=== PATIENT | female | born 1955 | race Caucasian/White ===

== ENCOUNTER 2018-01-30 17:20 | Emergency (ER) | payer OTHER, SELFPAY ==
[2018-01-30 17:25] VITALS: BP 158/86; PULSE 77; RESP 22; TEMP 36.8; O2SAT 99; BMI 32.8
--- NOTE | 2018-01-30 18:37 | PC.NURSE ---
Patient reports she had a knee replacement surgery 1 year ago and has begun walking for exercise for the last month trying to get back in shape. She noticed initially that she was a little short of breath and that it has progressively gotten worse over the last few weeks. Reports exertional shortness of breath and a cough that is is tight. Was prescribed an albuterol nebulizer last week which she used 4x today with no relief. States she had to sleep sitting up last night. Denies swelling in the feet and reports some burning in the chest which is mild.
--- NOTE | 2018-01-30 18:52 | DI.RAD.S_ITS ---
PROCEDURE: XR CHEST 2V INDICATIONS: SHORTNESS OF BREATH TECHNIQUE: 2 views of the chest were acquired. COMPARISON: [facility], , CHEST 1 VIEW, 01/05/2017, 20:58. FINDINGS: Surgical changes and devices: None. Lungs and pleura: No pleural effusions or pneumothorax. Lungs are clear. Mediastinum: Mediastinal contours are normal. Heart size is normal. Bones and chest wall: No suspicious bony abnormalities. Soft tissues appear unremarkable. IMPRESSION: No acute intracranial abnormality. Dictated by: Elvis Gallagher M.D. on 01/30/2018 at 19:18 Approved by: Elvis Gallagher M.D. on 01/30/2018 at 19:18
[2018-01-30 19:15] VITALS: BP 165/63; PULSE 79; RESP 15; O2SAT 98
[2018-01-30 19:39] LABS: Add Manual Diff / Slide Review NO; Basophils Percent Auto 0.7 % (0-2); Eosinophils Percent Auto 2.2 % (2-4); Hematocrit 40.3 % (36-46); Mean Corpuscular HGB Conc 34.6 % (30-36); Mean Corpuscular Hemoglobin 33.8 PG (26-34); Mean Corpuscular Volume 97.8 fL (80-100); Monocytes Percent Auto 8.4 % (3-14); Neutrophils Absolute Auto 6400 /uL (3000-5900); Neutrophils Percent Auto 62.7 % (50-75); Platelet Count 291 X10^3/uL (150-400); Red Blood Cell Count 4.12 X10^6/uL (4.0-5.2); Red Cell Distribution Width 12.4 % (11.6-14.8); White Blood Cell Count 10.2 X10^3/uL (4.5-11.0)
[2018-01-30 19:45] LABS: BUN Creatinine Ratio 12.5 (6-22); Calcium 10.1 mg/dL (8.4-10.2); Estimated Glomerular Filt Rate > 60.0 mL/min (>60); Glucose 100 mg/dL (80-110); HEMOLYSIS < 15 (0-50); Potassium 3.9 mmol/L (3.4-5.1); Sodium 138 mmol/L (137-145)
[2018-01-30 19:50] LABS: D Dimer < 200 ng/mL (<231)
[2018-01-30 20:00] LABS: Troponin I < 0.012 ng/mL (0.01-0.034)
[2018-01-30 20:05] LABS: B Type Natriuretic Peptide 41.6 (<100)
[2018-01-30 20:30] VITALS: BP 130/65; PULSE 88; RESP 18; O2SAT 98
--- NOTE | 2018-01-30 21:05 | ED_ITS ---
HPI - SOB/Dyspnea General Chief Complaint: Shortness of Breath/Dyspnea Stated Complaint: COUGH,WHEZZING Time Seen by Provider: 01/30/18 18:16 History of Present Illness HPI 62-year-old obese female with HTN, and HLD presents for evaluation of mild exercise-induced shortness of breath/exercise intolerance that has been noticed over the last month as she is attempted to return to exercise phone knee replacement approximately one year ago. Patient notes that she had dyspepsia - like discomfort earlier today but is currently asymptomatic. * PE risk factors: denies recent immobilization, leg trauma, estrogen use, surgery in the last four weeks, hemoptysis, or malignancy in the last 6 months. * Smokin pack-year history. * Inhaler(s): albuterol, uses following upper respiratory infections. * CHF: denies weight gain or diuretic use. However, patient horses mild orthopnea. M/S/F/SocHx notable for: please see HPI; remainder reviewed with patient and in chart. ROS: Negative constitutional, eye, cardiovascular, pulmonary, GI, , MSK, skin , neurologic, psychiatric, endocrine unless noted in the HPI. Exam Gen: Pleasant, non-toxic appearing, resting comfortably. HEENT: NC, AT, PEERL, EOMI, trachea midline. Resp: Clear to auscultation bilaterally, normal work of breathing. Card: RRR with no M/R/G, no crackles in lung bases, no pedal edema, no JVD appreciated. GI: NT/ND Vascular: Both ankles, calves, and thighs of equal size, no calf tenderness to palpation bilaterally. MSK: No chest wall TTP. No visible deformities, strength and tone WNL. Skin: Normal color with no visible lesions. Neuro: AO x 3, no facial asymmetry, vision and hearing WNL. Psych: Mood and affect appropriate. Labs / Imaging (pertinent): WBC 10.2, HB 14.0, d-dimer less than 200, sodium 130, potassium 3.9, troponin less than 0.012, BNP 41.6 EKG: SR at 61 bpm, no HI segment depressions, no new ST segment changes, new LBBB, or T-wave changes that would suggest acute ischemia. CXR: No acute cardiopulmonary disease process. No focal infiltrate, cardiomegaly , rib fractures, or mediastinal widening, lung markings extend to the periphery bilaterally and there are no deep sulci. MDM Previous chart, nursing note, and vitals reviewed. A: 62-year-old obese female with HTN, and HLD presents for evaluation of mild exercise-induced shortness of breath/exercise intolerance that has been noticed over the last month as she is attempted to return to exercise phone knee replacement approximately one year ago. DDx: pneumonia, reactive airway disease / COPD / Asthma, bronchitis, pneumothorax, anxiety, PE, CHF, pleural effusion, pericardial effusion, ACS. Evaluation: * unstable angina - HEART (Hx - 0, EKG - 0, age - 1, risk factors - 2, troponin - 0; 30 day MACE: less than or equal to 1.7%) 3. * Reactive airway disease / COPD / Asthma - patient with good air movement and an absence of wheezing. * Pleural effusion/pericardial effusion/Pneumothorax - no evidence by CXR or exam. * PE - Wells' (Signs & Sx of DVT - 0, PE is #1 or equally likelihood - 0, HR > 100 - 0, immobilization of >=3 days or surgery in last 28 days - 0, prior DVT or PE - 0, hemoptysis - 0, malignancy w/ tx in last 6 mo or palliative - 0) 0; as such the patient's negative d-dimer is appropriate for PE rule out/risk stratification. * CHF - no evidence by auscultation, CXR, BNP, and absence of pedal edema. * ACS - doubt ACS given a non-ischemic EKG and a negative troponin greater than six hours from maximal symptom onset. * Deconditioning - tentatively suspect deconditioning, further evaluation deferred to PCP. Disposition: discharge with PCP follow-up. Impression: fatigue (please reference below for remainder of encounter information) Related Data Home Medications Medication Instructions Recorded Confirmed carvedilol [Coreg] PO BID #0 01/07/17 losartan 100 mg PO HS #0 01/07/17 Allergies Allergy/AdvReac Type Severity Reaction Status Date / Time meperidine [From DEMEROL] Allergy Unknown Hallucinati Verified 01/30/18 17:29 ng morphine [MORPHINE] Allergy Unknown Difficulty Verified 01/30/18 17:30 Breathing PFSH Social History Smoking Status: Never smoker Exam Initial Vital Signs Initial Vital Signs: Vital Signs Temperature 98.3 F 01/30/18 17:25 Pulse Rate 77 01/30/18 17:25 Respiratory Rate 22 01/30/18 17:25 Blood Pressure 158/86 H 01/30/18 17:25 Pulse Oximetry 99 01/30/18 17:25 Course Orders Ordered: ED Orders 01/30/18 18:40 EKG-12 Lead Stat 01/30/18 18:52 XR chest 2V Stat 01/30/18 19:20 B Type Natriuretic Peptide Stat Basic Metabolic Panel Stat Complete Blood Count AUTO DIFF Stat D Dimer Stat Troponin I Stat Vital Signs - 8 hr 01/30/18 17:25 01/30/18 19:15 Temperature 98.3 F Pulse Rate 77 79 Respiratory Rate 22 15 Blood Pressure 158/86 H Blood Pressure [Left Arm] 165/63 H Pulse Oximetry 99 98 MDM - SOB/Dyspnea Lab Data Result diagrams: 01/30/18 19:20 01/30/18 19:20 Lab Results 01/30/18 01/30/18 01/30/18 Range/Units 19:20 19:20 19:20 WBC 10.2 (4.5-11.0) X10^3/uL RBC 4.12 (4.0-5.2) X10^6/uL Hgb 14.0 (12.0-16.0) g/dL Hct 40.3 (36-46) % MCV 97.8 (80-100) fL MCH 33.8 (26-34) PG MCHC 34.6 (30-36) % RDW 12.4 (11.6-14.8) % Plt Count 291 (150-400) X10^3/uL Neut % (Auto) 62.7 (50-75) % Lymph % (Auto) 26.0 (25-40) % [place] % (Auto) 8.4 (3-14) % Eos % (Auto) 2.2 (2-4) % Baso % (Auto) 0.7 (0-2) % Neut # (Auto) 6400 H (5603-4042) /uL D-Dimer < 200 (<231) ng/mL Sodium 138 (137-145) mmol/L Potassium 3.9 (3.4-5.1) mmol/L Chloride 95.0 L (98-107) mmol/L Carbon Dioxide 28.0 (22-32) mmol/L BUN 10.0 (7-17) mg/dL Creatinine 0.80 (0.52-1.04) mg/dL Estimated GFR > 60.0 (>60) mL/min BUN/Creatinine Ratio 12.5 (6-22) Glucose 100 (80-110) mg/dL Calcium 10.1 (8.4-10.2) mg/dL Troponin I < 0.012 (0.01-0.034) ng/mL B-Natriuretic Peptide 41.6 (<100) Discharge Plan Departure Prescriptions: No Action carvedilol [Coreg] 12.5 mg Tablet PO BID Qty: 0 RF: 0 losartan 100 MG tablet 100 mg PO HS Qty: 0 RF: 0
--- NOTE | 2018-01-30 21:16 | PC.NURSE ---
Patient standing up at bedside coughing, cough sounds tight and bronchospastic. She states it is like a constant catch or tickle. I listened and could hear a very minor wheeze on her back. O2 Saturation is 96%. Patient has her own inhaler and states she used it 4x today. She does not have a spacer. I provided her with a spacer and taught her how to use it. I also explained to her how often she can use it. She used it at the bedside and cough subsided a bit. States she will use it at home and follow up with her PCP at her appointment on tuesday. Torres aware of all of this. Ok to DC.
[2018-01-30 21:22] VITALS: BP 129/63; PULSE 77; RESP 18; O2SAT 96
== END 2018-01-30 21:23 | disposition home or self-care (01) ==
PROVIDERS: Emergency Provider Emergency Medicine
DX: R53.83 Other fatigue (principal)
CPT/HCPCS: 36591; 71046; 80048; 83880; 84484; 85025; 85379; 93005; 93041; 99283; 99285

== ENCOUNTER → 2018-08-16 09:18 | Outpatient (CLI) | payer OTHER, SELFPAY ==
--- NOTE | 2018-08-16 | DI.MG.S_ITS ---
BILATERAL DIGITAL SCREENING MAMMOGRAM 3D/2D WITH CAD: 08/16/2018 CLINICAL: Routine screening. Family history of breast cancer. Comparison is made to exams dated: 08/09/2017 mammogram - [facility], 07/29/2016 mammogram, 07/26/2016 mammogram, and 01/20/2015 mammogram - [facility]. There are scattered fibroglandular elements in both breasts. Current study was also evaluated with a Computer Aided Detection (CAD) system. No significant masses, calcifications, or other findings are seen in either breast. There has been no significant interval change. IMPRESSION: NEGATIVE There is no mammographic evidence of malignancy. A 1 year screening mammogram is recommended. This exam was interpreted at Station ID: [id number]. NOTE: For mammograms, a report in lay terms will be sent to the patient. Approximately 15% of breast malignancies will not be visualized mammographically. In the management of a palpable breast mass, a negative mammogram must not discourage biopsy of a clinically suspicious lesion. Electronically Signed By: Samy michael/katie:08/16/2018 11:45:22 letter sent: Normal Exam ACR BI-RADS Category 1: Negative 3341F
== END ==
PROVIDERS: Visit Provider Family Medicine
DX: Z12.31 Encounter for screening mammogram for malignant neoplasm of breast (principal); Z80.3 Family history of malignant neoplasm of breast
CPT/HCPCS: 77063; 77067

== ENCOUNTER → 2018-08-18 10:27 | Outpatient (CLI) | payer OTHER, SELFPAY ==
--- NOTE | 2018-08-18 10:30 | DI.RAD.S_ITS ---
PROCEDURE: XR CHEST 2V INDICATIONS: cough and shortness of breath TECHNIQUE: 2 views of the chest were acquired. COMPARISON: [facility], CR, XR CHEST 2V, 01/30/2018, 18:44. FINDINGS: Surgical changes and devices: None. Lungs and pleura: No pleural effusions or pneumothorax. Lungs are clear. Mediastinum: Mediastinal contours are normal. Heart size is normal. Bones and chest wall: No suspicious bony abnormalities degenerative changes of the bilateral shoulders are present.. Soft tissues appear unremarkable. IMPRESSION: Stable chest. No acute cardiopulmonary process is evident. Dictated by: Andres Goldsmith M.D. on 08/18/2018 at 9:48 Approved by: Andres Goldsmith M.D. on 08/18/2018 at 9:49
== END ==
PROVIDERS: PCP Family Medicine; Visit Provider Physician Assistant
DX: R05 Cough (principal); R06.02 Shortness of breath
CPT/HCPCS: 71046

== ENCOUNTER → 2018-08-22 15:32 | Outpatient (CLI) | payer OTHER, SELFPAY ==
--- NOTE | 2018-08-22 15:33 | DI.RAD.S_ITS ---
PROCEDURE: XR CHEST 2V INDICATIONS: cough TECHNIQUE: 2 views of the chest were acquired. COMPARISON: [facility], CR, XR CHEST 2V, 08/18/2018, 10:35. FINDINGS: Surgical changes and devices: None. Lungs and pleura: Minimal linear discoid atelectasis at the left lung base is identified. No focal consolidation is evident. No pleural effusion or pneumothorax is evident. The aeration of the lungs is otherwise within normal limits and unchanged. Mediastinum: Mediastinal contours are normal. Heart size is normal. Bones and chest wall: No suspicious bony abnormalities. Soft tissues appear unremarkable. IMPRESSION: Mild left basilar atelectasis present superimposed pneumonia is felt to be less likely, but cannot be completely excluded. Dictated by: Andres Goldsmith M.D. on 08/22/2018 at 15:59 Approved by: Andres Goldsmith M.D. on 08/22/2018 at 16:00
== END ==
PROVIDERS: PCP Family Medicine; Visit Provider Physician Assistant
DX: R05 Cough (principal); J98.11 Atelectasis
CPT/HCPCS: 71046

== ENCOUNTER → 2019-03-20 10:58 | Outpatient (CLI) | payer OTHER, SELFPAY ==
--- NOTE | 2019-03-20 10:59 | DI.RAD.S_ITS ---
PROCEDURE: XR CHEST 2V INDICATIONS: cough TECHNIQUE: 2 views of the chest were acquired. COMPARISON: [facility], CR, XR CHEST 2V, 08/22/2018, 15:36. FINDINGS: Surgical changes and devices: None. Lungs and pleura: Lungs are clear. No pleural effusions or pneumothorax. Mediastinum: Mediastinal contours are normal. Heart size is normal. Bones and chest wall: No suspicious bony abnormalities. Soft tissues appear unremarkable. IMPRESSION: No evidence acute pulmonary process. Dictated by: Pedro Onofre M.D. on 03/20/2019 at 11:41 Approved by: Pedro Onofre M.D. on 03/20/2019 at 11:41
== END ==
PROVIDERS: PCP Student in an Organized Health Care Education/Training Program; Visit Provider Physician Assistant
DX: R05 Cough (principal)
CPT/HCPCS: 71046

== ENCOUNTER → 2019-07-06 16:12 | Outpatient (CLI) | payer OTHER, SELFPAY ==
--- NOTE | 2019-07-06 16:14 | DI.RAD.S_ITS ---
PROCEDURE: XR THORACIC SPINE 3V INDICATIONS: Upper back pain; point tenderness of spine TECHNIQUE: 3 views of the thoracic spine were acquired. COMPARISON: [facility], CR, XR CHEST 2V, 03/20/2019, 11:06. FINDINGS: Bones: No fractures or dislocations. No suspicious bony lesions. 12 pairs of ribs are noted, and appear intact where visualized. Mild dextrocurvature centered at the mid thoracic level. Mild multilevel disc degeneration. Soft tissues: No paravertebral stripe thickening. Cholecystectomy clips. IMPRESSION: Mild multilevel disc degeneration. Dictated by: Felix CORREA Interpreted: Yanet Balderas MD on 07/06/2019 at 16:36 Approved by: Yanet Balderas M.D. on 07/06/2019 at 18:47
== END ==
PROVIDERS: PCP Student in an Organized Health Care Education/Training Program; Visit Provider Student in an Organized Health Care Education/Training Program
DX: M51.34 Other intervertebral disc degeneration, thoracic region (principal)
CPT/HCPCS: 72072

== ENCOUNTER 2019-07-27 06:32 | Day surgery (SDC) | payer OTHER, SELFPAY ==
[2019-07-23 15:07] VITALS: BMI 32.8
[2019-07-27] VITALS (10 sets, daily range): BP systolic 112–150; BP diastolic 55–79; PULSE 74–97; RESP 0–97; TEMP 35.9–36.7; O2SAT 10–98; BMI 31.8
--- NOTE | 2019-07-27 | PATH_ITS ---
[facility] Accession Number: [id number] . 01 Material submitted: . uterine adnexa - BILATERAL OVARIES AND FALLOPIAN TUBES . 01 Clinical history: . LAPAROSCOPIC BSO . 02 Diagnosis: Bilateral Ovaries and Fallopian Tubes, Laparoscopic Bilateral Salpingo-oophorectomy: Detached segment of fallopian tube with no significant histomorphologic abnormality. Blue-inked segment of fallopian tube and blue-inked ovary with no significant histomorphologic abnormality. Green-inked fallopian tube with non-specific adhesions and green-inked ovary with no significant histomorphologic abnormality. Negative for atypia or malignancy. V 07/30/2019 1547 Local . 02 Electronically signed: . Selin Jackson MD, Pathologist NPI- [id number] . 01 Gross description: . The specimen is received in a formalin-filled container labeled bilateral ovaries and fallopian tubes and consists of a 2.0 x 0.5 cm segment of fallopian tube which has an underlying attached 2.7 x 1.3 x 1.2 cm ovary, which have a combined weight of 2.0 g. Also present is a 2.0 x 0.6 cm additional segment of fallopian tube which has an underlying attached 2.5 x 1.2 x 1.0 cm ovary, which has a combined weight of 6.0 g. Lastly, separately received in the same container is an additional 5.4 x 0.6 cm in length portion of fallopian tube. The fallopian tubes are all pink-moore, smooth, and intact. One tube with underlying attached ovary is differentially inked blue and the opposing tube with attached underlying ovary is differentially inked green. Sectioning of the fallopian tubes reveal pink-moore, grossly unremarkable cut surfaces with a pinpoint lumen. The green-inked fallopian tube is convoluted and focally adherent onto itself. The ovarian serosa is moore, smooth, and nodular. Sectioning of the ovaries reveal focally hemorrhagic, otherwise grossly unremarkable cut surfaces. The usual ovarian architecture is grossly identified. . [employer] Specialist sections are submitted as follows: A1 - free-floating fallopian tube without ovary; A2 - blue-inked fallopian tube, sectioned and entirely submitted; A3-A4 - green-inked fallopian tube, sectioned and entirely submitted; A5 - blue-inked ovary; A6 - green-inked ovary. ([id number]) /FRR 07/28/2019 1057 Local . 02 Pathologist provided ICD-10: Z15.09 . 02 CPT . 104822 Performed at: 01 [facility] [address] [id number] MD Samy Cordoba MD Phone: [phone] Performed at: 02 [facility] [address] [place], [place] [id number] MD Kamini Jang MD Phone: [phone]
--- NOTE | 2019-07-27 07:28 | PM.PREOP ---
Pre-operative Note Interval Note History & Physical reviewed/Exam performed by Physician: Yes Changes to H&P: No
[2019-07-27] MEDS: LACTATED RINGERS 1,000 ML 42 ML IV (07:29)
[2019-07-27] MEDS: BUPIVACAINE 0.5% W/ EPI (PF) VIAL 30 ML INJ (08:01)
--- NOTE | 2019-07-27 08:05 | SUR.OPER ---
Lithotomy on padded OR bed, head on pillow, arms secured on padded arm boards at <90 degrees abduction. Legs secured in padded yellow fins stirrups.
--- NOTE | 2019-07-27 08:45 | PM.OP.1 ---
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 No adhesions or internal hernias. Small bilateral ovaries and fallopian tubes status post hysterectomy Closure Type: primary Specimen(s): other (Bilateral tubes and ovaries with peritoneal washings) Estimated Blood Loss (mL): 5 Blood products transfused: none Procedure in detail: Patient was brought to the operating room where she underwent general anesthesia. She was placed in low yellowfin stirrups and prepped and draped in usual sterile fashion. No antibiotics were indicated. Pulsatile stockings were in place and functional. Warming was in place. The area of the incisions were injected with half percent Marcaine with epinephrine. An incision was made in the umbilicus with a scalpel and the Verres needle placed in the abdomen. Confirmation of correct placement of the needle was performed by withdrawing on the syringe and then allowing fluid to fall freely through the needle. The abdomen was insufflated to 4 L of CO2. A 11 mm trocar was placed under direct visualization. 2 other 5 mm trochars were placed in the right and left lower quadrant under direct visualization after incising the skin. There did not appear to be any damage with placement of the trocars. Cell washings were obtained. The right fallopian tube was grasped and the infundibulopelvic ligament was cauterized and cut with the PK generator. Hugging the ovary and coming across the broad ligament until the ovary and tube were removed. Same procedure was performed on the left fallopian tube and ovary. An Endo-Catch bag was placed in the abdomen and the ovaries and tubes placed in the bag. The ovaries and tubes were brought up out of the abdomen without spillage. Adequate hemostasis was noted. The CO2 was allowed to escape from the abdomen. The trochars were removed. The fascial layer of the umbilical incision was repaired with 0 Vicryl suture. Skin was closed with 4-0 monocryl. The patient went to recovery room in good condition. Counts of instruments and sponges were correct. Complications: none Post-operative Condition: stable Disposition: same day surgery Plan for aftercare: Routine post laparoscopic BSO
[2019-07-27] MEDS: fentaNYL 100 MCG/2 ML INJ IV ×2 (08:49→08:56)
[2019-07-27] MEDS: KETOROLAC 30 MG/ML VIAL IV (08:58)
[2019-07-27] MEDS: HYDROMORPHONE 2 MG INJ IV ×2 (09:01→09:12)
[2019-07-27] MEDS: OXYCODONE/ACETAMINOPHEN 5/325 TABLET 1 TAB PO (09:34)
--- NOTE | 2019-07-27 09:53 | SUR.PHASEII ---
Call light within reach. Warming machine in place. Spouse at bedside.
--- NOTE | 2019-07-27 10:47 | SUR.PHASEII ---
Discharged by Aan
--- NOTE | 2019-08-06 | PATH_ITS ---
Note [facility] Accession Number: [id number] TESTS RESULT FLAG UNITS REF RANGE LAB Clinician Provided Cytology Information No. of containers..01 Other (Miscellaneous) 01 PERITONEAL FLUID DIAGNOSIS: 02 PERITONEAL FLUID NEGATIVE FOR MALIGNANT CELLS. THIS INTERPRETATION INCLUDES EVALUATION OF A CELL BLOCK. Pathologist ICD10: 02 Z15.09 02 Thomas Pulido MD, PhD, Pathologist NPI- [id number] Jef Draper, Picking Machine Operator Helper ([facility]) 01 20 CC, PINK, CLOUDY /LCS 09/11/1840 0000 Local FLAG LEGEND: L-Low Normal,H-High Normal,LL-Alert Low,HH-Alert High <-Panic Low,>-Panic High,A-Abnormal,AA-Critical Abnormal Performed at: 01 =Z [facility] [address], [place] [address] Samy Cordoba MD, 02 [facility] [address] [place] [id number] Kamini Jang MD, Specimen Comment: A duplicate report has been generated due to demographic updates. Performed at: 01 [facility] [address], [place], [place] [id number] MD Samy Cordoba MD Phone: [phone]
== END 2019-07-27 10:35 | disposition home or self-care (01) ==
PROVIDERS: PCP Student in an Organized Health Care Education/Training Program; Visit Provider Specialist
PROC: 0UT24ZZ Resection of Bilateral Ovaries, Percutaneous Endoscopic Approach (ICD-10-PCS; CPT 58661; principal; 2019-07-27 07:45)
DX: Z40.02 Encounter for prophylactic removal of ovary(s) (principal); Z15.09 Genetic susceptibility to other malignant neoplasm; J45.909 Unspecified asthma, uncomplicated; I10 Essential (primary) hypertension
CPT/HCPCS: 58661; J0330; J1100; J1170; J1885; J2405; J2704; J3010

== ENCOUNTER → 2019-10-11 11:19 | Outpatient (CLI) | payer OTHER, SELFPAY ==
--- NOTE | 2019-10-11 | DI.MG.S_ITS ---
BILATERAL DIGITAL SCREENING MAMMOGRAM 3D/2D WITH CAD: 10/11/2019 CLINICAL: Routine screening. Family history of breast cancer. Comparison is made to exams dated: 08/16/2018 mammogram, 08/09/2017 mammogram - [facility], and 07/29/2016 mammogram - [facility]. There are scattered fibroglandular elements in both breasts. Current study was also evaluated with a Computer Aided Detection (CAD) system. No significant masses, calcifications, or other findings are seen in either breast. There has been no significant interval change. IMPRESSION: NEGATIVE There is no mammographic evidence of malignancy. A 1 year screening mammogram is recommended. This exam was interpreted at Station ID: [id number]. NOTE: For mammograms, a report in lay terms will be sent to the patient. Approximately 15% of breast malignancies will not be visualized mammographically. In the management of a palpable breast mass, a negative mammogram must not discourage biopsy of a clinically suspicious lesion. Electronically Signed By: Ashleigh ruiz/katie:10/11/2019 12:19:07 letter sent: Normal Exam ACR BI-RADS Category 1: Negative 3341F
== END ==
PROVIDERS: PCP Student in an Organized Health Care Education/Training Program; Visit Provider Student in an Organized Health Care Education/Training Program
DX: Z12.31 Encounter for screening mammogram for malignant neoplasm of breast (principal); Z80.3 Family history of malignant neoplasm of breast
CPT/HCPCS: 77063; 77067

== ENCOUNTER → 2019-11-06 16:41 | Outpatient (CLI) | payer OTHER, SELFPAY ==
[2019-11-06 18:20] LABS: Alanine Aminotransferase 29 IU/L (<35); Albumin 4.8 g/dL (3.5-5.0); Albumin Globulin Ratio 1.7 (1.0-2.8); Alkaline Phosphatase 79 U/L (38-126); Aspartate Aminotransferase 30 IU/L (14-36); BUN Creatinine Ratio 17.5 (6-22); Bilirubin Total 0.3 mg/dL (0.2-1.3); Blood Urea Nitrogen 14 mg/dL (7-17); Calcium 10.3 mg/dL (8.4-10.2); Carbon Dioxide 28 mmol/L (22-32); Chloride 99 mmol/L (98-107); Cholesterol 225 mg/dL (140-199); Estimated Glomerular Filt Rate > 60.0 mL/min (>60); Globulin 2.9 g/dL (1.7-4.1); Glucose 108 mg/dL (80-110); HDL Cholesterol 59 mg/dL (40-60); HEMOLYSIS < 15 (0-50); LDL Cholesterol Calculated 125 mg/dL (<100); Potassium 4.1 mmol/L (3.4-5.1); Sodium 137 mmol/L (137-145); Total Protein 7.7 g/dL (6.3-8.2); Triglycerides 203 mg/dL (35-150)
[2019-11-06 18:30] LABS: C-Reactive Protein Quant < 0.5 mg/dL (<1.0)
[2019-11-06 18:40] LABS: Vitamin D 25 Hydroxy (D3) 53.8 ng/mL (30.0-100.0)
[2019-11-06 18:53] LABS: TSH w/ Reflex to FT4 0.96 uIU/mL (0.47-4.68)
== END ==
PROVIDERS: PCP Student in an Organized Health Care Education/Training Program; Referring Provider Student in an Organized Health Care Education/Training Program; Visit Provider Student in an Organized Health Care Education/Training Program
DX: Z13.220 Encounter for screening for lipoid disorders (principal); E55.9 Vitamin D deficiency, unspecified; Z91.89 Other specified personal risk factors, not elsewhere classified; I10 Essential (primary) hypertension; Z15.09 Genetic susceptibility to other malignant neoplasm; Z79.899 Other long term (current) drug therapy; K59.09 Other constipation
CPT/HCPCS: 36415; 80053; 80061; 82306; 84443; 86140

== ENCOUNTER → 2020-10-14 11:13 | Outpatient (CLI) | payer OTHER, SELFPAY ==
--- NOTE | 2020-10-14 | DI.MG.S_ITS ---
BILATERAL DIGITAL SCREENING MAMMOGRAM 3D/2D WITH CAD: 10/14/2020 CLINICAL: Routine screening. Comparison is made to exams dated: 10/11/2019 mammogram, 08/16/2018 mammogram, and 08/09/2017 mammogram - [facility]. There are scattered fibroglandular elements in both breasts. Current study was also evaluated with a Computer Aided Detection (CAD) system. No significant masses, calcifications, or other findings are seen in either breast. There has been no significant interval change. IMPRESSION: NEGATIVE There is no mammographic evidence of malignancy. A 1 year screening mammogram is recommended. This exam was interpreted at Station ID: [id number]. NOTE: For mammograms, a report in lay terms will be sent to the patient. Approximately 15% of breast malignancies will not be visualized mammographically. In the management of a palpable breast mass, a negative mammogram must not discourage biopsy of a clinically suspicious lesion. Electronically Signed By: Samy michael/katie:10/14/2020 16:11:42 letter sent: Normal Exam ACR BI-RADS Category 1: Negative 3341F
== END ==
PROVIDERS: PCP Student in an Organized Health Care Education/Training Program; Referring Provider Student in an Organized Health Care Education/Training Program; Visit Provider Student in an Organized Health Care Education/Training Program
DX: Z12.31 Encounter for screening mammogram for malignant neoplasm of breast (principal)
CPT/HCPCS: 77063; 77067

== ENCOUNTER 2021-01-18 22:42 | Emergency (ER) | payer OTHER, SELFPAY ==
[2021-01-18 22:44] VITALS: BP 155/85; PULSE 90; RESP 22; TEMP 36.9; O2SAT 99; BMI 32.8
--- NOTE | 2021-01-18 22:52 | DI.RAD.S_ITS ---
PROCEDURE: XR CHEST 2V INDICATIONS: shortness of breath TECHNIQUE: 2 views of the chest were acquired. COMPARISON: [facility], CR, XR CHEST 2V, 03/20/2019, 11:06. FINDINGS: Surgical changes and devices: None. Lungs and pleura: Lungs are clear. Mild central bronchial wall thickening. No pleural effusions or pneumothorax. Mediastinum: Mediastinal contours are normal. Heart size is normal. Bones and chest wall: No suspicious bony abnormalities. Soft tissues appear unremarkable. IMPRESSION: No consolidation. Mild central bronchial wall thickening which can be associated with reactive airway disease or viral infection. Dictated by: Saumya Mahoney MD, PhD on 01/19/2021 at 9:13 Approved by: Saumya Mahoney MD, PhD on 01/19/2021 at 9:14
[2021-01-18 23:16] LABS: COVID19 -Nasal RAPID Negative (Negative)
[2021-01-18] MEDS: ALBUTEROL 2.5 MG/3 ML NEB (ADULT) 15 MG INH (23:18)
[2021-01-18] MEDS: IPRATROPIUM 0.5 MG/2.5 ML NEB INH (23:18)
[2021-01-18 23:24] VITALS: PULSE 84; RESP 24
[2021-01-18 23:30] LABS: Add Manual Diff / Slide Review NO; Basophils Absolute Auto 0 /uL (0-100); Basophils Percent Auto 0.4 % (0-2); Eosinophils Absolute Auto 0 /uL (0-450); Hematocrit 40.4 % (36-46); Hemoglobin 13.6 g/dL (12.0-16.0); Lymphocytes Absolute Auto 2700 /uL (1100-4500); Lymphocytes Percent Auto 25.7 % (25-40); Mean Corpuscular HGB Conc 33.7 % (30-36); Mean Corpuscular Hemoglobin 33.2 PG (26-34); Mean Corpuscular Volume 98.5 fL (80-100); Monocytes Absolute Auto 800 /uL (0-900); Neutrophils Absolute Auto 6900 /uL (1500-7000); Neutrophils Percent Auto 65.9 % (50-75); Platelet Count 332 X10^3/uL (150-400); Red Cell Distribution Width 12.2 % (11.6-14.8); White Blood Cell Count 10.5 X10^3/uL (4.5-11.0)
[2021-01-18 23:33] LABS: Lactate (Lactic Acid) 3.5 mmol/L (0.7-2.1)
[2021-01-18 23:34] LABS: Alanine Aminotransferase 38 IU/L (<35); Albumin 4.8 g/dL (3.5-5.0); Albumin Globulin Ratio 1.5 (1.0-2.8); Alkaline Phosphatase 82 U/L (38-126); Aspartate Aminotransferase 34 IU/L (14-36); Bilirubin Total 0.2 mg/dL (0.2-1.3); Blood Urea Nitrogen 20 mg/dL (7-17); Calcium 10.3 mg/dL (8.4-10.2); Carbon Dioxide 24 mmol/L (22-32); Chloride 97 mmol/L (98-107); Estimated Glomerular Filt Rate > 60.0 mL/min (>60); Globulin 3.3 g/dL (1.7-4.1); Glucose 108 mg/dL (80-110); HEMOLYSIS < 15 (0-50); Potassium 4.2 mmol/L (3.4-5.1); Sodium 133 mmol/L (137-145); Total Protein 8.1 g/dL (6.3-8.2)
[2021-01-19] VITALS (19 sets, daily range): BP systolic 115–136; BP diastolic 54–78; PULSE 70–97; RESP 14–27; O2SAT 91–99
[2021-01-19 01:19] LABS: Reflexed Lactate in 2 Hours Y
--- NOTE | 2021-01-19 01:50 | ED.SOB ---
HPI - SOB/Dyspnea <Zulema Cifuentes, DO - Last Filed: 01/20/21 04:01> General Chief Complaint: Shortness of Breath/Dyspnea Stated Complaint: asthma attack Time Seen by Provider: 01/19/21 01:50 Source: patient Mode of arrival: Ambulatory Limitations: no limitations History of Present Illness HPI Narrative: This is a 65-year-old female comes in with increasing shortness of breath and wheezing for the past week. Patient states she caught a recent viral infection and has had cough, nasal congestion and increasing productive congestion in her upper airways. Patient has a history of asthma/reactive airway disease and has had some increasing shortness of breath. She denies any chest pain or pressure. She denies any fevers. She has not had any nausea or vomiting she denies any other GI or urinary symptoms. No swelling in her extremities. She is on budesonide twice daily. She started a prednisone taper and has had 3 days of 40 mg prednisone and is about to start 3 days of 30 mg prednisone which is a automatic prescription she has from her asthma action plan. Patient has done DuoNebs x2 with minimal improvement. She started having some tightness in her throat and felt like she needs to cough and was not able to break the coughing cycle and came in. Patient states she does take hypertension medication. She denies other medical issues. She has allergies to Demerol and morphine. She is accompanied by her today. Related Data Previous Rx's Medication Instructions Recorded prednisone 20 mg tablet 20 mg PO DAILY #10 tab 10/30/19 albuterol sulfate 90 mcg/actuation 1 inh INHALATION Q4-6H PRN #18 gram 02/19/20 aerosol inhaler losartan 100 mg tablet 100 mg PO HS #90 tab 03/20/20 bupropion HCl 100 mg tablet,12 hr 100 mg PO DAILY #90 each 07/15/20 sustained-release budesonide 0.5 mg/2 mL suspension 0.5 mg INHALATION BID #60 ml 07/30/20 for nebulization beclomethasone dipropionate 80 1 inh INHALATION BID #10.6 gram 11/28/20 mcg/actuation HFA breath activated aerosol ipratropium 0.5 mg-albuterol 3 mg 3 ml INHALATION Q6H PRN #90 ml 11/28/20 (2.5 mg base)/3 mL nebulization soln amlodipine 5 mg tablet 5 mg PO DAILY #90 tab 01/15/21 ipratropium-albuterol 3 ml INHALATION BID #90 ml 01/19/21 prednisone See Rx Instructions .ROUTE 01/19/21 .COMPLEX #30 tab Allergies Allergy/AdvReac Type Severity Reaction Status Date / Time meperidine [From DEMEROL] Allergy Unknown Hallucinati Verified 10/30/19 13:01 ng morphine [MORPHINE] Allergy Unknown Difficulty Verified 10/30/19 13:01 Breathing Review of Systems <Zulema Cifuentes DO - Last Filed: 01/20/21 04:01> Review of Systems ROS Unobtainable: All systems reviewed & are unremarkable except as noted in HPI and below Patient History <Zulema Cifuentes DO - Last Filed: 01/20/21 04:01> Medical History Depression HTN (hypertension) Plantar fasciitis Surgical History H/O: hysterectomy History of bilateral oophorectomy (~07/2019) History of section Hx of bilateral inguinal hernia repair Hx of cholecystectomy Social History household members: spouse Smoking Status: Never smoker alcohol intake: current Smoking Status: Never smoker alcohol intake frequency: a few times a week Substance Use Type: does not use Exam <Zulema Cifuentes DO - Last Filed: 01/20/21 04:01> Narrative Exam Narrative: GEN: well nourished, female, alert and oriented x 3, patient appears to be in mild distress. Patient had already received a 15 mg albuterol neb. HEENT: Atraumatic, pupils are equal round reactive to light, extraocular movements are intact, nares are clear, Throat is clear without any exudates, erythema, tonsillar enlargement or uvular deviation HEART: Regular rate and rhythm without murmur, clicks, rubs. No edema bilateral lower extremities. No JVD. LUNGS:Lungs breath sounds bilaterally which are equal, no wheezes, rales, crackles, chest moves symmetrically, no tachypnea. Patient has a dry harsh cough. ABD:bowel sounds normal, soft, non-tender, no guarding, rebound, rigidity, no masses noted, no hepatosplenomegaly :No CVA tenderness MSCL: Non-tender, full range of motion, normal gait NEURO:CN 2-12 intact, sensation normal Initial Vital Signs Initial Vital Signs: Vital Signs Temperature 98.4 F 01/18/21 22:44 Pulse Rate 90 01/18/21 22:44 Respiratory Rate 22 01/18/21 22:44 Blood Pressure 155/85 H 01/18/21 22:44 Pulse Oximetry 99 01/18/21 22:44 <Jerry Sherman DO - Last Filed: 01/19/21 15:29> Initial Vital Signs Initial Vital Signs: Vital Signs Temperature 98.4 F 01/18/21 22:44 Pulse Rate 90 01/18/21 22:44 Respiratory Rate 22 01/18/21 22:44 Blood Pressure 155/85 H 01/18/21 22:44 Pulse Oximetry 99 01/18/21 22:44 Course <Zulema Cifuentes DO - Last Filed: 01/20/21 04:01> Orders Ordered: Discontinued Medications Albuterol (Albuterol 2.5 Mg/3 Ml Neb (Adult)) 15 mg INH NOW ONE Stop: 01/18/21 23:13 Last Admin: 01/18/21 23:18 Dose: 15 mg Documented by: MARIO ALBERTO Benzonatate (Benzonatate 100 Mg Capsule) 100 mg PO NOW ONE Stop: 01/19/21 02:19 Last Admin: 01/19/21 02:40 Dose: 100 mg Documented by: MADELYN Sodium Chloride (Normal Saline 0.9%) 1,000 mls @ 1,000 mls/hr IV BOLUS ONE Stop: 01/19/21 03:53 Last Infusion: 01/19/21 04:38 Dose: 0 mls/hr Documented by: Admin: 01/19/21 03:15 Dose: 1,000 mls/hr Documented by: CHENTE Ipratropium [place] (Ipratropium 0.5 Mg/2.5 Ml Neb) 0.5 mg INH NOW ONE Stop: 01/18/21 23:13 Last Admin: 01/18/21 23:18 Dose: 0.5 mg Documented by: MARIO ALBERTO Methylprednisolone (Methylprednisolone 125 Mg/2 Ml Vial) 125 mg IV NOW ONE Stop: 01/19/21 02:04 Last Admin: 01/19/21 02:18 Dose: 125 mg Documented by: MADELYN Vital Signs Vital signs: Vital Signs - 8 hr 01/19/21 07:30 01/19/21 08:00 01/19/21 10:26 Pulse Rate 87 80 70 Respiratory Rate 15 18 Blood Pressure 122/78 Pulse Oximetry 96 91 99 <Jerry Sherman, DO - Last Filed: 01/19/21 15:29> Course Course Narrative: Patient received in sign-out from Dr. Cifuentes. Patient seen and evaluated and independent history and physical performed. She is preparing to get her CT angiogram we will discuss disposition at that point Patient feels much better, lung sounds show marked improvement, imaging demonstrates no blood clot or pneumonia. Her lactate is elevated but she has no fever, elevated white blood cell count or sign of infection. It is very likely this is elevated due to the frequency of use of bronchodilators. Sepsis is not considered likely in this patient. He has been given extensive return precautions and had questions answered to her apparent satisfaction. Orders Ordered: Discontinued Medications Albuterol (Albuterol 2.5 Mg/3 Ml Neb (Adult)) 15 mg INH NOW ONE Stop: 01/18/21 23:13 Last Admin: 01/18/21 23:18 Dose: 15 mg Documented by: MARIO ALBERTO Benzonatate (Benzonatate 100 Mg Capsule) 100 mg PO NOW ONE Stop: 01/19/21 02:19 Last Admin: 01/19/21 02:40 Dose: 100 mg Documented by: MADELYN Sodium Chloride (Normal Saline 0.9%) 1,000 mls @ 1,000 mls/hr IV BOLUS ONE Stop: 01/19/21 03:53 Last Infusion: 01/19/21 04:38 Dose: 0 mls/hr Documented by: Admin: 01/19/21 03:15 Dose: 1,000 mls/hr Documented by: CHENTE Ipratropium [place] (Ipratropium 0.5 Mg/2.5 Ml Neb) 0.5 mg INH NOW ONE Stop: 01/18/21 23:13 Last Admin: 01/18/21 23:18 Dose: 0.5 mg Documented by: MARIO ALBERTO Methylprednisolone (Methylprednisolone 125 Mg/2 Ml Vial) 125 mg IV NOW ONE Stop: 01/19/21 02:04 Last Admin: 01/19/21 02:18 Dose: 125 mg Documented by: MADELYN Vital Signs Vital signs: Vital Signs - 8 hr 01/19/21 07:30 01/19/21 08:00 01/19/21 10:26 Pulse Rate 87 80 70 Respiratory Rate 15 18 Blood Pressure 122/78 Pulse Oximetry 96 91 99 MDM - SOB/Dyspnea <Zulema Cifuentes DO - Last Filed: 01/20/21 04:01> Lab Data Attestation: I reviewed the patient's lab results. Result diagrams: 01/18/21 23:10 01/18/21 23:10 Labs: Lab Results 01/18/21 01/18/21 01/18/21 Range/Units 22:54 23:10 23:10 WBC 10.5 (4.5-11.0) X10^3/uL RBC 4.10 (4.0-5.2) X10^6/uL Hgb 13.6 (12.0-16.0) g/dL Hct 40.4 (36-46) % MCV 98.5 (80-100) fL MCH 33.2 (26-34) PG MCHC 33.7 (30-36) % RDW 12.2 (11.6-14.8) % Plt Count 332 (150-400) X10^3/uL Neut % (Auto) 65.9 (50-75) % Lymph % (Auto) 25.7 (25-40) % [place] % (Auto) 8.0 (3-14) % Eos % (Auto) 0.0 L (2-4) % Baso % (Auto) 0.4 (0-2) % Neut # (Auto) 6900 (5314-2609) /uL Lymph # (Auto) 2700 (8398-0782) /uL [place] # (Auto) 800 (0-900) /uL Eos # (Auto) 0 (0-450) /uL Baso # (Auto) 0 (0-100) /uL Sodium 133 L (137-145) mmol/L Potassium 4.2 (3.4-5.1) mmol/L Chloride 97 L (98-107) mmol/L Carbon Dioxide 24 (22-32) mmol/L BUN 20 H (7-17) mg/dL Creatinine 0.80 (0.52-1.04) mg/dL Estimated GFR > 60.0 (>60) mL/min BUN/Creatinine Ratio 25.0 H (6-22) Glucose 108 (80-110) mg/dL Lactate (0.7-2.1) mmol/L Calcium 10.3 H (8.4-10.2) mg/dL Total Bilirubin 0.2 (0.2-1.3) mg/dL AST 34 (14-36) IU/L ALT 38 H (<35) IU/L Alkaline Phosphatase 82 (38-126) U/L Total Protein 8.1 (6.3-8.2) g/dL Albumin 4.8 (3.5-5.0) g/dL Globulin 3.3 (1.7-4.1) g/dL Albumin/Globulin Ratio 1.5 (1.0-2.8) SARS-CoV-2 (PCR) Negative (Negative) 01/18/21 01/19/21 01/19/21 Range/Units 23:10 02:30 04:55 WBC (4.5-11.0) X10^3/uL RBC (4.0-5.2) X10^6/uL Hgb (12.0-16.0) g/dL Hct (36-46) % MCV (80-100) fL MCH (26-34) PG MCHC (30-36) % RDW (11.6-14.8) % Plt Count (150-400) X10^3/uL Neut % (Auto) (50-75) % Lymph % (Auto) (25-40) % [place] % (Auto) (3-14) % Eos % (Auto) (2-4) % Baso % (Auto) (0-2) % Neut # (Auto) (2713-6271) /uL Lymph # (Auto) (5396-5921) /uL [place] # (Auto) (0-900) /uL Eos # (Auto) (0-450) /uL Baso # (Auto) (0-100) /uL Sodium (137-145) mmol/L Potassium (3.4-5.1) mmol/L Chloride (98-107) mmol/L Carbon Dioxide (22-32) mmol/L BUN (7-17) mg/dL Creatinine (0.52-1.04) mg/dL Estimated GFR (>60) mL/min BUN/Creatinine Ratio (6-22) Glucose (80-110) mg/dL Lactate 3.5 H 4.2 H* 4.2 H* (0.7-2.1) mmol/L Calcium (8.4-10.2) mg/dL Total Bilirubin (0.2-1.3) mg/dL AST (14-36) IU/L ALT (<35) IU/L Alkaline Phosphatase (38-126) U/L Total Protein (6.3-8.2) g/dL Albumin (3.5-5.0) g/dL Globulin (1.7-4.1) g/dL Albumin/Globulin Ratio (1.0-2.8) SARS-CoV-2 (PCR) (Negative) 01/19/21 Range/Units 08:52 WBC (4.5-11.0) X10^3/uL RBC (4.0-5.2) X10^6/uL Hgb (12.0-16.0) g/dL Hct (36-46) % MCV (80-100) fL MCH (26-34) PG MCHC (30-36) % RDW (11.6-14.8) % Plt Count (150-400) X10^3/uL Neut % (Auto) (50-75) % Lymph % (Auto) (25-40) % [place] % (Auto) (3-14) % Eos % (Auto) (2-4) % Baso % (Auto) (0-2) % Neut # (Auto) (2794-7456) /uL Lymph # (Auto) (1747-6616) /uL [place] # (Auto) (0-900) /uL Eos # (Auto) (0-450) /uL Baso # (Auto) (0-100) /uL Sodium (137-145) mmol/L Potassium (3.4-5.1) mmol/L Chloride (98-107) mmol/L Carbon Dioxide (22-32) mmol/L BUN (7-17) mg/dL Creatinine (0.52-1.04) mg/dL Estimated GFR (>60) mL/min BUN/Creatinine Ratio (6-22) Glucose (80-110) mg/dL Lactate 3.9 H (0.7-2.1) mmol/L Calcium (8.4-10.2) mg/dL Total Bilirubin (0.2-1.3) mg/dL AST (14-36) IU/L ALT (<35) IU/L Alkaline Phosphatase (38-126) U/L Total Protein (6.3-8.2) g/dL Albumin (3.5-5.0) g/dL Globulin (1.7-4.1) g/dL Albumin/Globulin Ratio (1.0-2.8) SARS-CoV-2 (PCR) (Negative) Urine Dip Bedside Urine Glucose Negative Bedside Urine Bilirubin - Negative Bedside Urine Ketone - Negative Urine Specific [place] 1.025 Bedside Urine Occult Blood - Negative Bedside Urine pH 6.0 Bedside Urine Protein - Negative Bedside Urine Urobilinogen - Negative Bedside Urine Nitrite - Negative Bedside Urine Leukocytes - Negative Esterase Imaging Data Chest x-ray: Radiologist's Impression: Mild bronchial wall thickening can be seen with viral illness or reactive airway disease. No consolidation or effusion. Her is enlarged. No acute fracture. MDM Narrative Medical decision making narrative: She had had increasing shortness of breath which has not been very responsive to her medications and she has had 3 days of prednisone. Patient was reluctant to have a repeat lactate secondary to prior elevated financial costs of past medical visits. After discussion patient is willing to repeat lactate when I noted initial was quite elevated at 3.5. Chest x-ray does show some viral changes. Patient is much improved at this time. Discussed will likely increase her prednisone, dose of Solu-Medrol here in the department. She is also given a spacer for her albuterol she did not have at home. She is unsure if her DuoNeb/ipratropium is up-to-date she does this with the nebulizer. She is feeling improved but does note that she had a cousin who of a pulmonary emboli in [place] recently. Repeat lactate was trending upwards which may be secondary to her 15 mg albuterol but had been several hours and on repeat after fluids with stable at 4.2. Discussed with patient plan for CT PE study. This is pending and patient signed out to Dr. Sherman while awaiting results. <Jerry Sherman, DO - Last Filed: 01/19/21 15:29> Lab Data Labs: Lab Results 01/18/21 01/18/21 01/18/21 Range/Units 22:54 23:10 23:10 WBC 10.5 (4.5-11.0) X10^3/uL RBC 4.10 (4.0-5.2) X10^6/uL Hgb 13.6 (12.0-16.0) g/dL Hct 40.4 (36-46) % MCV 98.5 (80-100) fL MCH 33.2 (26-34) PG MCHC 33.7 (30-36) % RDW 12.2 (11.6-14.8) % Plt Count 332 (150-400) X10^3/uL Neut % (Auto) 65.9 (50-75) % Lymph % (Auto) 25.7 (25-40) % [place] % (Auto) 8.0 (3-14) % Eos % (Auto) 0.0 L (2-4) % Baso % (Auto) 0.4 (0-2) % Neut # (Auto) 6900 (1709-2147) /uL Lymph # (Auto) 2700 (1488-9753) /uL [place] # (Auto) 800 (0-900) /uL Eos # (Auto) 0 (0-450) /uL Baso # (Auto) 0 (0-100) /uL Sodium 133 L (137-145) mmol/L Potassium 4.2 (3.4-5.1) mmol/L Chloride 97 L (98-107) mmol/L Carbon Dioxide 24 (22-32) mmol/L BUN 20 H (7-17) mg/dL Creatinine 0.80 (0.52-1.04) mg/dL Estimated GFR > 60.0 (>60) mL/min BUN/Creatinine Ratio 25.0 H (6-22) Glucose 108 (80-110) mg/dL Lactate (0.7-2.1) mmol/L Calcium 10.3 H (8.4-10.2) mg/dL Total Bilirubin 0.2 (0.2-1.3) mg/dL AST 34 (14-36) IU/L ALT 38 H (<35) IU/L Alkaline Phosphatase 82 (38-126) U/L Total Protein 8.1 (6.3-8.2) g/dL Albumin 4.8 (3.5-5.0) g/dL Globulin 3.3 (1.7-4.1) g/dL Albumin/Globulin Ratio 1.5 (1.0-2.8) SARS-CoV-2 (PCR) Negative (Negative) 01/18/21 01/19/21 01/19/21 Range/Units 23:10 02:30 04:55 WBC (4.5-11.0) X10^3/uL RBC (4.0-5.2) X10^6/uL Hgb (12.0-16.0) g/dL Hct (36-46) % MCV (80-100) fL MCH (26-34) PG MCHC (30-36) % RDW (11.6-14.8) % Plt Count (150-400) X10^3/uL Neut % (Auto) (50-75) % Lymph % (Auto) (25-40) % [place] % (Auto) (3-14) % Eos % (Auto) (2-4) % Baso % (Auto) (0-2) % Neut # (Auto) (7634-8553) /uL Lymph # (Auto) (4434-8670) /uL [place] # (Auto) (0-900) /uL Eos # (Auto) (0-450) /uL Baso # (Auto) (0-100) /uL Sodium (137-145) mmol/L Potassium (3.4-5.1) mmol/L Chloride (98-107) mmol/L Carbon Dioxide (22-32) mmol/L BUN (7-17) mg/dL Creatinine (0.52-1.04) mg/dL Estimated GFR (>60) mL/min BUN/Creatinine Ratio (6-22) Glucose (80-110) mg/dL Lactate 3.5 H 4.2 H* 4.2 H* (0.7-2.1) mmol/L Calcium (8.4-10.2) mg/dL Total Bilirubin (0.2-1.3) mg/dL AST (14-36) IU/L ALT (<35) IU/L Alkaline Phosphatase (38-126) U/L Total Protein (6.3-8.2) g/dL Albumin (3.5-5.0) g/dL Globulin (1.7-4.1) g/dL Albumin/Globulin Ratio (1.0-2.8) SARS-CoV-2 (PCR) (Negative) 01/19/21 Range/Units 08:52 WBC (4.5-11.0) X10^3/uL RBC (4.0-5.2) X10^6/uL Hgb (12.0-16.0) g/dL Hct (36-46) % MCV (80-100) fL MCH (26-34) PG MCHC (30-36) % RDW (11.6-14.8) % Plt Count (150-400) X10^3/uL Neut % (Auto) (50-75) % Lymph % (Auto) (25-40) % [place] % (Auto) (3-14) % Eos % (Auto) (2-4) % Baso % (Auto) (0-2) % Neut # (Auto) (0991-7319) /uL Lymph # (Auto) (4070-4258) /uL [place] # (Auto) (0-900) /uL Eos # (Auto) (0-450) /uL Baso # (Auto) (0-100) /uL Sodium (137-145) mmol/L Potassium (3.4-5.1) mmol/L Chloride (98-107) mmol/L Carbon Dioxide (22-32) mmol/L BUN (7-17) mg/dL Creatinine (0.52-1.04) mg/dL Estimated GFR (>60) mL/min BUN/Creatinine Ratio (6-22) Glucose (80-110) mg/dL Lactate 3.9 H (0.7-2.1) mmol/L Calcium (8.4-10.2) mg/dL Total Bilirubin (0.2-1.3) mg/dL AST (14-36) IU/L ALT (<35) IU/L Alkaline Phosphatase (38-126) U/L Total Protein (6.3-8.2) g/dL Albumin (3.5-5.0) g/dL Globulin (1.7-4.1) g/dL Albumin/Globulin Ratio (1.0-2.8) SARS-CoV-2 (PCR) (Negative) Urine Dip Bedside Urine Glucose Negative Bedside Urine Bilirubin - Negative Bedside Urine Ketone - Negative Urine Specific [place] 1.025 Bedside Urine Occult Blood - Negative Bedside Urine pH 6.0 Bedside Urine Protein - Negative Bedside Urine Urobilinogen - Negative Bedside Urine Nitrite - Negative Bedside Urine Leukocytes - Negative Esterase Imaging Data CT scan - chest: Radiologist's Impression: [address] [id number] Scan ReportSigned Patient: Loida Herzog [facility]#: [id number]: 6Acct:[id number]/Sex: 65 / FDate of Service: 01/19/21Loc: EDAccession Number: [id number] Procedure: CT angio chest PE protocol Ordering Provider: Zulema Cifuentes D.O. PROCEDURE: CT ANGIO CHEST PE PROTOCOL INDICATIONS: sob, asthma TECHNIQUE: After the administration of intravenous contrast, 2 mm thick sections acquired from the pulmonary apices to the posterior costophrenic angles. 3-dimensional maximum intensity projection (MIP) coronal and sagittal reformats were then acquired through the thorax. For radiation dose reduction, the following was used: automated exposure control, adjustment of mA and/or kV according to patient size. COMPARISON: None. FINDINGS: Image quality: Excellent. Pulmonary arteries: Pulmonary arteries are normal in size, and demonstrate no intraluminal filling defects to suggest central pulmonary embolism. Lungs and pleura: There is a right lower lobe pulmonary nodule measuring up to 0.6 cm on series 8, image 171. A nodule measuring up to 0.7 cm is also demonstrated in the right lower lobe along the major fissure on series 8, image 167. Medial atelectasis or scarring is demonstrated within the inferior right middle lobe with associated volume loss. There is also mild linear scarring atelectasis in the lower lobes and left lingula. No pleural effusions or pneumothorax. There are small anterior filling defects within the distal trachea and in the left mainstem bronchus compatible with mucus. Mediastinum: Heart size is mildly enlarged, without pericardial effusion. No mediastinal or hilar adenopathy. Thoracic aorta is normal in caliber and enhancement. Esophagus is normal in caliber, without hiatal hernia. Bones and chest wall: No suspicious bony lesions. Ribs and thoracic spine appear intact throughout. No axillary or supraclavicular adenopathy. Abdomen: Visualized upper abdominal solid organs appear normal in the early arterial phase of enhancement. IMPRESSION: 1. No evidence of pulmonary embolism. 2. No acute consolidation in the lungs. 3. Right lower lobe pulmonary nodules demonstrated, with the largest measuring up to 7 mm. A follow-up CT is recommended in 6-12 months to demonstrate stability. Dictated by: Samy Donnelly M.D. on 01/19/2021 at 9:34 Approved by: Samy Donnelly M.D. on 01/19/2021 at 9:39 Discharge Plan Departure Patient Disposition: Home Clinical Impression: Bronchitis, Asthma with exacerbation Instructions: Acute Bronchitis Activity Restrictions/Additional Instructions: *You have been diagnosed with [acute bronchitis and asthma exacerbation] *What to do: *Please continue to take your regular medications as directed. [ ] New medication prescriptions sent to your pharmacy: [ ] [X ] New medication written as a paper prescription [ ] No new medications given *Please follow up with your primary care provider in 2-3 days, call for an appointment. Let them know you were seen in the Emergency Department and that we ask that you be seen in follow up. We will electronically transmit a record of today's note if your PCP is in our system PLEASE STOP YOUR CURRENT PREDNISONE TAPER AND FILL THE NEW ONE *If you do not have a primary care provider please contact the [facility] Resource line at [phone]. They will ask some questions about your medical history and help get you set up with a doctor in the community. *Return to Emergency Department if you should have any new, worsening or concerning symptoms, such as [fever greater than 101 F, shaking chills, worsening pain, persistent vomiting or other bothersome symptoms] Prescriptions: New prednisone 10 mg tablet See Rx Instructions .ROUTE .COMPLEX Qty: 30 RF: 0 ipratropium-albuterol 0.5 mg-3 mg(2.5 mg base)/3 mL solution for nebulization 3 ml inhalation BID Qty: 90 RF: 0 No Action albuterol sulfate 90 mcg/actuation HFA aerosol inhaler 1 inh INHALATION Q4-6H PRN (Reason: shortness of breath) Qty: 18 RF: 11 losartan 100 mg tablet 100 mg PO HS Qty: 90 RF: 3 bupropion HCl [Wellbutrin SR] 100 mg tablet sustained-release 12 hr 100 mg PO DAILY Qty: 90 RF: 0 budesonide 0.5 mg/2 mL suspension for nebulization 0.5 mg INHALATION BID Qty: 60 RF: 11 ipratropium-albuterol 0.5 mg-3 mg(2.5 mg base)/3 mL solution for nebulization 3 ml INHALATION Q6H PRN (Reason: shortness of breath) Qty: 90 RF: 0 Qvar RediHaler 80 mcg/actuation HFA aerosol breath activated 1 inh INHALATION BID Qty: 10.6 RF: 0 amlodipine [Norvasc] 5 mg tablet 5 mg PO DAILY Qty: 90 RF: 0 prednisone 20 mg tablet 20 mg PO DAILY Qty: 10 RF: 5 Referrals: Lazaro Jason MD [Primary Care Provider] -
[2021-01-19] MEDS: methylPREDNISolone 125 MG/2 ML VIAL IV (02:18)
[2021-01-19] MEDS: BENZONATATE 100 MG CAPSULE PO (02:40)
[2021-01-19 02:54] LABS: Lactate 2HR (Lactic Acid Rflx) 4.2 mmol/L (0.7-2.1)
[2021-01-19] MEDS: SODIUM CHLORIDE 0.9% 1,000 ML 1000 ML IV (03:15)
[2021-01-19 06:20] LABS: Lactate (Lactic Acid) 4.2 mmol/L (0.7-2.1)
[2021-01-19 07:00] LABS: Reflexed Lactate in 2 Hours Y
--- NOTE | 2021-01-19 07:32 | DI.CT.S_ITS ---
PROCEDURE: CT ANGIO CHEST PE PROTOCOL INDICATIONS: sob, asthma TECHNIQUE: After the administration of intravenous contrast, 2 mm thick sections acquired from the pulmonary apices to the posterior costophrenic angles. 3-dimensional maximum intensity projection (MIP) coronal and sagittal reformats were then acquired through the thorax. For radiation dose reduction, the following was used: automated exposure control, adjustment of mA and/or kV according to patient size. COMPARISON: None. FINDINGS: Image quality: Excellent. Pulmonary arteries: Pulmonary arteries are normal in size, and demonstrate no intraluminal filling defects to suggest central pulmonary embolism. Lungs and pleura: There is a right lower lobe pulmonary nodule measuring up to 0.6 cm on series 8, image 171. A nodule measuring up to 0.7 cm is also demonstrated in the right lower lobe along the major fissure on series 8, image 167. Medial atelectasis or scarring is demonstrated within the inferior right middle lobe with associated volume loss. There is also mild linear scarring atelectasis in the lower lobes and left lingula. No pleural effusions or pneumothorax. There are small anterior filling defects within the distal trachea and in the left mainstem bronchus compatible with mucus. Mediastinum: Heart size is mildly enlarged, without pericardial effusion. No mediastinal or hilar adenopathy. Thoracic aorta is normal in caliber and enhancement. Esophagus is normal in caliber, without hiatal hernia. Bones and chest wall: No suspicious bony lesions. Ribs and thoracic spine appear intact throughout. No axillary or supraclavicular adenopathy. Abdomen: Visualized upper abdominal solid organs appear normal in the early arterial phase of enhancement. IMPRESSION: 1. No evidence of pulmonary embolism. 2. No acute consolidation in the lungs. 3. Right lower lobe pulmonary nodules demonstrated, with the largest measuring up to 7 mm. A follow-up CT is recommended in 6-12 months to demonstrate stability. Dictated by: Samy Donnelly M.D. on 01/19/2021 at 9:34 Approved by: Samy Donnelly M.D. on 01/19/2021 at 9:39
[2021-01-19 09:06] LABS: Lactate 2HR (Lactic Acid Rflx) 3.9 mmol/L (0.7-2.1)
== END 2021-01-19 10:28 | disposition home or self-care (01) ==
PROVIDERS: Emergency Medicine; Emergency Provider Emergency Medicine; PCP Student in an Organized Health Care Education/Training Program
DX: J45.901 Unspecified asthma with (acute) exacerbation (principal); J20.9 Acute bronchitis, unspecified; Z20.822 Contact with and (suspected) exposure to COVID-19
CPT/HCPCS: 36415; 71046; 71275; 80053; 81003; 83605; 85025; 87635; 94150; 96361; 96374; 99284; C9803; J2930; J7613; Q9967

== ENCOUNTER → 2021-02-17 16:44 | Outpatient (CLI) | payer OTHER, SELFPAY ==
[2021-02-17 17:56] LABS: Adenovirus Not Detected (Not Detect); B. parapertussis Not Detected (Not Detecte); Bordetella pertussis Not Detected (Not Detecte); Chlamydophila pneumoniae Not Detected (Not Detect); Coronavirus 229E Not Detected (Not Detect); Coronavirus HKU1 Not Detected (Not Detect); Coronavirus NL 63 Not Detected (Not Detect); Coronavirus OC43 Not Detected (Not Detect); Human Metapneumovirus Not Detected (Not Detect); Human Rhinovirus/Enterovirus Not Detected (Not Detect); Influenza A Not Detected (Not Detect); Influenza B Not Detected (Not Detect); Mycoplasma pneumoniae Not Detected (Not Detect); Parainfluenza Virus 1 Not Detected (Not Detect); Parainfluenza Virus 2 Not Detected (Not Detect); Parainfluenza Virus 3 Not Detected (Not Detect); Parainfluenza Virus 4 Not Detected (Not Detect); Respiratory Syncytial Virus Not Detected (Not Detect); SARS- CoV-2 Not Detected (Not Detecte)
[2021-02-17 18:27] LABS: Add Manual Diff / Slide Review NO; Basophils Absolute Auto 0 /uL (0-100); Basophils Percent Auto 0.2 % (0-2); Eosinophils Absolute Auto 0 /uL (0-450); Hematocrit 38.3 % (36-46); Hemoglobin 13.1 g/dL (12.0-16.0); Lymphocytes Absolute Auto 800 /uL (1100-4500); Lymphocytes Percent Auto 11.2 % (25-40); Mean Corpuscular HGB Conc 34.1 % (30-36); Mean Corpuscular Hemoglobin 33.7 PG (26-34); Mean Corpuscular Volume 98.8 fL (80-100); Monocytes Absolute Auto 300 /uL (0-900); Monocytes Percent Auto 3.9 % (3-14); Neutrophils Absolute Auto 6400 /uL (1500-7000); Neutrophils Percent Auto 84.7 % (50-75); Platelet Count 328 X10^3/uL (150-400); Red Blood Cell Count 3.88 X10^6/uL (4.0-5.2); Red Cell Distribution Width 12.6 % (11.6-14.8); White Blood Cell Count 7.6 X10^3/uL (4.5-11.0)
[2021-02-21 13:27] LABS: Aspergillus fumigatus IgE <0.10 kU/L (Class 0)
== END ==
PROVIDERS: PCP Student in an Organized Health Care Education/Training Program; Referring Provider Student in an Organized Health Care Education/Training Program; Visit Provider Student in an Organized Health Care Education/Training Program
DX: J45.909 Unspecified asthma, uncomplicated (principal); R05 Cough
CPT/HCPCS: 36415; 85025; 86003; 86635; 87633

== ENCOUNTER → 2021-02-18 08:57 | Outpatient (CLI) | payer OTHER, SELFPAY | PROVIDERS: PCP Student in an Organized Health Care Education/Training Program; Referring Provider Student in an Organized Health Care Education/Training Program; Visit Provider Student in an Organized Health Care Education/Training Program | DX: J45.909 Unspecified asthma, uncomplicated (principal); R05 Cough | CPT/HCPCS: 87070; 87077; 87147; 87186; 87205 ==

== ENCOUNTER → 2021-03-06 11:34 | Outpatient (CLI) | payer OTHER, SELFPAY | PROVIDERS: PCP Student in an Organized Health Care Education/Training Program; Visit Provider Physician Assistant | DX: N34.3 Urethral syndrome, unspecified (principal) | CPT/HCPCS: 87086 ==

== ENCOUNTER → 2021-04-14 15:44 | Outpatient (CLI) | payer OTHER, SELFPAY ==
[2021-04-14 16:41] LABS: Appearance Urine UA CLEAR; Bilirubin Urine UA NEGATIVE (NEGATIVE); Color Urine UA YELLOW; Glucose Urine UA NEGATIVE (Negative); Ketones Urine UA TRACE (NEGATIVE); Leukocyte Esterase Urine UA 1+ (NEGATIVE); Nitrite Urine UA NEGATIVE (Negative); Occult Blood Urine UA NEGATIVE (Negative); Protein Urine UA TRACE (Negative); Urobilinogen Urine UA 0.2 E.U./dL (0.2)
[2021-04-14 16:56] LABS: Bacteria Urine Occasional (0-1); Calcium Oxalate Crystals Urine Few; Culture Indicated Urine Specimen Cultured; Hyaline Casts Urine 5-10/LPF; Mucus Urine 2+ (Negative); RBC Urine 1-5/HPF (0-5/HPF); Squamous Epithelial Cell Urine 1-5 /HPF (0-5/HPF); Transitional Epi Cells Urine 1-5/HPF (0-5/HPF); WBC Urine 1-5/HPF (0-5/HPF)
== END ==
PROVIDERS: PCP Student in an Organized Health Care Education/Training Program; Referring Provider Student in an Organized Health Care Education/Training Program; Visit Provider Student in an Organized Health Care Education/Training Program
DX: R30.0 Dysuria (principal)
CPT/HCPCS: 81001; 87086

== ENCOUNTER → 2021-07-22 09:30 | Outpatient (CLI) | payer MEDICARE, SELFPAY ==
[2021-07-22 11:46] LABS: TSH w/ Reflex to FT4 1.05 uIU/mL (0.47-4.68)
== END ==
PROVIDERS: PCP Student in an Organized Health Care Education/Training Program; Referring Provider Student in an Organized Health Care Education/Training Program; Visit Provider Student in an Organized Health Care Education/Training Program
DX: Z78.0 Asymptomatic menopausal state; R63.5 Abnormal weight gain; Z13.820 Encounter for screening for osteoporosis; M85.852 Other specified disorders of bone density and structure, left thigh; K59.01 Slow transit constipation; Z90.722 Acquired absence of ovaries, bilateral; Z82.62 Family history of osteoporosis
CPT/HCPCS: 36415; 77080; 84443

== ENCOUNTER → 2021-08-10 09:21 | Outpatient (CLI) | payer MEDICARE, SELFPAY ==
--- NOTE | 2021-08-10 09:22 | DI.CT.S_ITS ---
PROCEDURE: CT CHEST WO CON INDICATIONS: Pulmonary Nodule, check for stability TECHNIQUE: Noncontrast 2.0-2.5 mm thick sections acquired from the pulmonary apices to the posterior costophrenic angles. 7 mm thick axial MIP and 5 mm coronal and sagittal reformats were then acquired. A low radiation dose technique was utilized. COMPARISON: [facility], CT, CT ANGIO CHEST PE PROTOCOL, 01/19/2021, 7:24. FINDINGS: Image quality: Diagnostic, given the low radiation dose technique. Lungs and pleura: Lung nodules are stable. Nodule 1: 0.5 cm; right lower lobe; 3 image 146. Nodule 2: 0.7 cm; right major fissure; series 3, image 148. There are right middle lobe and lingula scars and atelectasis. Mediastinum: Heart size is normal. No pericardial effusion. No mediastinal adenopathy by size criteria. Thoracic aorta and central pulmonary arteries are normal in size. Esophagus is normal in caliber. No hiatal hernia. Bones and chest wall: No suspicious bony lesions. No vertebral body compression fractures. Degenerative changes are noted in thoracic spine. No axillary or supraclavicular adenopathy by size criteria. Thyroid gland is normal. Abdomen: Visualized upper abdomen solid organs and bowel loops appear normal in the absence of contrast. IMPRESSION: 1. Stable right lung nodules. Please see enclosed follow-up recommendation. Fleischner Society criteria for SOLID lung nodule followup. Nodule size (mm)Low-risk patientHigh-risk patient<6 (single or multiple)No routine followup.Optional CT at 12 months. 6-8 (single or multiple)CT at 6-12 months, then optional CT at 18-24 mo.CT at 6-12 months, then CT at 18-24 months. >8 (single)CT at 3 months, PET-CT, or biopsy. Same as for low-risk pts. >8 (multiple)CT at 3-6 months, then optional CT at 18-24 mo.CT at 3-6 months, then CT at 18-24 months. Fleischner Society criteria for SUB-SOLID lung nodule followup. Solitary pure ground-glass nodules<6 mm (ground glass or part solid)No followup needed. 6 mm or larger (ground glass)CT at 6-12 months to confirm persistence, then CT every 2 years until 5 years.6 mm or larger (part solid)CT at 3-6 months to confirm persistence, then annual CT until 5 years if unchanged and solid component remains <6 mm. Multiple sub-solid nodules<6 mmCT at 3-6 months, then CT consider at 2 & 4 years for high risk patients. [address] at 3-6 months. Subsequent management based on most suspicious lesions. Recommendations do not apply to lung cancer screening, patients with immunosuppression, or patients with known primary cancer. Dictated by: Fermin Johnson M.D. on 08/10/2021 at 10:15 Approved by: Fermin Johnson M.D. on 08/10/2021 at 10:42
== END ==
PROVIDERS: PCP Student in an Organized Health Care Education/Training Program; Referring Provider Student in an Organized Health Care Education/Training Program; Visit Provider Student in an Organized Health Care Education/Training Program
DX: R91.8 Other nonspecific abnormal finding of lung field (principal)
CPT/HCPCS: 71250

== ENCOUNTER → 2021-10-14 08:31 | Outpatient (CLI) | payer MEDICARE, SELFPAY ==
--- NOTE | 2021-10-14 08:32 | DI.MG.S_ITS ---
BILATERAL DIGITAL DIAGNOSTIC MAMMOGRAM 3D/2D: 10/14/2021 CLINICAL: Red rash on breast. Family history of inflammatory breast cancer. Comparison is made to exams dated: 10/14/2020 mammogram, 10/11/2019 mammogram, and 08/16/2018 mammogram - [facility]. There are scattered fibroglandular elements in both breasts. No abnormality which corresponds with the area of redness is identified in the left breast at 9 o'clock middle depth. No other significant masses, calcifications, or other findings are seen in either breast. IMPRESSION: INCOMPLETE: NEEDS ADDITIONAL IMAGING EVALUATION There is no abnormality seen in the left breast to correspond with the redness, however, ultrasound is recommended. This exam was interpreted at Station ID: [id number]. NOTE: For mammograms, a report in lay terms will be sent to the patient. Approximately 15% of breast malignancies will not be visualized mammographically. In the management of a palpable breast mass, a negative mammogram must not discourage biopsy of a clinically suspicious lesion. Electronically Signed By: Jf Lipscomb acr/:10/14/2021 09:34:03 ACR BI-RADS Category 0: Incomplete [id number]
--- NOTE | 2021-10-14 08:32 | DI.US.S_ITS ---
ULTRASOUND OF LEFT BREAST: 10/14/2021 CLINICAL: Focal redness of skin on left breast. Comparison is made to exams dated: 10/14/2021 mammogram, 10/14/2020 mammogram, 10/11/2019 mammogram, 08/16/2018 mammogram, 08/09/2017 mammogram - [facility], and 07/29/2016 mammogram - [facility]. Color flow and continuous wave Doppler ultrasound of the left breast were performed. Pike scale images of the real-time examination were reviewed. There is no ultrasound abnormality that corresponds with the area of redness. IMPRESSION: NEGATIVE There is no abnormality seen in the left breast to correspond with the area of clinical concern and redness at 8 o'clock, however, clinical followup is recommended. Mammogram and ultrasound are both negative, however inflammatory breast carcinoma cannot be excluded. The findings were discussed with the patient by the certified composites technician, and the patient's doctor is planning on referring her to a process designer. If on clinical exam inflammatory breast carcinoma is a concern, recommend biopsy. This exam was interpreted at Station ID: [id number]. Electronically Signed By: Jf Lipscomb acr/:10/14/2021 13:07:13 letter sent: Normal Exam Ultrasound BI-RADS: 1 Negative
== END ==
PROVIDERS: PCP Student in an Organized Health Care Education/Training Program; Referring Provider Student in an Organized Health Care Education/Training Program; Visit Provider Student in an Organized Health Care Education/Training Program
DX: R92.2 Inconclusive mammogram (principal); L53.9 Erythematous condition, unspecified; Z80.3 Family history of malignant neoplasm of breast
CPT/HCPCS: 76642; 77066; G0279

== ENCOUNTER → 2022-01-27 09:15 | Outpatient (CLI) | payer MEDICARE, SELFPAY ==
[2022-01-27 12:27] LABS: COVID19 -Nasal RAPID Negative (Negative)
== END ==
PROVIDERS: PCP Student in an Organized Health Care Education/Training Program; Visit Provider Surgery
DX: Z20.822 Contact with and (suspected) exposure to COVID-19 (principal); Z01.812 Encounter for preprocedural laboratory examination
CPT/HCPCS: 87635; C9803

== ENCOUNTER 2022-01-28 11:57 | Day surgery (SDC) | payer MEDICARE, SELFPAY ==
--- NOTE | 2022-01-28 | PATH_ITS ---
[facility] Accession Number: [id number] . 01 Material submitted: . PART A: duodenum - DUODENAL PART B: stomach - ANTRUM PART C: esophagus - ESOPHAGUS . 01 Diagnosis: A. Duodenum, Biopsy: Duodenal mucosa with no diagnostic abnormality. Negative for active inflammation, features of sprue, dysplasia, or malignancy. . B. Stomach, Antrum, Biopsy: Antral mucosa with mild chronic gastritis. Negative for Helicobacter by immunohistochemistry. Negative for intestinal metaplasia. Negative for dysplasia and malignancy. . C. Esophagus, Biopsy: Squamocolumnar junctional mucosa with no diagnostic abnormality. Negative for intestinal metaplasia. Negative for dysplasia and malignancy. . [facility] 02/03/2022 1559 Local . 01 Electronically signed: . Kamini Jang MD, Pathologist NPI- [id number] . 01 Gross description: . Part A: DUODENAL: Received in formalin are 2 fragment(s) of moore, soft tissue measuring 0.2 x 0.1 x 0.1 cm to 0.2 x 0.1 x 0.1 cm submitted entirely in 1 cassette(s) Part B: ANTRUM: Received in formalin are 4 fragment(s) of moore, soft tissue measuring 0.6 x 0.2 x 0.1 cm to 0.1 x 0.1 x 0.1 cm submitted entirely in 1 cassette(s) Part C: ESOPHAGUS: Received in formalin are multiple fragment(s) of moore, soft tissue measuring 0.7 x 0.7 x 0.1 cm in aggregate submitted entirely in 1 cassette(s) /CPE 01/29/2022 0514 Local . 01 Microscopic: . B. An immunohistochemical stain was performed to evaluate for Helicobacter organisms and is negative. The control stain showed appropriate reactivity. . * This test was developed and its performance characteristics determined by [facility]. It has not been cleared or approved by the U.S. Food and Drug Administration. The FDA has determined that such clearance or approval is not necessary. This test is used for clinical purposes. It should not be regarded as investigational or for research. . 01 Pathologist provided ICD-10: K21.9 . 01 CPT . 362868, 858040, 417743, F68871 Specimen Comment: A courtesy copy of this report has been sent to [phone] Performed at: 01 [facility] [address] [place] [address] [id number] MD Samy Cordoba MD Phone: [phone]
[2022-01-28 12:15] VITALS: BP 139/72; PULSE 58; RESP 16; TEMP 36.4; O2SAT 99; BMI 32.8
[2022-01-28] MEDS: LACTATED RINGERS 1,000 ML 42 ML IV (12:32)
--- NOTE | 2022-01-28 13:29 | PM.PREOP ---
Pre-operative Note COVID-19 COVID-19 status: Negative Result date/Date tested (Pos, Neg/Pending): 01/27/22 Interval Note History & Physical reviewed/Exam performed by Physician: Yes Changes to H&P: No ASA Class (for procedural sedation): II
[2022-01-28] MEDS: LIDOCAINE 4% SOLN 50 ML 20 ML TOP (13:45)
[2022-01-28] MEDS: fentaNYL 250 MCG/5 ML INJ 125 MCG IV (13:58)
[2022-01-28] MEDS: MIDAZOLAM 5 MG/5 ML VIAL 7 MG IV (13:58)
--- NOTE | 2022-01-28 14:02 | P.OP.EGD_ITS ---
Operative Date/Time/Diagnoses Date of procedure: 01/28/22 Time of procedure: 14:02 Pre-op diagnosis: GERD Post-op diagnosis: same Procedure & Clinicians Study performed: Esophagogastroduodenoscopy Same procedure as scheduled: Yes Surgeon: Landon Roberts Procedure Notes Procedure in detail: A timeout was performed. A bite blocked was placed. The patient was positioned in the left lateral decubitus position. The endoscope was inserted through the bite block and passed through the esophagus and stomach and into the duodenum. The duodenal mucosa appeared normal. Random biopsies were taken from the 2nd portion of the duodenum with cold forceps. The scope was withdrawn into the duodenal bulb and no abnormalities were seen. The scope was withdrawn into the stomach. There was mild antritis and random biopsies were taken from the antrum with cold forceps. The rest of the stomach was normal. The scope was retroflexed and no hiatal hernia was seen. The scope was withdrawn into the esophagus and there were appeared to be some very short segments of salmon- colored mucosa in the distal esophagus and biopsies were taken from all 4 quadrants with cold forceps. The remainder of the esophagus was normal. The scope was withdrawn. The patient was awakened and brought to recovery. Post-procedure Recommendations: Will call with biopsy results Disposition: PACU
[2022-01-28 14:06] VITALS: BP 149/79; PULSE 68; RESP 13; TEMP 36.1; O2SAT 94
[2022-01-28 14:11] VITALS: BP 146/74; PULSE 686; RESP 11; O2SAT 93
[2022-01-28 14:21] VITALS: BP 157/76; PULSE 71; RESP 15; O2SAT 98
[2022-01-28 14:23] VITALS: BP 144/66; PULSE 67; RESP 12; TEMP 36.6; O2SAT 99
== END 2022-01-28 14:32 | disposition home or self-care (01) ==
PROVIDERS: PCP Student in an Organized Health Care Education/Training Program; Referring Provider Surgery; Visit Provider Surgery
PROC: 0DJ08ZZ Inspection of Upper Intestinal Tract, Via Natural or Artificial Opening Endoscopic (ICD-10-PCS; CPT 43235; principal; 2022-01-28 12:45)
DX: K21.9 Gastro-esophageal reflux disease without esophagitis (principal); I10 Essential (primary) hypertension; K29.50 Unspecified chronic gastritis without bleeding
CPT/HCPCS: 43239; J2250; J3010

== ENCOUNTER 2022-02-18 14:06 | Emergency (ER) | payer MEDICARE, SELFPAY ==
[2022-02-18 14:11] VITALS: BP 152/73; PULSE 64; RESP 18; TEMP 36.8; O2SAT 100; BMI 30.9
--- NOTE | 2022-02-18 14:17 | DI.RAD.S_ITS ---
PROCEDURE: XR TIBIA FUBULA RT 2V INDICATIONS: SP FALL, LE PAIN TECHNIQUE: 2 views of the tibia and fibula were acquired. COMPARISON: None. FINDINGS: Bones: There is prior right total knee arthroplasty. No fractures or dislocations no gross hardware loosening or failure.. No suspicious bony lesions. Soft tissues: No suspicious soft tissue calcifications or masses. IMPRESSION: No acute right lower leg fracture or dislocation. Prior right total knee arthroplasty. No evidence of hardware complication. Dictated by: Jesus Whiting M.D. on 02/18/2022 at 14:45 Approved by: Jesus Whiting M.D. on 02/18/2022 at 14:46
--- NOTE | 2022-02-18 14:17 | DI.RAD.S_ITS ---
PROCEDURE: XR ANKLE RT MIN 3V INDICATIONS: SP FALL, LE PAIN TECHNIQUE: 3 views of the ankle were acquired. COMPARISON: None. FINDINGS: Bones: No fractures or dislocations. Ankle mortise is normally aligned. No suspicious bony lesions. Well-defined plantar calcaneal enthesophyte is seen. Soft tissues: No tibiotalar joint effusion. Achilles tendon appears normal. IMPRESSION: No acute ankle fracture or dislocation. Intact ankle mortise. Dictated by: Jesus Whiting M.D. on 02/18/2022 at 14:44 Approved by: Jesus Whiting M.D. on 02/18/2022 at 14:45
[2022-02-18] MEDS: ACETAMINOPHEN 325 MG TABLET 975 MG PO (14:21)
--- NOTE | 2022-02-18 17:07 | ED.FALL ---
HPI - Fall <Bandar Giraldo PA-C - Last Filed: 02/18/22 19:42> General Chief Complaint: Fall Stated Complaint: Fell down stairs, rt leg/back pain Time Seen by Provider: 02/18/22 16:53 Source: patient Mode of arrival: Wheelchair History of Present Illness HPI Narrative: Patient is a 66-year-old female who presents to the emergency department for evaluation of right leg and ankle pain. Patient explains she experienced a mechanical fall carrying laundry down 3 stairs and has been experiencing right leg and ankle pain since then. Of note, she denies hitting her head or losing consciousness as a result of the fall. Additionally, she denies any numbness or tingling in the right lower extremity. She denies fever, chills, chest pain, cough, shortness of breath, nausea, vomiting, diarrhea, constipation, abdominal pain, dysuria, hematuria, or any other concerning symptoms. No further concerns were voiced at this time. Related Data Previous Rx's Medication Instructions Recorded albuterol sulfate 90 mcg/actuation 1 inh inhalation Q4-6H PRN 03/05/21 aerosol inhaler shortness of breath #18 grams losartan 100 mg tablet 100 mg PO HS #90 tabs 07/27/21 nystatin 100,000 unit/mL oral 1 ml buccal DAILY #60 mL 09/18/21 suspension amlodipine 5 mg tablet (Norvasc) 5 mg PO DAILY #90 tabs 01/04/22 fluticasone 250 mcg-salmeterol 50 1 inh inhalation BID #60 ea 01/26/22 mcg/dose blistr powdr for inhalation (Advair Diskus) Allergies Allergy/AdvReac Type Severity Reaction Status Date / Time meperidine [From DEMEROL] Allergy Unknown Hallucinati Verified 02/18/22 14:11 ng morphine [MORPHINE] Allergy Unknown Difficulty Verified 02/18/22 14:11 Breathing Review of Systems <Bandar Giraldo PA-C - Last Filed: 02/18/22 19:42> Constitutional Constitutional: Denies chills, Denies fatigue, Denies fever(s), Denies frequent falls, Denies lethargy and Denies weakness ENT Ears, Nose, Mouth, and Throat: Denies neck pain Cardiovascular Cardiovascular: Denies chest pain, Denies irregular heart rhythm, Denies lightheadedness, Denies palpitations, Denies dyspnea, Denies dyspnea on exertion and Denies orthopnea Respiratory Respiratory: Denies dyspnea and Denies dyspnea on exertion Gastrointestinal Gastrointestinal: Denies abdominal pain, Denies change in bowel habits, Denies diarrhea, Denies nausea and Denies vomiting Genitourinary Genitourinary: Denies hematuria, Denies flank pain, Denies urinary incontinence and Denies urinary urgency Musculoskeletal Musculoskeletal: Denies back pain, Reports arthralgias (Right leg pain, right ankle pain), Denies muscle weakness, Denies neck pain, Denies numbness and Denies tingling Integumentary/Breasts Skin/Breast: Denies pruritus, Denies erythema, Denies rash and Denies wounds Neurologic Neurologic: Denies frequent falls, Denies numbness, Denies tingling and Denies weakness Endocrine Endocrine: Denies fatigue and Denies palpitations Patient History <Bandar Giraldo PA-C - Last Filed: 02/18/22 19:42> Medical History Depression HTN (hypertension) Medication side effect Plantar fasciitis Whiplash Surgical History H/O: hysterectomy History of bilateral oophorectomy (~07/2019) History of section Hx of bilateral inguinal hernia repair Hx of cholecystectomy Social History household members: spouse Smoking Status: Never smoker alcohol intake: current Smoking Status: Never smoker alcohol intake frequency: a few times a week Substance Use Type: does not use Exam <Bandar Giraldo PA-C - Last Filed: 02/18/22 19:42> Narrative Exam Narrative: GENERAL: 66 year old patient appears stated age. Well-developed patient, in no acute distress. HEAD: Atraumatic. Normocephalic. EYES: Pupils equal round and reactive. Extraocular motions intact. No scleral icterus. No injection or drainage. ENT: Nose without bleeding, purulent drainage. Throat without erythema, tonsillar hypertrophy or exudate. Airway patent. NECK: Trachea midline. Non tender CARDIOVASCULAR: Regular rate and rhythm without murmurs, gallops, or rubs. RESPIRATORY: Clear to auscultation. Breath sounds equal bilaterally. No wheezes, rales, or rhonchi. GASTROINTESTINAL: Abdomen soft, non-tender, nondistended. EXTREMITIES: No edema. Tenderness to palpation appreciated along the lateral aspect of the proximal right tibia and lateral aspect of the right ankle. No gross deformity appreciated. No significant overlying erythema, ecchymosis, or swelling noted. Good sensation light touch appreciated throughout the bilateral lower extremities. Gross motor function intact throughout the bilateral lower extremities. No significant tenderness with deep palpation of the right gastrocnemius. BACK: Nontender without deformity or crepitance. No flank tenderness. NEURO: AOx3. SKIN: No rash or erythema of visible areas Initial Vital Signs Initial Vital Signs: Vital Signs Temperature 98.2 F 02/18/22 14:11 Pulse Rate 64 02/18/22 14:11 Respiratory Rate 18 02/18/22 14:11 Blood Pressure 152/73 H 02/18/22 14:11 Pulse Oximetry 100 02/18/22 14:11 Oxygen Delivery Method 02/18/22 14:11 <Mariana Rodriguez DO - Last Filed: 02/19/22 07:34> Initial Vital Signs Initial Vital Signs: Vital Signs Temperature 98.2 F 02/18/22 14:11 Pulse Rate 64 02/18/22 14:11 Respiratory Rate 18 02/18/22 14:11 Blood Pressure 152/73 H 02/18/22 14:11 Pulse Oximetry 100 02/18/22 14:11 Oxygen Delivery Method 02/18/22 14:11 Course <Bandar Giraldo PA-C - Last Filed: 02/18/22 19:42> Course Course Narrative: Right tib-fib and right ankle x-rays ordered. X-rays did not show signs of acute bony abnormality such as fracture or dislocation. Orders Ordered: Discontinued Medications Acetaminophen (Acetaminophen 325 Mg Tablet) 975 mg PO NOW ONE Stop: 02/18/22 14:20 Last Admin: 02/18/22 14:21 Dose: 975 mg Documented By: YONG Vital Signs Vital signs: Vital Signs - 8 hr 02/18/22 14:11 Temperature 98.2 F Pulse Rate 64 Respiratory Rate 18 Blood Pressure 152/73 H Pulse Oximetry 100 Oxygen Delivery Method Room Air <Mariana Rodriguez DO - Last Filed: 02/19/22 07:34> Orders Ordered: Discontinued Medications Acetaminophen (Acetaminophen 325 Mg Tablet) 975 mg PO NOW ONE Stop: 02/18/22 14:20 Last Admin: 02/18/22 14:21 Dose: 975 mg Documented By: YONG Vital Signs Vital signs: Vital Signs - 8 hr 02/18/22 14:11 Temperature 98.2 F Pulse Rate 64 Respiratory Rate 18 Blood Pressure 152/73 H Pulse Oximetry 100 Oxygen Delivery Method Room Air MDM - Fall <Bandar Giraldo PA-C - Last Filed: 02/18/22 19:42> Imaging Data Extremity x-ray #1: Radiologist's Impression: PROCEDURE:? XR TIBIA FUBULA RT 2V ? INDICATIONS:? SP FALL, LE PAIN ? TECHNIQUE:? 2 views of the tibia and fibula were acquired.? ? COMPARISON:? None. ? FINDINGS:? ? Bones:? There is prior right total knee arthroplasty.? No fractures or dislocations no gross hardware loosening or failure..? No suspicious bony lesions.? ? Soft tissues:? No suspicious soft tissue calcifications or masses.? ? IMPRESSION:? No acute right lower leg fracture or dislocation.? Prior right total knee arthroplasty.? No evidence of hardware complication. ? ? Dictated by: Jesus Whiting M.D. on 02/18/2022 at 14:45 ? ? Approved by: Jesus Whiting M.D. on 02/18/2022 at 14:46 ? Extremity x-ray #2: Radiologist's Impression: PROCEDURE:? XR ANKLE RT MIN 3V ? INDICATIONS:? SP FALL, LE PAIN ? TECHNIQUE:? 3 views of the ankle were acquired.? ? COMPARISON:? None. ? FINDINGS:? ? Bones:? No fractures or dislocations.? Ankle mortise is normally aligned.? No suspicious bony lesions.? Well-defined plantar calcaneal enthesophyte is seen. ? Soft tissues:? No tibiotalar joint effusion.? Achilles tendon appears normal.? ? ? IMPRESSION:? No acute ankle fracture or dislocation.? Intact ankle mortise. ? ? Dictated by: Jesus Whiting M.D. on 02/18/2022 at 14:44 ? ? Approved by: Jesus Whiting M.D. on 02/18/2022 at 14:45 ? MDM Narrative Medical decision making narrative: Differential diagnosis to consider but not limited to fracture versus dislocation versus sprain versus strain. X-ray imaging obtained in the emergency department today returned within normal limits without signs of fracture, dislocation, or hardware failure. I recommended the patient keep the right lower extremity elevated at rest to help alleviate swelling. Additionally, encouraged the patient to use knee immobilizer at home to improve stability. Patient expresses understanding and agrees to plan. I informed the patient that I would be setting up a referral for orthopedic follow-up. Strict return precautions were discussed with the patient prior to discharge. Discharge Plan Departure Patient Disposition: Home Clinical Impression: Acute pain of right lower extremity, Acute right ankle pain Instructions: DI for Leg Pain Activity Restrictions/Additional Instructions: *You have been diagnosed with right leg pain, right ankle pain *What to do: *Please continue to take your regular medications as directed. [ ] New medication prescriptions sent to your pharmacy: [ ] [ ] New medication written as a paper prescription [X] No new medications given You were evaluated in the emergency department today for right leg and ankle pain following fall. X-ray imaging obtained in the emergency department today did not show signs of acute bony abnormality such as fracture or dislocation. Additionally, your total knee arthroplasty appears to be in good shape and has not shown any signs of loosening or failure. Please keep the right lower extremity elevated at rest to reduce swelling and inflammation. I recommend using her knee immobilizer at home to help reduce discomfort. I have set up a referral for orthopedic follow-up, their office should be reaching out to you to schedule an appointment. Do not hesitate to return to the emergency department if you experience worsening pain, loss of sensation in the right lower extremity, worsening swelling, or any other concerning symptoms. *Please follow up with your primary care provider in 2-3 days, call for an appointment. Let them know you were seen in the Emergency Department and that we ask that you be seen in follow up. We will electronically transmit a record of today's note if your PCP is in our system *If you do not have a primary care provider please contact the [facility] Resource line at [phone]. They will ask some questions about your medical history and help get you set up with a doctor in the community. *Return to Emergency Department if you should have any new, worsening or concerning symptoms, such as fever greater than 101 F, shaking chills, worsening pain, persistent vomiting or other bothersome symptoms. Prescriptions: No Action albuterol sulfate 90 mcg/actuation HFA aerosol inhaler 1 inh INHALATION Q4-6H PRN (Reason: shortness of breath) Qty: 18 11RF losartan 100 mg tablet 100 mg PO HS Qty: 90 3RF amlodipine [Norvasc] 5 mg tablet 5 mg PO DAILY Qty: 90 2RF fluticasone propion-salmeterol [Advair Diskus] 250-50 mcg/dose blister with device 1 inh inhalation BID Qty: 60 5RF nystatin 100,000 unit/mL suspension 1 ml buccal DAILY Qty: 60 1RF Rx Instructions: administer 1/2 of dose in each side of the mouth Referrals: Lazaro Jason MD [Primary Care Provider] - Jean Marie Joseph MD [Physician] - 7-10 days Visit Report Forms: Patient Portal/API <Mariana Rodriguez DO - Last Filed: 02/19/22 07:34> Cosign ED Attending Cosamadouature Attestation: I was immediately available in the department for consultation. Documentation has been reviewed. I agree with assessment and plan.
== END 2022-02-18 17:27 | disposition home or self-care (01) ==
PROVIDERS: Emergency Provider Physician Assistant; PCP Student in an Organized Health Care Education/Training Program
DX: M79.604 Pain in right leg (principal); M25.571 Pain in right ankle and joints of right foot; W10.9XXA Fall (on) (from) unspecified stairs and steps, initial encounter
CPT/HCPCS: 73590; 73610; 99283

== ENCOUNTER → 2022-09-23 15:25 | Outpatient (CLI) | payer MEDICARE, SELFPAY ==
[2022-09-23 16:08] LABS: Hemoglobin 12.4 g/dL (12.0-16.0); Mean Corpuscular HGB Conc 34.6 % (30-36); Mean Corpuscular Hemoglobin 34.2 PG (26-34); Platelet Count 266 X10^3/uL (150-400); Red Blood Cell Count 3.64 X10^6/uL (4.0-5.2); Red Cell Distribution Width 12.3 % (11.6-14.8); White Blood Cell Count 9.6 X10^3/uL (4.5-11.0)
[2022-09-23 17:01] LABS: Cholesterol 191 mg/dL (140-199); HDL Cholesterol 56 mg/dL (40-60); LDL Cholesterol Calculated 116 mg/dL (<100); Triglycerides 96 mg/dL (35-150)
[2022-09-23 17:03] LABS: Alanine Aminotransferase 28 IU/L (<35); Albumin 4.3 g/dL (3.5-5.0); Albumin Globulin Ratio 1.5 (1.0-2.8); Alkaline Phosphatase 60 U/L (38-126); Aspartate Aminotransferase 24 IU/L (14-36); BUN Creatinine Ratio 20.2 (6-22); Bilirubin Total 0.5 mg/dL (0.2-1.3); Blood Urea Nitrogen 17 mg/dL (7-17); C-Reactive Protein Quant < 0.5 mg/dL (<1.0); Calcium 9.1 mg/dL (8.4-10.2); Carbon Dioxide 27 mmol/L (22-32); Chloride 96 mmol/L (98-107); Estimated Glomerular Filt Rate > 60 mL/min (>60); Globulin 2.9 g/dL (1.7-4.1); Glucose 109 mg/dL (80-110); HEMOLYSIS < 15 (0-50); Potassium 3.7 mmol/L (3.4-5.1); Sodium 135 mmol/L (137-145); Total Protein 7.2 g/dL (6.3-8.2)
== END ==
PROVIDERS: PCP Internal Medicine; Referring Provider Internal Medicine; Visit Provider Internal Medicine
DX: E78.2 Mixed hyperlipidemia (principal); I10 Essential (primary) hypertension; M13.0 Polyarthritis, unspecified
CPT/HCPCS: 36415; 80053; 80061; 84443; 85027; 86140

== ENCOUNTER → 2022-10-18 15:12 | Outpatient (CLI) | payer MEDICARE, SELFPAY ==
--- NOTE | 2022-10-18 | DI.MG.S_ITS ---
BILATERAL DIGITAL SCREENING MAMMOGRAM 3D/2D WITH CAD: 10/18/2022 CLINICAL: Routine screening. Family history of breast cancer. Comparison is made to exams dated: 10/14/2020 mammogram, 10/11/2019 mammogram, and 08/16/2018 mammogram - [facility]. There are scattered areas of fibroglandular density in both breasts (category b / 25%-50% glandular tissue). Current study was also evaluated with a Computer Aided Detection (CAD) system. No significant masses, calcifications, or other findings are seen in either breast. There has been no significant interval change. IMPRESSION: NEGATIVE There is no mammographic evidence of malignancy. A 1 year screening mammogram is recommended. This exam was interpreted at Station ID: [id number]. NOTE: For mammograms, a report in lay terms will be sent to the patient. Approximately 15% of breast malignancies will not be visualized mammographically. In the management of a palpable breast mass, a negative mammogram must not discourage biopsy of a clinically suspicious lesion. Electronically Signed By: Shaggy duran/katie:10/19/2022 12:29:07 letter sent: Normal Exam ACR BI-RADS Category 1: Negative [id number]
== END ==
PROVIDERS: PCP Internal Medicine; Referring Provider Internal Medicine; Visit Provider Internal Medicine
DX: Z12.31 Encounter for screening mammogram for malignant neoplasm of breast (principal); Z80.3 Family history of malignant neoplasm of breast
CPT/HCPCS: 77063; 77067

== ENCOUNTER → 2022-12-29 11:46 | Outpatient (CLI) | payer MEDICARE, SELFPAY ==
--- NOTE | 2022-12-29 11:47 | DI.RAD.S_ITS ---
PROCEDURE: XR THORACIC SPINE 2V INDICATIONS: back pain TECHNIQUE: 3 views of the thoracic spine were acquired. COMPARISON: [facility], CR, XR THORACIC SPINE 3V, 07/06/2019, 16:14. FINDINGS: Bones: No fractures or dislocations. No suspicious bony lesions. 12 pairs of ribs are noted, and appear intact where visualized. Intervertebral disc space narrowing, osteophytosis and endplate sclerosis is present in the midthoracic spine. Soft tissues: No paravertebral stripe thickening. IMPRESSION: No compression deformities. Degenerative change in the midthoracic spine. Dictated by: Ashleigh Amador M.D. on 12/29/2022 at 16:04 Approved by: Ashleigh Amador M.D. on 12/29/2022 at 16:04
--- NOTE | 2022-12-29 11:47 | DI.RAD.S_ITS ---
PROCEDURE: XR LUMBAR SPINE 2-3V INDICATIONS: back pain TECHNIQUE: 3 views of the lumbar spine were acquired. COMPARISON: None. FINDINGS: Bones: 5 [id number] vertebrae are present. There is normal bony alignment. No vertebral body compression fractures. Intervertebral disc space narrowing, endplate sclerosis and osteophytosis is present at L5-S1. Small anterior osteophytes are present more superiorly within the lumbar spine. No suspicious bony lesions. Soft tissues: Overlying bowel gas pattern is normal. No suspicious soft tissue calcifications. IMPRESSION: Mild to moderate degenerative change of the lumbar spine most severe at L5-S1. Dictated by: Ashleigh Amador M.D. on 12/29/2022 at 16:03 Approved by: Ashleigh Amador M.D. on 12/29/2022 at 16:04
== END ==
PROVIDERS: PCP Internal Medicine; Referring Provider Internal Medicine; Visit Provider Internal Medicine
DX: M47.814 Spondylosis without myelopathy or radiculopathy, thoracic region (principal); M47.817 Spondylosis without myelopathy or radiculopathy, lumbosacral region; M51.36 Other intervertebral disc degeneration, lumbar region; M54.9 Dorsalgia, unspecified; G89.29 Other chronic pain
CPT/HCPCS: 72070; 72100

== ENCOUNTER → 2022-12-30 15:28 | Outpatient (CLI) | payer MEDICARE, SELFPAY ==
--- NOTE | 2022-12-30 15:29 | DI.RAD.S_ITS ---
PROCEDURE: XR FOOT RT MIN 3V INDICATIONS: right foot pain, no trauma TECHNIQUE: 3 views of the foot were acquired. COMPARISON: None. FINDINGS: Bones: No fractures or dislocations. No suspicious bony lesions. Soft tissues: No tibiotalar joint effusion. Achilles tendon appears normal. IMPRESSION: No acute fracture. No osseous lesion. If symptoms and/or clinical suspicion for pathology persist, further assessment with repeat, or advanced imaging (e.g., CT, MRI, or bone scan) may be helpful for further assessment. Dictated by: Elvis Gallagher M.D. on 12/30/2022 at 16:03 Transcribed by: MAYTE on 12/30/2022 at 16:03 Approved by: Elvis Gallagher M.D. on 12/30/2022 at 16:33
== END ==
PROVIDERS: PCP Internal Medicine; Referring Provider Internal Medicine; Visit Provider Internal Medicine
DX: M79.671 Pain in right foot (principal)
CPT/HCPCS: 73630

== ENCOUNTER → 2023-03-07 09:26 | Outpatient (CLI) | payer MEDICARE, SELFPAY ==
--- NOTE | 2023-03-07 09:27 | DI.RAD.S_ITS ---
PROCEDURE: XR ABDOMEN 1V INDICATIONS: constipation TECHNIQUE: Supine 1 view abdomen radiograph acquired. COMPARISON: None. FINDINGS: Surgical changes and devices: None. Bowel: There are 24 out of 24 Sitzmark rings remaining within the large bowel . Bowel gas pattern is normal. Moderate colonic stool load. Soft tissues: No suspicious abdominal calcifications. Visualized solid organ contours appear normal in size. Bones: No suspicious bony lesions. IMPRESSION: There are 24 out of 24 Sitzmark rings remaining within the large vianey.l Dictated by: Thiago Quan M.D. on 03/07/2023 at 10:46 Approved by: Thiago Quan M.D. on 03/07/2023 at 10:47
== END ==
PROVIDERS: PCP Internal Medicine; Referring Provider Internal Medicine; Visit Provider Internal Medicine
DX: K59.01 Slow transit constipation (principal)
CPT/HCPCS: 74018

== ENCOUNTER → 2023-03-08 15:53 | Outpatient (CLI) | payer MEDICARE, SELFPAY ==
--- NOTE | 2023-03-08 15:56 | DI.RAD.S_ITS ---
PROCEDURE: XR ABDOMEN 1V INDICATIONS: constipation/followup marker study TECHNIQUE: The patient was given a Sitzmark capsule by the environmental health technologist on the date of 03/04/2023 and was instructed to swallow the capsule on the day it was given. Patient returned 4 days later for followup imaging. Supine 1 view abdomen radiograph acquired. COMPARISON: [facility], , XR ABDOMEN 1V, 03/07/2023, 9:24. FINDINGS: Surgical changes and devices: None. Bowel: There are 24 out of 24 Sitzmark rings remaining within the left colon through rectum . Bowel gas pattern is normal. Soft tissues: No suspicious abdominal calcifications. Visualized solid organ contours appear normal in size. Bones: No suspicious bony lesions. IMPRESSION: Abnormal colonic transit study with 24/24 Sitz marker rings still remaining on day 4. At this time, 5 or Sitzmark rings should remain period Dictated by: Pedro Onofre M.D. on 03/08/2023 at 16:59 Approved by: Pedro Onofre M.D. on 03/08/2023 at 17:01
== END ==
PROVIDERS: PCP Internal Medicine; Referring Provider Internal Medicine; Visit Provider Internal Medicine
DX: K59.01 Slow transit constipation (principal)
CPT/HCPCS: 74018

== ENCOUNTER → 2023-03-11 16:19 | Outpatient (CLI) | payer MEDICARE, SELFPAY ==
--- NOTE | 2023-03-11 16:20 | DI.RAD.S_ITS ---
PROCEDURE: XR ABDOMEN 1V INDICATIONS: constipation marker followup TECHNIQUE: The patient was given a Sitzmark capsule by the neurodiagnostic technologist on the date of 03/04/2023 and was instructed to swallow the capsule on the day it was given. Patient returned 7 days later for followup imaging. Supine 1 view abdomen radiograph acquired. COMPARISON: [facility], , XR ABDOMEN 1V, 03/08/2023, 15:56. FINDINGS: Surgical changes and devices: None. Bowel: There are 4 out of 24 Sitzmark rings remaining within the rectum. Bowel gas pattern is normal. Moderate colonic stool. Soft tissues: No suspicious abdominal calcifications. Visualized solid organ contours appear normal in size. Bones: No suspicious bony lesions. IMPRESSION: 4 of 24 Sitz marker rings still remaining on day 7. Approved by: Marcin Avery M.D. on 03/11/2023 at 19:47
== END ==
PROVIDERS: PCP Internal Medicine; Referring Provider Internal Medicine; Visit Provider Internal Medicine
DX: K59.01 Slow transit constipation (principal)
CPT/HCPCS: 74018

== ENCOUNTER → 2023-04-04 10:51 | Outpatient (CLI) | payer MEDICARE, SELFPAY ==
--- NOTE | 2023-04-04 10:53 | DI.MRI.S_ITS ---
PROCEDURE: MR ANKLE RT WO CON INDICATIONS: Posterior tibial tendinitis, right leg TECHNIQUE: Noncontrast sagittal T1 spin echo and T2 fast spin echo with fat saturation, axial proton density fast spin echo and T2 fast spin echo with fat saturation, coronal T1 spin echo and T2 fast spin echo with fat saturation through the ankle/hindfoot. COMPARISON: None. FINDINGS: Image quality: Excellent. Bones and joints: [id number]-go-[id number] midfoot and hindfoot joint osteoarthritic changes are seen with joint space narrowing, subchondral sclerosis and small marginal osteophyte formation more notably involving tibiotalar joint and subtalar joint. There is no fracture or dislocation . No hindfoot coalitions. No osteochondral injuries of the talar dome. No pathologic joint effusions. Medial structures: The posterior tibialis tendon is moderately thickened with small amount of fluid distending tendon sheath and mild adjacent edema. The flexor digitorum longus, and flexor hallucis longus tendons are intact. The posterior tibial neurovascular bundle appears normal within the tarsal tunnel, without extrinsic mass effect. The deep layer (anterior and posterior tibiotalar ligaments) and superficial layer (tibionavicular, tibiospring, and tibiocalcaneal ligaments) of the deltoid ligament appear normal. The spring ligament components (superomedial calcaneonavicular, medioplantar oblique calcaneonavicular, and inferoplantar longitudinal ligaments) are intact. Lateral structures: The anterior talofibular, calcaneofibular, and posterior talofibular ligaments appear thickened. More superiorly, the anterior and posterior tibiofibular ligaments appear intact, as is the intermalleolar ligament. The tibiofibular syndesmosis is normal in width at 2 mm or less. The peroneus longus and brevis tendons demonstrate normal location and morphology. Adjacent bony peroneal tubercle and retrotrochlear prominence are normal in size. The sinus tarsi demonstrates normal fatty signal, without edema, fibrosis, or cyst formation. Visualized sinus tarsi components (cervical ligament, interosseous talocalcaneal ligament, roots of the inferior extensor retinaculum) appear normal. The calcaneonavicular and calcaneocuboid components of the bifurcate ligament appear intact. The dorsal calcaneocuboid ligament appears intact. Anterior structures: The tibialis anterior, extensor hallucis longus, and extensor digitorum longus tendons appear intact. The dorsal talonavicular ligament appears intact. Posterior and plantar structures: Achilles tendon is intact. Medial and lateral bands of the plantar fascia are thickened near their insertion on plantar calcaneus. No abductor digiti quinti muscle atrophy to suggest Cooney neuropathy. IMPRESSION: 1. Gwyx-zp-vgvevdwe midfoot and hindfoot joint osteoarthritis as above. No fracture or dislocation. No osteochondral injuries of talar dome. 2. Moderate tendinosis involving posterior tibialis tendon at the level of distal talus and talonavicular joint. 3. Low-grade sprain involving anterior and posterior talofibular ligaments and calcaneofibular ligament. 4. Mildly thickened plantar fascia at its calcaneal insertion suggestive of low-grade plantar fasciitis. The Achilles tendon is intact. Dictated by: Jesus Whiting M.D. on 04/04/2023 at 16:18 Approved by: Jesus Whiting M.D. on 04/04/2023 at 16:30
== END ==
PROVIDERS: PCP Internal Medicine; Referring Provider Podiatrist; Visit Provider Podiatrist
DX: M76.821 Posterior tibial tendinitis, right leg (principal); S93.491A Sprain of other ligament of right ankle, initial encounter; S93.411A Sprain of calcaneofibular ligament of right ankle, initial encounter; M19.071 Primary osteoarthritis, right ankle and foot
CPT/HCPCS: 73721

== ENCOUNTER → 2023-11-07 14:38 | Outpatient (CLI) | payer MEDICARE, SELFPAY ==
[2023-11-07 15:16] LABS: Add Manual Diff / Slide Review NO; Basophils Absolute Auto 100 /uL (0-100); Basophils Percent Auto 0.8 % (0-2); Eosinophils Absolute Auto 300 /uL (0-450); Eosinophils Percent Auto 3.8 % (2-4); Hematocrit 36.4 % (36-46); Hemoglobin 12.3 g/dL (12.0-16.0); Lymphocytes Absolute Auto 2400 /uL (1100-4500); Lymphocytes Percent Auto 29.1 % (25-40); Mean Corpuscular HGB Conc 33.8 % (30-36); Mean Corpuscular Hemoglobin 33.4 PG (26-34); Monocytes Absolute Auto 700 /uL (0-900); Monocytes Percent Auto 8.6 % (3-14); Neutrophils Absolute Auto 4700 /uL (1500-7000); Neutrophils Percent Auto 57.7 % (50-75); Platelet Count 295 X10^3/uL (150-400); Red Blood Cell Count 3.68 X10^6/uL (4.0-5.2); Red Cell Distribution Width 12.3 % (11.6-14.8); White Blood Cell Count 8.2 X10^3/uL (4.5-11.0)
[2023-11-07 15:39] LABS: BUN Creatinine Ratio 18.2 (6-22); Blood Urea Nitrogen 16 mg/dL (7-17); Calcium 9.8 mg/dL (8.4-10.2); Carbon Dioxide 25 mmol/L (22-32); Chloride 97 mmol/L (98-107); Estimated Glomerular Filt Rate > 60 mL/min (>60); Glucose 109 mg/dL (80-110); HEMOLYSIS < 15 (0-50); Potassium 4.3 mmol/L (3.4-5.1); Sodium 132 mmol/L (137-145)
== END ==
PROVIDERS: PCP Internal Medicine; Referring Provider Internal Medicine; Visit Provider Internal Medicine
DX: R94.31 Abnormal electrocardiogram [ECG] [EKG] (principal); I10 Essential (primary) hypertension; E78.2 Mixed hyperlipidemia; Z01.812 Encounter for preprocedural laboratory examination
CPT/HCPCS: 36415; 80048; 85025

== ENCOUNTER → 2023-11-08 09:30 | Outpatient (CLI) | payer MEDICARE, SELFPAY ==
--- NOTE | 2023-11-08 09:32 | DI.MG.S_ITS ---
BILATERAL DIGITAL DIAGNOSTIC MAMMOGRAM 3D/2D: 11/08/2023 CLINICAL: Right breast pain. Comparison is made to exams dated: 10/18/2022 mammogram, 10/14/2021 mammogram, 10/14/2020 mammogram, and 10/11/2019 mammogram - [facility]. There are scattered areas of fibroglandular density in both breasts (category b / 25%-50% glandular tissue). No significant masses, calcifications, or other findings are seen in either breast. IMPRESSION: NEGATIVE There is no abnormality seen in the right breast to correspond with the pain, however, clinical followup is recommended. There is no mammographic evidence of malignancy. Return to annual mammogram screening schedule is recommended. Based on the Tyrer Cuzick model (a risk assessment model) the patient's lifetime risk is 17.5% and her 10 year risk is 9.4%. According to the ACR, ACS, and NCCN guidelines, an annual breast MRI exam along with mammogram is recommended if the patient's lifetime risk is 20% or greater. This exam was interpreted at Station ID: [id number]. NOTE: For mammograms, a report in lay terms will be sent to the patient. Approximately 15% of breast malignancies will not be visualized mammographically. In the management of a palpable breast mass, a negative mammogram must not discourage biopsy of a clinically suspicious lesion. Electronically Signed By: Marcin phoenix/katie:11/08/2023 10:10:30 letter sent: Clinical Evaluation ACR BI-RADS Category 1: Negative 3341F
== END ==
PROVIDERS: PCP Internal Medicine; Referring Provider Internal Medicine; Visit Provider Internal Medicine
DX: N64.4 Mastodynia (principal); R92.323 Mammographic fibroglandular density, bilateral breasts
CPT/HCPCS: 77066; G0279

== ENCOUNTER → 2023-11-11 09:43 | Outpatient (CLI) | payer MEDICARE, SELFPAY | LOC: RESP 09:45 | PROVIDERS: PCP Internal Medicine; Referring Provider Orthopaedic Surgery Foot and Ankle Surgery; Visit Provider Orthopaedic Surgery Foot and Ankle Surgery | DX: Z01.818 Encounter for other preprocedural examination (principal) | CPT/HCPCS: 93005 ==

== ENCOUNTER → 2023-11-23 12:39 | Outpatient (CLI) | payer MEDICARE, SELFPAY ==
--- NOTE | 2023-11-23 | DI.MRI.S_ITS ---
PROCEDURE: MR SHOULDER RT WO CON INDICATIONS: STRAIN OF RIGHT SHOULDER TECHNIQUE: Noncontrast oblique coronal T2 fast spin echo with fat saturation, oblique sagittal T1 spin echo and T2 fast spin echo with fat saturation, axial T1 spin echo and T2 fast spin echo with fat saturation through the shoulder. COMPARISON: CT, CT CHEST WO CON, 08/10/2021, 9:29. [facility] [place], [place], XR SHOULDER 2+ VIEWS RIGHT, 08/16/2023, 11:31. FINDINGS: Image quality: Excellent. Rotator cuff: There is moderate tendinosis of the supraspinatus, infraspinatus and subscapularis tendons. There is low-grade partial thickness tear involving the bursal and articular surfaces of the supraspinatus and subscapularis tendons. No tendon rupture. Sagittal images demonstrate rotator cuff muscle atrophy. Bones and bursae: No bone marrow contusions or fractures. Moderate acromioclavicular and glenohumeral joint degeneration. The acromion demonstrates conventional anatomy, without an os acromiale. There is a small amount of subcoracoid bursal fluid, suggesting mild bursitis. Capsule and soft tissues: There is degenerative fraying of the superior labrum. The intra-articular segment of the long head of the biceps tendon appears thickened with heterogeneous signal consistent with tendinitis. The rotator interval is irregular. The coracohumeral ligament appears thickened. Borderline enlarged axillary lymph nodes are noted measuring up to 1 cm in short axis. IMPRESSION: 1. Moderate supraspinatus, infraspinatus and subscapularis tendinosis. No high-grade tendon tear. No rotator cuff muscle atrophy. 2. Tendinitis of the long head of the biceps tendon. 3. Moderate acromioclavicular and glenohumeral joint degeneration. 4. Mild subcoracoid bursitis. 5. Irregular rotator interval and thickening of coracohumeral ligament. The findings are associated with adhesive capsulitis. Recommend clinical correlation. 6. Borderline enlarged axillary lymph nodes, which is nonspecific and most likely reactive. Recommend clinical follow-up Dictated by: Fermin Johnson M.D. on 11/23/2023 at 13:43 Approved by: Fermin Johnson M.D. on 11/23/2023 at 13:55
== END ==
LOC: MRI 12:40
PROVIDERS: PCP Internal Medicine; Referring Provider Orthopaedic Surgery; Visit Provider Orthopaedic Surgery
DX: S46.911A Strain of unspecified muscle, fascia and tendon at shoulder and upper arm level, right arm, initial encounter (principal); M75.21 Bicipital tendinitis, right shoulder; M19.011 Primary osteoarthritis, right shoulder; M75.51 Bursitis of right shoulder; X58.XXXA Exposure to other specified factors, initial encounter
CPT/HCPCS: 73221

== ENCOUNTER → 2023-12-05 10:07 | Outpatient (CLI) | payer MEDICARE, SELFPAY ==
[2023-12-05 11:49] LABS: BUN Creatinine Ratio 14.9 (6-22); Blood Urea Nitrogen 13 mg/dL (7-17); Calcium 9.7 mg/dL (8.4-10.2); Carbon Dioxide 28 mmol/L (22-32); Chloride 103 mmol/L (98-107); Estimated Glomerular Filt Rate > 60 mL/min (>60); Glucose 112 mg/dL (80-110); HEMOLYSIS < 15 (0-50); Potassium 4.1 mmol/L (3.4-5.1); Sodium 136 mmol/L (137-145)
== END ==
PROVIDERS: PCP Internal Medicine; Referring Provider Orthopaedic Surgery Foot and Ankle Surgery; Visit Provider Orthopaedic Surgery Foot and Ankle Surgery
DX: Z01.812 Encounter for preprocedural laboratory examination (principal)
CPT/HCPCS: 36415; 80048

== ENCOUNTER → 2024-01-13 17:35 | Outpatient (CLI) | payer MEDICARE, SELFPAY | PROVIDERS: PCP Internal Medicine; Visit Provider Physician Assistant | DX: R30.0 Dysuria (principal) | CPT/HCPCS: 87086 ==

== ENCOUNTER → 2024-01-17 15:16 | Outpatient (CLI) | payer MEDICARE, SELFPAY ==
[2024-01-17 16:46] LABS: Appearance Urine UA CLEAR
[2024-01-17 16:47] LABS: Color Urine UA ORANGE
[2024-01-17 16:53] LABS: Bacteria Urine Few (2-10); RBC Urine 0-1/HPF (0-5/HPF); Urine Volume 10mL (spun); WBC Urine 10-30/HPF (0-5/HPF)
[2024-01-17 16:54] LABS: Culture Indicated Urine Specimen Cultured; Mucus Urine 1+ (Negative); Squamous Epithelial Cell Urine 0-1 /HPF (0-5/HPF)
== END ==
PROVIDERS: PCP Internal Medicine; Referring Provider Internal Medicine; Visit Provider Internal Medicine
DX: R39.9 Unspecified symptoms and signs involving the genitourinary system (principal)
CPT/HCPCS: 81001; 87077; 87086

== ENCOUNTER 2024-01-22 22:43 | Emergency (ER) | payer MEDICARE, SELFPAY ==
[2024-01-22 22:46] VITALS: BP 143/67; PULSE 86; RESP 18; TEMP 37.2; BMI 30.9
--- NOTE | 2024-01-22 22:54 | DI.RAD.S_ITS ---
PROCEDURE: XR CHEST 1V INDICATIONS: Shortness of breath TECHNIQUE: One view of the chest was acquired. COMPARISON: [facility], [place], XR CHEST 2V, 01/18/2021, 23:56. [facility], [place], XR CHEST 2V, 03/20/2019, 11:06. FINDINGS: Surgical changes and devices: None. Lungs and pleura: Lungs are clear. No pleural effusions or pneumothorax. Mediastinum: Mediastinal contours appear normal. Heart size is normal. Bones and chest wall: No suspicious bony lesions. Overlying soft tissues appear unremarkable. IMPRESSION: No acute cardiopulmonary abnormality is seen. Dictated by: Shaggy Mccrary M.D. on 01/22/2024 at 23:49 Approved by: Shaggy Mccrary M.D. on 01/22/2024 at 23:50
[2024-01-22 23:15] LABS: Hematocrit 36.9 % (36-46); Hemoglobin 12.5 g/dL (12.0-16.0); INR 0.9 (0.9-1.3); Mean Corpuscular Volume 100.2 fL (80-100); Platelet Count 307 X10^3/uL (150-400); Prothrombin Time 10.8 SECONDS (9.4-12.5); Red Blood Cell Count 3.68 X10^6/uL (4.0-5.2); Red Cell Distribution Width 11.9 % (11.6-14.8); White Blood Cell Count 9.4 X10^3/uL (4.5-11.0)
[2024-01-22 23:17] LABS: Add Manual Diff / Slide Review YES
[2024-01-22 23:19] VITALS: O2SAT 96; BMI 30.9
[2024-01-22 23:20] LABS: Lactate (Lactic Acid) 1.3 mmol/L (0.7-2.1)
[2024-01-22 23:22] LABS: Alanine Aminotransferase 27 IU/L (<35); Albumin 4.7 g/dL (3.5-5.0); Albumin Globulin Ratio 1.7 (1.0-2.8); BUN Creatinine Ratio 23.1 (6-22); Bilirubin Total 0.6 mg/dL (0.2-1.3); Blood Urea Nitrogen 18 mg/dL (7-17); Calcium 9.4 mg/dL (8.4-10.2); Carbon Dioxide 25 mmol/L (22-32); Chloride 104 mmol/L (98-107); Estimated Glomerular Filt Rate > 60 mL/min (>60); Globulin 2.8 g/dL (1.7-4.1); Glucose 135 mg/dL (80-110); HEMOLYSIS 97 (0-50); Sodium 137 mmol/L (137-145); Total Protein 7.5 g/dL (6.3-8.2)
[2024-01-22 23:23] LABS: Alkaline Phosphatase 49 U/L (38-126); Aspartate Aminotransferase 29 IU/L (14-36)
[2024-01-22 23:26] LABS: Neutrophils Absolute Manual 5076 /uL (3000-5900); Total Cells Counted 100
[2024-01-22 23:27] LABS: RBC Morphology Normal Morphology
[2024-01-22 23:33] LABS: NT-proBNP (BNP-Adult 18+) 42 pg/mL (<125); Troponin I < 0.012 ng/mL (0.01-0.034)
[2024-01-23 01:44] LABS: D Dimer 1594 ng/ml (<500)
--- NOTE | 2024-01-23 05:28 | ED_ITS ---
HPI - SOB/Dyspnea General Chief Complaint: Shortness of Breath/Dyspnea Stated Complaint: SOB/low BP Source: patient and family Mode of arrival: Wheelchair Limitations: no limitations History of Present Illness HPI Narrative: (Patient left without seeing a provider, screening labs looked unremarkable. EKG was done at triage showed no ST segment elevation changes but nonspecific T- wave abnormality) Related Data Home Medications Medication Instructions Recorded Confirmed pantoprazole 40 mg tablet,delayed 40 mg PO BID 09/23/22 01/13/24 release Previous Rx's Medication Instructions Recorded albuterol sulfate 90 mcg/actuation 1 inh inhalation Q4-6H PRN 11/23/22 aerosol inhaler shortness of breath #18 grams losartan 100 mg tablet 100 mg PO HS #90 tabs 12/02/22 amlodipine 5 mg tablet (Norvasc) 5 mg PO DAILY #90 tabs 10/03/23 duloxetine 20 mg capsule,delayed 40 mg (2 x 20 mg) PO DAILY #60 caps 11/07/23 release rosuvastatin 10 mg tablet 10 mg PO DAILY #90 tabs 11/07/23 fluticasone 250 mcg-salmeterol 50 1 inh inhalation BID #180 ea 12/21/23 mcg/dose blistr powdr for inhalation phenazopyridine 200 mg tablet 200 mg PO TID PRN pain 6 doses #6 01/13/24 (Pyridium) tabs Allergies Allergy/AdvReac Type Severity Reaction Status Date / Time meperidine [From DEMEROL] AdvReac Unknown Hallucinati Verified 01/13/24 17:23 ng morphine [MORPHINE] AdvReac Unknown Difficulty Verified 01/13/24 17:23 Breathing Patient History Medical History Coronary artery calcification BPPV (benign paroxysmal positional vertigo) Depression, major, recurrent Obesity (BMI 30.0-34.9) Chronic upper back pain History of colonic polyps Pulmonary nodules Osteopenia GERD without esophagitis Allergic rhinitis Mixed hyperlipidemia Whiplash Depression Plantar fasciitis Surgical History History of bilateral oophorectomy (~07/2019) H/O: hysterectomy Hx of cholecystectomy History of section Hx of bilateral inguinal hernia repair Social History details: (Shivam), two daughters, 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; 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 Smoking Status: Never smoker alcohol intake: current Smoking Status: Never smoker alcohol intake frequency: a few times a week Substance Use Type: does not use Exam Initial Vital Signs Initial Vital Signs: Vital Signs Temperature 99 F 01/22/24 22:46 Pulse Rate 86 01/22/24 22:46 Respiratory Rate 18 01/22/24 22:46 Blood Pressure 143/67 H 01/22/24 22:46 Oxygen Delivery Method Room Air 01/22/24 22:46 Course Orders Ordered: ED Orders 01/22/24 22:54 XR chest 1V Stat EKG-12 Lead Stat Measure peak expiratory flow ONCE RT Consult Eval and Treat NOW 01/22/24 22:55 Complete Blood Count AUTO DIFF Stat Comprehensive Metabolic Panel Stat Lactate (Lactic Acid) Stat NT-proBNP (BNP-Adult 18+) Stat Prothrombin Time INR Stat Troponin I Stat 01/23/24 01:22 D Dimer Stat Vital Signs Vital signs: Vital Signs - 8 hr 01/22/24 22:46 01/22/24 23:19 Temperature 99 F Pulse Rate 86 Respiratory Rate 18 Blood Pressure 143/67 H Pulse Oximetry 96 Oxygen Delivery Method Room Air Room Air MDM - SOB/Dyspnea Lab Data 01/22/24 22:55 01/22/24 22:55 Labs: Lab Results 01/22/24 Range/Units 22:55 WBC 9.4 (4.5-11.0) X10^3/uL RBC 3.68 L (4.0-5.2) X10^6/uL Hgb 12.5 (12.0-16.0) g/dL Hct 36.9 (36-46) % MCV 100.2 H (80-100) fL MCH 34.0 (26-34) PG MCHC 34.0 (30-36) % RDW 11.9 (11.6-14.8) % Plt Count 307 (150-400) X10^3/uL Neut % (Auto) Not Reportable Lymph % (Auto) Not Reportable [place] % (Auto) Not Reportable Eos % (Auto) Not Reportable Baso % (Auto) Not Reportable Lymph # (Auto) Not Reportable [place] # (Auto) Not Reportable Baso # (Auto) Not Reportable Total Counted 100 Seg Neutrophils % 54.0 (38-70) % Lymphocytes % (Manual) 39.0 (25-45) % Monocytes % (Manual) 3.0 (2-11) % Eosinophils % (Manual) 3.0 (2-4) % Basophils % (Manual) 1.0 (0-1) % Neutrophils # (Manual) 5076 (9217-5917) /uL RBC Morphology Normal morphology PT 10.8 (9.4-12.5) SECONDS INR 0.9 (0.9-1.3) D-Dimer 1594 H (<500) ng/ml Sodium 137 (137-145) mmol/L Potassium 4.0 (3.4-5.1) mmol/L Chloride 104 (98-107) mmol/L Carbon Dioxide 25 (22-32) mmol/L BUN 18 H (7-17) mg/dL Creatinine 0.78 (0.52-1.04) mg/dL Estimated GFR > 60 (>60) mL/min BUN/Creatinine Ratio 23.1 H (6-22) Glucose 135 H (80-110) mg/dL Lactate 1.3 (0.7-2.1) mmol/L Calcium 9.4 (8.4-10.2) mg/dL Total Bilirubin 0.6 (0.2-1.3) mg/dL AST 29 (14-36) IU/L ALT 27 (<35) IU/L Alkaline Phosphatase 49 (38-126) U/L Troponin I < 0.012 (0.01-0.034) ng/mL NT-Pro-B Natriuret Pep 42 (<125) pg/mL Total Protein 7.5 (6.3-8.2) g/dL Albumin 4.7 (3.5-5.0) g/dL Globulin 2.8 (1.7-4.1) g/dL Albumin/Globulin Ratio 1.7 (1.0-2.8) Discharge Plan Departure Patient Disposition: Left Without Being Seen Clinical Impression: Patient left without being seen Prescriptions: No Action phenazopyridine [Pyridium] 200 mg tablet 200 mg PO TID PRN (Reason: pain) Qty: 6 0RF albuterol sulfate 90 mcg/actuation HFA aerosol inhaler 1 inh INHALATION Q4-6H PRN (Reason: shortness of breath) Qty: 18 3RF losartan 100 mg tablet 100 mg PO HS Qty: 90 3RF amlodipine [Norvasc] 5 mg tablet 5 mg PO DAILY Qty: 90 3RF fluticasone propion-salmeterol 250-50 mcg/dose blister with device 1 inh inhalation BID Qty: 180 3RF pantoprazole 40 mg tablet,delayed release (DR/EC) 40 mg PO BID rosuvastatin 10 mg tablet 10 mg PO DAILY Qty: 90 3RF duloxetine 20 mg capsule,delayed release(DR/EC) 40 mg PO DAILY Qty: 60 5RF
== END 2024-01-23 02:29 | disposition left against medical advice (07) ==
PROVIDERS: Emergency Provider Emergency Medicine; PCP Internal Medicine
DX: R06.02 Shortness of breath (principal); R03.1 Nonspecific low blood-pressure reading
CPT/HCPCS: 36415; 71045; 80053; 83605; 83880; 84484; 85007; 85025; 85379; 85610; 93005; 99283

== ENCOUNTER 2024-01-23 15:41 | Emergency (ER) | payer MEDICARE, SELFPAY ==
[2024-01-23 16:01] VITALS: BP 160/70; PULSE 82; RESP 16; TEMP 37; O2SAT 97; BMI 30.9
--- NOTE | 2024-01-23 16:42 | DI.US.S_ITS ---
PROCEDURE: US PERIPH VENOUS LOW EXTREM RT INDICATIONS: Eval for DVT TECHNIQUE: Real-time imaging, as well as color and pulse Doppler interrogation, were performed of the lower extremity deep veins from the inguinal ligament to the popliteal fossa, with documentation of the visualized calf veins. COMPARISON: None. FINDINGS: The common femoral, femoral, popliteal, and the visualized calf veins are normally compressible, and free of intraluminal thrombus. Color and pulse Doppler demonstrate normal phasic intraluminal flow. There is normal augmentation response to distal compression maneuver. IMPRESSION: No findings of lower extremity deep venous thrombosis. Dictated by: Rafa Jack M.D. on 01/23/2024 at 17:09 Approved by: Rafa Jack M.D. on 01/23/2024 at 17:10
--- NOTE | 2024-01-23 18:17 | DI.CT.S_ITS ---
PROCEDURE: CT ANGIO CHEST PE PROTOCOL INDICATIONS: elevated dimer, chest tightness TECHNIQUE: After the administration of intravenous contrast, 2 mm thick sections acquired from the pulmonary apices to the posterior costophrenic angles. 3-dimensional maximum intensity projection (MIP) coronal and sagittal reformats were then acquired through the thorax. For radiation dose reduction, the following was used: automated exposure control, adjustment of mA and/or kV according to patient size. COMPARISON: [facility], CT, CT ANGIO CHEST PE PROTOCOL, 01/19/2021, 7:24. FINDINGS: Image quality: Diagnostic. Pulmonary arteries: Pulmonary arteries are normal in size, and demonstrate no intraluminal filling defects to suggest central pulmonary embolism. Lower Neck: No enlarged lymph nodes. Thyroid: No thyroid nodules which require sonographic follow up, per consensus guidelines. Axillae: No enlarged lymph nodes. Chest Wall: Unremarkable. Bones: Degenerative changes of the spine.. Lungs and Pleura: No pneumothorax or pleural effusions. Linear atelectasis versus scarring within the lingula, right middle lobe and bilateral lung bases. Stable 6 mm pulmonary nodule in the right lower lobe (7/145). Stable 7 mm right lower lobe perifissural nodule (7/151). Heart: Heart size is normal. No pericardial effusion. Thoracic Vessels: No aortic aneurysm. Mediastinum and Tea: No enlarged lymph nodes. Esophagus: No wall thickening. Small hiatal hernia. Upper Abdomen: Visualized upper abdomen solid organs and bowel loops appear normal. IMPRESSION: No pulmonary embolus. No acute cardiopulmonary process. Stable pulmonary nodules measuring up to 7 mm compared to 01/19/2021. Dictated by: Rafa Jack M.D. on 01/23/2024 at 19:58 Approved by: Rafa Jack M.D. on 01/23/2024 at 20:03
[2024-01-23] MEDS: ACETAMINOPHEN 325 MG TABLET 975 MG PO (18:40)
[2024-01-23 18:58] LABS: Add Manual Diff / Slide Review NO; Basophils Absolute Auto 100 /uL (0-100); Basophils Percent Auto 0.7 % (0-2); Eosinophils Absolute Auto 300 /uL (0-450); Eosinophils Percent Auto 2.8 % (2-4); Hematocrit 36.9 % (36-46); Hemoglobin 12.5 g/dL (12.0-16.0); Lymphocytes Absolute Auto 2000 /uL (1100-4500); Lymphocytes Percent Auto 18.4 % (25-40); Mean Corpuscular HGB Conc 33.9 % (30-36); Mean Corpuscular Volume 100.4 fL (80-100); Monocytes Absolute Auto 700 /uL (0-900); Monocytes Percent Auto 6.3 % (3-14); Neutrophils Absolute Auto 7600 /uL (1500-7000); Neutrophils Percent Auto 71.8 % (50-75); Platelet Count 315 X10^3/uL (150-400); Red Blood Cell Count 3.68 X10^6/uL (4.0-5.2); Red Cell Distribution Width 11.9 % (11.6-14.8); White Blood Cell Count 10.6 X10^3/uL (4.5-11.0)
--- NOTE | 2024-01-23 19:01 | ED.EXTPRO ---
HPI - Extremity Problem <Charles Leyva PA-C - Last Filed: 01/23/24 19:31> General Chief complaint: Extremity Problem,Nontraumatic Stated complaint: Blood work and pressure? Time Seen by Provider: 01/23/24 16:42 Source: patient Mode of arrival: Family Vehicle History of Present Illness HPI Narrative: 68-year-old female with past medical history hypertension, BPPV, osteopenia, hyperlipidemia, GERD presents to the ED with 2 days of chest pressure, shortness of breath, right posterior knee pain. Patient presented to the ED last night, had a workup performed, however left without being seen since the wait was too long. Patient has had recent foot surgery 2 weeks ago, performed by Dr. Navarro for a flatfoot reconstruction of the right foot. Patient states that she sat in a car with her leg stretched out yesterday, following which she started experiencing pain behind the right knee. Patient also complains of lightheadedness when she is goes from sitting to standing, feels easily winded over the last 2 days. Patient takes losartan and amlodipine for hypertension. Patient obtained a new blood pressure cuff from [employer] which goes on the wrist. Given that the cuff read her blood pressure to be quite low such as in the systolic 80s, combined with the lightheadedness she was experiencing, patient's suspected that her blood pressure was too low and discontinued the losartan and amlodipine. Patient has discontinued her hypertension medications for the last 2 days. Yesterday in the ED, chest x-ray and EKG were without acute findings. D-dimer was elevated to 1594. All other labs within normal limits. Patient denies fever, chills. Patient endorses that her foot is healing well with no signs of infection. Related Data Home Medications Medication Instructions Recorded Confirmed pantoprazole 40 mg tablet,delayed 40 mg PO BID 09/23/22 01/13/24 release Previous Rx's Medication Instructions Recorded albuterol sulfate 90 mcg/actuation 1 inh inhalation Q4-6H PRN 11/23/22 aerosol inhaler shortness of breath #18 grams losartan 100 mg tablet 100 mg PO HS #90 tabs 12/02/22 amlodipine 5 mg tablet (Norvasc) 5 mg PO DAILY #90 tabs 10/03/23 duloxetine 20 mg capsule,delayed 40 mg (2 x 20 mg) PO DAILY #60 caps 11/07/23 release rosuvastatin 10 mg tablet 10 mg PO DAILY #90 tabs 11/07/23 fluticasone 250 mcg-salmeterol 50 1 inh inhalation BID #180 ea 12/21/23 mcg/dose blistr powdr for inhalation phenazopyridine 200 mg tablet 200 mg PO TID PRN pain 6 doses #6 01/13/24 (Pyridium) tabs Allergies Allergy/AdvReac Type Severity Reaction Status Date / Time meperidine [From DEMEROL] AdvReac Unknown Hallucinati Verified 01/23/24 16:08 ng morphine [MORPHINE] AdvReac Unknown Difficulty Verified 01/23/24 16:08 Breathing Review of Systems <Charles Leyva PA-C - Last Filed: 01/23/24 19:31> Constitutional Constitutional: Denies chills, Denies fatigue, Denies fever(s), Denies frequent falls, Denies lethargy and Denies weakness Eyes Eyes: Denies change in vision, Denies eye discharge, Denies irritation and Denies loss of vision ENT Ears, Nose, Mouth, and Throat: Denies change in voice, Denies dizziness, Denies neck pain, Denies sore throat and Denies throat swelling Cardiovascular Cardiovascular: Reports chest pain, Denies irregular heart rhythm, Denies lightheadedness, Denies palpitations, Reports dyspnea, Denies dyspnea on exertion and Denies orthopnea Respiratory Respiratory: Reports cough, Reports dyspnea, Denies dyspnea on exertion and Denies wheezing Gastrointestinal Gastrointestinal: Denies abdominal pain, Denies change in bowel habits, Denies diarrhea, Denies nausea and Denies vomiting Musculoskeletal Musculoskeletal: Denies neck pain and Denies numbness Comments: Right posterior knee pain Integumentary/Breasts Skin/Breast: Denies pruritus, Denies erythema, Denies rash and Denies wounds Neurologic Neurologic: Denies behavioral changes, Denies confusion, Denies dizziness, Denies frequent falls, Denies loss of vision, Denies numbness and Denies weakness Psychiatric Psychiatric: Denies anxiety, Denies behavioral changes, Denies confusion, Denies depression, Denies homicidal ideation and Denies suicidal ideation Endocrine Endocrine: Denies fatigue, Denies flushing and Denies palpitations Hematologic/Lymphatic Hematologic/Lymphatic: Denies easy bruising Allergic/Immunologic Allergic/Immunologic: Denies urticaria, Denies throat swelling and Denies wheezing Patient History <Charles Leyva PA-C - Last Filed: 01/23/24 19:31> Medical History Coronary artery calcification BPPV (benign paroxysmal positional vertigo) Depression, major, recurrent Obesity (BMI 30.0-34.9) Chronic upper back pain History of colonic polyps Pulmonary nodules Osteopenia GERD without esophagitis Allergic rhinitis Mixed hyperlipidemia Whiplash Depression Plantar fasciitis Surgical History History of bilateral oophorectomy (~07/2019) H/O: hysterectomy Hx of cholecystectomy History of section Hx of bilateral inguinal hernia repair Social History details: (Shivam), two daughters, 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; 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 Smoking Status: Never smoker alcohol intake: current Smoking Status: Never smoker alcohol intake frequency: a few times a week Substance Use Type: does not use Exam <Charles Leyva PA-C - Last Filed: 01/23/24 19:31> Narrative Exam Narrative: Const General:?cooperative, healthy appearing and comfortable [facility] Head:?normal to inspection Ears:?hearing grossly normal bilaterally Nose:?external nose normal Face and sinus:?normal facial exam and sinuses nontender Mouth:?oral mucosae normal Throat:?posterior oropharynx normal Eyes General:?appearance normal, both eyes and all related structures Neck Neck:?normal visual inspection and no lymphadenopathy noted Resp Effort & Inspection:?normal respiratory effort Auscultation:?clear to auscultation bilaterally Cardio Rate:?regular rate Rhythm:?regular rhythm Musculoskeletal Patient has dressing and Jason wrap on the surgical area of the right foot. There is no tenderness to palpation, swelling, erythema, bruising of the right knee. Full range of motion of the knee. Strength and sensation is intact. Patient is neurovascularly intact. Neuro General:?patient alert, patient awake and patient oriented x3 Initial Vital Signs Initial Vital Signs: Vital Signs Temperature 98.6 F 01/23/24 16:01 Pulse Rate 82 01/23/24 16:01 Respiratory Rate 16 01/23/24 16:01 Blood Pressure 160/70 H 01/23/24 16:01 Pulse Oximetry 97 01/23/24 16:01 Oxygen Delivery Method Room Air 01/23/24 16:01 <Zulema Alvarez MD - Last Filed: 01/23/24 20:46> Initial Vital Signs Initial Vital Signs: Vital Signs Temperature 98.6 F 01/23/24 16:01 Pulse Rate 82 01/23/24 16:01 Respiratory Rate 16 01/23/24 16:01 Blood Pressure 160/70 H 01/23/24 16:01 Pulse Oximetry 97 01/23/24 16:01 Oxygen Delivery Method Room Air 01/23/24 16:01 Course <Charles Leyva PA-C - Last Filed: 01/23/24 19:31> Orders Ordered: ED Orders 01/23/24 16:42 US periph venous low extrem rt Stat 01/23/24 18:17 CT angio chest PE protocol Stat 01/23/24 18:18 EKG-12 Lead Stat 01/23/24 18:50 Complete Blood Count AUTO DIFF Stat Comprehensive Metabolic Panel Stat D Dimer Stat Lipase Stat Magnesium Stat PTT Partial Thromboplastin Dmitry Stat Prothrombin Time INR Stat Troponin & CK Cardiac Panel Stat Discontinued Medications Acetaminophen (Acetaminophen 325 Mg Tablet) 975 mg PO NOW ONE Stop: 01/23/24 18:38 Last Admin: 01/23/24 18:40 Dose: 975 mg Documented By: RB Vital Signs Vital signs: Vital Signs - 8 hr 01/23/24 16:01 Temperature 98.6 F Pulse Rate 82 Respiratory Rate 16 Blood Pressure 160/70 H Pulse Oximetry 97 Oxygen Delivery Method Room Air <Zulema Alvarez MD - Last Filed: 01/23/24 20:46> Orders Ordered: ED Orders 01/23/24 16:42 US periph venous low extrem rt Stat 01/23/24 18:17 CT angio chest PE protocol Stat 01/23/24 18:18 EKG-12 Lead Stat 01/23/24 18:50 Complete Blood Count AUTO DIFF Stat Comprehensive Metabolic Panel Stat D Dimer Stat Lipase Stat Magnesium Stat PTT Partial Thromboplastin Dmitry Stat Prothrombin Time INR Stat Troponin & CK Cardiac Panel Stat Discontinued Medications Acetaminophen (Acetaminophen 325 Mg Tablet) 975 mg PO NOW ONE Stop: 01/23/24 18:38 Last Admin: 01/23/24 18:40 Dose: 975 mg Documented By: RB Vital Signs Vital signs: Vital Signs - 8 hr 01/23/24 16:01 Temperature 98.6 F Pulse Rate 82 Respiratory Rate 16 Blood Pressure 160/70 H Pulse Oximetry 97 Oxygen Delivery Method Room Air MDM - Extremity (Nontraumatic) <Charles Leyva PA-C - Last Filed: 01/23/24 19:31> Lab Data 01/23/24 18:50 01/23/24 18:50 Labs: Lab Results 01/23/24 Range/Units 18:50 WBC 10.6 (4.5-11.0) X10^3/uL RBC 3.68 L (4.0-5.2) X10^6/uL Hgb 12.5 (12.0-16.0) g/dL Hct 36.9 (36-46) % MCV 100.4 H (80-100) fL MCH 34.0 (26-34) PG MCHC 33.9 (30-36) % RDW 11.9 (11.6-14.8) % Plt Count 315 (150-400) X10^3/uL Neut % (Auto) 71.8 (50-75) % Lymph % (Auto) 18.4 L (25-40) % [place] % (Auto) 6.3 (3-14) % Eos % (Auto) 2.8 (2-4) % Baso % (Auto) 0.7 (0-2) % Neut # (Auto) 7600 H (0335-5887) /uL Lymph # (Auto) 2000 (1337-1625) /uL [place] # (Auto) 700 (0-900) /uL Eos # (Auto) 300 (0-450) /uL Baso # (Auto) 100 (0-100) /uL PT 11.3 (9.4-12.5) SECONDS INR 1.0 (0.9-1.3) APTT 36 (25.1-36.5) SECONDS D-Dimer 1516 H (<500) ng/ml Sodium 136 L (137-145) mmol/L Potassium 3.9 (3.4-5.1) mmol/L Chloride 103 (98-107) mmol/L Carbon Dioxide 26 (22-32) mmol/L BUN 19 H (7-17) mg/dL Creatinine 0.71 (0.52-1.04) mg/dL Estimated GFR > 60 (>60) mL/min BUN/Creatinine Ratio 26.8 H (6-22) Glucose 108 (80-110) mg/dL Calcium 9.7 (8.4-10.2) mg/dL Magnesium 2.1 (1.6-2.3) mg/dL Total Bilirubin 0.5 (0.2-1.3) mg/dL AST 25 (14-36) IU/L ALT 25 (<35) IU/L Alkaline Phosphatase 59 (38-126) U/L Total Creatine Kinase 72 (30-135) U/L Troponin I < 0.012 (0.01-0.034) ng/mL Total Protein 7.5 (6.3-8.2) g/dL Albumin 4.7 (3.5-5.0) g/dL Globulin 2.8 (1.7-4.1) g/dL Albumin/Globulin Ratio 1.7 (1.0-2.8) Lipase 57 (23-300) U/L MDM Narrative Medical decision making narrative: 68-year-old female with past medical history hypertension, BPPV, osteopenia, hyperlipidemia, GERD presents to the ED with 2 days of chest pressure, shortness of breath, right posterior knee pain. Concern for DVT versus PE versus ACS versus musculoskeletal sprain/strain versus other. Ultrasound of the right lower extremity was obtained, which was without acute findings. Given chest tightness, shortness of breath, elevated D-dimer, will screen patient for cardiopulmonary causes. EKG, labs, troponin, D-dimer, chest CT ordered. Patient given Tylenol for pain. Will reassess. Patient signed out to Dr. Zulema Alvarez at this time. <Zulema Alvarez MD - Last Filed: 01/23/24 20:46> Lab Data Labs: Lab Results 01/23/24 Range/Units 18:50 WBC 10.6 (4.5-11.0) X10^3/uL RBC 3.68 L (4.0-5.2) X10^6/uL Hgb 12.5 (12.0-16.0) g/dL Hct 36.9 (36-46) % MCV 100.4 H (80-100) fL MCH 34.0 (26-34) PG MCHC 33.9 (30-36) % RDW 11.9 (11.6-14.8) % Plt Count 315 (150-400) X10^3/uL Neut % (Auto) 71.8 (50-75) % Lymph % (Auto) 18.4 L (25-40) % [place] % (Auto) 6.3 (3-14) % Eos % (Auto) 2.8 (2-4) % Baso % (Auto) 0.7 (0-2) % Neut # (Auto) 7600 H (1287-8282) /uL Lymph # (Auto) 2000 (8967-4408) /uL [place] # (Auto) 700 (0-900) /uL Eos # (Auto) 300 (0-450) /uL Baso # (Auto) 100 (0-100) /uL PT 11.3 (9.4-12.5) SECONDS INR 1.0 (0.9-1.3) APTT 36 (25.1-36.5) SECONDS D-Dimer 1516 H (<500) ng/ml Sodium 136 L (137-145) mmol/L Potassium 3.9 (3.4-5.1) mmol/L Chloride 103 (98-107) mmol/L Carbon Dioxide 26 (22-32) mmol/L BUN 19 H (7-17) mg/dL Creatinine 0.71 (0.52-1.04) mg/dL Estimated GFR > 60 (>60) mL/min BUN/Creatinine Ratio 26.8 H (6-22) Glucose 108 (80-110) mg/dL Calcium 9.7 (8.4-10.2) mg/dL Magnesium 2.1 (1.6-2.3) mg/dL Total Bilirubin 0.5 (0.2-1.3) mg/dL AST 25 (14-36) IU/L ALT 25 (<35) IU/L Alkaline Phosphatase 59 (38-126) U/L Total Creatine Kinase 72 (30-135) U/L Troponin I < 0.012 (0.01-0.034) ng/mL Total Protein 7.5 (6.3-8.2) g/dL Albumin 4.7 (3.5-5.0) g/dL Globulin 2.8 (1.7-4.1) g/dL Albumin/Globulin Ratio 1.7 (1.0-2.8) Lipase 57 (23-300) U/L MDM Narrative Medical decision making narrative: 68-year-old female with past medical history hypertension, BPPV, osteopenia, hyperlipidemia, GERD presents to the ED with 2 days of chest pressure, shortness of breath, right posterior knee pain. Concern for DVT versus PE versus ACS versus musculoskeletal sprain/strain versus other. Ultrasound of the right lower extremity was obtained, which was without acute findings. Given chest tightness, shortness of breath, elevated D-dimer, will screen patient for cardiopulmonary causes. EKG, labs, troponin, D-dimer, chest CT ordered. Patient given Tylenol for pain. Will reassess. Patient signed out to Dr. Zulema Alvarez at this time. Dr. Alvarez -care of patient is signed out to me. Independent review of labs, chart, imaging performed. D-dimer is decreased from yesterday, likely elevated from surgery. Patient reassessed, resting comfortably in bed, denying any further complaints at this time. Patient was informed of negative DVT and PE studies, she was relieved to know that she does not have any clots and does not need to start blood thinners. She states that she likely was deconditioned from over a year of decreased activity from her chronic foot pain. Patient advised to restart her blood pressure medication and to follow up with her surgeon and primary care doctor as scheduled. Discharge Plan Departure Patient Disposition: Home Clinical Impression: Leg pain, Breath shortness Instructions: DI for Shortness of Breath Activity Restrictions/Additional Instructions: Your ultrasound did not show any DVT, your CT did not show any pulmonary embolism. Your D-dimer is decreasing, which is reassuring. I do recommend restarting her blood pressure medication, your blood pressure today was 160/70, which is on the high side. Otherwise please follow up with your primary doctor and your surgeon as recommended. Please return if your symptoms get worse or if you notice any other concerning symptoms. Prescriptions: No Action phenazopyridine [Pyridium] 200 mg tablet 200 mg PO TID PRN (Reason: pain) Qty: 6 0RF albuterol sulfate 90 mcg/actuation HFA aerosol inhaler 1 inh INHALATION Q4-6H PRN (Reason: shortness of breath) Qty: 18 3RF losartan 100 mg tablet 100 mg PO HS Qty: 90 3RF amlodipine [Norvasc] 5 mg tablet 5 mg PO DAILY Qty: 90 3RF fluticasone propion-salmeterol 250-50 mcg/dose blister with device 1 inh inhalation BID Qty: 180 3RF pantoprazole 40 mg tablet,delayed release (DR/EC) 40 mg PO BID rosuvastatin 10 mg tablet 10 mg PO DAILY Qty: 90 3RF duloxetine 20 mg capsule,delayed release(DR/EC) 40 mg PO DAILY Qty: 60 5RF Referrals: Brennan Rowell MD [Primary Care Provider] - Stand Alone Forms: Patient Portal/API
[2024-01-23 19:11] LABS: Prothrombin Time 11.3 SECONDS (9.4-12.5)
[2024-01-23 19:14] LABS: PTT Partial Thromboplastin Tim 36 SECONDS (25.1-36.5)
[2024-01-23 19:17] LABS: Alanine Aminotransferase 25 IU/L (<35); Albumin 4.7 g/dL (3.5-5.0); Albumin Globulin Ratio 1.7 (1.0-2.8); Alkaline Phosphatase 59 U/L (38-126); Aspartate Aminotransferase 25 IU/L (14-36); BUN Creatinine Ratio 26.8 (6-22); Bilirubin Total 0.5 mg/dL (0.2-1.3); Blood Urea Nitrogen 19 mg/dL (7-17); Calcium 9.7 mg/dL (8.4-10.2); Carbon Dioxide 26 mmol/L (22-32); Chloride 103 mmol/L (98-107); Creatine Kinase 72 U/L (30-135); Estimated Glomerular Filt Rate > 60 mL/min (>60); Globulin 2.8 g/dL (1.7-4.1); Glucose 108 mg/dL (80-110); HEMOLYSIS < 15 (0-50); Lipase 57 U/L (23-300); Magnesium 2.1 mg/dL (1.6-2.3); Potassium 3.9 mmol/L (3.4-5.1); Sodium 136 mmol/L (137-145); Total Protein 7.5 g/dL (6.3-8.2)
[2024-01-23 19:19] LABS: D Dimer 1516 ng/ml (<500)
[2024-01-23 19:28] LABS: Troponin I < 0.012 ng/mL (0.01-0.034)
== END 2024-01-23 21:03 | disposition home or self-care (01) ==
PROVIDERS: Student in an Organized Health Care Education/Training Program; Emergency Provider Emergency Medicine; PCP Internal Medicine
DX: M25.561 Pain in right knee (principal); R06.02 Shortness of breath; R07.9 Chest pain, unspecified; Z79.899 Other long term (current) drug therapy
CPT/HCPCS: 36415; 71275; 80053; 82550; 83690; 83735; 84484; 85025; 85379; 85610; 85730; 93005; 93010; 93971; 99284; Q9967

== ENCOUNTER → 2024-02-24 11:38 | Outpatient (CLI) | payer MEDICARE, SELFPAY ==
[2024-02-24 18:21] LABS: Appearance Urine UA CLEAR; Bilirubin Urine UA NEGATIVE (NEGATIVE); Color Urine UA YELLOW; Glucose Urine UA NEGATIVE (Negative); Ketones Urine UA TRACE (NEGATIVE); Leukocyte Esterase Urine UA NEGATIVE (NEGATIVE); Nitrite Urine UA NEGATIVE (Negative); Occult Blood Urine UA NEGATIVE (Negative); Protein Urine UA NEGATIVE (Negative)
[2024-02-24 18:27] LABS: Bacteria Urine Occasional (0-1); RBC Urine 0-1/HPF (0-5/HPF); Squamous Epithelial Cell Urine 0-1 /HPF (0-5/HPF); Urine Volume 10mL (spun); WBC Urine 0-1/HPF (0-5/HPF)
[2024-02-24 18:28] LABS: Calcium Oxalate Crystals Urine Few; Culture Indicated Urine Cult Not Indicated; Hyaline Casts Urine 0-1/LPF; Mucus Urine 2+ (Negative)
== END ==
PROVIDERS: Family Provider Internal Medicine; PCP Internal Medicine; Referring Provider Internal Medicine; Visit Provider Internal Medicine
DX: R39.9 Unspecified symptoms and signs involving the genitourinary system (principal)
CPT/HCPCS: 81001

== ENCOUNTER 2024-03-06 07:08 | Emergency (ER) | payer MEDICARE, SELFPAY ==
[2024-03-06 07:10] VITALS: BP 160/72; PULSE 99; RESP 17; TEMP 37.1; O2SAT 97; BMI 30.9
--- NOTE | 2024-03-06 07:33 | ED_ITS ---
HPI - SOB/Dyspnea General Chief Complaint: Upper Respiratory Symptoms Stated Complaint: asthma, cough Time Seen by Provider: 03/06/24 07:16 History of Present Illness HPI Narrative: Patient is a 68-year-old female history of asthm, hypertension hyperlipidemia presenting today with cough. She reports that she recently had an upper respiratory infection she started her prednisone taper she took her last dose of prednisone yesterday but I have been coughing all night is by albuterol. No fever she can not quite keep a breath. Related Data Home Medications Medication Instructions Recorded Confirmed pantoprazole 40 mg tablet,delayed 40 mg PO BID 09/23/22 03/06/24 release Previous Rx's Medication Instructions Recorded albuterol sulfate 90 mcg/actuation 1 inh inhalation Q4-6H PRN 11/23/22 aerosol inhaler shortness of breath #18 grams rosuvastatin 10 mg tablet 10 mg PO DAILY #90 tabs 11/07/23 fluticasone 250 mcg-salmeterol 50 1 inh inhalation BID #180 ea 12/21/23 mcg/dose blistr powdr for inhalation losartan 100 mg tablet 100 mg PO HS #90 tabs 02/28/24 amlodipine 5 mg tablet (Norvasc) 5 mg PO DAILY #90 tabs 03/05/24 ipratropium 0.5 mg-albuterol 3 mg 3 ml inhalation Q6H PRN asthma #90 03/05/24 (2.5 mg base)/3 mL nebulization mL soln nebulizer tubing #1 ea 03/05/24 trazodone 50 mg tablet See Rx Instructions PO BEDTIME PRN 03/05/24 insomnia #14 tabs benzonatate 200 mg capsule 200 mg PO BID-TID PRN cough #20 03/06/24 caps dexamethasone 4 mg tablet 4 mg PO DAILY #5 tabs 03/06/24 ipratropium 0.5 mg-albuterol 3 mg 3 ml inhalation QID PRN shortness 03/06/24 (2.5 mg base)/3 mL nebulization of breath or wheezing #180 mL soln Allergies Allergy/AdvReac Type Severity Reaction Status Date / Time meperidine [From DEMEROL] AdvReac Unknown Hallucinati Verified 03/05/24 07:37 ng morphine [MORPHINE] AdvReac Unknown Difficulty Verified 03/05/24 07:37 Breathing Patient History Medical History (Updated 03/06/24 @ 08:42 by Mariana Rodriguez DO) Hoarseness Coronary artery calcification BPPV (benign paroxysmal positional vertigo) Depression, major, recurrent Obesity (BMI 30.0-34.9) Chronic upper back pain History of colonic polyps Pulmonary nodules Osteopenia GERD without esophagitis Allergic rhinitis Mixed hyperlipidemia Whiplash Depression Plantar fasciitis Surgical History History of bilateral oophorectomy (~07/2019) H/O: hysterectomy Hx of cholecystectomy History of section Hx of bilateral inguinal hernia repair Social History details: (Shivam), two daughters, 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; 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 Smoking Status: Never smoker alcohol intake: current Smoking Status: Never smoker alcohol intake frequency: a few times a week Substance Use Type: does not use Exam Initial Vital Signs Initial Vital Signs: Vital Signs Temperature 98.7 F 03/06/24 07:10 Pulse Rate 99 H 03/06/24 07:10 Respiratory Rate 17 03/06/24 07:10 Blood Pressure 160/72 H 03/06/24 07:10 Pulse Oximetry 97 03/06/24 07:10 Oxygen Delivery Method Room Air 03/06/24 07:10 GENERAL: Alert pleasant 68-year-old female appears in mild respiratory distress with coughing HEENT: Head atraumatic,EOMI, pupils reactive, face symmetric, [moist] mucous membranes CARDIOVASCULAR: Regular rate and rhythm without murmurs, rubs or gallops. RESPIRATORY: Reactive airway cough can not really speak without coughing slight expiratory wheezing decreased breath sounds bilaterally ABDOMEN: Soft, nontender. Normoactive bowel sounds all 4 quadrants. No guarding or rebound. EXTREMITIES: Normal range of motion, no clubbing or edema. Neurovascularly intact NEUROLOGICAL: Alert and oriented x4.Normal gait and speech. Cranial nerves II through XII grossly intact. SKIN: Warm, dry, no laceration, no petechiae, no rashes or lesions. Course Orders Ordered: ED Orders 03/06/24 07:34 Chest [XR chest 2V] Stat Albuterol (Albuterol 2.5 Mg/3 Ml Neb (Adult)) 2.5 mg INH [id number] PRN PRN Reason: Shortness Of Breath Last Admin: 03/06/24 07:43 Dose: 2.5 mg Documented By: SAT Albuterol/Ipratropium (Albuterol/Ipratropium 3 Ml Ampul) 3 ml INH Q1H PRN PRN Reason: Shortness Of Breath Last Admin: 03/06/24 07:40 Dose: 3 ml Documented By: SAT Discontinued Medications Dexamethasone (Dexamethasone 10 Mg/Ml Vial) 10 mg PO NOW ONE Stop: 03/06/24 09:05 Last Admin: 03/06/24 09:09 Dose: 10 mg Documented By: Vital Signs Vital signs: Vital Signs - 8 hr 03/06/24 07:10 03/06/24 07:37 03/06/24 07:44 Temperature 98.7 F Pulse Rate 99 H 106 H 98 H Respiratory Rate 17 20 Blood Pressure 160/72 H Pulse Oximetry 97 98 98 Oxygen Delivery Method Room Air Room Air 03/06/24 08:36 03/06/24 09:06 Temperature Pulse Rate 97 H 111 H Respiratory Rate 18 22 Blood Pressure 135/90 Pulse Oximetry 98 96 Oxygen Delivery Method Room Air Room Air MDM - SOB/Dyspnea Imaging Data Chest x-ray: Radiologist's Impression: PROCEDURE: XR CHEST 2V INDICATIONS: cough TECHNIQUE: 2 views of the chest were acquired. COMPARISON: [facility], , XR CHEST 1V, 01/22/2024, 22:56. [facility], , XR CHEST 2V, 01/18/2021, 23:56. FINDINGS: Surgical changes and devices: None. Lungs and pleura: Lungs are clear. No pleural effusions or pneumothorax. Mediastinum: Mediastinal contours are normal. Heart size is normal. Bones and chest wall: No suspicious bony abnormalities. Soft tissues appear unremarkable. IMPRESSION: No acute cardiopulmonary abnormality is seen. Dictated by: Thiago Quan M.D. on 03/06/2024 at 8:15 [facility] Narrative Medical decision making narrative: Patient 68-year-old female history of asthma presenting today with reactive airway cough and bronchospastic cough. Never hypoxic but coughing quite a bit. She did receive DuoNeb treatment which helped. She improved significantly and the needed a repeat albuterol treatment. She has been on prednisone she does not like taking prednisone cause it does not help her sleep. She just finished 6 days of the prednisone. Is willing to try dexamethasone. She is given her 1st dose here in the ED. She reports that she has nebulizer at home which should work but will refill and give her a new prescription. At this time O2 is 97% she is able to speak in full sentences re-evaluation patient has minimal wheezing and overall appears better. Chest x-ray has been reviewed does not show any evidence of pneumonia or pneumothorax At this time I do not think any further workup is indicated. However we did discuss if she continues to worsen she may require re-evaluation possible hospitalization further workup. Discharge Plan Departure Patient Disposition: Home Clinical Impression: Asthma exacerbation Instructions: Asthma -- Adult Activity Restrictions/Additional Instructions: *You have been diagnosed with asthma exacerbation *What to do: At this time no need for antibiotics. I hope that your cough starts to subside *Continue to take medications as directed Combo albuterol and ipratropium nebulizer every 4 hours Dexamethasone 4 mg once daily for 5 days (this is different than prednisone hopefully respond better to it) Tessalon Perles as needed for coughing *Follow up with your primary care provider in 2-3 days or call [phone] *Return to ER if you should have increasing coughing shortness of breath or any new, worsening or concerning symptoms Prescriptions: New ipratropium-albuterol 0.5 mg-3 mg(2.5 mg base)/3 mL solution for nebulization 3 ml inhalation QID PRN (Reason: shortness of breath or wheezing) Qty: 180 0RF dexamethasone 4 mg tablet 4 mg PO DAILY Qty: 5 0RF benzonatate 200 mg capsule 200 mg PO BID-TID PRN (Reason: cough) Qty: 20 0RF No Action albuterol sulfate 90 mcg/actuation HFA aerosol inhaler 1 inh INHALATION Q4-6H PRN (Reason: shortness of breath) Qty: 18 3RF fluticasone propion-salmeterol 250-50 mcg/dose blister with device 1 inh inhalation BID Qty: 180 3RF losartan 100 mg tablet 100 mg PO HS Qty: 90 3RF ipratropium-albuterol 0.5 mg-3 mg(2.5 mg base)/3 mL solution for nebulization 3 ml inhalation Q6H PRN (Reason: asthma) Qty: 90 6RF pantoprazole 40 mg tablet,delayed release (DR/EC) 40 mg PO BID rosuvastatin 10 mg tablet 10 mg PO DAILY Qty: 90 3RF amlodipine [Norvasc] 5 mg tablet 5 mg PO DAILY Qty: 90 3RF trazodone 50 mg tablet See Rx Instructions PO BEDTIME PRN (Reason: insomnia) Qty: 14 1RF Rx Instructions: 1-2 tablets nightly as needed for sleep (DME) nebulizer tubing See Rx Instructions .Route .MEDSUPPLY Qty: 1 0RF Rx Instructions: As directed Referrals: Brennan Rowell MD [Primary Care Provider] - Stand Alone Forms: Patient Portal/API
--- NOTE | 2024-03-06 07:34 | DI.RAD.S_ITS ---
PROCEDURE: XR CHEST 2V INDICATIONS: cough TECHNIQUE: 2 views of the chest were acquired. COMPARISON: [facility], CR, XR CHEST 1V, 01/22/2024, 22:56. [facility], CR, XR CHEST 2V, 01/18/2021, 23:56. FINDINGS: Surgical changes and devices: None. Lungs and pleura: Lungs are clear. No pleural effusions or pneumothorax. Mediastinum: Mediastinal contours are normal. Heart size is normal. Bones and chest wall: No suspicious bony abnormalities. Soft tissues appear unremarkable. IMPRESSION: No acute cardiopulmonary abnormality is seen. Dictated by: Thiago Quan M.D. on 03/06/2024 at 8:15 Approved by: Thiago Quan M.D. on 03/06/2024 at 8:15
[2024-03-06 07:37] VITALS: PULSE 106; RESP 20; O2SAT 98
[2024-03-06] MEDS: ALBUTEROL/IPRATROPIUM 3 ML AMPUL INH (07:40)
[2024-03-06] MEDS: ALBUTEROL 2.5 MG/3 ML NEB (ADULT) INH (07:43)
[2024-03-06 07:44] VITALS: PULSE 98; O2SAT 98
[2024-03-06 08:36] VITALS: PULSE 97; RESP 18; O2SAT 98
[2024-03-06 09:06] VITALS: BP 135/90; PULSE 111; RESP 22; O2SAT 96
[2024-03-06] MEDS: DEXAMETHASONE 10 MG/ML VIAL PO (09:09)
[2024-03-06 09:19] VITALS: PULSE 98; RESP 20; O2SAT 97
== END 2024-03-06 09:21 | disposition home or self-care (01) ==
PROVIDERS: Emergency Provider Emergency Medicine; Family Provider Internal Medicine; PCP Internal Medicine
DX: J45.901 Unspecified asthma with (acute) exacerbation (principal)
CPT/HCPCS: 71046; 94640; 99283; 99284; J1100; J7613

== ENCOUNTER → 2024-04-20 13:19 | Outpatient (CLI) | payer MEDICARE, SELFPAY | LOC: RESP 13:20 | PROVIDERS: Family Provider Internal Medicine; PCP Internal Medicine; Referring Provider Student in an Organized Health Care Education/Training Program; Visit Provider Student in an Organized Health Care Education/Training Program | DX: J45.909 Unspecified asthma, uncomplicated (principal); R94.2 Abnormal results of pulmonary function studies | CPT/HCPCS: 94060; 94726; 94729 ==

== ENCOUNTER → 2024-07-09 10:17 | Outpatient (CLI) | payer MEDICARE, SELFPAY ==
[2024-07-09 11:15] LABS: Hematocrit 37.8 % (36-46); Hemoglobin 12.8 g/dL (12.0-16.0); Mean Corpuscular HGB Conc 33.9 % (30-36); Mean Corpuscular Hemoglobin 33.7 PG (26-34); Mean Corpuscular Volume 99.6 fL (80-100); Platelet Count 267 X10^3/uL (150-400); Red Blood Cell Count 3.79 X10^6/uL (4.0-5.2); White Blood Cell Count 8.5 X10^3/uL (4.5-11.0)
[2024-07-09 12:19] LABS: Alanine Aminotransferase 21 IU/L (<35); Albumin 4.4 g/dL (3.5-5.0); Albumin Globulin Ratio 2.1 (1.0-2.8); Alkaline Phosphatase 75 U/L (38-126); Aspartate Aminotransferase 22 IU/L (14-36); BUN Creatinine Ratio 17.6 (6-22); Bilirubin Total 0.5 mg/dL (0.2-1.3); Blood Urea Nitrogen 15 mg/dL (7-17); Calcium 9.9 mg/dL (8.4-10.2); Carbon Dioxide 26 mmol/L (22-32); Chloride 99 mmol/L (98-107); Estimated Glomerular Filt Rate > 60 mL/min (>60); Globulin 2.1 g/dL (1.7-4.1); Glucose 110 mg/dL (80-110); HEMOLYSIS < 15 (0-50); Potassium 4.4 mmol/L (3.4-5.1); Sodium 133 mmol/L (137-145); Total Protein 6.5 g/dL (6.3-8.2)
[2024-07-09 12:49] LABS: TSH w/ Reflex to FT4 1.26 uIU/mL (0.47-4.68)
== END ==
LOC: LAB 10:18
PROVIDERS: Family Provider Internal Medicine; PCP Internal Medicine; Referring Provider Internal Medicine; Visit Provider Internal Medicine
DX: R53.83 Other fatigue (principal); M51.369 Other intervertebral disc degeneration, lumbar region without mention of lumbar back pain or lower extremity pain; I10 Essential (primary) hypertension; E78.2 Mixed hyperlipidemia; I25.10 Atherosclerotic heart disease of native coronary artery without angina pectoris; K21.9 Gastro-esophageal reflux disease without esophagitis; J30.89 Other allergic rhinitis
CPT/HCPCS: 36415; 80053; 84443; 85027

== ENCOUNTER 2024-08-16 07:30 | Outpatient (RCR) | payer MEDICARE, SELFPAY ==
--- NOTE | 2024-03-23 15:40 | PT.OIE ---
Current Diagnoses Flat foot [pes planus] (acquired), right foot (03/23/24) Stiffness of right ankle, not elsewhere classified (03/23/24) Pain in right foot (03/23/24) Other lack of coordination (03/23/24) Weakness (03/23/24) Past Medical History (Last Reviewed 03/13/24 @ 05:26 by Brennan Rowell MD) Allergic rhinitis BPPV (benign paroxysmal positional vertigo) Chronic upper back pain Coronary artery calcification Depression Depression, major, recurrent GERD without esophagitis History of colonic polyps Hoarseness Mixed hyperlipidemia Obesity (BMI 30.0-34.9) Osteopenia Plantar fasciitis Pulmonary nodules Whiplash Past Surgical History (Last Reviewed 03/13/24 @ 05:26 by Brennan Rowell MD) H/O: hysterectomy History of bilateral oophorectomy (~07/2019) History of section Hx of bilateral inguinal hernia repair Hx of cholecystectomy Visit Care Team Role Provider Type Brennan Rowell MD Family Provider Physician Primary Care Provider Specialty: Internal Medicine Address: [address] [place] [address], [id number] Email: [email or web address] Norma Navarro MD Attending Provider Physician Referring Provider Specialty: Orthopedics Orthopedic Surgery Address: [address] [place] [address], [id number] Email: [email or web address] Physical Therapy Initial Evaluation PT-OP-A Visit Information Start: 03/23/24 07:35 Freq: Status: Active Protocol: Document 03/23/24 07:36 NM (Rec: 03/23/24 07:37 NM [id number]) Out-Patient Physical Therapy Visit Information Visit Information Visit Type Initial Evaluation Visit Note DOS: 01/09/24 Irina and Shivam ALEXANDRE after 19 visits Visit Start Time 10:50 Visit Stop Time 11:20 Visit Number 1 Evaluation Information Evaluation Date 03/23/24 Precautions Precautions DOS: 01/09/24 - R pes planus reconstruction, FDL transfer, posterior tibialis tendon repair, Achilles tendon lengthening Per referral: NWB 6 weeks post op, increased WB 25% ea week with arch support, boot with arch support until week 12 and /or follow up with surgeon PT-OP-B Current Condition Start: 03/23/24 07:35 Freq: Status: Active Protocol: Document 03/23/24 07:36 NM (Rec: 03/23/24 07:37 NM [id number]) Current Condition History of Current Condition Onset Date DOS 01/09/24 Current Complaints gait, mobility, ROM History of Current Condition Pt presents with R foot post pes planus with posterior tibialis repair, FDL transfer, achilles tendon lengthening surgery at 01/09/[address] Navarro. Currently 10 weeks and 5 days post -op. She has been using spc since 6 weeks and was instructed to be 50% weightbearing. She was NWB for 6 weeks. Xray at 6 weeks, no complications. Pt had surgery due to torn arch tendon/posterior tibialis tear, extreme rolling ankle in to pronation; she had a tendon transfer from her toes. She had a metal wedge that replaced the top of the boot. She had a gastrocnemius contracture, so lengthening of the R gastrocnemius performed as well. [place] removed at last appointment. Still in boot for 12 weeks with orthotic. She has a follow up on 04/06/[address] Navarro, planning to have an Xray at that time. Pt reports no pain, states pain has been well managed. She occasionally take tylenol for pain if she has achiness across the top of her ankle, usually after walking. States that her skin on her RLE has been hypersensitive ( also had after previous surgeries) and has been swelling a little; she has tried an onesimo bandage but not compression socks. Per pt report at last follow up with surgeon, Dr. Navarro ok'd her on gentle ROM for ankle, ices several times per day. PMH of knee replacement (L partial, R full). 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) Current Functional Impairments (Reported) Functional Limitations- ADL's reports no difficulty with ADLs Functional Limitations- Mobility/Gait gait, transfers unable to walk on trails, get in a finishing boat PT-OP-C Subjective Start: 03/23/24 07:35 Freq: Status: Active Protocol: Document 03/23/24 07:36 NM (Rec: 03/23/24 07:37 NM [id number]) OP-PT Subjective Patient Comments Patient Comments Pt consents to participate in evaluation OP-PT Pain Assessment Location R foot/ankle Pain Location Details top of her foot Intensity 1 Scale Used Numeric (0 - 10) Description Aching Frequency Rarely Pain Aggravating Factors Standing,Walking Other Pain Aggravating Factors hypersensitivity Pain Alleviating Factors Cold,Medication PT-OP-E Functional Tests Start: 03/23/24 07:35 Freq: Status: Active Protocol: Document 03/23/24 07:36 NM (Rec: 03/23/24 12:12 NM [id number]) Functional Tests Five Times Sit to Stand Test Score able to complete 5 w/o AD, not formally timed Comments no pain reported, slight L lean, less WB on RLE w/ boot donned PT-OP-F Manual Assessment Start: 03/23/24 07:35 Freq: Status: Active Protocol: Document 03/23/24 07:36 NM (Rec: 03/23/24 12:12 NM [id number]) Manual Assessments Soft Tissue Assessment Soft Tissue Mobility Assessment Scars intact, slight adhesions to skin. Pt has limitations in R Achilles length, has swelling across ankle Joint Mobility Assessment Joint Mobility Assessment Limited 1st ray mobility, toe extension and flexion with PROM PT-OP-G Mobility & Gait Start: 03/23/24 07:35 Freq: Status: Active Protocol: Document 03/23/24 07:36 NM (Rec: 03/23/24 12:12 NM [id number]) OP Gait Assessment Gait Gait Assistance Required: Independent Distance (Feet) 200 Able to Maintain Weight Bearing Status Yes During Gait Assistive Devices Assistive Device Straight Cane Gait Deviations General Gait Pattern Antalgic,Flexed Trunk Factors Limiting Gait Function Factors Limiting Gait Function Decreased Activity Tolerance, Decreased Sensation,Decreased Strength,Limited Range of Motion Comments Gait Comments Using spc primarily for balance as needed. Pt able to ambulate w/o AD and w/o pain in R ankle for short distances at 100% WB in boot. Demos slight L hip drop with R stance, L trunk and leg lean due to uneven WB while in boot leading to slight increase in L back pain PT-OP-J Posture/Palpation/Skin Start: 03/23/24 07:35 Freq: Status: Active Protocol: Document 03/23/24 07:36 NM (Rec: 03/23/24 12:12 NM [id number]) Posture Evaluation Position Standing Head/C-Spine Posture Forward Head L-Spine Posture Increased Lordosis Arm Posture (L) Externally Rotated,(R) Externally Rotated Pelvis Posture Anteriorly Tilted Weight Distribution Weight Shifted Left,Decreased Wt.Bear on (R) Hip Posture (L) Externally Rotated,(R) Externally Rotated Knee Posture (L) Genu Valgus,(R) Genu Valgus Ankle/Foot Posture (L) Pronated Foot Arch (L) Low Arch Palpation Assessment Location R ankle/foot Palpation Details Mild tenderness along medial ankle near posterior tibialis tendon, but denies pain. No tenderness along scars, but slight tenderness along anterior ankle near talocrural junction Skin Assessment Circumference Measurement R calf Location midway between patella and ankle mortise (17cm) Measurement (Centimeters) 34 Comments L calf 17 cm for comparison R ankle/foot Location figure 8 53 cm; 24 cm at malleoli Comments overall edema of foot > ankle to mid calf Incisional Assessment Incision Appearance/Comments All incisions intact, healing well with no signs of infection. Slight adhesions to underlying skin. Scab present only along medial ankle at one proximal point Other Assessments Skin Assessment Comments Increased rubor with dependency PT-OP-K Range of Motion Start: 03/23/24 07:35 Freq: Status: Active Protocol: Document 03/23/24 07:36 NM (Rec: 03/23/24 07:37 NM [id number]) Ankle and Foot Goniometric Range of Motion Ankle and Foot Right Dorsiflexion with Knee Flexed 4 Plantarflexion 36 Comments No pain with AROM Left Dorsiflexion with Knee Flexed 8 Plantarflexion 45 Inversion 30 Eversion 15 PT-OP-M Strength Start: 03/23/24 07:35 Freq: Status: Active Protocol: Document 03/23/24 07:36 NM (Rec: 03/23/24 07:37 NM [id number]) Hip Strength Hip Manual Muscle Testing Left Flexion (L2) 4 Good Extension (S1) 4 Good Abduction 4 Good Adduction 4 Good External Rotation 4 Good Internal Rotation 4 Good Right Flexion (L2) 4- Good- Extension (S1) 4- Good- Abduction 4- Good- Adduction 4 Good External Rotation 4 Good Internal Rotation 4 Good Knee Strength Knee Manual Muscle Testing Left Flexion (S2) 4 Good Extension (L3) 4 Good Right Flexion (S2) 4- Good- Extension (L3) 4- Good- Ankle/Foot Strength Ankle and Foot Manual Muscle Testing Right Dorsiflexion (L4) 3 Fair Plantarflexion (S1) 3 Fair Comments Tested against gravity in sitting without due to surgical repair ( plantarflexion tested in sitting) Left Dorsiflexion (L4) 4 Good Plantarflexion (S1) 4 Good Inversion 4 Good Eversion (S1) 4 Good Comments plantarflexion tested in sitting PT-OP-Q Treatments Start: 03/23/24 07:35 Freq: Status: Active Protocol: Document 03/23/24 07:36 NM (Rec: 03/23/24 12:12 NM [id number]) Therapeutic Exercises Sidelying Exercises hip abduction Side right Equipment Used verbal and tactile cues for form/prevent hip rotation Reps/Minutes 2x10 Comments edu to perform w/ boot donned; pain free; cued form Sitting Exercises LAQ Side right Reps/Minutes 2x10 with 5 hold Comments boot donned; pain free Self-Care/Home Management Treatment Education Patient Education Home Exercise Program,Joint Protection,Pain Management, Safety Other Education Education on precautions, WB progression (currently able to progress 25% ea week- should be 100% WB) per protocol, HEP, and general expectations for rehabilitation following surgery. Educated also on shoe drop shipment clerk for L shoe in order to protect joints, limit back/hip pain on opposite foot HEP: LAQ, sidelying hip abduction PT-OP-T Assessment and Plan Start: 03/23/24 07:35 Freq: Status: Active Protocol: Document 03/23/24 07:36 NM (Rec: 03/23/24 12:12 NM [id number]) Physical Therapy Assessment Rehab Potential Rehabilitation Potential Good Evaluation Complexity Number of Personal Factors/Comorbidities 3 or More Number of Body Systems Impaired 3 Clinical Presentation at Evaluation Stable Impairments Impairments Activity Tolerance,Balance, Coordination,Edema,Functional Activities,Functional Mobility ,Gait,Integument,Pain,Posture, ROM,Sensation,Soft Tissue Mobility,Strength,Transfers Other Concerns Barriers to Rehabilitation Pt has had several recent flare ups of her asthma, which limits her ability to perform exercises or lie supine Goals Four Impairment impairments in R Achilles tendon due to lengthening Short Term Goal (STG) If appropriate, pt will be able to perform at least 10 bilateral heel raises without compensation or increase in baseline pain in order to demonstrate improved gait mechanics and propulsion STG Duration 8 weeks Nursing Home Goal (LTG) If appropriate, pt will be able to perform at least 5 single leg heel raises using R foot without compensation or increase in baseline pain in order to demonstrate improved gait mechanics and propulsion Three Impairment gait impaired Short Term Goal (STG) Pt will normalize gait mechanics without AD or boot in order to demonstrate improvements in QOL and mobility STG Duration 4 weeks Nursing Home Goal (LTG) Pt will report no limitation in ambulation distance or time due to R foot/ankle mobility, strength, or pain in order to demonstrate improved QOL and mobility LTG Duration 12 weeks Two Impairment global ankle strength limited Short Term Goal (STG) Pt will increase global R ankle strength to at least 4/5 MMT in order to demonstrate improved ankle stability during gait, stance, and pickle ball if appropriate STG Duration 8 weeks Nursing Home Goal (LTG) Pt will increase global R ankle strength to at least 4+/ 5 MMT in order to demonstrate improved ankle stability during gait, stance, and pickle ball if appropriate LTG Duration 12 weeks One Impairment AROM- R ankle dorsiflexion 4 deg, R ankle plantarflexion 36 deg Short Term Goal (STG) Pt will improve R ankle dorsiflexion AROM to least 8 deg and R ankle plantarflexion AROM to at least 40 deg in order to demonstrate improved mobility for gait and participation in recreational activities STG Duration 8 weeks Nursing Home Goal (LTG) Pt will improve R ankle dorsiflexion AROM and R ankle plantarflexion AROM to within 3 deg of contralateral limb in order to demonstrate improved mobility for gait and participation in recreational activities LTG Duration 12 weeks Assessment Summary Assessment Pt is a 68 y.o. female presenting 10 weeks s/p R pes planus repair, posterior tendon repair, FDL transfer, medial cuneiform osteotomy and Achilles tendon lengthening. She is currently still wearing a boot and using an spc for balance and to assist with WB as needed. Pt is currently >50 % WB per protocol progression. She has impairments in ROM, strength, activity tolerance, balance, pain management, mobility, gait, and ability to participate in ADLs/IADLs or recreational activities. Her R ankle AROM and strength are limited globally. Pt also has limitations in B hip/knee strength overall, often compensating with her trunk for greater facilitation. Pt's pain is currently well- managed but she has increased swelling in her ankle. PT educated pt on exam findings and plan of care, establishing goals with pt. Issued initial HEP for hip and quad strengthening. PT also provided education to pt and pt's about rehabilitation expectations, joint protection using foot drop shipment clerk, and current WB protocol. PT also recommended pt not remove herself from her spc until instructed by PT. Pt would benefit from progressive R ankle AROM and strengthening per protocol in order to improve gait mechanics, balance, and activity tolerance for greater QOL. Physical Therapy Plan Frequency and Duration Frequency of Treatment 2x/Week Duration of treatment (weeks) 12 Plan of Care Start Date 03/23/24 Plan of Care End Date 06/22/24 Therapeutic Interventions Therapeutic Interventions Balance Training,Gait Training ,Home Exercise Program,Joint Mobilizations,Manual Therapy, Neuromuscular Re-education, Orthotic/Prosthetic Management ,Patient/Caregiver Education, Self-Care/Home Management, Sensory Integration,Soft Tissue Mobilization,Taping, Therapeutic Activities, Therapeutic Exercises Modalities Cold Pack/Ice Massage,Electric Stimulation,Hot Packs, Ultrasound Next Visit Focus/Plan Next Note Type Treatment Note Next Visit Plan progress per protocol Gentle AROM in PF/DF (ankle pumps, circles, ABCs, BAPs, rocker board) Continue with hip/quad strengthening: LAQ, hip abduction (trial clam in s/l if needed), seated hip abduction Progress WB with gait up to WBAT in boot w/ and w/o AD in //bars up to 100% WB per protocol
--- NOTE | 2024-03-26 15:50 | PT-OP ANOTE ---
PT called [facility] office at [phone] to ask for protocol/timeline for ROM and strengthening, in addition to surgical report due extensive surgery affecting achilles tendon, posterior tibilias tendon, and tendon transfer as only provided WB progression protocol. Asked for surgical report and clinic notes as well.
--- NOTE | 2024-03-28 15:46 | PT.OTN ---
Current Diagnoses Flat foot [pes planus] (acquired), right foot (03/28/24) Stiffness of right ankle, not elsewhere classified (03/28/24) Pain in right foot (03/28/24) Other lack of coordination (03/28/24) Weakness (03/28/24) Physical Therapy Treatment Note PT-OP-A Visit Information Start: 03/23/24 07:35 Freq: Status: Active Protocol: Document 03/28/24 10:32 NM (Rec: 03/28/24 11:17 NM [id number]) Out-Patient Physical Therapy Visit Information Visit Information Visit Type Treatment Note Visit Note DOS: 01/09/24 Irina and Shivam ALEXANDRE after 19 visits Visit Start Time 10:33 Visit Stop Time 11:15 Visit Number 2 Evaluation Information Evaluation Date 03/23/24 Precautions Precautions DOS: 01/09/24 - R pes planus reconstruction, FDL transfer, posterior tibialis tendon repair, Achilles tendon lengthening Per referral: NWB 6 weeks post op, increased WB 25% ea week with arch support, boot with arch support until week 12 and /or follow up with surgeon PT-OP-B Current Condition Start: 03/23/24 07:35 Freq: Status: Active Protocol: Document 03/23/24 07:36 NM (Rec: 03/23/24 07:37 NM [id number]) Current Condition History of Current Condition Onset Date DOS 01/09/24 Current Complaints gait, mobility, ROM History of Current Condition Pt presents with R foot post pes planus with posterior tibialis repair, FDL transfer, achilles tendon lengthening surgery at 01/09/[address] Navarro. Currently 10 weeks and 5 days post -op. She has been using spc since 6 weeks and was instructed to be 50% weightbearing. She was NWB for 6 weeks. Xray at 6 weeks, no complications. Pt had surgery due to torn arch tendon/posterior tibialis tear, extreme rolling ankle in to pronation; she had a tendon transfer from her toes. She had a metal wedge that replaced the top of the boot. She had a gastrocnemius contracture, so lengthening of the R gastrocnemius performed as well. [place] removed at last appointment. Still in boot for 12 weeks with orthotic. She has a follow up on 04/06/[address] Navarro, planning to have an Xray at that time. Pt reports no pain, states pain has been well managed. She occasionally take tylenol for pain if she has achiness across the top of her ankle, usually after walking. States that her skin on her RLE has been hypersensitive ( also had after previous surgeries) and has been swelling a little; she has tried an onesimo bandage but not compression socks. Per pt report at last follow up with surgeon, Dr. Navarro ok'd her on gentle ROM for ankle, ices several times per day. PMH of knee replacement (L partial, R full). 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 She presents with boot today but no spc; states has been ambulating without spc at home . Recently finished 30 day bout of prednisone and other steroid treatment for asthma PT-OP-E Functional Tests Start: 03/23/24 07:35 Freq: Status: Active Protocol: Document 03/23/24 07:36 NM (Rec: 03/23/24 12:12 NM [id number]) Functional Tests Five Times Sit to Stand Test Score able to complete 5 w/o AD, not formally timed Comments no pain reported, slight L lean, less WB on RLE w/ boot donned PT-OP-F Manual Assessment Start: 03/23/24 07:35 Freq: Status: Active Protocol: Document 03/23/24 07:36 NM (Rec: 03/23/24 12:12 NM [id number]) Manual Assessments Soft Tissue Assessment Soft Tissue Mobility Assessment Scars intact, slight adhesions to skin. Pt has limitations in R Achilles length, has swelling across ankle Joint Mobility Assessment Joint Mobility Assessment Limited 1st ray mobility, toe extension and flexion with PROM PT-OP-G Mobility & Gait Start: 03/23/24 07:35 Freq: Status: Active Protocol: Document 03/23/24 07:36 NM (Rec: 03/23/24 12:12 NM [id number]) OP Gait Assessment Gait Gait Assistance Required: Independent Distance (Feet) 200 Able to Maintain Weight Bearing Status Yes During Gait Assistive Devices Assistive Device Straight Cane Gait Deviations General Gait Pattern Antalgic,Flexed Trunk Factors Limiting Gait Function Factors Limiting Gait Function Decreased Activity Tolerance, Decreased Sensation,Decreased Strength,Limited Range of Motion Comments Gait Comments Using spc primarily for balance as needed. Pt able to ambulate w/o AD and w/o pain in R ankle for short distances at 100% WB in boot. Demos slight L hip drop with R stance, L trunk and leg lean due to uneven WB while in boot leading to slight increase in L back pain PT-OP-J Posture/Palpation/Skin Start: 03/23/24 07:35 Freq: Status: Active Protocol: Document 03/23/24 07:36 NM (Rec: 03/23/24 12:12 NM [id number]) Posture Evaluation Position Standing Head/C-Spine Posture Forward Head L-Spine Posture Increased Lordosis Arm Posture (L) Externally Rotated,(R) Externally Rotated Pelvis Posture Anteriorly Tilted Weight Distribution Weight Shifted Left,Decreased Wt.Bear on (R) Hip Posture (L) Externally Rotated,(R) Externally Rotated Knee Posture (L) Genu Valgus,(R) Genu Valgus Ankle/Foot Posture (L) Pronated Foot Arch (L) Low Arch Palpation Assessment Location R ankle/foot Palpation Details Mild tenderness along medial ankle near posterior tibialis tendon, but denies pain. No tenderness along scars, but slight tenderness along anterior ankle near talocrural junction Skin Assessment Circumference Measurement R calf Location midway between patella and ankle mortise (17cm) Measurement (Centimeters) 34 Comments L calf 17 cm for comparison R ankle/foot Location figure 8 53 cm; 24 cm at malleoli Comments overall edema of foot > ankle to mid calf Incisional Assessment Incision Appearance/Comments All incisions intact, healing well with no signs of infection. Slight adhesions to underlying skin. Scab present only along medial ankle at one proximal point Other Assessments Skin Assessment Comments Increased rubor with dependency PT-OP-K Range of Motion Start: 03/23/24 07:35 Freq: Status: Active Protocol: Document 03/23/24 07:36 NM (Rec: 03/23/24 07:37 NM [id number]) Ankle and Foot Goniometric Range of Motion Ankle and Foot Right Dorsiflexion with Knee Flexed 4 Plantarflexion 36 Comments No pain with AROM Left Dorsiflexion with Knee Flexed 8 Plantarflexion 45 Inversion 30 Eversion 15 PT-OP-M Strength Start: 03/23/24 07:35 Freq: Status: Active Protocol: Document 03/23/24 07:36 NM (Rec: 03/23/24 07:37 NM [id number]) Hip Strength Hip Manual Muscle Testing Left Flexion (L2) 4 Good Extension (S1) 4 Good Abduction 4 Good Adduction 4 Good External Rotation 4 Good Internal Rotation 4 Good Right Flexion (L2) 4- Good- Extension (S1) 4- Good- Abduction 4- Good- Adduction 4 Good External Rotation 4 Good Internal Rotation 4 Good Knee Strength Knee Manual Muscle Testing Left Flexion (S2) 4 Good Extension (L3) 4 Good Right Flexion (S2) 4- Good- Extension (L3) 4- Good- Ankle/Foot Strength Ankle and Foot Manual Muscle Testing Right Dorsiflexion (L4) 3 Fair Plantarflexion (S1) 3 Fair Comments Tested against gravity in sitting without due to surgical repair ( plantarflexion tested in sitting) Left Dorsiflexion (L4) 4 Good Plantarflexion (S1) 4 Good Inversion 4 Good Eversion (S1) 4 Good Comments plantarflexion tested in sitting PT-OP-Q Treatments Start: 03/23/24 07:35 Freq: Status: Active Protocol: Document 03/28/24 10:32 NM (Rec: 03/28/24 11:17 NM [id number]) Therapeutic Exercises Supine Exercises ankle pumps Side right Resistance AROM Reps/Minutes 20 Comments cued neutral foot to prevent medial pull, perform w/i no stretch ROM Sidelying Exercises hip abduction Sidelying Exercise Name changed for HEP Reps/Minutes 5 Comments d/c due to difficulty w/ alignment; removed from HEP Sitting Exercises hip abduction Sitting Exercise Name HEP: boot donned Side bilateral Resistance level 3 at thighs Reps/Minutes 2x10 with brief hold at end range Comments cued to lift boot during abd; better form and activation ankle AROM Sitting Exercise Name DF/PF Side right Resistance AROM Reps/Minutes 2x10 Comments cued neutral foot position, maintain ROM w/o pull/stretch LAQ Side right Reps/Minutes 3x10 with 5 hold Comments pain free; slight HS stretch, none in calf Manual Therapy Treatment Consent Patient gave verbal consent for manual Yes treatment Soft Tissue Mobilization R foot/ankle Body Location plantar fascia, scar mobilization, peroneals/ tibialis, gastrocnemius Mobilization Type Rolling,Other Intensity/Depth Superficial Body Position Hooklying Comments Foot elevated on bolster. Performed distal > proximal superficial globally around ankle for swelling reduction. Superficial scar mobilization with vertical mobilization and gentle lifting to prevent adhesions; most restricted along medial ankle. Gentle plantar fascial mobilization distal > proximal. Monitored for pain. Tenderness only along medial ankle and over incision on dorsal foot Manual Techniques PROM/AAROM Type ankle DF/PF Body Location sitting Body Position Sitting Reps/Duration 10 ea Comments PROM first let me move your foot, then AAROM cueing for help me move your foot. Performed within pt available ROM. With cueing for neuromotor control during AAROM. Monitored for pain. Pt does not have pain. Performed prior to AROM Self-Care/Home Management Treatment Education Patient Education Home Exercise Program Other Education HEP: ankle pumps, hip abduction in seated PT-OP-T Assessment and Plan Start: 03/23/24 07:35 Freq: Status: Active Protocol: Document 03/28/24 10:32 NM (Rec: 03/28/24 11:17 NM [id number]) Physical Therapy Assessment Goals Four Impairment impairments in R Achilles tendon due to lengthening Short Term Goal (STG) If appropriate, pt will be able to perform at least 10 bilateral heel raises without compensation or increase in baseline pain in order to demonstrate improved gait mechanics and propulsion STG Duration 8 weeks Nursing Home Goal (LTG) If appropriate, pt will be able to perform at least 5 single leg heel raises using R foot without compensation or increase in baseline pain in order to demonstrate improved gait mechanics and propulsion Three Impairment gait impaired Short Term Goal (STG) Pt will normalize gait mechanics without AD or boot in order to demonstrate improvements in QOL and mobility STG Duration 4 weeks Nursing Home Goal (LTG) Pt will report no limitation in ambulation distance or time due to R foot/ankle mobility, strength, or pain in order to demonstrate improved QOL and mobility LTG Duration 12 weeks Two Impairment global ankle strength limited Short Term Goal (STG) Pt will increase global R ankle strength to at least 4/5 MMT in order to demonstrate improved ankle stability during gait, stance, and pickle ball if appropriate STG Duration 8 weeks Barrow Worker Goal (LTG) Pt will increase global R ankle strength to at least 4+/ 5 MMT in order to demonstrate improved ankle stability during gait, stance, and pickle ball if appropriate LTG Duration 12 weeks One Impairment AROM- R ankle dorsiflexion 4 deg, R ankle plantarflexion 36 deg Short Term Goal (STG) Pt will improve R ankle dorsiflexion AROM to least 8 deg and R ankle plantarflexion AROM to at least 40 deg in order to demonstrate improved mobility for gait and participation in recreational activities STG Duration 8 weeks Barrow Worker Goal (LTG) Pt will improve R ankle dorsiflexion AROM and R ankle plantarflexion AROM to within 3 deg of contralateral limb in order to demonstrate improved mobility for gait and participation in recreational activities LTG Duration 12 weeks Assessment Summary Assessment Pt tolerated session well without any R ankle pain. Initiated soft tissue mobilization of her R foot and ankle for swelling management and scar gentle scar mobilization. Pt responds well to manual treatment, demonstrating no pain with PROM or AAROM. However, pt does demonstrate decreased neuromuscular control during ankle dorsiflexion and plantarflexion due to immobilization. Progressed to AROM in sagittal plane only to allow for tissue repair to heal. Reviewed HEP to address pt concerns about form. She exhibits extreme difficulty with performing sidelying hip abduction correctly, so discontinued for seated hip abduction in boot. Although pt is currently progressing with WB up to 100%, PT recommended that pt continue to use spc at home until further gait training in future PT sessions . Pt would benefit from skilled PT for R ankle mobility and RLE strength, in addition to gait and balance training in order to improve activity tolerance and functional mobility. Physical Therapy Plan Frequency and Duration Frequency of Treatment 2x/Week Duration of treatment (weeks) 12 Plan of Care Start Date 03/23/24 Plan of Care End Date 06/22/24 Therapeutic Interventions Therapeutic Interventions Balance Training,Gait Training ,Home Exercise Program,Joint Mobilizations,Manual Therapy, Neuromuscular Re-education, Orthotic/Prosthetic Management ,Patient/Caregiver Education, Self-Care/Home Management, Sensory Integration,Soft Tissue Mobilization,Taping, Therapeutic Activities, Therapeutic Exercises Modalities Cold Pack/Ice Massage,Electric Stimulation,Hot Packs, Ultrasound Next Visit Focus/Plan Next Note Type Treatment Note Next Visit Plan Boot donned for exercises except ankle AROM Gentle AROM in PF/DF (ankle pumps, rocker board), sagittal plane motion only right now, no calf or toe stretch yet Manual prn: no instrument assisted STM, avoid healing incisions, gentle with tendon Continue with hip/quad strengthening: seated LAQ, seated HSC, seated hip abduction, prone hip ext, STS w/ WB, no foot instrinsics yet until ok by surgeon Progress WB with gait up to WBAT in boot w/ and w/o AD in //bars up to 100% WB per protocol
--- NOTE | 2024-03-30 12:28 | PT.OTN ---
Physical Therapy Treatment Note PT-OP-A Visit Information Start: 03/23/24 07:35 Freq: Status: Active Protocol: Document 03/30/24 10:38 NBM (Rec: 03/30/24 11:23 NBM [id number]) Out-Patient Physical Therapy Visit Information Visit Information Visit Type Treatment Note Visit Note DOS: 01/09/24 Irina and Shivam ALEXANDRE after 19 visits Visit Start Time 10:40 Visit Stop Time 11:23 Visit Number 3 Number of EYEDOTTER Visits 1 Evaluation Information Evaluation Date 03/23/24 Precautions Precautions DOS: 01/09/24 - R pes planus reconstruction, FDL transfer, posterior tibialis tendon repair, Achilles tendon lengthening Per referral: NWB 6 weeks post op, increased WB 25% ea week with arch support, boot with arch support until week 12 and /or follow up with surgeon PT-OP-C Subjective Start: 03/23/24 07:35 Freq: Status: Active Protocol: Document 03/30/24 10:38 NBM (Rec: 03/30/24 11:23 NBM [id number]) OP-PT Subjective Patient Comments Patient Comments Irina reports 100% WB and using SPC now. She has 12 week follow up with surgeon next Tuesday. She sees chiropractor weekly for back and he looked at cane height and thought it was okay. She's been doing her ex's and has been bored and became deconditioned and gained weight. PT-OP-Q Treatments Start: 03/23/24 07:35 Freq: Status: Active Protocol: Document 03/30/24 10:38 NBM (Rec: 03/30/24 11:23 NBM [id number]) Therapeutic Exercises Sitting Exercises hip abduction Sitting Exercise Name HEP: boot donned Side bilateral Resistance level 3 at thighs Reps/Minutes 2x10 with brief hold at end range Comments cued to lift boot during abd; vc for hold and eccentric control ankle AROM Sitting Exercise Name DF/PF: 1. knee straight open chain 2. knee bent 90deg closed chain Side right Resistance AROM Reps/Minutes 2x10 Comments cued neutral foot position, maintain ROM w/o pull/stretch LAQ Sitting Exercise Name boot donned Side right Reps/Minutes 2x10 with 1 breath hold Comments pain free; cues for breath, TrA & ecc control; no post. stretch felt today Gait Training Gait Activity SPC Device Used SPC in E Level of Assistance CGA Surface tile, carpet Distance/Duration around clinic Treatment Focus focus on upright posture, sequencing and safety around clinic Comments SPC in LUE: this EYEDOTTER adjusts to shorten from 6th hole up to 7th to improve fully upright posture w/ edu to pt for placement w/ ambulation using mirror. Manual Therapy Treatment Soft Tissue Mobilization R foot/ankle Body Location plantar fascia, scar mobilization, peroneals/ tibialis, gastrocnemius Mobilization Type Rolling,Other Intensity/Depth Superficial Body Position Hooklying Comments Foot elevated on bolster. Performed distal > proximal superficial globally around ankle for swelling reduction. Superficial scar mobilization with vertical mobilization and gentle lifting to prevent adhesions; most restricted along medial ankle. Gentle plantar fascial mobilization distal > proximal. Monitored for pain. Tenderness only along medial ankle and over incision on dorsal foot Self-Care/Home Management Treatment Education Patient Education Body Mechanics,Home Exercise Program,Posture,Safety Other Education HEP review: ankle pumps, hip abduction in seated PT-OP-T Assessment and Plan Start: 03/23/24 07:35 Freq: Status: Active Protocol: Document 03/30/24 10:38 [facility] (Rec: 03/30/24 11:23 [facility] [id number]) Physical Therapy Assessment Goals Four Impairment impairments in R Achilles tendon due to lengthening Short Term Goal (STG) If appropriate, pt will be able to perform at least 10 bilateral heel raises without compensation or increase in baseline pain in order to demonstrate improved gait mechanics and propulsion STG Duration 8 weeks General Pediatrician Goal (LTG) If appropriate, pt will be able to perform at least 5 single leg heel raises using R foot without compensation or increase in baseline pain in order to demonstrate improved gait mechanics and propulsion Three Impairment gait impaired Short Term Goal (STG) Pt will normalize gait mechanics without AD or boot in order to demonstrate improvements in QOL and mobility STG Duration 4 weeks Custodial Goal (LTG) Pt will report no limitation in ambulation distance or time due to R foot/ankle mobility, strength, or pain in order to demonstrate improved QOL and mobility LTG Duration 12 weeks Two Impairment global ankle strength limited Short Term Goal (STG) Pt will increase global R ankle strength to at least 4/5 MMT in order to demonstrate improved ankle stability during gait, stance, and pickle ball if appropriate STG Duration 8 weeks Custodial Goal (LTG) Pt will increase global R ankle strength to at least 4+/ 5 MMT in order to demonstrate improved ankle stability during gait, stance, and pickle ball if appropriate LTG Duration 12 weeks One Impairment AROM- R ankle dorsiflexion 4 deg, R ankle plantarflexion 36 deg Short Term Goal (STG) Pt will improve R ankle dorsiflexion AROM to least 8 deg and R ankle plantarflexion AROM to at least 40 deg in order to demonstrate improved mobility for gait and participation in recreational activities STG Duration 8 weeks General Pediatrician Goal (LTG) Pt will improve R ankle dorsiflexion AROM and R ankle plantarflexion AROM to within 3 deg of contralateral limb in order to demonstrate improved mobility for gait and participation in recreational activities LTG Duration 12 weeks Assessment Summary Assessment Irina presents w/ single point cane in LUE today, which this EYEDOTTER adjusts to shorten from 6th hole up to 7th. Treatment focus on manual therapy to RLE , seated HEP review for hip/ quad strengthening and ankle ROM, and Gait training w/ SPC in LUE focusing on upright posture, sequencing and safety around clinic w/ visual feedback. Pt requires cues for form with HEP to avoid posterior pulling sensation w/ LAQs. Physical Therapy Plan Frequency and Duration Frequency of Treatment 2x/Week Duration of treatment (weeks) 12 Plan of Care Start Date 03/23/24 Plan of Care End Date 06/22/24 Therapeutic Interventions Therapeutic Interventions Balance Training,Gait Training ,Home Exercise Program,Joint Mobilizations,Manual Therapy, Neuromuscular Re-education, Orthotic/Prosthetic Management ,Patient/Caregiver Education, Self-Care/Home Management, Sensory Integration,Soft Tissue Mobilization,Taping, Therapeutic Activities, Therapeutic Exercises Modalities Cold Pack/Ice Massage,Electric Stimulation,Hot Packs, Ultrasound Next Visit Focus/Plan Next Note Type Treatment Note Next Visit Plan Boot donned for exercises except ankle AROM Gentle AROM in PF/DF (ankle pumps, rocker board), sagittal plane motion only right now, no calf or toe stretch yet Manual prn: no instrument assisted STM, avoid healing incisions, gentle with tendon Continue with hip/quad strengthening: seated LAQ, seated HSC, seated hip abduction, prone hip ext, STS w/ WB, no foot instrinsics yet until ok by surgeon Progress WB with gait up to WBAT in boot w/ and w/o AD in //bars up to 100% WB per protocol
--- NOTE | 2024-04-04 11:53 | PT.OTN ---
Physical Therapy Treatment Note PT-OP-A Visit Information Start: 03/23/24 07:35 Freq: Status: Active Protocol: Document 04/04/24 10:31 NBM (Rec: 04/04/24 12:41 NBM [id number]) Out-Patient Physical Therapy Visit Information Visit Information Visit Type Treatment Note Visit Note DOS: 01/09/24 Irina and Shivam ALEXANDRE after 19 visits Visit Start Time 10:35 Visit Stop Time 11:25 Visit Number 4 [facility] of [facility] Visits 2 Evaluation Information Evaluation Date 03/23/24 Precautions Precautions DOS: 01/09/24 - R pes planus reconstruction, FDL transfer, posterior tibialis tendon repair, Achilles tendon lengthening Per referral: NWB 6 weeks post op, increased WB 25% ea week with arch support, boot with arch support until week 12 and /or follow up with surgeon PT-OP-B Current Condition Start: 03/23/24 07:35 Freq: Status: Active Protocol: Document 03/23/24 07:36 NM (Rec: 03/23/24 07:37 NM [id number]) Current Condition History of Current Condition Onset Date DOS 01/09/24 Current Complaints gait, mobility, ROM History of Current Condition Pt presents with R foot post pes planus with posterior tibialis repair, FDL transfer, achilles tendon lengthening surgery at 01/09/[address] Navarro. Currently 10 weeks and 5 days post -op. She has been using spc since 6 weeks and was instructed to be 50% weightbearing. She was NWB for 6 weeks. Xray at 6 weeks, no complications. Pt had surgery due to torn arch tendon/posterior tibialis tear, extreme rolling ankle in to pronation; she had a tendon transfer from her toes. She had a metal wedge that replaced the top of the boot. She had a gastrocnemius contracture, so lengthening of the R gastrocnemius performed as well. [place] removed at last appointment. Still in boot for 12 weeks with orthotic. She has a follow up on 04/06/[address] Navarro, planning to have an Xray at that time. Pt reports no pain, states pain has been well managed. She occasionally take tylenol for pain if she has achiness across the top of her ankle, usually after walking. States that her skin on her RLE has been hypersensitive ( also had after previous surgeries) and has been swelling a little; she has tried an onesimo bandage but not compression socks. Per pt report at last follow up with surgeon, Dr. Navarro ok'd her on gentle ROM for ankle, ices several times per day. PMH of knee replacement (L partial, R full). 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 She found a compression sock that she thinks is helping with swelling. She is anxious about seeing surgeon on Tuesday and hopes to go back into boot w/ AFO. I have no pain really, just the top part where the metal implant is is esha numby/tingly/touchy, but not any sharp grabbing/ stabbing. She keeps her foot up whenever sitting, which is probably most of the time. PT-OP-Q Treatments Start: 03/23/24 07:35 Freq: Status: Active Protocol: Document 04/04/24 10:31 NBM (Rec: 04/04/24 12:41 [facility] [id number]) Therapeutic Exercises Supine Exercises ankle pumps Side right Resistance AROM Reps/Minutes 20 Comments cued neutral foot to prevent medial pull, perform w/i no stretch ROM Prone Exercises hip extension Prone Exercise Name boot donned Side bilateral Comments Dc'd d/t too challenging Sitting Exercises hip abduction Sitting Exercise Name HEP: boot donned Side bilateral Resistance level 3 at thighs Reps/Minutes 2x10 with brief hold at end range Comments cued to lift boot during abd; vc for hold and eccentric control ankle AROM Sitting Exercise Name DF/PF: 1. knee straight open chain 2. knee bent 90deg closed chain Side right Resistance AROM Reps/Minutes 2x10 Comments cued neutral foot position, maintain ROM w/o pull/stretch LAQ Sitting Exercise Name boot donned Side right Reps/Minutes 2x10 with 1 breath hold Comments pain free; cues for breath, TrA & ecc control; no post. stretch felt today Standing Exercises hip abduction Standing Exercise Name stationary - boot donned Side bilateral Resistance Lvl 1 Tb above knees Equipment Used elevated plinth for UE support , stool Reps/Minutes 2x10 ea Comments cues on R>L for toes fwd, hip in slight extension PT-OP-T Assessment and Plan Start: 03/23/24 07:35 Freq: Status: Active Protocol: Document 04/04/24 10:31 NBM (Rec: 04/04/24 12:41 [facility] [id number]) Physical Therapy Assessment Goals Four Impairment impairments in R Achilles tendon due to lengthening Short Term Goal (STG) If appropriate, pt will be able to perform at least 10 bilateral heel raises without compensation or increase in baseline pain in order to demonstrate improved gait mechanics and propulsion STG Duration 8 weeks Pyrotechnic Mixer Goal (LTG) If appropriate, pt will be able to perform at least 5 single leg heel raises using R foot without compensation or increase in baseline pain in order to demonstrate improved gait mechanics and propulsion Three Impairment gait impaired Short Term Goal (STG) Pt will normalize gait mechanics without AD or boot in order to demonstrate improvements in QOL and mobility STG Duration 4 weeks Pyrotechnic Mixer Goal (LTG) Pt will report no limitation in ambulation distance or time due to R foot/ankle mobility, strength, or pain in order to demonstrate improved QOL and mobility LTG Duration 12 weeks Two Impairment global ankle strength limited Short Term Goal (STG) Pt will increase global R ankle strength to at least 4/5 MMT in order to demonstrate improved ankle stability during gait, stance, and pickle ball if appropriate STG Duration 8 weeks Pyrotechnic Mixer Goal (LTG) Pt will increase global R ankle strength to at least 4+/ 5 MMT in order to demonstrate improved ankle stability during gait, stance, and pickle ball if appropriate LTG Duration 12 weeks One Impairment AROM- R ankle dorsiflexion 4 deg, R ankle plantarflexion 36 deg Short Term Goal (STG) Pt will improve R ankle dorsiflexion AROM to least 8 deg and R ankle plantarflexion AROM to at least 40 deg in order to demonstrate improved mobility for gait and participation in recreational activities STG Duration 8 weeks Mcc Goal (LTG) Pt will improve R ankle dorsiflexion AROM and R ankle plantarflexion AROM to within 3 deg of contralateral limb in order to demonstrate improved mobility for gait and participation in recreational activities LTG Duration 12 weeks Assessment Summary Assessment Irina presents with boot donned on RLE and SPC in LUE. Treatment focus on gentle ankle AROM and hip/quad strengthening. She requires cues for form as with neutral foot positioning R>L. Prone hip extension is too challenging for pt to perform today and they are discontinued accordingly. No posterior stretch felt today with seated LAQs indicating improving ROM. She is also cued between activities for closer proximation w/ SPC in LUE to maintain fully upright posture. Physical Therapy Plan Frequency and Duration Frequency of Treatment 2x/Week Duration of treatment (weeks) 12 Plan of Care Start Date 03/23/24 Plan of Care End Date 06/22/24 Therapeutic Interventions Therapeutic Interventions Balance Training,Gait Training ,Home Exercise Program,Joint Mobilizations,Manual Therapy, Neuromuscular Re-education, Orthotic/Prosthetic Management ,Patient/Caregiver Education, Self-Care/Home Management, Sensory Integration,Soft Tissue Mobilization,Taping, Therapeutic Activities, Therapeutic Exercises Modalities Cold Pack/Ice Massage,Electric Stimulation,Hot Packs, Ultrasound Next Visit Focus/Plan Next Note Type Treatment Note Next Visit Plan Boot donned for exercises except ankle AROM Gentle AROM in PF/DF (ankle pumps, rocker board), sagittal plane motion only right now, no calf or toe stretch yet Manual prn: no instrument assisted STM, avoid healing incisions, gentle with tendon Continue with hip/quad strengthening: seated LAQ, seated HSC, seated hip abduction, prone hip ext, STS w/ WB, no foot instrinsics yet until ok by surgeon Progress WB with gait up to WBAT in boot w/ and w/o AD in //bars up to 100% WB per protocol
--- NOTE | 2024-04-13 12:56 | PT.OTN ---
Current Diagnoses Flat foot [pes planus] (acquired), right foot (04/13/24) Stiffness of right ankle, not elsewhere classified (04/13/24) Pain in right foot (04/13/24) Other lack of coordination (04/13/24) Weakness (04/13/24) Physical Therapy Treatment Note PT-OP-A Visit Information Start: 03/23/24 07:35 Freq: Status: Active Protocol: Document 04/13/24 10:33 NM (Rec: 04/13/24 11:17 NM [id number]) Out-Patient Physical Therapy Visit Information Visit Information Visit Type Treatment Note Visit Note DOS: 01/09/24 Irina and Shivam ALEXANDRE after 19 visits Visit Start Time 10:33 Visit Stop Time 11:13 Visit Number 5 Evaluation Information Evaluation Date 03/23/24 Precautions Precautions DOS: 01/09/24 - R pes planus reconstruction, FDL transfer, posterior tibialis tendon repair, Achilles tendon lengthening Per referral: NWB 6 weeks post op, increased WB 25% ea week with arch support, boot with arch support until week 12 and /or follow up with surgeon PT-OP-B Current Condition Start: 03/23/24 07:35 Freq: Status: Active Protocol: Document 03/23/24 07:36 NM (Rec: 03/23/24 07:37 NM [id number]) Current Condition History of Current Condition Onset Date DOS 01/09/24 Current Complaints gait, mobility, ROM History of Current Condition Pt presents with R foot post pes planus with posterior tibialis repair, FDL transfer, achilles tendon lengthening surgery at 01/09/[address] Navarro. Currently 10 weeks and 5 days post -op. She has been using spc since 6 weeks and was instructed to be 50% weightbearing. She was NWB for 6 weeks. Xray at 6 weeks, no complications. Pt had surgery due to torn arch tendon/posterior tibialis tear, extreme rolling ankle in to pronation; she had a tendon transfer from her toes. She had a metal wedge that replaced the top of the boot. She had a gastrocnemius contracture, so lengthening of the R gastrocnemius performed as well. [place] removed at last appointment. Still in boot for 12 weeks with orthotic. She has a follow up on 04/06/[address] Navarro, planning to have an Xray at that time. Pt reports no pain, states pain has been well managed. She occasionally take tylenol for pain if she has achiness across the top of her ankle, usually after walking. States that her skin on her RLE has been hypersensitive ( also had after previous surgeries) and has been swelling a little; she has tried an onesimo bandage but not compression socks. Per pt report at last follow up with surgeon, Dr. Navarro ok'd her on gentle ROM for ankle, ices several times per day. PMH of knee replacement (L partial, R full). 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 Also wearing compression sleeve. Still using spc. Last follow up with Dr. Navarro, said went well; wean out of boot for an hour and work up. Pt states currently at 5-6 hours without boot. She saw an jv baseball coach yesterday, can wear pre-op jv baseball coach as desired for new arch support. Had xray showing arthritis on top of foot. Has next appt with Dr. Navarro in 3 months. PT-OP-E Functional Tests Start: 03/23/24 07:35 Freq: Status: Active Protocol: Document 03/23/24 07:36 NM (Rec: 03/23/24 12:12 NM [id number]) Functional Tests Five Times Sit to Stand Test Score able to complete 5 w/o AD, not formally timed Comments no pain reported, slight L lean, less WB on RLE w/ boot donned PT-OP-F Manual Assessment Start: 03/23/24 07:35 Freq: Status: Active Protocol: Document 03/23/24 07:36 NM (Rec: 03/23/24 12:12 NM [id number]) Manual Assessments Soft Tissue Assessment Soft Tissue Mobility Assessment Scars intact, slight adhesions to skin. Pt has limitations in R Achilles length, has swelling across ankle Joint Mobility Assessment Joint Mobility Assessment Limited 1st ray mobility, toe extension and flexion with PROM PT-OP-G Mobility & Gait Start: 03/23/24 07:35 Freq: Status: Active Protocol: Document 03/23/24 07:36 NM (Rec: 03/23/24 12:12 NM [id number]) OP Gait Assessment Gait Gait Assistance Required: Independent Distance (Feet) 200 Able to Maintain Weight Bearing Status Yes During Gait Assistive Devices Assistive Device Straight Cane Gait Deviations General Gait Pattern Antalgic,Flexed Trunk Factors Limiting Gait Function Factors Limiting Gait Function Decreased Activity Tolerance, Decreased Sensation,Decreased Strength,Limited Range of Motion Comments Gait Comments Using spc primarily for balance as needed. Pt able to ambulate w/o AD and w/o pain in R ankle for short distances at 100% WB in boot. Demos slight L hip drop with R stance, L trunk and leg lean due to uneven WB while in boot leading to slight increase in L back pain PT-OP-J Posture/Palpation/Skin Start: 03/23/24 07:35 Freq: Status: Active Protocol: Document 03/23/24 07:36 NM (Rec: 03/23/24 12:12 NM [id number]) Posture Evaluation Position Standing Head/C-Spine Posture Forward Head L-Spine Posture Increased Lordosis Arm Posture (L) Externally Rotated,(R) Externally Rotated Pelvis Posture Anteriorly Tilted Weight Distribution Weight Shifted Left,Decreased Wt.Bear on (R) Hip Posture (L) Externally Rotated,(R) Externally Rotated Knee Posture (L) Genu Valgus,(R) Genu Valgus Ankle/Foot Posture (L) Pronated Foot Arch (L) Low Arch Palpation Assessment Location R ankle/foot Palpation Details Mild tenderness along medial ankle near posterior tibialis tendon, but denies pain. No tenderness along scars, but slight tenderness along anterior ankle near talocrural junction Skin Assessment Circumference Measurement R calf Location midway between patella and ankle mortise (17cm) Measurement (Centimeters) 34 Comments L calf 17 cm for comparison R ankle/foot Location figure 8 53 cm; 24 cm at malleoli Comments overall edema of foot > ankle to mid calf Incisional Assessment Incision Appearance/Comments All incisions intact, healing well with no signs of infection. Slight adhesions to underlying skin. Scab present only along medial ankle at one proximal point Other Assessments Skin Assessment Comments Increased rubor with dependency PT-OP-K Range of Motion Start: 03/23/24 07:35 Freq: Status: Active Protocol: Document 04/13/24 10:33 NM (Rec: 04/13/24 11:17 NM [id number]) Ankle and Foot Goniometric Range of Motion Ankle and Foot Right Dorsiflexion with Knee Flexed 4 Plantarflexion 36 Comments No pain with AROM 04/13/24: 8 deg DF, 40 deg PF PT-OP-M Strength Start: 03/23/24 07:35 Freq: Status: Active Protocol: Document 03/23/24 07:36 NM (Rec: 03/23/24 07:37 NM [id number]) Hip Strength Hip Manual Muscle Testing Left Flexion (L2) 4 Good Extension (S1) 4 Good Abduction 4 Good Adduction 4 Good External Rotation 4 Good Internal Rotation 4 Good Right Flexion (L2) 4- Good- Extension (S1) 4- Good- Abduction 4- Good- Adduction 4 Good External Rotation 4 Good Internal Rotation 4 Good Knee Strength Knee Manual Muscle Testing Left Flexion (S2) 4 Good Extension (L3) 4 Good Right Flexion (S2) 4- Good- Extension (L3) 4- Good- Ankle/Foot Strength Ankle and Foot Manual Muscle Testing Right Dorsiflexion (L4) 3 Fair Plantarflexion (S1) 3 Fair Comments Tested against gravity in sitting without due to surgical repair ( plantarflexion tested in sitting) Left Dorsiflexion (L4) 4 Good Plantarflexion (S1) 4 Good Inversion 4 Good Eversion (S1) 4 Good Comments plantarflexion tested in sitting PT-OP-Q Treatments Start: 03/23/24 07:35 Freq: Status: Active Protocol: Document 04/13/24 10:33 NM (Rec: 04/13/24 11:17 NM [id number]) Therapeutic Exercises Supine Exercises ankle pumps Side right Resistance AROM Reps/Minutes 20 Comments following manual tx Sitting Exercises ankle plantarflexion/dorsiflexion Sitting Exercise Name HEP Side right Resistance level 1 band, level 2 for PF Reps/Minutes 2x10x3 ea Comments pain free; edu to place band near toes for DF to avoid incision foot intrinsics Sitting Exercise Name toe curls on towel Reps/Minutes 20 Comments pain free; cued submaximal ankle AROM Sitting Exercise Name 1. ankle circles, 2. BAPS: circles- CW and CCW, 3. ankle pumps Side right Reps/Minutes 1. 10, 2. 5 ea direction, 3. 10 Comments BAPS challenging; pain free Standing Exercises hip extension Standing Exercise Name shoe donned and in wrap Side bilateral Resistance level 1 band-thighs Equipment Used hand support on plinth Reps/Minutes 10 ea Comments to promote hip strength and stance; pain free hip abduction Standing Exercise Name shoe donned and in wrap Side bilateral Resistance level 1 band-thighs Equipment Used hand support on plinth Reps/Minutes 10 ea Comments to promote hip strength and stance; pain free Manual Therapy Treatment Consent Patient gave verbal consent for manual Yes treatment Soft Tissue Mobilization R foot/ankle Body Location scar mobilization, peroneals/ tibialis, gastrocnemius Mobilization Type Rolling,Other Intensity/Depth Superficial Body Position Hooklying Comments Elevated for swelling management too. Gentle distal > proximal mobilization of evertors, invertors, and calf. Gentle scar mobilization. Monitored for pain. Tender only over incisions PT-OP-T Assessment and Plan Start: 03/23/24 07:35 Freq: Status: Active Protocol: Document 04/13/24 10:33 NM (Rec: 04/13/24 11:17 NM [id number]) Physical Therapy Assessment Goals Four Impairment impairments in R Achilles tendon due to lengthening Short Term Goal (STG) If appropriate, pt will be able to perform at least 10 bilateral heel raises without compensation or increase in baseline pain in order to demonstrate improved gait mechanics and propulsion STG Duration 8 weeks Fdc Goal (LTG) If appropriate, pt will be able to perform at least 5 single leg heel raises using R foot without compensation or increase in baseline pain in order to demonstrate improved gait mechanics and propulsion Three Impairment gait impaired Short Term Goal (STG) Pt will normalize gait mechanics without AD or boot in order to demonstrate improvements in QOL and mobility STG Duration 4 weeks Fdc Goal (LTG) Pt will report no limitation in ambulation distance or time due to R foot/ankle mobility, strength, or pain in order to demonstrate improved QOL and mobility LTG Duration 12 weeks Two Impairment global ankle strength limited Short Term Goal (STG) Pt will increase global R ankle strength to at least 4/5 MMT in order to demonstrate improved ankle stability during gait, stance, and pickle ball if appropriate STG Duration 8 weeks Fdc Goal (LTG) Pt will increase global R ankle strength to at least 4+/ 5 MMT in order to demonstrate improved ankle stability during gait, stance, and pickle ball if appropriate LTG Duration 12 weeks One Impairment AROM- R ankle dorsiflexion 4 deg, R ankle plantarflexion 36 deg Short Term Goal (STG) Pt will improve R ankle dorsiflexion AROM to least 8 deg and R ankle plantarflexion AROM to at least 40 deg in order to demonstrate improved mobility for gait and participation in recreational activities STG Duration 8 weeks Fdc Goal (LTG) Pt will improve R ankle dorsiflexion AROM and R ankle plantarflexion AROM to within 3 deg of contralateral limb in order to demonstrate improved mobility for gait and participation in recreational activities LTG Duration 12 weeks Assessment Summary Assessment Pt tolerated session well. Demonstrates improved R ankle sagittal plane motion, currently with 8 deg ankle dorsiflexion. Pt with good tolerance for resisted ankle plantarflexion and dorsiflexion today; progressed from level 1 band to level 2 band. Trialed BAPS to assist with ankle mobility; pt challenged with maintain foot contact with board during inversion/eversion. Able to perform gentle inversion/ eversion ROM without pain. Pt has increased swelling above ankle in calf. Educated on elevation above heart to reduce swelling. Performed distal > proximal soft tissue mobilization and gentle scar mobilization to reduce adhesions/swelling. She continues to have limitations in B hip strength. Performed hip abduction and hip extension to address weakness observed in glutes during gait and to assist with stabilization during stance. Pt requires hand support for balance. She would benefit from skilled PT for R ankle strengthening and mobility in addition to gait and balance training in order to improve activity tolerance and QOL. Physical Therapy Plan Frequency and Duration Frequency of Treatment 2x/Week Duration of treatment (weeks) 12 Plan of Care Start Date 03/23/24 Plan of Care End Date 06/22/24 Therapeutic Interventions Therapeutic Interventions Balance Training,Gait Training ,Home Exercise Program,Joint Mobilizations,Manual Therapy, Neuromuscular Re-education, Orthotic/Prosthetic Management ,Patient/Caregiver Education, Self-Care/Home Management, Sensory Integration,Soft Tissue Mobilization,Taping, Therapeutic Activities, Therapeutic Exercises Modalities Cold Pack/Ice Massage,Electric Stimulation,Hot Packs, Ultrasound Next Visit Focus/Plan Next Note Type Treatment Note Next Visit Plan ankle inversion/eversion AROM> add band; hip 3 way, LAQ, HSC , squat, step up, trial heel raise Manual prn: no instrument assisted STM, avoid healing incisions, gentle with tendon Continue with hip/quad strengthening: seated LAQ, seated HSC, seated hip abduction, prone hip ext, STS w/ WB, no foot instrinsics yet until ok by surgeon Progress WB with gait up to WBAT in boot w/ and w/o AD in //bars up to 100% WB per protocol
--- NOTE | 2024-04-25 12:53 | PT.OTN ---
Current Diagnoses Flat foot [pes planus] (acquired), right foot (04/25/24) Stiffness of right ankle, not elsewhere classified (04/25/24) Pain in right foot (04/25/24) Other lack of coordination (04/25/24) Weakness (04/25/24) Physical Therapy Treatment Note PT-OP-A Visit Information Start: 03/23/24 07:35 Freq: Status: Active Protocol: Document 04/25/24 07:32 NM (Rec: 04/25/24 08:17 NM [id number]) Out-Patient Physical Therapy Visit Information Visit Information Visit Type Progress Note Visit Note DOS: 01/09/24 Irina and Shivam ALEXANDRE after 19 visits Visit Start Time 07:33 Visit Stop Time 08:13 Visit Number 6 Evaluation Information Evaluation Date 03/23/24 Precautions Precautions DOS: 01/09/24 - R pes planus reconstruction, FDL transfer, posterior tibialis tendon repair, Achilles tendon lengthening Per referral: NWB 6 weeks post op, increased WB 25% ea week with arch support, boot with arch support until week 12 and /or follow up with surgeon PT-OP-B Current Condition Start: 03/23/24 07:35 Freq: Status: Active Protocol: Document 03/23/24 07:36 NM (Rec: 03/23/24 07:37 NM [id number]) Current Condition History of Current Condition Onset Date DOS 01/09/24 Current Complaints gait, mobility, ROM History of Current Condition Pt presents with R foot post pes planus with posterior tibialis repair, FDL transfer, achilles tendon lengthening surgery at 01/09/[address] Navarro. Currently 10 weeks and 5 days post -op. She has been using spc since 6 weeks and was instructed to be 50% weightbearing. She was NWB for 6 weeks. Xray at 6 weeks, no complications. Pt had surgery due to torn arch tendon/posterior tibialis tear, extreme rolling ankle in to pronation; she had a tendon transfer from her toes. She had a metal wedge that replaced the top of the boot. She had a gastrocnemius contracture, so lengthening of the R gastrocnemius performed as well. [place] removed at last appointment. Still in boot for 12 weeks with orthotic. She has a follow up on 04/06/[address] Navarro, planning to have an Xray at that time. Pt reports no pain, states pain has been well managed. She occasionally take tylenol for pain if she has achiness across the top of her ankle, usually after walking. States that her skin on her RLE has been hypersensitive ( also had after previous surgeries) and has been swelling a little; she has tried an onesimo bandage but not compression socks. Per pt report at last follow up with surgeon, Dr. Navarro ok'd her on gentle ROM for ankle, ices several times per day. PMH of knee replacement (L partial, R full). 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 She states that she feels like she has a band around her big toe. Reports thinks it 's affecting her balance. States some days it's achy, does not feel it all the time, at the IP joint. Tender, states has occurred since the surgery, can't recall if occurred in the boot. Has a fungal toe, has been taking an over the counter cream. Pt reports non-comppliance with HEP PT-OP-E Functional Tests Start: 03/23/24 07:35 Freq: Status: Active Protocol: Document 03/23/24 07:36 NM (Rec: 03/23/24 12:12 NM [id number]) Functional Tests Five Times Sit to Stand Test Score able to complete 5 w/o AD, not formally timed Comments no pain reported, slight L lean, less WB on RLE w/ boot donned PT-OP-F Manual Assessment Start: 03/23/24 07:35 Freq: Status: Active Protocol: Document 03/23/24 07:36 NM (Rec: 03/23/24 12:12 NM [id number]) Manual Assessments Soft Tissue Assessment Soft Tissue Mobility Assessment Scars intact, slight adhesions to skin. Pt has limitations in R Achilles length, has swelling across ankle Joint Mobility Assessment Joint Mobility Assessment Limited 1st ray mobility, toe extension and flexion with PROM PT-OP-G Mobility & Gait Start: 03/23/24 07:35 Freq: Status: Active Protocol: Document 03/23/24 07:36 NM (Rec: 03/23/24 12:12 NM [id number]) OP Gait Assessment Gait Gait Assistance Required: Independent Distance (Feet) 200 Able to Maintain Weight Bearing Status Yes During Gait Assistive Devices Assistive Device Straight Cane Gait Deviations General Gait Pattern Antalgic,Flexed Trunk Factors Limiting Gait Function Factors Limiting Gait Function Decreased Activity Tolerance, Decreased Sensation,Decreased Strength,Limited Range of Motion Comments Gait Comments Using spc primarily for balance as needed. Pt able to ambulate w/o AD and w/o pain in R ankle for short distances at 100% WB in boot. Demos slight L hip drop with R stance, L trunk and leg lean due to uneven WB while in boot leading to slight increase in L back pain PT-OP-J Posture/Palpation/Skin Start: 03/23/24 07:35 Freq: Status: Active Protocol: Document 03/23/24 07:36 NM (Rec: 03/23/24 12:12 NM [id number]) Posture Evaluation Position Standing Head/C-Spine Posture Forward Head L-Spine Posture Increased Lordosis Arm Posture (L) Externally Rotated,(R) Externally Rotated Pelvis Posture Anteriorly Tilted Weight Distribution Weight Shifted Left,Decreased Wt.Bear on (R) Hip Posture (L) Externally Rotated,(R) Externally Rotated Knee Posture (L) Genu Valgus,(R) Genu Valgus Ankle/Foot Posture (L) Pronated Foot Arch (L) Low Arch Palpation Assessment Location R ankle/foot Palpation Details Mild tenderness along medial ankle near posterior tibialis tendon, but denies pain. No tenderness along scars, but slight tenderness along anterior ankle near talocrural junction Skin Assessment Circumference Measurement R calf Location midway between patella and ankle mortise (17cm) Measurement (Centimeters) 34 Comments L calf 17 cm for comparison R ankle/foot Location figure 8 53 cm; 24 cm at malleoli Comments overall edema of foot > ankle to mid calf Incisional Assessment Incision Appearance/Comments All incisions intact, healing well with no signs of infection. Slight adhesions to underlying skin. Scab present only along medial ankle at one proximal point Other Assessments Skin Assessment Comments Increased rubor with dependency PT-OP-K Range of Motion Start: 03/23/24 07:35 Freq: Status: Active Protocol: Document 04/25/24 07:32 NM (Rec: 04/25/24 08:17 NM [id number]) Ankle and Foot Goniometric Range of Motion Ankle and Foot Right Dorsiflexion with Knee Flexed 4 Plantarflexion 36 Comments No pain with AROM 04/13/24: 8 deg DF, 40 deg PF 04/25/24: 10 deg DF, 45 deg PF, 30 deg inversion, 10 deg eversion PT-OP-M Strength Start: 03/23/24 07:35 Freq: Status: Active Protocol: Document 04/25/24 07:32 NM (Rec: 04/25/24 08:17 NM [id number]) Ankle/Foot Strength Ankle and Foot Manual Muscle Testing Right Dorsiflexion (L4) 3 Fair Plantarflexion (S1) 3 Fair Comments Tested against gravity in sitting without due to surgical repair ( plantarflexion tested in sitting) 04/25/24: 4-/5 for all, tested in sitting Left Dorsiflexion (L4) 4 Good Plantarflexion (S1) 4 Good Inversion 4 Good Eversion (S1) 4 Good Comments plantarflexion tested in sitting PT-OP-Q Treatments Start: 03/23/24 07:35 Freq: Status: Active Protocol: Document 04/25/24 07:32 NM (Rec: 04/25/24 08:17 NM [id number]) Therapeutic Exercises Sitting Exercises great toe ext Sitting Exercise Name 1. AAROM, 2. isometric Side right Reps/Minutes 1. 10, 2. 10x3 hold Comments cued to remain w/i pain free range ankle plantarflexion/dorsiflexion Sitting Exercise Name HEP review: 1. banded DF, 2. seated PF in WB Side right Resistance level 2 band for DF Reps/Minutes 2x10 2 ea Comments leg crossed over for DF, pain free foot intrinsics Sitting Exercise Name toe curls Side right Resistance level 1 band Reps/Minutes 10 with 2 hold Comments pain free LAQ Side right Resistance level 2 band Reps/Minutes 2x10 with 1 breath hold Standing Exercises step up Standing Exercise Name fwd step up Side bilateral Resistance AROM Equipment Used hand support for balance Reps/Minutes 2x10 heel raise Standing Exercise Name trialed in PT Side bilateral Resistance AROM Equipment Used small ball between ankles Reps/Minutes 2x8 Comments limited ROM, pain free, feels in ankle Neuro Re-Education Treatment Balance Activities SLS Reps/Duration 2x30 ea Comments 1 finger support on rail, cued not to balance on leg pain free but more challenging on R PT-OP-T Assessment and Plan Start: 03/23/24 07:35 Freq: Status: Active Protocol: Document 04/25/24 07:32 NM (Rec: 04/25/24 08:17 NM [id number]) Physical Therapy Assessment Goals Four Impairment impairments in R Achilles tendon due to lengthening Short Term Goal (STG) If appropriate, pt will be able to perform at least 10 bilateral heel raises without compensation or increase in baseline pain in order to demonstrate improved gait mechanics and propulsion 04/25/23: pain free but able to perform 8 B heel raises STG Duration 8 weeks PROGRESSING Power And Recovery Superintendent Goal (LTG) If appropriate, pt will be able to perform at least 5 single leg heel raises using R foot without compensation or increase in baseline pain in order to demonstrate improved gait mechanics and propulsion Three Impairment gait impaired Short Term Goal (STG) Pt will normalize gait mechanics without AD or boot in order to demonstrate improvements in QOL and mobility 04/25/23: ambulating w/o a boot , reports slight toe pain with stepping STG Duration 4 weeks PROGRESSING Power And Recovery Superintendent Goal (LTG) Pt will report no limitation in ambulation distance or time due to R foot/ankle mobility, strength, or pain in order to demonstrate improved QOL and mobility LTG Duration 12 weeks Two Impairment global ankle strength limited Short Term Goal (STG) Pt will increase global R ankle strength to at least 4/5 MMT in order to demonstrate improved ankle stability during gait, stance, and pickle ball if appropriate 04/25/24: 4-/5 for all when tested in sitting STG Duration 8 weeks PROGRESSING Longterm Goal (LTG) Pt will increase global R ankle strength to at least 4+/ 5 MMT in order to demonstrate improved ankle stability during gait, stance, and pickle ball if appropriate LTG Duration 12 weeks One Impairment AROM- R ankle dorsiflexion 4 deg, R ankle plantarflexion 36 deg Short Term Goal (STG) Pt will improve R ankle dorsiflexion AROM to least 8 deg and R ankle plantarflexion AROM to at least 40 deg in order to demonstrate improved mobility for gait and participation in recreational activities 04/25/24: 10 deg ankle DF, 45 deg PF STG Duration 8 weeks MET Longterm Goal (LTG) Pt will improve R ankle dorsiflexion AROM and R ankle plantarflexion AROM to within 3 deg of contralateral limb in order to demonstrate improved mobility for gait and participation in recreational activities LTG Duration 12 weeks Progress Towards Goals Progress Towards Goals Progressing Toward Goals,Slow Progress due to Activity Tolerance,Slow Progress - Other Progress Comments progressing toward strength goals Assessment Summary Assessment Pt tolerated session well, she has no pain during session with exercise. Pt has not been compliant with HEP, so limited carryover between sessions. Emphasis on improving R ankle strength. Trialed seated and standing heel raises to improve plantarflexion strength; pt has discomfort in her arch when performing heel raises without a ball between her ankles, resolved when ball added to improve stability. Progressed resistance band for ankle dorsiflexion and LAQ. Pt challenged with control at knee while performing step ups due to quad weakness, slight instability present at ankle. To improve balance, pt performed SLS with hand support; able to progress to 1 finger to assist with balance , educated to gradually reduce finger contact as part of HEP . Pt would benefit from skilled PT to improve R ankle strength, stability, balance, and gait mechanics in order to improve activity tolerance and maximize mobility. Physical Therapy Plan Frequency and Duration Frequency of Treatment 2x/Week Duration of treatment (weeks) 12 Plan of Care Start Date 03/23/24 Plan of Care End Date 06/22/24 Therapeutic Interventions Therapeutic Interventions Balance Training,Gait Training ,Home Exercise Program,Joint Mobilizations,Manual Therapy, Neuromuscular Re-education, Orthotic/Prosthetic Management ,Patient/Caregiver Education, Self-Care/Home Management, Sensory Integration,Soft Tissue Mobilization,Taping, Therapeutic Activities, Therapeutic Exercises Modalities Cold Pack/Ice Massage,Electric Stimulation,Hot Packs, Ultrasound Next Visit Focus/Plan Next Note Type Treatment Note Next Visit Plan ankle inversion/eversion level 1 band, trial heel raise with ball in standing; LAQ and squat, step up normalize gait mechanics: heel toe, hurdles Manual prn: no instrument assisted STM, avoid healing incisions, gentle with tendon Continue with hip/quad strengthening: seated LAQ, seated HSC, seated hip abduction, prone hip ext, STS w/ WB, no foot instrinsics yet until ok by surgeon Progress WB with gait up to WBAT in boot w/ and w/o AD in //bars up to 100% WB per protocol
--- NOTE | 2024-05-02 13:56 | PT.OTN ---
Current Diagnoses Flat foot [pes planus] (acquired), right foot (05/02/24) Stiffness of right ankle, not elsewhere classified (05/02/24) Pain in right foot (05/02/24) Other lack of coordination (05/02/24) Weakness (05/02/24) Physical Therapy Treatment Note PT-OP-A Visit Information Start: 03/23/24 07:35 Freq: Status: Active Protocol: Document 05/02/24 12:59 NBM (Rec: 05/02/24 13:56 NBM [id number]) Out-Patient Physical Therapy Visit Information Visit Information Visit Type Progress Note Visit Note DOS: 01/09/24 Irina and Shivam ALEXANDRE after 19 visits Visit Start Time 13:05 Visit Stop Time 13:53 Visit Number 7 Number of MUSIC HISTORIAN Visits 1 Evaluation Information Evaluation Date 03/23/24 Precautions Precautions DOS: 01/09/24 - R pes planus reconstruction, FDL transfer, posterior tibialis tendon repair, Achilles tendon lengthening Per referral: NWB 6 weeks post op, increased WB 25% ea week with arch support, boot with arch support until week 12 and /or follow up with surgeon PT-OP-B Current Condition Start: 03/23/24 07:35 Freq: Status: Active Protocol: Document 03/23/24 07:36 NM (Rec: 03/23/24 07:37 NM [id number]) Current Condition History of Current Condition Onset Date DOS 01/09/24 Current Complaints gait, mobility, ROM History of Current Condition Pt presents with R foot post pes planus with posterior tibialis repair, FDL transfer, achilles tendon lengthening surgery at 01/09/[address] Navarro. Currently 10 weeks and 5 days post -op. She has been using spc since 6 weeks and was instructed to be 50% weightbearing. She was NWB for 6 weeks. Xray at 6 weeks, no complications. Pt had surgery due to torn arch tendon/posterior tibialis tear, extreme rolling ankle in to pronation; she had a tendon transfer from her toes. She had a metal wedge that replaced the top of the boot. She had a gastrocnemius contracture, so lengthening of the R gastrocnemius performed as well. Abigail removed at last appointment. Still in boot for 12 weeks with orthotic. She has a follow up on 04/06/[address] Navarro, planning to have an Xray at that time. Pt reports no pain, states pain has been well managed. She occasionally take tylenol for pain if she has achiness across the top of her ankle, usually after walking. States that her skin on her RLE has been hypersensitive ( also had after previous surgeries) and has been swelling a little; she has tried an onesimo bandage but not compression socks. Per pt report at last follow up with surgeon, Dr. Navarro ok'd her on gentle ROM for ankle, ices several times per day. PMH of knee replacement (L partial, R full). 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 She reports she did HEP twice a week instead of three times from being in [place] for three days. She walked a lot in [place] so her ankle is stiff from that. She still feels tenderness to big toe where it attaches to her foot; it feels broken and she's never barefoot except in shower and she can really feel it there, but is encouraged that the feeling is coming and going now. She is unable to find [employer] [place] green theraband at home. She's also been doing wall slides. She's been practicing single leg balance and it's better than last week . Patient Reported Progress Improving PT-OP-E Functional Tests Start: 03/23/24 07:35 Freq: Status: Active Protocol: Document 03/23/24 07:36 NM (Rec: 03/23/24 12:12 NM [id number]) Functional Tests Five Times Sit to Stand Test Score able to complete 5 w/o AD, not formally timed Comments no pain reported, slight L lean, less WB on RLE w/ boot donned PT-OP-F Manual Assessment Start: 03/23/24 07:35 Freq: Status: Active Protocol: Document 03/23/24 07:36 NM (Rec: 03/23/24 12:12 NM [id number]) Manual Assessments Soft Tissue Assessment Soft Tissue Mobility Assessment Scars intact, slight adhesions to skin. Pt has limitations in R Achilles length, has swelling across ankle Joint Mobility Assessment Joint Mobility Assessment Limited 1st ray mobility, toe extension and flexion with PROM PT-OP-G Mobility & Gait Start: 03/23/24 07:35 Freq: Status: Active Protocol: Document 03/23/24 07:36 NM (Rec: 03/23/24 12:12 NM [id number]) OP Gait Assessment Gait Gait Assistance Required: Independent Distance (Feet) 200 Able to Maintain Weight Bearing Status Yes During Gait Assistive Devices Assistive Device Straight Cane Gait Deviations General Gait Pattern Antalgic,Flexed Trunk Factors Limiting Gait Function Factors Limiting Gait Function Decreased Activity Tolerance, Decreased Sensation,Decreased Strength,Limited Range of Motion Comments Gait Comments Using spc primarily for balance as needed. Pt able to ambulate w/o AD and w/o pain in R ankle for short distances at 100% WB in boot. Demos slight L hip drop with R stance, L trunk and leg lean due to uneven WB while in boot leading to slight increase in L back pain PT-OP-J Posture/Palpation/Skin Start: 03/23/24 07:35 Freq: Status: Active Protocol: Document 03/23/24 07:36 NM (Rec: 03/23/24 12:12 NM [id number]) Posture Evaluation Position Standing Head/C-Spine Posture Forward Head L-Spine Posture Increased Lordosis Arm Posture (L) Externally Rotated,(R) Externally Rotated Pelvis Posture Anteriorly Tilted Weight Distribution Weight Shifted Left,Decreased Wt.Bear on (R) Hip Posture (L) Externally Rotated,(R) Externally Rotated Knee Posture (L) Genu Valgus,(R) Genu Valgus Ankle/Foot Posture (L) Pronated Foot Arch (L) Low Arch Palpation Assessment Location R ankle/foot Palpation Details Mild tenderness along medial ankle near posterior tibialis tendon, but denies pain. No tenderness along scars, but slight tenderness along anterior ankle near talocrural junction Skin Assessment Circumference Measurement R calf Location midway between patella and ankle mortise (17cm) Measurement (Centimeters) 34 Comments L calf 17 cm for comparison R ankle/foot Location figure 8 53 cm; 24 cm at malleoli Comments overall edema of foot > ankle to mid calf Incisional Assessment Incision Appearance/Comments All incisions intact, healing well with no signs of infection. Slight adhesions to underlying skin. Scab present only along medial ankle at one proximal point Other Assessments Skin Assessment Comments Increased rubor with dependency PT-OP-K Range of Motion Start: 03/23/24 07:35 Freq: Status: Active Protocol: Document 04/25/24 07:32 NM (Rec: 04/25/24 08:17 NM [id number]) Ankle and Foot Goniometric Range of Motion Ankle and Foot Right Dorsiflexion with Knee Flexed 4 Plantarflexion 36 Comments No pain with AROM 04/13/24: 8 deg DF, 40 deg PF 04/25/24: 10 deg DF, 45 deg PF, 30 deg inversion, 10 deg eversion PT-OP-M Strength Start: 03/23/24 07:35 Freq: Status: Active Protocol: Document 04/25/24 07:32 NM (Rec: 04/25/24 08:17 NM [id number]) Ankle/Foot Strength Ankle and Foot Manual Muscle Testing Right Dorsiflexion (L4) 3 Fair Plantarflexion (S1) 3 Fair Comments Tested against gravity in sitting without due to surgical repair ( plantarflexion tested in sitting) 04/25/24: 4-/5 for all, tested in sitting Left Dorsiflexion (L4) 4 Good Plantarflexion (S1) 4 Good Inversion 4 Good Eversion (S1) 4 Good Comments plantarflexion tested in sitting PT-OP-Q Treatments Start: 03/23/24 07:35 Freq: Status: Active Protocol: Document 05/02/24 12:59 NBM (Rec: 05/02/24 13:56 NBM [id number]) Therapeutic Exercises Sitting Exercises ankle plantarflexion/dorsiflexion Sitting Exercise Name HEP review: 1. banded DF, 2. seated PF in WB Side right Resistance level 2 band for DF Reps/Minutes 1.2x10 2 ea 2. 10 x1 breathcycle hold Comments leg crossed over for DF, pain free Standing Exercises heel raise Standing Exercise Name trialed in PT, fwd weightshift compensation Side bilateral Resistance AROM Equipment Used small raquetball between ankles Reps/Minutes x8 Comments limited ROM, pain free, feels stretch in Achilles t. and is apprehensive Neuro Re-Education Treatment Balance Activities SLS Details adrian L 20s,30s R 16s, 24s Reps/Duration 2x30 ea Comments 1 finger support on rail, cued not to balance on leg pain free but more challenging on R Self-Care/Home Management Treatment Education Patient Education Home Exercise Program Other Education HEP review and Pt corrected on performance of LAQ and issued Lvl 3 [place] green Tb for resisted PF. She is educated for hold w/ breathwork and encouraged to perform HEP slower w/ attention to slower pacing and breath. PT-OP-T Assessment and Plan Start: 03/23/24 07:35 Freq: Status: Active Protocol: Document 05/02/24 12:59 NBM (Rec: 05/02/24 13:56 NBM [id number]) Physical Therapy Assessment Goals Four Impairment impairments in R Achilles tendon due to lengthening Short Term Goal (STG) If appropriate, pt will be able to perform at least 10 bilateral heel raises without compensation or increase in baseline pain in order to demonstrate improved gait mechanics and propulsion 04/25/23: pain free but able to perform 8 B heel raises STG Duration 8 weeks PROGRESSING Longterm Goal (LTG) If appropriate, pt will be able to perform at least 5 single leg heel raises using R foot without compensation or increase in baseline pain in order to demonstrate improved gait mechanics and propulsion Three Impairment gait impaired Short Term Goal (STG) Pt will normalize gait mechanics without AD or boot in order to demonstrate improvements in QOL and mobility 04/25/23: ambulating w/o a boot , reports slight toe pain with stepping STG Duration 4 weeks PROGRESSING Longterm Goal (LTG) Pt will report no limitation in ambulation distance or time due to R foot/ankle mobility, strength, or pain in order to demonstrate improved QOL and mobility LTG Duration 12 weeks Two Impairment global ankle strength limited Short Term Goal (STG) Pt will increase global R ankle strength to at least 4/5 MMT in order to demonstrate improved ankle stability during gait, stance, and pickle ball if appropriate 04/25/24: 4-/5 for all when tested in sitting STG Duration 8 weeks PROGRESSING [employer] Attendant Goal (LTG) Pt will increase global R ankle strength to at least 4+/ 5 MMT in order to demonstrate improved ankle stability during gait, stance, and pickle ball if appropriate LTG Duration 12 weeks One Impairment AROM- R ankle dorsiflexion 4 deg, R ankle plantarflexion 36 deg Short Term Goal (STG) Pt will improve R ankle dorsiflexion AROM to least 8 deg and R ankle plantarflexion AROM to at least 40 deg in order to demonstrate improved mobility for gait and participation in recreational activities 04/25/24: 10 deg ankle DF, 45 deg PF STG Duration 8 weeks MET [employer] Attendant Goal (LTG) Pt will improve R ankle dorsiflexion AROM and R ankle plantarflexion AROM to within 3 deg of contralateral limb in order to demonstrate improved mobility for gait and participation in recreational activities LTG Duration 12 weeks Assessment Summary Assessment Irina presents with Lvl 2 teal theraband and HEP handout. She requires cues for longer hold time and no breathwork w/ resisted ankle ex's; her self -awareness improves w/ cueing and repetition and she self- corrects this session. She is able to perform SL balance on R 24s and on L 30s today which demos progress. HEP review and Pt corrected on performance of LAQ and issued Lvl 3 [place] green Tb for resisted PF. She is educated for hold w/ breathwork and encouraged to perform HEP slower w/ attention to slower pacing and breath. She complains of tenderness to IP jt of R hallux and is encouraged to notify Dr. Navarro's office accordingly. Physical Therapy Plan Frequency and Duration Frequency of Treatment 2x/Week Duration of treatment (weeks) 12 Plan of Care Start Date 03/23/24 Plan of Care End Date 06/22/24 Therapeutic Interventions Therapeutic Interventions Balance Training,Gait Training ,Home Exercise Program,Joint Mobilizations,Manual Therapy, Neuromuscular Re-education, Orthotic/Prosthetic Management ,Patient/Caregiver Education, Self-Care/Home Management, Sensory Integration,Soft Tissue Mobilization,Taping, Therapeutic Activities, Therapeutic Exercises Modalities Cold Pack/Ice Massage,Electric Stimulation,Hot Packs, Ultrasound Next Visit Focus/Plan Next Note Type Treatment Note Next Visit Plan ankle inversion/eversion level 1 band, review heel raise with ball in standing; LAQ and squat, step up normalize gait mechanics: heel toe, hurdles Manual prn: no instrument assisted STM, avoid healing incisions, gentle with tendon Continue with hip/quad strengthening: seated LAQ, seated HSC, seated hip abduction, prone hip ext, STS w/ WB, no foot instrinsics yet until ok by surgeon Progress WB with gait up to WBAT in boot w/ and w/o AD in //bars up to 100% WB per protocol
--- NOTE | 2024-05-09 17:43 | PT.OTN ---
Current Diagnoses Flat foot [pes planus] (acquired), right foot (05/09/24) Stiffness of right ankle, not elsewhere classified (05/09/24) Pain in right foot (05/09/24) Other lack of coordination (05/09/24) Weakness (05/09/24) Physical Therapy Treatment Note PT-OP-A Visit Information Start: 03/23/24 07:35 Freq: Status: Active Protocol: Document 05/09/24 10:32 NBM (Rec: 05/09/24 12:20 NBM [id number]) Out-Patient Physical Therapy Visit Information Visit Information Visit Type Progress Note Visit Note DOS: 01/09/24 Irina and Shivam ALEXANDRE after 19 visits Visit Start Time 10:35 Visit Stop Time 11:25 Visit Number 8 Number of CUSTOMER PROGRAM SPECIALIST Visits 2 Evaluation Information Evaluation Date 03/23/24 Precautions Precautions DOS: 01/09/24 - R pes planus reconstruction, FDL transfer, posterior tibialis tendon repair, Achilles tendon lengthening Per referral: NWB 6 weeks post op, increased WB 25% ea week with arch support, boot with arch support until week 12 and /or follow up with surgeon PT-OP-B Current Condition Start: 03/23/24 07:35 Freq: Status: Active Protocol: Document 03/23/24 07:36 NM (Rec: 03/23/24 07:37 NM [id number]) Current Condition History of Current Condition Onset Date DOS 01/09/24 Current Complaints gait, mobility, ROM History of Current Condition Pt presents with R foot post pes planus with posterior tibialis repair, FDL transfer, achilles tendon lengthening surgery at 01/09/[address] Navarro. Currently 10 weeks and 5 days post -op. She has been using spc since 6 weeks and was instructed to be 50% weightbearing. She was NWB for 6 weeks. Xray at 6 weeks, no complications. Pt had surgery due to torn arch tendon/posterior tibialis tear, extreme rolling ankle in to pronation; she had a tendon transfer from her toes. She had a metal wedge that replaced the top of the boot. She had a gastrocnemius contracture, so lengthening of the R gastrocnemius performed as well. Abigail removed at last appointment. Still in boot for 12 weeks with orthotic. She has a follow up on 04/06/[address] Navarro, planning to have an Xray at that time. Pt reports no pain, states pain has been well managed. She occasionally take tylenol for pain if she has achiness across the top of her ankle, usually after walking. States that her skin on her RLE has been hypersensitive ( also had after previous surgeries) and has been swelling a little; she has tried an onesimo bandage but not compression socks. Per pt report at last follow up with surgeon, Dr. Navarro ok'd her on gentle ROM for ankle, ices several times per day. PMH of knee replacement (L partial, R full). 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 Pt spoke w/ Dr. Navarro's office about big toe R tenderness and has appointment 06/04. It's worst in morning when she's barefoot to get to bathroom or in shower. She's been working on heel -toe motion because she's been avoiding putting weight on that big toe due to tenderness. She took ankle wrap off last night for bed and left it off because she thought maybe it was making the top of her foot more sore. She's nervous to stretch Achilles at all. PT-OP-E Functional Tests Start: 03/23/24 07:35 Freq: Status: Active Protocol: Document 03/23/24 07:36 NM (Rec: 03/23/24 12:12 NM [id number]) Functional Tests Five Times Sit to Stand Test Score able to complete 5 w/o AD, not formally timed Comments no pain reported, slight L lean, less WB on RLE w/ boot donned PT-OP-F Manual Assessment Start: 03/23/24 07:35 Freq: Status: Active Protocol: Document 03/23/24 07:36 NM (Rec: 03/23/24 12:12 NM [id number]) Manual Assessments Soft Tissue Assessment Soft Tissue Mobility Assessment Scars intact, slight adhesions to skin. Pt has limitations in R Achilles length, has swelling across ankle Joint Mobility Assessment Joint Mobility Assessment Limited 1st ray mobility, toe extension and flexion with PROM PT-OP-G Mobility & Gait Start: 03/23/24 07:35 Freq: Status: Active Protocol: Document 03/23/24 07:36 NM (Rec: 03/23/24 12:12 NM [id number]) OP Gait Assessment Gait Gait Assistance Required: Independent Distance (Feet) 200 Able to Maintain Weight Bearing Status Yes During Gait Assistive Devices Assistive Device Straight Cane Gait Deviations General Gait Pattern Antalgic,Flexed Trunk Factors Limiting Gait Function Factors Limiting Gait Function Decreased Activity Tolerance, Decreased Sensation,Decreased Strength,Limited Range of Motion Comments Gait Comments Using spc primarily for balance as needed. Pt able to ambulate w/o AD and w/o pain in R ankle for short distances at 100% WB in boot. Demos slight L hip drop with R stance, L trunk and leg lean due to uneven WB while in boot leading to slight increase in L back pain PT-OP-J Posture/Palpation/Skin Start: 03/23/24 07:35 Freq: Status: Active Protocol: Document 03/23/24 07:36 NM (Rec: 03/23/24 12:12 NM [id number]) Posture Evaluation Position Standing Head/C-Spine Posture Forward Head L-Spine Posture Increased Lordosis Arm Posture (L) Externally Rotated,(R) Externally Rotated Pelvis Posture Anteriorly Tilted Weight Distribution Weight Shifted Left,Decreased Wt.Bear on (R) Hip Posture (L) Externally Rotated,(R) Externally Rotated Knee Posture (L) Genu Valgus,(R) Genu Valgus Ankle/Foot Posture (L) Pronated Foot Arch (L) Low Arch Palpation Assessment Location R ankle/foot Palpation Details Mild tenderness along medial ankle near posterior tibialis tendon, but denies pain. No tenderness along scars, but slight tenderness along anterior ankle near talocrural junction Skin Assessment Circumference Measurement R calf Location midway between patella and ankle mortise (17cm) Measurement (Centimeters) 34 Comments L calf 17 cm for comparison R ankle/foot Location figure 8 53 cm; 24 cm at malleoli Comments overall edema of foot > ankle to mid calf Incisional Assessment Incision Appearance/Comments All incisions intact, healing well with no signs of infection. Slight adhesions to underlying skin. Scab present only along medial ankle at one proximal point Other Assessments Skin Assessment Comments Increased rubor with dependency PT-OP-K Range of Motion Start: 03/23/24 07:35 Freq: Status: Active Protocol: Document 04/25/24 07:32 NM (Rec: 04/25/24 08:17 NM [id number]) Ankle and Foot Goniometric Range of Motion Ankle and Foot Right Dorsiflexion with Knee Flexed 4 Plantarflexion 36 Comments No pain with AROM 04/13/24: 8 deg DF, 40 deg PF 04/25/24: 10 deg DF, 45 deg PF, 30 deg inversion, 10 deg eversion PT-OP-M Strength Start: 03/23/24 07:35 Freq: Status: Active Protocol: Document 04/25/24 07:32 NM (Rec: 04/25/24 08:17 NM [id number]) Ankle/Foot Strength Ankle and Foot Manual Muscle Testing Right Dorsiflexion (L4) 3 Fair Plantarflexion (S1) 3 Fair Comments Tested against gravity in sitting without due to surgical repair ( plantarflexion tested in sitting) 04/25/24: 4-/5 for all, tested in sitting Left Dorsiflexion (L4) 4 Good Plantarflexion (S1) 4 Good Inversion 4 Good Eversion (S1) 4 Good Comments plantarflexion tested in sitting PT-OP-Q Treatments Start: 03/23/24 07:35 Freq: Status: Active Protocol: Document 05/09/24 10:32 NBM (Rec: 05/09/24 12:20 NBM [id number]) Therapeutic Exercises Sitting Exercises IV/EV Sitting Exercise Name inversion, eversion - added to HEP Side right Resistance Lvl 1 Tb Reps/Minutes x10 ea Comments good form ankle plantarflexion/dorsiflexion Sitting Exercise Name HEP review: 1. banded DF, 2. seated PF in WB Side right Resistance level 2 band for DF Reps/Minutes 1.2x10 2 ea 2. 10 x1 breathcycle hold Comments leg crossed over for DF, pain free hip abduction Sitting Exercise Name claheljaret HEP review Side bilateral Resistance level 3 at thighs Reps/Minutes 2x10 with brief hold at end range Comments no supination LAQ Side right Resistance level 3 band Reps/Minutes 2x10 with 1 breath hold Standing Exercises step up Standing Exercise Name 6 fwd step up Side bilateral Resistance AROM Equipment Used hand support for balance Reps/Minutes x10 ea Comments alt leading leg up and down, all pain-free heel raise Standing Exercise Name improved fwd weightshift compensation Side bilateral Resistance AROM Reps/Minutes x5 Comments Dc'd d/t fatigue. hip extension Standing Exercise Name HEP updated. Side bilateral Resistance No resistance band Equipment Used handrail for UE support Reps/Minutes Pt LLE fatigues w/ R hip ext x10, L hip ext 2x5 Comments to promote hip strength and stance; pain free; cues for toes fwd Self-Care/Home Management Treatment Education Patient Education Home Exercise Program Other Education HEP: standing hip ext reintroduced without theraband and new resisted LAQ HO given with cues for increased dorsiflexion. Added to HEP: resisted ankle Inversion/ Eversion Lvl 1 Tb - HO given. PT-OP-T Assessment and Plan Start: 03/23/24 07:35 Freq: Status: Active Protocol: Document 05/09/24 10:32 NBM (Rec: 05/09/24 12:20 [facility] [id number]) Physical Therapy Assessment Assessment Summary Assessment Irina presents with improved carryover of form with attention to eccentric control , hold time, and breathwork for HEP. Added to HEP: ankle inversion/eversion w/ Lvl 1 Tb , and reissued standing hip extension without band - HO given; noted to increase dorsiflexion w/ LAQs for carryover of improved gait mechanics. Physical Therapy Plan Frequency and Duration Frequency of Treatment 2x/Week Duration of treatment (weeks) 12 Plan of Care Start Date 03/23/24 Plan of Care End Date 06/22/24 Therapeutic Interventions Therapeutic Interventions Balance Training,Gait Training ,Home Exercise Program,Joint Mobilizations,Manual Therapy, Neuromuscular Re-education, Orthotic/Prosthetic Management ,Patient/Caregiver Education, Self-Care/Home Management, Sensory Integration,Soft Tissue Mobilization,Taping, Therapeutic Activities, Therapeutic Exercises Modalities Cold Pack/Ice Massage,Electric Stimulation,Hot Packs, Ultrasound Next Visit Focus/Plan Next Note Type Treatment Note Next Visit Plan ankle inversion/eversion level 1 band, review heel raise with ball in standing; LAQ and squat, step up normalize gait mechanics: heel toe, hurdles Manual prn: no instrument assisted STM, avoid healing incisions, gentle with tendon Continue with hip/quad strengthening: seated LAQ, seated HSC, seated hip abduction, prone hip ext, STS w/ WB, no foot instrinsics yet until ok by surgeon Progress WB with gait up to WBAT in boot w/ and w/o AD in //bars up to 100% WB per protocol
--- NOTE | 2024-05-11 14:22 | PT.OTN ---
Current Diagnoses Flat foot [pes planus] (acquired), right foot (05/11/24) Stiffness of right ankle, not elsewhere classified (05/11/24) Pain in right foot (05/11/24) Other lack of coordination (05/11/24) Weakness (05/11/24) Physical Therapy Treatment Note PT-OP-A Visit Information Start: 03/23/24 07:35 Freq: Status: Active Protocol: Document 05/11/24 08:07 NM (Rec: 05/11/24 09:03 NM [id number]) Out-Patient Physical Therapy Visit Information Visit Information Visit Type Treatment Note Visit Note pt late DOS: 01/09/24 Irina and Shivam ALEXANDRE after 19 visits Visit Start Time 08:30 Visit Stop Time 09:00 Visit Number 9 Number of LOAN DOCUMENTS CLOSER Visits 0 Evaluation Information Evaluation Date 03/23/24 Precautions Precautions DOS: 01/09/24 - R pes planus reconstruction, FDL transfer, posterior tibialis tendon repair, Achilles tendon lengthening Per referral: NWB 6 weeks post op, increased WB 25% ea week with arch support, boot with arch support until week 12 and /or follow up with surgeon PT-OP-B Current Condition Start: 03/23/24 07:35 Freq: Status: Active Protocol: Document 03/23/24 07:36 NM (Rec: 03/23/24 07:37 NM [id number]) Current Condition History of Current Condition Onset Date DOS 01/09/24 Current Complaints gait, mobility, ROM History of Current Condition Pt presents with R foot post pes planus with posterior tibialis repair, FDL transfer, achilles tendon lengthening surgery at 01/09/[address] Navarro. Currently 10 weeks and 5 days post -op. She has been using spc since 6 weeks and was instructed to be 50% weightbearing. She was NWB for 6 weeks. Xray at 6 weeks, no complications. Pt had surgery due to torn arch tendon/posterior tibialis tear, extreme rolling ankle in to pronation; she had a tendon transfer from her toes. She had a metal wedge that replaced the top of the boot. She had a gastrocnemius contracture, so lengthening of the R gastrocnemius performed as well. Abigail removed at last appointment. Still in boot for 12 weeks with orthotic. She has a follow up on 04/06/[address] Navarro, planning to have an Xray at that time. Pt reports no pain, states pain has been well managed. She occasionally take tylenol for pain if she has achiness across the top of her ankle, usually after walking. States that her skin on her RLE has been hypersensitive ( also had after previous surgeries) and has been swelling a little; she has tried an onesimo bandage but not compression socks. Per pt report at last follow up with surgeon, Dr. Navarro ok'd her on gentle ROM for ankle, ices several times per day. PMH of knee replacement (L partial, R full). 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 She states that the insert on the top of her foot is still painful, has appt with Dr. Navarro on . States compliance with HEP . Still wearing larger shoes. States balance is improving PT-OP-E Functional Tests Start: 03/23/24 07:35 Freq: Status: Active Protocol: Document 03/23/24 07:36 NM (Rec: 03/23/24 12:12 NM [id number]) Functional Tests Five Times Sit to Stand Test Score able to complete 5 w/o AD, not formally timed Comments no pain reported, slight L lean, less WB on RLE w/ boot donned PT-OP-F Manual Assessment Start: 03/23/24 07:35 Freq: Status: Active Protocol: Document 03/23/24 07:36 NM (Rec: 03/23/24 12:12 NM [id number]) Manual Assessments Soft Tissue Assessment Soft Tissue Mobility Assessment Scars intact, slight adhesions to skin. Pt has limitations in R Achilles length, has swelling across ankle Joint Mobility Assessment Joint Mobility Assessment Limited 1st ray mobility, toe extension and flexion with PROM PT-OP-G Mobility & Gait Start: 03/23/24 07:35 Freq: Status: Active Protocol: Document 03/23/24 07:36 NM (Rec: 03/23/24 12:12 NM [id number]) OP Gait Assessment Gait Gait Assistance Required: Independent Distance (Feet) 200 Able to Maintain Weight Bearing Status Yes During Gait Assistive Devices Assistive Device Straight Cane Gait Deviations General Gait Pattern Antalgic,Flexed Trunk Factors Limiting Gait Function Factors Limiting Gait Function Decreased Activity Tolerance, Decreased Sensation,Decreased Strength,Limited Range of Motion Comments Gait Comments Using spc primarily for balance as needed. Pt able to ambulate w/o AD and w/o pain in R ankle for short distances at 100% WB in boot. Demos slight L hip drop with R stance, L trunk and leg lean due to uneven WB while in boot leading to slight increase in L back pain PT-OP-J Posture/Palpation/Skin Start: 03/23/24 07:35 Freq: Status: Active Protocol: Document 03/23/24 07:36 NM (Rec: 03/23/24 12:12 NM [id number]) Posture Evaluation Position Standing Head/C-Spine Posture Forward Head L-Spine Posture Increased Lordosis Arm Posture (L) Externally Rotated,(R) Externally Rotated Pelvis Posture Anteriorly Tilted Weight Distribution Weight Shifted Left,Decreased Wt.Bear on (R) Hip Posture (L) Externally Rotated,(R) Externally Rotated Knee Posture (L) Genu Valgus,(R) Genu Valgus Ankle/Foot Posture (L) Pronated Foot Arch (L) Low Arch Palpation Assessment Location R ankle/foot Palpation Details Mild tenderness along medial ankle near posterior tibialis tendon, but denies pain. No tenderness along scars, but slight tenderness along anterior ankle near talocrural junction Skin Assessment Circumference Measurement R calf Location midway between patella and ankle mortise (17cm) Measurement (Centimeters) 34 Comments L calf 17 cm for comparison R ankle/foot Location figure 8 53 cm; 24 cm at malleoli Comments overall edema of foot > ankle to mid calf Incisional Assessment Incision Appearance/Comments All incisions intact, healing well with no signs of infection. Slight adhesions to underlying skin. Scab present only along medial ankle at one proximal point Other Assessments Skin Assessment Comments Increased rubor with dependency PT-OP-K Range of Motion Start: 03/23/24 07:35 Freq: Status: Active Protocol: Document 04/25/24 07:32 NM (Rec: 04/25/24 08:17 NM [id number]) Ankle and Foot Goniometric Range of Motion Ankle and Foot Right Dorsiflexion with Knee Flexed 4 Plantarflexion 36 Comments No pain with AROM 04/13/24: 8 deg DF, 40 deg PF 04/25/24: 10 deg DF, 45 deg PF, 30 deg inversion, 10 deg eversion PT-OP-M Strength Start: 03/23/24 07:35 Freq: Status: Active Protocol: Document 04/25/24 07:32 NM (Rec: 04/25/24 08:17 NM [id number]) Ankle/Foot Strength Ankle and Foot Manual Muscle Testing Right Dorsiflexion (L4) 3 Fair Plantarflexion (S1) 3 Fair Comments Tested against gravity in sitting without due to surgical repair ( plantarflexion tested in sitting) 04/25/24: 4-/5 for all, tested in sitting Left Dorsiflexion (L4) 4 Good Plantarflexion (S1) 4 Good Inversion 4 Good Eversion (S1) 4 Good Comments plantarflexion tested in sitting PT-OP-Q Treatments Start: 03/23/24 07:35 Freq: Status: Active Protocol: Document 05/11/24 08:07 NM (Rec: 05/11/24 09:03 NM [id number]) Therapeutic Exercises Sitting Exercises BAPS Side right Reps/Minutes 5 CCW, 5 CW Comments warm up; pain free Standing Exercises side steps Standing Exercise Name HEP Side bilateral Resistance level 2 band at ankles prog to level 3 at thighs Reps/Minutes 2x20 ft Comments pain free; cued neutral foot rotation DF mobilization Standing Exercise Name HEP Side right Resistance level 2 band providing PA mobilization Reps/Minutes 10 w/ 2 hold calf stretch Standing Exercise Name 1. gastrocnemius, 2. soleus Side right Reps/Minutes 5x10 ea toe raises Standing Exercise Name 25% WB on R Side bilateral Equipment Used back on wall Reps/Minutes 10 Comments challenging, pain free once adjusted wt step up Standing Exercise Name 1. 6 fwd step up, 2. 4 eccentric step down Side bilateral Resistance AROM Equipment Used hand support for balance Reps/Minutes 1. x15 ea, 2. 8 ea Comments pain free, limited ankle mob heel raise Standing Exercise Name improved fwd weightshift compensation Side bilateral Resistance AROM Equipment Used small ball btwn ankles, hand support Reps/Minutes 10, 10 Comments limited ROM; cued strong push through great toe PT-OP-T Assessment and Plan Start: 03/23/24 07:35 Freq: Status: Active Protocol: Document 05/11/24 08:07 NM (Rec: 05/11/24 09:03 NM [id number]) Physical Therapy Assessment Goals Four Impairment impairments in R Achilles tendon due to lengthening Short Term Goal (STG) If appropriate, pt will be able to perform at least 10 bilateral heel raises without compensation or increase in baseline pain in order to demonstrate improved gait mechanics and propulsion 04/25/23: pain free but able to perform 8 B heel raises STG Duration 8 weeks PROGRESSING Assisted Goal (LTG) If appropriate, pt will be able to perform at least 5 single leg heel raises using R foot without compensation or increase in baseline pain in order to demonstrate improved gait mechanics and propulsion Three Impairment gait impaired Short Term Goal (STG) Pt will normalize gait mechanics without AD or boot in order to demonstrate improvements in QOL and mobility 04/25/23: ambulating w/o a boot , reports slight toe pain with stepping STG Duration 4 weeks PROGRESSING [employer] Hearing Officer Goal (LTG) Pt will report no limitation in ambulation distance or time due to R foot/ankle mobility, strength, or pain in order to demonstrate improved QOL and mobility LTG Duration 12 weeks Two Impairment global ankle strength limited Short Term Goal (STG) Pt will increase global R ankle strength to at least 4/5 MMT in order to demonstrate improved ankle stability during gait, stance, and pickle ball if appropriate 04/25/24: 4-/5 for all when tested in sitting STG Duration 8 weeks PROGRESSING [employer] Goal (LTG) Pt will increase global R ankle strength to at least 4+/ 5 MMT in order to demonstrate improved ankle stability during gait, stance, and pickle ball if appropriate LTG Duration 12 weeks One Impairment AROM- R ankle dorsiflexion 4 deg, R ankle plantarflexion 36 deg Short Term Goal (STG) Pt will improve R ankle dorsiflexion AROM to least 8 deg and R ankle plantarflexion AROM to at least 40 deg in order to demonstrate improved mobility for gait and participation in recreational activities 04/25/24: 10 deg ankle DF, 45 deg PF STG Duration 8 weeks MET Assisted Goal (LTG) Pt will improve R ankle dorsiflexion AROM and R ankle plantarflexion AROM to within 3 deg of contralateral limb in order to demonstrate improved mobility for gait and participation in recreational activities LTG Duration 12 weeks Assessment Summary Assessment Pt tolerated session well without any increase in R foot or ankle pain with activity. Emphasis on gentle maintenance of Achilles tendon length and ankle strength in weight bearing. Pt continues to have limited ROM but demonstrates fewer compensations with heel raises. Most challenged with ankle dorsiflexion in standing . Due to limitations in overall ankle mobility, initiated dorsiflexion mobilization and gentle calf stretch in standing; pt responds well to banded self mobilization. Demos improved eccentric control during step downs but limited by both heel cord length and poor quad control due to weakness. Pt would benefit from skilled PT for progressive RLE strengthening, single leg stability, and R ankle mobility in order to improve symptom management and functional mobility/activity tolerance. Physical Therapy Plan Frequency and Duration Frequency of Treatment 2x/Week Duration of treatment (weeks) 12 Plan of Care Start Date 03/23/24 Plan of Care End Date 06/22/24 Therapeutic Interventions Therapeutic Interventions Balance Training,Gait Training ,Home Exercise Program,Joint Mobilizations,Manual Therapy, Neuromuscular Re-education, Orthotic/Prosthetic Management ,Patient/Caregiver Education, Self-Care/Home Management, Sensory Integration,Soft Tissue Mobilization,Taping, Therapeutic Activities, Therapeutic Exercises Modalities Cold Pack/Ice Massage,Electric Stimulation,Hot Packs, Ultrasound Next Visit Focus/Plan Next Note Type Treatment Note Next Visit Plan review and progress ankle inversion/eversion level 1 band, review heel raise with ball in standing; step up and down, cont with standing DF but progress banded seated. SLS w/ wt pass back and on foam if stable on ground. slight calf stretch normalize gait mechanics: heel toe, hurdles Manual prn: no instrument assisted STM, avoid healing incisions, gentle with tendon Continue with hip/quad strengthening: seated LAQ, seated HSC, seated hip abduction, prone hip ext, STS w/ WB
--- NOTE | 2024-05-16 17:19 | PT.OTN ---
Current Diagnoses Flat foot [pes planus] (acquired), right foot (05/16/24) Stiffness of right ankle, not elsewhere classified (05/16/24) Pain in right foot (05/16/24) Other lack of coordination (05/16/24) Weakness (05/16/24) Physical Therapy Treatment Note PT-OP-A Visit Information Start: 03/23/24 07:35 Freq: Status: Active Protocol: Document 05/16/24 11:28 NBM (Rec: 05/16/24 12:35 NBM [id number]) Out-Patient Physical Therapy Visit Information Visit Information Visit Type Treatment Note Visit Note DOS: 01/09/24 Irina and Shivam ALEXANDRE after 19 visits Visit Start Time 11:20 Visit Stop Time 12:10 Visit Number 10 Number of CREDENTIALING COORDINATOR Visits 1 Evaluation Information Evaluation Date 03/23/24 Precautions Precautions DOS: 01/09/24 - R pes planus reconstruction, FDL transfer, posterior tibialis tendon repair, Achilles tendon lengthening Per referral: NWB 6 weeks post op, increased WB 25% ea week with arch support, boot with arch support until week 12 and /or follow up with surgeon PT-OP-B Current Condition Start: 03/23/24 07:35 Freq: Status: Active Protocol: Document 03/23/24 07:36 NM (Rec: 03/23/24 07:37 NM [id number]) Current Condition History of Current Condition Onset Date DOS 01/09/24 Current Complaints gait, mobility, ROM History of Current Condition Pt presents with R foot post pes planus with posterior tibialis repair, FDL transfer, achilles tendon lengthening surgery at 01/09/[address] Navarro. Currently 10 weeks and 5 days post -op. She has been using spc since 6 weeks and was instructed to be 50% weightbearing. She was NWB for 6 weeks. Xray at 6 weeks, no complications. Pt had surgery due to torn arch tendon/posterior tibialis tear, extreme rolling ankle in to pronation; she had a tendon transfer from her toes. She had a metal wedge that replaced the top of the boot. She had a gastrocnemius contracture, so lengthening of the R gastrocnemius performed as well. [place] removed at last appointment. Still in boot for 12 weeks with orthotic. She has a follow up on 04/06/[address] Navarro, planning to have an Xray at that time. Pt reports no pain, states pain has been well managed. She occasionally take tylenol for pain if she has achiness across the top of her ankle, usually after walking. States that her skin on her RLE has been hypersensitive ( also had after previous surgeries) and has been swelling a little; she has tried an onesimo bandage but not compression socks. Per pt report at last follow up with surgeon, Dr. Navarro ok'd her on gentle ROM for ankle, ices several times per day. PMH of knee replacement (L partial, R full). 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 She brought all of the handouts to condense because it's too many for right now. Pointing toe down is still painful on the top of her foot where the plate is, so going down stairs is painful. She's been practicing stairs at home going up with right and down with right which seems to give the most exercise. PT-OP-E Functional Tests Start: 03/23/24 07:35 Freq: Status: Active Protocol: Document 03/23/24 07:36 NM (Rec: 03/23/24 12:12 NM [id number]) Functional Tests Five Times Sit to Stand Test Score able to complete 5 w/o AD, not formally timed Comments no pain reported, slight L lean, less WB on RLE w/ boot donned PT-OP-F Manual Assessment Start: 03/23/24 07:35 Freq: Status: Active Protocol: Document 03/23/24 07:36 NM (Rec: 03/23/24 12:12 NM [id number]) Manual Assessments Soft Tissue Assessment Soft Tissue Mobility Assessment Scars intact, slight adhesions to skin. Pt has limitations in R Achilles length, has swelling across ankle Joint Mobility Assessment Joint Mobility Assessment Limited 1st ray mobility, toe extension and flexion with PROM PT-OP-G Mobility & Gait Start: 03/23/24 07:35 Freq: Status: Active Protocol: Document 03/23/24 07:36 NM (Rec: 03/23/24 12:12 NM [id number]) OP Gait Assessment Gait Gait Assistance Required: Independent Distance (Feet) 200 Able to Maintain Weight Bearing Status Yes During Gait Assistive Devices Assistive Device Straight Cane Gait Deviations General Gait Pattern Antalgic,Flexed Trunk Factors Limiting Gait Function Factors Limiting Gait Function Decreased Activity Tolerance, Decreased Sensation,Decreased Strength,Limited Range of Motion Comments Gait Comments Using spc primarily for balance as needed. Pt able to ambulate w/o AD and w/o pain in R ankle for short distances at 100% WB in boot. Demos slight L hip drop with R stance, L trunk and leg lean due to uneven WB while in boot leading to slight increase in L back pain PT-OP-J Posture/Palpation/Skin Start: 03/23/24 07:35 Freq: Status: Active Protocol: Document 03/23/24 07:36 NM (Rec: 03/23/24 12:12 NM [id number]) Posture Evaluation Position Standing Head/C-Spine Posture Forward Head L-Spine Posture Increased Lordosis Arm Posture (L) Externally Rotated,(R) Externally Rotated Pelvis Posture Anteriorly Tilted Weight Distribution Weight Shifted Left,Decreased Wt.Bear on (R) Hip Posture (L) Externally Rotated,(R) Externally Rotated Knee Posture (L) Genu Valgus,(R) Genu Valgus Ankle/Foot Posture (L) Pronated Foot Arch (L) Low Arch Palpation Assessment Location R ankle/foot Palpation Details Mild tenderness along medial ankle near posterior tibialis tendon, but denies pain. No tenderness along scars, but slight tenderness along anterior ankle near talocrural junction Skin Assessment Circumference Measurement R calf Location midway between patella and ankle mortise (17cm) Measurement (Centimeters) 34 Comments L calf 17 cm for comparison R ankle/foot Location figure 8 53 cm; 24 cm at malleoli Comments overall edema of foot > ankle to mid calf Incisional Assessment Incision Appearance/Comments All incisions intact, healing well with no signs of infection. Slight adhesions to underlying skin. Scab present only along medial ankle at one proximal point Other Assessments Skin Assessment Comments Increased rubor with dependency PT-OP-K Range of Motion Start: 03/23/24 07:35 Freq: Status: Active Protocol: Document 04/25/24 07:32 NM (Rec: 04/25/24 08:17 NM [id number]) Ankle and Foot Goniometric Range of Motion Ankle and Foot Right Dorsiflexion with Knee Flexed 4 Plantarflexion 36 Comments No pain with AROM 04/13/24: 8 deg DF, 40 deg PF 04/25/24: 10 deg DF, 45 deg PF, 30 deg inversion, 10 deg eversion PT-OP-M Strength Start: 03/23/24 07:35 Freq: Status: Active Protocol: Document 04/25/24 07:32 NM (Rec: 04/25/24 08:17 NM [id number]) Ankle/Foot Strength Ankle and Foot Manual Muscle Testing Right Dorsiflexion (L4) 3 Fair Plantarflexion (S1) 3 Fair Comments Tested against gravity in sitting without due to surgical repair ( plantarflexion tested in sitting) 04/25/24: 4-/5 for all, tested in sitting Left Dorsiflexion (L4) 4 Good Plantarflexion (S1) 4 Good Inversion 4 Good Eversion (S1) 4 Good Comments plantarflexion tested in sitting PT-OP-Q Treatments Start: 03/23/24 07:35 Freq: Status: Active Protocol: Document 05/16/24 11:28 NBM (Rec: 05/16/24 12:35 NBM [id number]) Therapeutic Exercises Sitting Exercises BAPS Side right Reps/Minutes 5 CCW, 5 CW Comments warm up; pain free IV/EV Sitting Exercise Name inversion, eversion Side right Resistance Lvl 1 Tb Reps/Minutes x10 ea Comments good form ankle plantarflexion/dorsiflexion Sitting Exercise Name HEP review: 1. banded DF, 2. seated PF in WB Side right Resistance DF: Lvl 2>3>2 tb PF: Lvl 3 tb Reps/Minutes 1.2x10 2 ea 2. 10 x1 breathcycle hold Comments leg crossed over for DF, pain free, DF Lvl 3 attempted too challenging LAQ Sitting Exercise Name HEP Side bilateral Resistance level 3 band Reps/Minutes 2x10 with 1 breath hold Standing Exercises side steps Standing Exercise Name HEP review Side bilateral Resistance level 3 at thighs Reps/Minutes 2x20 ft Comments pain free; cued neutral foot, how to tie band DF mobilization Standing Exercise Name HEP review Side right Resistance level 2 band providing PA mobilization Reps/Minutes 10 w/ 2 hold Comments cued band placement front of ankle under tongue of shoe, LE alignment Neuro Re-Education Treatment Balance Activities SLS Details HEP adrian - verbal review only Reps/Duration 2x30 ea Comments 1 finger support on rail, cued not to balance on leg pain free but more challenging on R Self-Care/Home Management Treatment Education Patient Education Home Exercise Program Other Education Pt edu: re scar tissue self- massage. HEP review: 4 papers condensed to 2 papers, same ex's labeled for ankle, hip or knee strength, balance, or for ankle stiffness to help pt w/ HEP focus for improved carryover. PT-OP-T Assessment and Plan Start: 03/23/24 07:35 Freq: Status: Active Protocol: Document 05/16/24 11:28 [facility] (Rec: 05/16/24 12:35 [facility] [id number]) Physical Therapy Assessment Goals Four Impairment impairments in R Achilles tendon due to lengthening Short Term Goal (STG) If appropriate, pt will be able to perform at least 10 bilateral heel raises without compensation or increase in baseline pain in order to demonstrate improved gait mechanics and propulsion 04/25/23: pain free but able to perform 8 B heel raises STG Duration 8 weeks PROGRESSING Usp Goal (LTG) If appropriate, pt will be able to perform at least 5 single leg heel raises using R foot without compensation or increase in baseline pain in order to demonstrate improved gait mechanics and propulsion Three Impairment gait impaired Short Term Goal (STG) Pt will normalize gait mechanics without AD or boot in order to demonstrate improvements in QOL and mobility 04/25/23: ambulating w/o a boot , reports slight toe pain with stepping STG Duration 4 weeks PROGRESSING Tape Rules Printing Machine Operator Goal (LTG) Pt will report no limitation in ambulation distance or time due to R foot/ankle mobility, strength, or pain in order to demonstrate improved QOL and mobility LTG Duration 12 weeks Two Impairment global ankle strength limited Short Term Goal (STG) Pt will increase global R ankle strength to at least 4/5 MMT in order to demonstrate improved ankle stability during gait, stance, and pickle ball if appropriate 04/25/24: 4-/5 for all when tested in sitting STG Duration 8 weeks PROGRESSING Tape Rules Printing Machine Operator Goal (LTG) Pt will increase global R ankle strength to at least 4+/ 5 MMT in order to demonstrate improved ankle stability during gait, stance, and pickle ball if appropriate LTG Duration 12 weeks One Impairment AROM- R ankle dorsiflexion 4 deg, R ankle plantarflexion 36 deg Short Term Goal (STG) Pt will improve R ankle dorsiflexion AROM to least 8 deg and R ankle plantarflexion AROM to at least 40 deg in order to demonstrate improved mobility for gait and participation in recreational activities 04/25/24: 10 deg ankle DF, 45 deg PF STG Duration 8 weeks MET Tape Rules Printing Machine Operator Goal (LTG) Pt will improve R ankle dorsiflexion AROM and R ankle plantarflexion AROM to within 3 deg of contralateral limb in order to demonstrate improved mobility for gait and participation in recreational activities LTG Duration 12 weeks Assessment Summary Assessment Irina presents today reporting overwhelm with HEP and ankle stiffness most w/ descending stairs. Education to pt re scar tissue self-massage to healed R calf incision and no IASTM at this time per protocol. HEP review performed and 4 handouts condensed to 2 papers but same number of ex' s, each labeled for ankle, hip or knee strength, balance, or for ankle stiffness to help pt w/ grouping HEP focus for improved carryover. Pt reports less overwhelm with HEP end of session and that she has scheduled PT twice weekly and will plan to perform HEP initially at PT due to personal stress at this time, with intention to improve carryover at home. Significant time spent on DF mob setup and band placement for home. Physical Therapy Plan Frequency and Duration Frequency of Treatment 2x/Week Duration of treatment (weeks) 12 Plan of Care Start Date 03/23/24 Plan of Care End Date 06/22/24 Therapeutic Interventions Therapeutic Interventions Balance Training,Gait Training ,Home Exercise Program,Joint Mobilizations,Manual Therapy, Neuromuscular Re-education, Orthotic/Prosthetic Management ,Patient/Caregiver Education, Self-Care/Home Management, Sensory Integration,Soft Tissue Mobilization,Taping, Therapeutic Activities, Therapeutic Exercises Modalities Cold Pack/Ice Massage,Electric Stimulation,Hot Packs, Ultrasound Next Visit Focus/Plan Next Note Type Treatment Note Next Visit Plan review and progress ankle inversion/eversion level 1 band, review heel raise with ball in standing; step up and down, cont with standing DF but progress banded seated. SLS w/ wt pass back and on foam if stable on ground. slight calf stretch normalize gait mechanics: heel toe, hurdles Manual prn: no instrument assisted STM, avoid healing incisions, gentle with tendon Continue with hip/quad strengthening: seated LAQ, seated HSC, seated hip abduction, prone hip ext, STS w/ WB
--- NOTE | 2024-05-23 12:47 | PT.OTN ---
Current Diagnoses Flat foot [pes planus] (acquired), right foot (05/23/24) Stiffness of right ankle, not elsewhere classified (05/23/24) Pain in right foot (05/23/24) Other lack of coordination (05/23/24) Weakness (05/23/24) Physical Therapy Treatment Note PT-OP-A Visit Information Start: 03/23/24 07:35 Freq: Status: Active Protocol: Document 05/23/24 11:22 NM (Rec: 05/23/24 12:18 NM [id number]) Out-Patient Physical Therapy Visit Information Visit Information Visit Type Progress Note Visit Note DOS: 01/09/24 Irina and Shivam ALEXANDRE after 19 visits Visit Start Time 11:24 Visit Stop Time 12:04 Visit Number 11 Evaluation Information Evaluation Date 03/23/24 Precautions Precautions DOS: 01/09/24 - R pes planus reconstruction, FDL transfer, posterior tibialis tendon repair, Achilles tendon lengthening Per referral: NWB 6 weeks post op, increased WB 25% ea week with arch support, boot with arch support until week 12 and /or follow up with surgeon PT-OP-B Current Condition Start: 03/23/24 07:35 Freq: Status: Active Protocol: Document 03/23/24 07:36 NM (Rec: 03/23/24 07:37 NM [id number]) Current Condition History of Current Condition Onset Date DOS 01/09/24 Current Complaints gait, mobility, ROM History of Current Condition Pt presents with R foot post pes planus with posterior tibialis repair, FDL transfer, achilles tendon lengthening surgery at 01/09/[address] Navarro. Currently 10 weeks and 5 days post -op. She has been using spc since 6 weeks and was instructed to be 50% weightbearing. She was NWB for 6 weeks. Xray at 6 weeks, no complications. Pt had surgery due to torn arch tendon/posterior tibialis tear, extreme rolling ankle in to pronation; she had a tendon transfer from her toes. She had a metal wedge that replaced the top of the boot. She had a gastrocnemius contracture, so lengthening of the R gastrocnemius performed as well. [place] removed at last appointment. Still in boot for 12 weeks with orthotic. She has a follow up on 04/06/[address] Navarro, planning to have an Xray at that time. Pt reports no pain, states pain has been well managed. She occasionally take tylenol for pain if she has achiness across the top of her ankle, usually after walking. States that her skin on her RLE has been hypersensitive ( also had after previous surgeries) and has been swelling a little; she has tried an onesimo bandage but not compression socks. Per pt report at last follow up with surgeon, Dr. Navarro ok'd her on gentle ROM for ankle, ices several times per day. PMH of knee replacement (L partial, R full). 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 Has not had a fever, just some congestion. Pt has not been doing HEP due to sickness, but states that condensed plan is better and less overwhelming. She reports that she has been walking, states that hills make her glutes work a lot. Reports no ankle or foot pain with walking unless walking for long periods of time; however, reports that she cannot walk long distances. Pt reports that she only gets that band around her big toe in the morning. Still has tenderness and some redness over the dorsal arch PT-OP-E Functional Tests Start: 03/23/24 07:35 Freq: Status: Active Protocol: Document 03/23/24 07:36 NM (Rec: 03/23/24 12:12 NM [id number]) Functional Tests Five Times Sit to Stand Test Score able to complete 5 w/o AD, not formally timed Comments no pain reported, slight L lean, less WB on RLE w/ boot donned PT-OP-F Manual Assessment Start: 03/23/24 07:35 Freq: Status: Active Protocol: Document 03/23/24 07:36 NM (Rec: 03/23/24 12:12 NM [id number]) Manual Assessments Soft Tissue Assessment Soft Tissue Mobility Assessment Scars intact, slight adhesions to skin. Pt has limitations in R Achilles length, has swelling across ankle Joint Mobility Assessment Joint Mobility Assessment Limited 1st ray mobility, toe extension and flexion with PROM PT-OP-G Mobility & Gait Start: 03/23/24 07:35 Freq: Status: Active Protocol: Document 03/23/24 07:36 NM (Rec: 03/23/24 12:12 NM [id number]) OP Gait Assessment Gait Gait Assistance Required: Independent Distance (Feet) 200 Able to Maintain Weight Bearing Status Yes During Gait Assistive Devices Assistive Device Straight Cane Gait Deviations General Gait Pattern Antalgic,Flexed Trunk Factors Limiting Gait Function Factors Limiting Gait Function Decreased Activity Tolerance, Decreased Sensation,Decreased Strength,Limited Range of Motion Comments Gait Comments Using spc primarily for balance as needed. Pt able to ambulate w/o AD and w/o pain in R ankle for short distances at 100% WB in boot. Demos slight L hip drop with R stance, L trunk and leg lean due to uneven WB while in boot leading to slight increase in L back pain PT-OP-J Posture/Palpation/Skin Start: 03/23/24 07:35 Freq: Status: Active Protocol: Document 03/23/24 07:36 NM (Rec: 03/23/24 12:12 NM [id number]) Posture Evaluation Position Standing Head/C-Spine Posture Forward Head L-Spine Posture Increased Lordosis Arm Posture (L) Externally Rotated,(R) Externally Rotated Pelvis Posture Anteriorly Tilted Weight Distribution Weight Shifted Left,Decreased Wt.Bear on (R) Hip Posture (L) Externally Rotated,(R) Externally Rotated Knee Posture (L) Genu Valgus,(R) Genu Valgus Ankle/Foot Posture (L) Pronated Foot Arch (L) Low Arch Palpation Assessment Location R ankle/foot Palpation Details Mild tenderness along medial ankle near posterior tibialis tendon, but denies pain. No tenderness along scars, but slight tenderness along anterior ankle near talocrural junction Skin Assessment Circumference Measurement R calf Location midway between patella and ankle mortise (17cm) Measurement (Centimeters) 34 Comments L calf 17 cm for comparison R ankle/foot Location figure 8 53 cm; 24 cm at malleoli Comments overall edema of foot > ankle to mid calf Incisional Assessment Incision Appearance/Comments All incisions intact, healing well with no signs of infection. Slight adhesions to underlying skin. Scab present only along medial ankle at one proximal point Other Assessments Skin Assessment Comments Increased rubor with dependency PT-OP-K Range of Motion Start: 03/23/24 07:35 Freq: Status: Active Protocol: Document 05/23/24 11:22 NM (Rec: 05/23/24 12:18 NM [id number]) Ankle and Foot Goniometric Range of Motion Ankle and Foot Right Dorsiflexion with Knee Flexed 10 Plantarflexion 45 Comments IE: 4 deg DF, 36 deg PF; No pain with AROM 04/13/24: 8 deg DF, 40 deg PF 04/25/24: 10 deg DF, 45 deg PF, 30 deg inversion, 10 deg eversion 05/23/24: 10 deg DF, 45 deg PF PT-OP-M Strength Start: 03/23/24 07:35 Freq: Status: Active Protocol: Document 05/23/24 11:22 NM (Rec: 05/23/24 12:18 NM [id number]) Ankle/Foot Strength Ankle and Foot Manual Muscle Testing Right Dorsiflexion (L4) 4- Good- Plantarflexion (S1) 4- Good- Inversion 4- Good- Eversion (S1) 4- Good- Comments IE: 3/5, Tested against gravity in sitting without due to surgical repair ( plantarflexion tested in sitting) 04/25/24: 4-/5 for all, tested in sitting 05/23/24: 4-/5 for all, no pain with resisted motion; tested in sitting PT-OP-Q Treatments Start: 03/23/24 07:35 Freq: Status: Active Protocol: Document 05/23/24 11:22 NM (Rec: 05/23/24 12:18 NM [id number]) Therapeutic Exercises Sitting Exercises sit to stand Sitting Exercise Name buttock tap to chair (HEP) Side bilateral Resistance level 2 band at thighs Equipment Used standard chair Reps/Minutes 10 Comments pain free; cued hip hinge great toe ext Sitting Exercise Name in standing Side right Reps/Minutes 10x2 hold Comments mimics band pain; feels stiff Standing Exercises hip flexion Standing Exercise Name trialed in PT march Side bilateral Resistance level 1 band at toes Equipment Used prn hand support on RLE Reps/Minutes 10 ea Comments cued ankle DF calf stretch Standing Exercise Name 1. gastrocnemius, 2. soleus Side right Reps/Minutes 10x2 ea Comments cueing for form limits pain heel raise Standing Exercise Name improved fwd weightshift compensation Side bilateral Resistance AROM Equipment Used small ball btwn ankles, hand support Reps/Minutes 2x10 Comments limited ROM; cued strong push through great toe hip extension Side bilateral Resistance level 2 band at ankles Equipment Used no hand support, slider under foot Reps/Minutes 10 Comments improved quad control hip abduction Standing Exercise Name shoe donned and in wrap Side bilateral Resistance level 2 band at ankles Equipment Used no hand support, slider under foot Reps/Minutes 10 ea Comments improved quad control Manual Therapy Treatment Consent Patient gave verbal consent for manual Yes treatment Soft Tissue Mobilization R foot/ankle Body Location scar mobilization, peroneals/ tibialis, gastrocnemius Mobilization Type Rolling,Other Intensity/Depth Superficial Body Position Hooklying Comments Gentle scar mobilization especially over achilles. Educated on scar mobilization as part of HEP. Tender over dorsal arch, dorsal great toe. Monitored for pain. Joint Mobilizations R ankle/foot Joint 1st toe, metatarsals, talocrural Direction abd/ext, dorsal/volar, AP Grade II Body Position Hooklying Reps/Duration 2x30 Comments Increased stiffness of great toe. Monitored for pain, none reported with mobilization Other Other Manual Treatments Vibration testing: no tenderness or sharp pain at great toe, 1st metatarsal, 5th metatarsal, malleoli Neuro Re-Education Treatment Balance Activities SLS Comments 1. SLS for time: 30 ea 2. SLS 3# passbacks: 2x10 3. double step taps on 6 step : 30 sec ea w/ alternating legs prn hand support.improved balance. cued TKE with adbominal contraction PT-OP-T Assessment and Plan Start: 03/23/24 07:35 Freq: Status: Active Protocol: Document 05/23/24 11:22 NM (Rec: 05/23/24 12:18 NM [id number]) Physical Therapy Assessment Goals Four Impairment impairments in R Achilles tendon due to lengthening Short Term Goal (STG) If appropriate, pt will be able to perform at least 10 bilateral heel raises without compensation or increase in baseline pain in order to demonstrate improved gait mechanics and propulsion 04/25/23: pain free but able to perform 8 B heel raises 05/23/24: did 2x10 B heel raises w/o pain, limited ROM STG Duration 8 weeks MET Plumber Helper Goal (LTG) If appropriate, pt will be able to perform at least 5 single leg heel raises using R foot without compensation or increase in baseline pain in order to demonstrate improved gait mechanics and propulsion LTG Duration 12 weeks Three Impairment gait impaired Short Term Goal (STG) Pt will normalize gait mechanics without AD or boot in order to demonstrate improvements in QOL and mobility 04/25/23: ambulating w/o a boot , reports slight toe pain with stepping 05/23/24: pt demonstrates more normalized gait mechanics with shoe STG Duration 4 weeks MET Plumber Helper Goal (LTG) Pt will report no limitation in ambulation distance or time due to R foot/ankle mobility, strength, or pain in order to demonstrate improved QOL and mobility LTG Duration 12 weeks Two Impairment global ankle strength limited Short Term Goal (STG) Pt will increase global R ankle strength to at least 4/5 MMT in order to demonstrate improved ankle stability during gait, stance, and pickle ball if appropriate 04/25/24: 4-/5 for all when tested in sitting 05/23/24: 4-/5; tested in sitting STG Duration 8 weeks PROGRESSING Plumber Helper Goal (LTG) Pt will increase global R ankle strength to at least 4+/ 5 MMT in order to demonstrate improved ankle stability during gait, stance, and pickle ball if appropriate LTG Duration 12 weeks One Impairment AROM- R ankle dorsiflexion 4 deg, R ankle plantarflexion 36 deg Short Term Goal (STG) Pt will improve R ankle dorsiflexion AROM to least 8 deg and R ankle plantarflexion AROM to at least 40 deg in order to demonstrate improved mobility for gait and participation in recreational activities 04/25/24: 10 deg ankle DF, 45 deg PF 05/23/24: 10 deg ankle DF, 45 deg PF STG Duration 8 weeks MET Plumber Helper Goal (LTG) Pt will improve R ankle dorsiflexion AROM and R ankle plantarflexion AROM to within 3 deg of contralateral limb in order to demonstrate improved mobility for gait and participation in recreational activities LTG Duration 12 weeks Progress Towards Goals Progress Towards Goals Progressing Toward Goals Progress Comments Meeting STGs Assessment Summary Assessment Pt tolerated session well. She demonstrates improved understanding of HEP. Pt demonstrates improved quad and ankle control with hip 3 way using slider to facilitate single leg squat mechanics. Able to tolerate resisted marching with band at ankle, requiring cues only for correct execution. Still limited in R ankle dorsiflexion and glute strength. Improved B heel raises, pain free with limited depth. Continued with scar mobilization, emphasis at achilles tendon. Pt also demonstrates improved SLS time , progressing to longer holds during step taps and dumbbell pass backs. PT assessed pt with vibration testing due to reported tenderness with palpation but not sharp pain or increased tenderness with vibration testing. Physical Therapy Plan Frequency and Duration Frequency of Treatment 2x/Week Duration of treatment (weeks) 12 Plan of Care Start Date 03/23/24 Plan of Care End Date 06/22/24 Therapeutic Interventions Therapeutic Interventions Balance Training,Gait Training ,Home Exercise Program,Joint Mobilizations,Manual Therapy, Neuromuscular Re-education, Orthotic/Prosthetic Management ,Patient/Caregiver Education, Self-Care/Home Management, Sensory Integration,Soft Tissue Mobilization,Taping, Therapeutic Activities, Therapeutic Exercises Modalities Cold Pack/Ice Massage,Electric Stimulation,Hot Packs, Ultrasound Next Visit Focus/Plan Next Note Type Treatment Note Next Visit Plan STS buttock tap, add leg press (U and B squat), step up, lateral step up, staggered calf stretch, resisted DF in sitting, trial heel raises on leg press. LAQ and HSC. Trial lunges with RLE leading only. SLS: step taps, kick ball, SLS , SLS w/ passback. Balance/ proprioception: foam, rocker board normalize gait mechanics: heel toe, hurdles Manual prn: no instrument assisted STM, avoid healing incisions, gentle with tendon Continue with hip/quad strengthening: seated LAQ, seated HSC, seated hip abduction, prone hip ext, STS w/ WB
--- NOTE | 2024-05-23 12:47 | PT.OTN ---
Current Diagnoses Flat foot [pes planus] (acquired), right foot (05/23/24) Stiffness of right ankle, not elsewhere classified (05/23/24) Pain in right foot (05/23/24) Other lack of coordination (05/23/24) Weakness (05/23/24) Physical Therapy Treatment Note PT-OP-A Visit Information Start: 03/23/24 07:35 Freq: Status: Active Protocol: Document 05/23/24 11:22 NM (Rec: 05/23/24 12:18 NM [id number]) Out-Patient Physical Therapy Visit Information Visit Information Visit Type Progress Note Visit Note DOS: 01/09/24 Irina and Shivam ALEXANDRE after 19 visits Visit Start Time 11:24 Visit Stop Time 12:04 Visit Number 11 Evaluation Information Evaluation Date 03/23/24 Precautions Precautions DOS: 01/09/24 - R pes planus reconstruction, FDL transfer, posterior tibialis tendon repair, Achilles tendon lengthening Per referral: NWB 6 weeks post op, increased WB 25% ea week with arch support, boot with arch support until week 12 and /or follow up with surgeon PT-OP-B Current Condition Start: 03/23/24 07:35 Freq: Status: Active Protocol: Document 03/23/24 07:36 NM (Rec: 03/23/24 07:37 NM [id number]) Current Condition History of Current Condition Onset Date DOS 01/09/24 Current Complaints gait, mobility, ROM History of Current Condition Pt presents with R foot post pes planus with posterior tibialis repair, FDL transfer, achilles tendon lengthening surgery at 01/09/[address] Navarro. Currently 10 weeks and 5 days post -op. She has been using spc since 6 weeks and was instructed to be 50% weightbearing. She was NWB for 6 weeks. Xray at 6 weeks, no complications. Pt had surgery due to torn arch tendon/posterior tibialis tear, extreme rolling ankle in to pronation; she had a tendon transfer from her toes. She had a metal wedge that replaced the top of the boot. She had a gastrocnemius contracture, so lengthening of the R gastrocnemius performed as well. [place] removed at last appointment. Still in boot for 12 weeks with orthotic. She has a follow up on 04/06/[address] Navarro, planning to have an Xray at that time. Pt reports no pain, states pain has been well managed. She occasionally take tylenol for pain if she has achiness across the top of her ankle, usually after walking. States that her skin on her RLE has been hypersensitive ( also had after previous surgeries) and has been swelling a little; she has tried an onesimo bandage but not compression socks. Per pt report at last follow up with surgeon, Dr. Navarro ok'd her on gentle ROM for ankle, ices several times per day. PMH of knee replacement (L partial, R full). 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 Has not had a fever, just some congestion. Pt has not been doing HEP due to sickness, but states that condensed plan is better and less overwhelming. She reports that she has been walking, states that hills make her glutes work a lot. Reports no ankle or foot pain with walking unless walking for long periods of time; however, reports that she cannot walk long distances. Pt reports that she only gets that band around her big toe in the morning. Still has tenderness and some redness over the dorsal arch PT-OP-E Functional Tests Start: 03/23/24 07:35 Freq: Status: Active Protocol: Document 03/23/24 07:36 NM (Rec: 03/23/24 12:12 NM [id number]) Functional Tests Five Times Sit to Stand Test Score able to complete 5 w/o AD, not formally timed Comments no pain reported, slight L lean, less WB on RLE w/ boot donned PT-OP-F Manual Assessment Start: 03/23/24 07:35 Freq: Status: Active Protocol: Document 03/23/24 07:36 NM (Rec: 03/23/24 12:12 NM [id number]) Manual Assessments Soft Tissue Assessment Soft Tissue Mobility Assessment Scars intact, slight adhesions to skin. Pt has limitations in R Achilles length, has swelling across ankle Joint Mobility Assessment Joint Mobility Assessment Limited 1st ray mobility, toe extension and flexion with PROM PT-OP-G Mobility & Gait Start: 03/23/24 07:35 Freq: Status: Active Protocol: Document 03/23/24 07:36 NM (Rec: 03/23/24 12:12 NM [id number]) OP Gait Assessment Gait Gait Assistance Required: Independent Distance (Feet) 200 Able to Maintain Weight Bearing Status Yes During Gait Assistive Devices Assistive Device Straight Cane Gait Deviations General Gait Pattern Antalgic,Flexed Trunk Factors Limiting Gait Function Factors Limiting Gait Function Decreased Activity Tolerance, Decreased Sensation,Decreased Strength,Limited Range of Motion Comments Gait Comments Using spc primarily for balance as needed. Pt able to ambulate w/o AD and w/o pain in R ankle for short distances at 100% WB in boot. Demos slight L hip drop with R stance, L trunk and leg lean due to uneven WB while in boot leading to slight increase in L back pain PT-OP-J Posture/Palpation/Skin Start: 03/23/24 07:35 Freq: Status: Active Protocol: Document 03/23/24 07:36 NM (Rec: 03/23/24 12:12 NM [id number]) Posture Evaluation Position Standing Head/C-Spine Posture Forward Head L-Spine Posture Increased Lordosis Arm Posture (L) Externally Rotated,(R) Externally Rotated Pelvis Posture Anteriorly Tilted Weight Distribution Weight Shifted Left,Decreased Wt.Bear on (R) Hip Posture (L) Externally Rotated,(R) Externally Rotated Knee Posture (L) Genu Valgus,(R) Genu Valgus Ankle/Foot Posture (L) Pronated Foot Arch (L) Low Arch Palpation Assessment Location R ankle/foot Palpation Details Mild tenderness along medial ankle near posterior tibialis tendon, but denies pain. No tenderness along scars, but slight tenderness along anterior ankle near talocrural junction Skin Assessment Circumference Measurement R calf Location midway between patella and ankle mortise (17cm) Measurement (Centimeters) 34 Comments L calf 17 cm for comparison R ankle/foot Location figure 8 53 cm; 24 cm at malleoli Comments overall edema of foot > ankle to mid calf Incisional Assessment Incision Appearance/Comments All incisions intact, healing well with no signs of infection. Slight adhesions to underlying skin. Scab present only along medial ankle at one proximal point Other Assessments Skin Assessment Comments Increased rubor with dependency PT-OP-K Range of Motion Start: 03/23/24 07:35 Freq: Status: Active Protocol: Document 05/23/24 11:22 NM (Rec: 05/23/24 12:18 NM [id number]) Ankle and Foot Goniometric Range of Motion Ankle and Foot Right Dorsiflexion with Knee Flexed 10 Plantarflexion 45 Comments IE: 4 deg DF, 36 deg PF; No pain with AROM 04/13/24: 8 deg DF, 40 deg PF 04/25/24: 10 deg DF, 45 deg PF, 30 deg inversion, 10 deg eversion 05/23/24: 10 deg DF, 45 deg PF PT-OP-M Strength Start: 03/23/24 07:35 Freq: Status: Active Protocol: Document 05/23/24 11:22 NM (Rec: 05/23/24 12:18 NM [id number]) Ankle/Foot Strength Ankle and Foot Manual Muscle Testing Right Dorsiflexion (L4) 4- Good- Plantarflexion (S1) 4- Good- Inversion 4- Good- Eversion (S1) 4- Good- Comments IE: 3/5, Tested against gravity in sitting without due to surgical repair ( plantarflexion tested in sitting) 04/25/24: 4-/5 for all, tested in sitting 05/23/24: 4-/5 for all, no pain with resisted motion; tested in sitting PT-OP-Q Treatments Start: 03/23/24 07:35 Freq: Status: Active Protocol: Document 05/23/24 11:22 NM (Rec: 05/23/24 12:18 NM [id number]) Therapeutic Exercises Sitting Exercises sit to stand Sitting Exercise Name buttock tap to chair (HEP) Side bilateral Resistance level 2 band at thighs Equipment Used standard chair Reps/Minutes 10 Comments pain free; cued hip hinge great toe ext Sitting Exercise Name in standing Side right Reps/Minutes 10x2 hold Comments mimics band pain; feels stiff Standing Exercises hip flexion Standing Exercise Name trialed in PT march Side bilateral Resistance level 1 band at toes Equipment Used prn hand support on RLE Reps/Minutes 10 ea Comments cued ankle DF calf stretch Standing Exercise Name 1. gastrocnemius, 2. soleus Side right Reps/Minutes 10x2 ea Comments cueing for form limits pain heel raise Standing Exercise Name improved fwd weightshift compensation Side bilateral Resistance AROM Equipment Used small ball btwn ankles, hand support Reps/Minutes 2x10 Comments limited ROM; cued strong push through great toe hip extension Side bilateral Resistance level 2 band at ankles Equipment Used no hand support, slider under foot Reps/Minutes 10 Comments improved quad control hip abduction Standing Exercise Name shoe donned and in wrap Side bilateral Resistance level 2 band at ankles Equipment Used no hand support, slider under foot Reps/Minutes 10 ea Comments improved quad control Manual Therapy Treatment Consent Patient gave verbal consent for manual Yes treatment Soft Tissue Mobilization R foot/ankle Body Location scar mobilization, peroneals/ tibialis, gastrocnemius Mobilization Type Rolling,Other Intensity/Depth Superficial Body Position Hooklying Comments Gentle scar mobilization especially over achilles. Educated on scar mobilization as part of HEP. Tender over dorsal arch, dorsal great toe. Monitored for pain. Joint Mobilizations R ankle/foot Joint 1st toe, metatarsals, talocrural Direction abd/ext, dorsal/volar, AP Grade II Body Position Hooklying Reps/Duration 2x30 Comments Increased stiffness of great toe. Monitored for pain, none reported with mobilization Other Other Manual Treatments Vibration testing: no tenderness or sharp pain at great toe, 1st metatarsal, 5th metatarsal, malleoli Neuro Re-Education Treatment Balance Activities SLS Comments 1. SLS for time: 30 ea 2. SLS 3# passbacks: 2x10 3. double step taps on 6 step : 30 sec ea w/ alternating legs prn hand support.improved balance. cued TKE with adbominal contraction PT-OP-T Assessment and Plan Start: 03/23/24 07:35 Freq: Status: Active Protocol: Document 05/23/24 11:22 NM (Rec: 05/23/24 12:18 NM [id number]) Physical Therapy Assessment Goals Four Impairment impairments in R Achilles tendon due to lengthening Short Term Goal (STG) If appropriate, pt will be able to perform at least 10 bilateral heel raises without compensation or increase in baseline pain in order to demonstrate improved gait mechanics and propulsion 04/25/23: pain free but able to perform 8 B heel raises 05/23/24: did 2x10 B heel raises w/o pain, limited ROM STG Duration 8 weeks MET Inside Meter Tester Goal (LTG) If appropriate, pt will be able to perform at least 5 single leg heel raises using R foot without compensation or increase in baseline pain in order to demonstrate improved gait mechanics and propulsion LTG Duration 12 weeks Three Impairment gait impaired Short Term Goal (STG) Pt will normalize gait mechanics without AD or boot in order to demonstrate improvements in QOL and mobility 04/25/23: ambulating w/o a boot , reports slight toe pain with stepping 05/23/24: pt demonstrates more normalized gait mechanics with shoe STG Duration 4 weeks MET Inside Meter Tester Goal (LTG) Pt will report no limitation in ambulation distance or time due to R foot/ankle mobility, strength, or pain in order to demonstrate improved QOL and mobility LTG Duration 12 weeks Two Impairment global ankle strength limited Short Term Goal (STG) Pt will increase global R ankle strength to at least 4/5 MMT in order to demonstrate improved ankle stability during gait, stance, and pickle ball if appropriate 04/25/24: 4-/5 for all when tested in sitting 05/23/24: 4-/5; tested in sitting STG Duration 8 weeks PROGRESSING Inside Meter Tester Goal (LTG) Pt will increase global R ankle strength to at least 4+/ 5 MMT in order to demonstrate improved ankle stability during gait, stance, and pickle ball if appropriate LTG Duration 12 weeks One Impairment AROM- R ankle dorsiflexion 4 deg, R ankle plantarflexion 36 deg Short Term Goal (STG) Pt will improve R ankle dorsiflexion AROM to least 8 deg and R ankle plantarflexion AROM to at least 40 deg in order to demonstrate improved mobility for gait and participation in recreational activities 04/25/24: 10 deg ankle DF, 45 deg PF 05/23/24: 10 deg ankle DF, 45 deg PF STG Duration 8 weeks MET Inside Meter Tester Goal (LTG) Pt will improve R ankle dorsiflexion AROM and R ankle plantarflexion AROM to within 3 deg of contralateral limb in order to demonstrate improved mobility for gait and participation in recreational activities LTG Duration 12 weeks Progress Towards Goals Progress Towards Goals Progressing Toward Goals Progress Comments Meeting STGs Assessment Summary Assessment Pt has been seen x10 times since initial evaluation in March 2024 s/p R surgical repair of arch, posterior tibialis tendon, and achilles tendon lengthening. Pt is progressing well toward STGs. Her R ankle ROM and RLE strength is improving. Pt reports minimal compliance with HEP; however, HEP has been condensed and organized to assist with pt compliance. Pt continues to report limitations with ambulation distance and endurance. She also continues to have tenderness along R dorsal arch near repair and her great toe . Pt has upcoming appt for assessment with surgeon. Pt would benefit from skilled PT for RLE strengthening and mobility to improve balance, functional mobility, and gait mechanics. Physical Therapy Plan Frequency and Duration Frequency of Treatment 2x/Week Duration of treatment (weeks) 12 Plan of Care Start Date 03/23/24 Plan of Care End Date 06/22/24 Therapeutic Interventions Therapeutic Interventions Balance Training,Gait Training ,Home Exercise Program,Joint Mobilizations,Manual Therapy, Neuromuscular Re-education, Orthotic/Prosthetic Management ,Patient/Caregiver Education, Self-Care/Home Management, Sensory Integration,Soft Tissue Mobilization,Taping, Therapeutic Activities, Therapeutic Exercises Modalities Cold Pack/Ice Massage,Electric Stimulation,Hot Packs, Ultrasound Next Visit Focus/Plan Next Note Type Treatment Note Next Visit Plan STS buttock tap, add leg press (U and B squat), step up, lateral step up, staggered calf stretch, resisted DF in sitting, trial heel raises on leg press. LAQ and HSC. Trial lunges with RLE leading only. SLS: step taps, kick ball, SLS , SLS w/ passback. Balance/ proprioception: foam, rocker board normalize gait mechanics: heel toe, hurdles Manual prn: no instrument assisted STM, avoid healing incisions, gentle with tendon Continue with hip/quad strengthening: seated LAQ, seated HSC, seated hip abduction, prone hip ext, STS w/ WB
--- NOTE | 2024-05-30 15:44 | PT.OTN ---
Current Diagnoses Flat foot [pes planus] (acquired), right foot (05/30/24) Stiffness of right ankle, not elsewhere classified (05/30/24) Pain in right foot (05/30/24) Other lack of coordination (05/30/24) Weakness (05/30/24) Physical Therapy Treatment Note PT-OP-A Visit Information Start: 03/23/24 07:35 Freq: Status: Active Protocol: Document 05/30/24 13:02 NM (Rec: 05/30/24 13:47 NM [id number]) Out-Patient Physical Therapy Visit Information Visit Information Visit Type Treatment Note Visit Note DOS: 01/09/24 Irina and Shivam ALEXANDRE after 19 visits Visit Start Time 13:03 Visit Stop Time 13:45 Visit Number 12 Evaluation Information Evaluation Date 03/23/24 Precautions Precautions DOS: 01/09/24 - R pes planus reconstruction, FDL transfer, posterior tibialis tendon repair, Achilles tendon lengthening Per referral: NWB 6 weeks post op, increased WB 25% ea week with arch support, boot with arch support until week 12 and /or follow up with surgeon PT-OP-B Current Condition Start: 03/23/24 07:35 Freq: Status: Active Protocol: Document 03/23/24 07:36 NM (Rec: 03/23/24 07:37 NM [id number]) Current Condition History of Current Condition Onset Date DOS 01/09/24 Current Complaints gait, mobility, ROM History of Current Condition Pt presents with R foot post pes planus with posterior tibialis repair, FDL transfer, achilles tendon lengthening surgery at 01/09/[address] Navarro. Currently 10 weeks and 5 days post -op. She has been using spc since 6 weeks and was instructed to be 50% weightbearing. She was NWB for 6 weeks. Xray at 6 weeks, no complications. Pt had surgery due to torn arch tendon/posterior tibialis tear, extreme rolling ankle in to pronation; she had a tendon transfer from her toes. She had a metal wedge that replaced the top of the boot. She had a gastrocnemius contracture, so lengthening of the R gastrocnemius performed as well. Abigail removed at last appointment. Still in boot for 12 weeks with orthotic. She has a follow up on 04/06/[address] Navarro, planning to have an Xray at that time. Pt reports no pain, states pain has been well managed. She occasionally take tylenol for pain if she has achiness across the top of her ankle, usually after walking. States that her skin on her RLE has been hypersensitive ( also had after previous surgeries) and has been swelling a little; she has tried an onesimo bandage but not compression socks. Per pt report at last follow up with surgeon, Dr. Navarro ok'd her on gentle ROM for ankle, ices several times per day. PMH of knee replacement (L partial, R full). 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 States got new shoes, which feel good but she thinks that they make her roll out. She has a follow up with Dr. Navarro on 06/04. She reports she felt like she had stanford splints last week but does not remember what day. She walking around the block 2x/day, states walking down hill; reports that volterran cream and ice feel better. 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 lifting). Reports anterior ankle soreness after walking PT-OP-E Functional Tests Start: 03/23/24 07:35 Freq: Status: Active Protocol: Document 03/23/24 07:36 NM (Rec: 03/23/24 12:12 NM [id number]) Functional Tests Five Times Sit to Stand Test Score able to complete 5 w/o AD, not formally timed Comments no pain reported, slight L lean, less WB on RLE w/ boot donned PT-OP-F Manual Assessment Start: 03/23/24 07:35 Freq: Status: Active Protocol: Document 03/23/24 07:36 NM (Rec: 03/23/24 12:12 NM [id number]) Manual Assessments Soft Tissue Assessment Soft Tissue Mobility Assessment Scars intact, slight adhesions to skin. Pt has limitations in R Achilles length, has swelling across ankle Joint Mobility Assessment Joint Mobility Assessment Limited 1st ray mobility, toe extension and flexion with PROM PT-OP-G Mobility & Gait Start: 03/23/24 07:35 Freq: Status: Active Protocol: Document 03/23/24 07:36 NM (Rec: 03/23/24 12:12 NM [id number]) OP Gait Assessment Gait Gait Assistance Required: Independent Distance (Feet) 200 Able to Maintain Weight Bearing Status Yes During Gait Assistive Devices Assistive Device Straight Cane Gait Deviations General Gait Pattern Antalgic,Flexed Trunk Factors Limiting Gait Function Factors Limiting Gait Function Decreased Activity Tolerance, Decreased Sensation,Decreased Strength,Limited Range of Motion Comments Gait Comments Using spc primarily for balance as needed. Pt able to ambulate w/o AD and w/o pain in R ankle for short distances at 100% WB in boot. Demos slight L hip drop with R stance, L trunk and leg lean due to uneven WB while in boot leading to slight increase in L back pain PT-OP-J Posture/Palpation/Skin Start: 03/23/24 07:35 Freq: Status: Active Protocol: Document 03/23/24 07:36 NM (Rec: 03/23/24 12:12 NM [id number]) Posture Evaluation Position Standing Head/C-Spine Posture Forward Head L-Spine Posture Increased Lordosis Arm Posture (L) Externally Rotated,(R) Externally Rotated Pelvis Posture Anteriorly Tilted Weight Distribution Weight Shifted Left,Decreased Wt.Bear on (R) Hip Posture (L) Externally Rotated,(R) Externally Rotated Knee Posture (L) Genu Valgus,(R) Genu Valgus Ankle/Foot Posture (L) Pronated Foot Arch (L) Low Arch Palpation Assessment Location R ankle/foot Palpation Details Mild tenderness along medial ankle near posterior tibialis tendon, but denies pain. No tenderness along scars, but slight tenderness along anterior ankle near talocrural junction Skin Assessment Circumference Measurement R calf Location midway between patella and ankle mortise (17cm) Measurement (Centimeters) 34 Comments L calf 17 cm for comparison R ankle/foot Location figure 8 53 cm; 24 cm at malleoli Comments overall edema of foot > ankle to mid calf Incisional Assessment Incision Appearance/Comments All incisions intact, healing well with no signs of infection. Slight adhesions to underlying skin. Scab present only along medial ankle at one proximal point Other Assessments Skin Assessment Comments Increased rubor with dependency PT-OP-K Range of Motion Start: 03/23/24 07:35 Freq: Status: Active Protocol: Document 05/23/24 11:22 NM (Rec: 05/23/24 12:18 NM [id number]) Ankle and Foot Goniometric Range of Motion Ankle and Foot Right Dorsiflexion with Knee Flexed 10 Plantarflexion 45 Comments IE: 4 deg DF, 36 deg PF; No pain with AROM 04/13/24: 8 deg DF, 40 deg PF 04/25/24: 10 deg DF, 45 deg PF, 30 deg inversion, 10 deg eversion 05/23/24: 10 deg DF, 45 deg PF PT-OP-M Strength Start: 03/23/24 07:35 Freq: Status: Active Protocol: Document 05/23/24 11:22 NM (Rec: 05/23/24 12:18 NM [id number]) Ankle/Foot Strength Ankle and Foot Manual Muscle Testing Right Dorsiflexion (L4) 4- Good- Plantarflexion (S1) 4- Good- Inversion 4- Good- Eversion (S1) 4- Good- Comments IE: 3/5, Tested against gravity in sitting without due to surgical repair ( plantarflexion tested in sitting) 04/25/24: 4-/5 for all, tested in sitting 05/23/24: 4-/5 for all, no pain with resisted motion; tested in sitting PT-OP-Q Treatments Start: 03/23/24 07:35 Freq: Status: Active Protocol: Document 05/30/24 13:02 NM (Rec: 05/30/24 13:47 NM [id number]) Therapeutic Exercises Sitting Exercises foot intrinsics Sitting Exercise Name 1. 1st toe flex alphonso, 2. toe 2 -5 alphonso, 3. 1st toe flex, 4. 1st toe ext Side right Reps/Minutes 1. 10x1, 2. 10x1, 3. 15, 4. 15 Comments cued for concentration, effort , control Standing Exercises hip [address] way Standing Exercise Name with single leg squat Side bilateral Resistance AROM Equipment Used hand support on chair Reps/Minutes 5 ea Comments challenging; improved squat w/ rep; demos instab at knee toe raises Side bilateral Equipment Used back on wall Reps/Minutes 20 Comments challenging, pain free once; reports soreness at TC joint heel raise Standing Exercise Name improved fwd weightshift compensation Side bilateral Resistance AROM Equipment Used small ball btwn ankles, hand support on wall Reps/Minutes 20 w/ 1 pause at end range Comments limited ROM; cued strong push through great toe Manual Therapy Treatment Consent Patient gave verbal consent for manual Yes treatment Soft Tissue Mobilization R foot/ankle Body Location scar mobilization, peroneals/ tibialis, gastrocnemius Mobilization Type Rolling,Other Intensity/Depth Superficial Body Position Hooklying Comments Gentle scar mobilization especially over achilles. Educated on scar mobilization as part of HEP. Tender over dorsal arch, dorsal great toe. Monitored for pain. Joint Mobilizations R ankle/foot Joint 1st toe, metatarsals, talocrural Direction abd/ext, dorsal/volar, AP Grade II Body Position Hooklying Reps/Duration 2x30 Comments Increased stiffness of great toe. Monitored for pain, none reported with mobilization Self-Care/Home Management Treatment Education Patient Education Home Exercise Program Other Education 4 minutes- Condensed HEP. PT educated pt on importance of HEP for strengthening as pt unable to progress in PT sessions without effort from pt at home. Recommended pt continue with ambulation program but emphasized that ambulation program does not replace HEP. PT-OP-T Assessment and Plan Start: 03/23/24 07:35 Freq: Status: Active Protocol: Document 05/30/24 13:02 NM (Rec: 05/30/24 13:47 NM [id number]) Physical Therapy Assessment Goals Four Impairment impairments in R Achilles tendon due to lengthening Short Term Goal (STG) If appropriate, pt will be able to perform at least 10 bilateral heel raises without compensation or increase in baseline pain in order to demonstrate improved gait mechanics and propulsion 04/25/23: pain free but able to perform 8 B heel raises 05/23/24: did 2x10 B heel raises w/o pain, limited ROM STG Duration 8 weeks MET Correction Goal (LTG) If appropriate, pt will be able to perform at least 5 single leg heel raises using R foot without compensation or increase in baseline pain in order to demonstrate improved gait mechanics and propulsion LTG Duration 12 weeks Three Impairment gait impaired Short Term Goal (STG) Pt will normalize gait mechanics without AD or boot in order to demonstrate improvements in QOL and mobility 04/25/23: ambulating w/o a boot , reports slight toe pain with stepping 05/23/24: pt demonstrates more normalized gait mechanics with shoe STG Duration 4 weeks MET Tar Distillation Supervisor Goal (LTG) Pt will report no limitation in ambulation distance or time due to R foot/ankle mobility, strength, or pain in order to demonstrate improved QOL and mobility LTG Duration 12 weeks Two Impairment global ankle strength limited Short Term Goal (STG) Pt will increase global R ankle strength to at least 4/5 MMT in order to demonstrate improved ankle stability during gait, stance, and pickle ball if appropriate 04/25/24: 4-/5 for all when tested in sitting 05/23/24: 4-/5; tested in sitting STG Duration 8 weeks PROGRESSING Tar Distillation Supervisor Goal (LTG) Pt will increase global R ankle strength to at least 4+/ 5 MMT in order to demonstrate improved ankle stability during gait, stance, and pickle ball if appropriate LTG Duration 12 weeks One Impairment AROM- R ankle dorsiflexion 4 deg, R ankle plantarflexion 36 deg Short Term Goal (STG) Pt will improve R ankle dorsiflexion AROM to least 8 deg and R ankle plantarflexion AROM to at least 40 deg in order to demonstrate improved mobility for gait and participation in recreational activities 04/25/24: 10 deg ankle DF, 45 deg PF 05/23/24: 10 deg ankle DF, 45 deg PF STG Duration 8 weeks MET Correction Goal (LTG) Pt will improve R ankle dorsiflexion AROM and R ankle plantarflexion AROM to within 3 deg of contralateral limb in order to demonstrate improved mobility for gait and participation in recreational activities LTG Duration 12 weeks Assessment Summary Assessment Pt tolerated session well. Requires cues for redirection to remain on task with exercise. Pt requires increased time due to redirection, cues for execution, and speed. Emphasis on toe control today. Pt reports less discomfort overall with toe flexion and extension today. PT condensed HEP again as pt has poor compliance with HEP due to work and familial obligations; PT educated pt on importance of HEP for strengthening as pt unable to progress in PT sessions without effort from pt at home. Recommended pt continue with ambulation program but emphasized that ambulation program does not replace HEP. Pt demonstrates improvements in standing ankle dorsiflexion and ankle plantarflexion ROM and strength. Trialed hip [address] way to address single leg stability and quad control; improved stability with slight UE support, but pt challenged by form and ankle proprioception. Pt would benefit from skilled PT for progressive R ankle mobility and strengthening, in addition to proximal strengthening, proprioceptive training and flexibility training in order to improve symptom management and ADL tolerance. Physical Therapy Plan Frequency and Duration Frequency of Treatment 2x/Week Duration of treatment (weeks) 12 Plan of Care Start Date 03/23/24 Plan of Care End Date 06/22/24 Therapeutic Interventions Therapeutic Interventions Balance Training,Gait Training ,Home Exercise Program,Joint Mobilizations,Manual Therapy, Neuromuscular Re-education, Orthotic/Prosthetic Management ,Patient/Caregiver Education, Self-Care/Home Management, Sensory Integration,Soft Tissue Mobilization,Taping, Therapeutic Activities, Therapeutic Exercises Modalities Cold Pack/Ice Massage,Electric Stimulation,Hot Packs, Ultrasound Next Visit Focus/Plan Next Note Type Treatment Note Next Visit Plan leg press (U and B squat) vs step up, lateral step up, staggered calf stretch. trial heel raises on leg press w/ low resistance or no resistance. Trial lunges with RLE leading only. Ankle inversion and eversion. Balance/proprioception: foam, rocker board Manual prn: no instrument assisted STM, avoid healing incisions, gentle with tendon
--- NOTE | 2024-06-01 16:23 | PT-OP ANOTE ---
Pt called car troubles, unable to attend appt.
--- NOTE | 2024-06-13 12:11 | PT.OTN ---
Current Diagnoses Flat foot [pes planus] (acquired), right foot (06/13/24) Stiffness of right ankle, not elsewhere classified (06/13/24) Pain in right foot (06/13/24) Other lack of coordination (06/13/24) Weakness (06/13/24) Physical Therapy Treatment Note PT-OP-A Visit Information Start: 03/23/24 07:35 Freq: Status: Active Protocol: Document 06/13/24 11:35 NM (Rec: 06/13/24 12:11 NM [id number]) Out-Patient Physical Therapy Visit Information Visit Information Visit Type Treatment Note Visit Note DOS: 01/09/24 Irina and Shivam ALEXANDRE after 19 visits Visit Start Time 11:35 Visit Stop Time 12:02 Visit Number 13 Evaluation Information Evaluation Date 03/23/24 PT-OP-B Current Condition Start: 03/23/24 07:35 Freq: Status: Active Protocol: Document 03/23/24 07:36 NM (Rec: 03/23/24 07:37 NM [id number]) Current Condition History of Current Condition Onset Date DOS 01/09/24 Current Complaints gait, mobility, ROM History of Current Condition Pt presents with R foot post pes planus with posterior tibialis repair, FDL transfer, achilles tendon lengthening surgery at 01/09/[address] Navarro. Currently 10 weeks and 5 days post -op. She has been using spc since 6 weeks and was instructed to be 50% weightbearing. She was NWB for 6 weeks. Xray at 6 weeks, no complications. Pt had surgery due to torn arch tendon/posterior tibialis tear, extreme rolling ankle in to pronation; she had a tendon transfer from her toes. She had a metal wedge that replaced the top of the boot. She had a gastrocnemius contracture, so lengthening of the R gastrocnemius performed as well. Haines removed at last appointment. Still in boot for 12 weeks with orthotic. She has a follow up on 04/06/[address] Navarro, planning to have an Xray at that time. Pt reports no pain, states pain has been well managed. She occasionally take tylenol for pain if she has achiness across the top of her ankle, usually after walking. States that her skin on her RLE has been hypersensitive ( also had after previous surgeries) and has been swelling a little; she has tried an onesimo bandage but not compression socks. Per pt report at last follow up with surgeon, Dr. Navarro ok'd her on gentle ROM for ankle, ices several times per day. PMH of knee replacement (L partial, R full). 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 Has been partially compliant with HEP but states overwhelmed despite PT condensing HEP over last several sessions. Pt had follow up with surgeon. She reports x ray is good, ankle is healing well. HEr wedge is healing nicely too. Reports no having dorsal foot or toe pain as often. Great toe is doing better after last session with isometrics. Pt misjudged a step when stepping up on bleachers on Tuesday, she sat back down, landing on her R ankle; reports a little sore but not painful, able to walk immediately. Pt states not informed about schedule shift by 15 min so can only stay until noon today. PT-OP-E Functional Tests Start: 03/23/24 07:35 Freq: Status: Active Protocol: Document 03/23/24 07:36 NM (Rec: 03/23/24 12:12 NM [id number]) Functional Tests Five Times Sit to Stand Test Score able to complete 5 w/o AD, not formally timed Comments no pain reported, slight L lean, less WB on RLE w/ boot donned PT-OP-F Manual Assessment Start: 03/23/24 07:35 Freq: Status: Active Protocol: Document 03/23/24 07:36 NM (Rec: 03/23/24 12:12 NM [id number]) Manual Assessments Soft Tissue Assessment Soft Tissue Mobility Assessment Scars intact, slight adhesions to skin. Pt has limitations in R Achilles length, has swelling across ankle Joint Mobility Assessment Joint Mobility Assessment Limited 1st ray mobility, toe extension and flexion with PROM PT-OP-G Mobility & Gait Start: 03/23/24 07:35 Freq: Status: Active Protocol: Document 03/23/24 07:36 NM (Rec: 03/23/24 12:12 NM [id number]) OP Gait Assessment Gait Gait Assistance Required: Independent Distance (Feet) 200 Able to Maintain Weight Bearing Status Yes During Gait Assistive Devices Assistive Device Straight Cane Gait Deviations General Gait Pattern Antalgic,Flexed Trunk Factors Limiting Gait Function Factors Limiting Gait Function Decreased Activity Tolerance, Decreased Sensation,Decreased Strength,Limited Range of Motion Comments Gait Comments Using spc primarily for balance as needed. Pt able to ambulate w/o AD and w/o pain in R ankle for short distances at 100% WB in boot. Demos slight L hip drop with R stance, L trunk and leg lean due to uneven WB while in boot leading to slight increase in L back pain PT-OP-J Posture/Palpation/Skin Start: 03/23/24 07:35 Freq: Status: Active Protocol: Document 03/23/24 07:36 NM (Rec: 03/23/24 12:12 NM [id number]) Posture Evaluation Position Standing Head/C-Spine Posture Forward Head L-Spine Posture Increased Lordosis Arm Posture (L) Externally Rotated,(R) Externally Rotated Pelvis Posture Anteriorly Tilted Weight Distribution Weight Shifted Left,Decreased Wt.Bear on (R) Hip Posture (L) Externally Rotated,(R) Externally Rotated Knee Posture (L) Genu Valgus,(R) Genu Valgus Ankle/Foot Posture (L) Pronated Foot Arch (L) Low Arch Palpation Assessment Location R ankle/foot Palpation Details Mild tenderness along medial ankle near posterior tibialis tendon, but denies pain. No tenderness along scars, but slight tenderness along anterior ankle near talocrural junction Skin Assessment Circumference Measurement R calf Location midway between patella and ankle mortise (17cm) Measurement (Centimeters) 34 Comments L calf 17 cm for comparison R ankle/foot Location figure 8 53 cm; 24 cm at malleoli Comments overall edema of foot > ankle to mid calf Incisional Assessment Incision Appearance/Comments All incisions intact, healing well with no signs of infection. Slight adhesions to underlying skin. Scab present only along medial ankle at one proximal point Other Assessments Skin Assessment Comments Increased rubor with dependency PT-OP-K Range of Motion Start: 03/23/24 07:35 Freq: Status: Active Protocol: Document 05/23/24 11:22 NM (Rec: 05/23/24 12:18 NM [id number]) Ankle and Foot Goniometric Range of Motion Ankle and Foot Right Dorsiflexion with Knee Flexed 10 Plantarflexion 45 Comments IE: 4 deg DF, 36 deg PF; No pain with AROM 04/13/24: 8 deg DF, 40 deg PF 04/25/24: 10 deg DF, 45 deg PF, 30 deg inversion, 10 deg eversion 05/23/24: 10 deg DF, 45 deg PF PT-OP-M Strength Start: 03/23/24 07:35 Freq: Status: Active Protocol: Document 05/23/24 11:22 NM (Rec: 05/23/24 12:18 NM [id number]) Ankle/Foot Strength Ankle and Foot Manual Muscle Testing Right Dorsiflexion (L4) 4- Good- Plantarflexion (S1) 4- Good- Inversion 4- Good- Eversion (S1) 4- Good- Comments IE: 3/5, Tested against gravity in sitting without due to surgical repair ( plantarflexion tested in sitting) 04/25/24: 4-/5 for all, tested in sitting 05/23/24: 4-/5 for all, no pain with resisted motion; tested in sitting PT-OP-Q Treatments Start: 03/23/24 07:35 Freq: Status: Active Protocol: Document 06/13/24 11:35 NM (Rec: 06/13/24 12:11 NM [id number]) Gym Equipment Shuttle Recovery heel raise Details limited ROM; cued for form and set up Resistance 50# Reps/Time 2x15 unilateral squat Details cued TKE; good alignment Resistance 50# - progress next time Shuttle Recovery Platform Stable Reps/Time 3x10 Therapeutic Exercises Standing Exercises step up Standing Exercise Name 8 Side bilateral Reps/Minutes 15 ea Comments cued heel strike for drive and TKE heel raise Standing Exercise Name eccentric heel raise (added to HEP as 1set of 3 regular B raises) Side bilateral Reps/Minutes 10 Comments prn medial ankle pain until cued for WB across all mets not 1st only PT-OP-T Assessment and Plan Start: 03/23/24 07:35 Freq: Status: Active Protocol: Document 06/13/24 11:35 NM (Rec: 06/13/24 12:11 NM [id number]) Physical Therapy Assessment Goals Four Impairment impairments in R Achilles tendon due to lengthening Short Term Goal (STG) If appropriate, pt will be able to perform at least 10 bilateral heel raises without compensation or increase in baseline pain in order to demonstrate improved gait mechanics and propulsion 04/25/23: pain free but able to perform 8 B heel raises 05/23/24: did 2x10 B heel raises w/o pain, limited ROM STG Duration 8 weeks MET Fdc Goal (LTG) If appropriate, pt will be able to perform at least 5 single leg heel raises using R foot without compensation or increase in baseline pain in order to demonstrate improved gait mechanics and propulsion LTG Duration 12 weeks Three Impairment gait impaired Short Term Goal (STG) Pt will normalize gait mechanics without AD or boot in order to demonstrate improvements in QOL and mobility 04/25/23: ambulating w/o a boot , reports slight toe pain with stepping 05/23/24: pt demonstrates more normalized gait mechanics with shoe STG Duration 4 weeks MET [employer] Goal (LTG) Pt will report no limitation in ambulation distance or time due to R foot/ankle mobility, strength, or pain in order to demonstrate improved QOL and mobility LTG Duration 12 weeks Two Impairment global ankle strength limited Short Term Goal (STG) Pt will increase global R ankle strength to at least 4/5 MMT in order to demonstrate improved ankle stability during gait, stance, and pickle ball if appropriate 04/25/24: 4-/5 for all when tested in sitting 05/23/24: 4-/5; tested in sitting STG Duration 8 weeks PROGRESSING [employer] Goal (LTG) Pt will increase global R ankle strength to at least 4+/ 5 MMT in order to demonstrate improved ankle stability during gait, stance, and pickle ball if appropriate LTG Duration 12 weeks One Impairment AROM- R ankle dorsiflexion 4 deg, R ankle plantarflexion 36 deg Short Term Goal (STG) Pt will improve R ankle dorsiflexion AROM to least 8 deg and R ankle plantarflexion AROM to at least 40 deg in order to demonstrate improved mobility for gait and participation in recreational activities 04/25/24: 10 deg ankle DF, 45 deg PF 05/23/24: 10 deg ankle DF, 45 deg PF STG Duration 8 weeks MET [employer] Goal (LTG) Pt will improve R ankle dorsiflexion AROM and R ankle plantarflexion AROM to within 3 deg of contralateral limb in order to demonstrate improved mobility for gait and participation in recreational activities LTG Duration 12 weeks Assessment Summary Assessment Pt tolerated session well. She reports big toe pain only with eccentric heel raises when trialed on leg press. However, does not have pain with eccentric heel raises in standing when cued for equal WB across R foot. Pt still has limited ROM on R ankle during heel raises due to decreased strength. Trialed unilateral squat, B heel raise, and eccentric heel raise on leg press. Demos improved form with step up (able to progress to 8 step) when cued for heel strike to help drive glute activation; demos better knee/ankle stability today with lowering although still challenging. Decreased session time because pt has to leave early; states did not know session time started at noon. Pt has had poor attendance with sessions and compliance with HEP. At this time, she would continue to benefit from skilled PT to promote better ankle strength, balance, and stability during gait, transfers, and ADLs in order to decrease fall risk and encourage community involvement to decrease social isolation. Physical Therapy Plan Frequency and Duration Frequency of Treatment 2x/Week Duration of treatment (weeks) 12 Plan of Care Start Date 03/23/24 Plan of Care End Date 06/22/24 Therapeutic Interventions Therapeutic Interventions Balance Training,Gait Training ,Home Exercise Program,Joint Mobilizations,Manual Therapy, Neuromuscular Re-education, Orthotic/Prosthetic Management ,Patient/Caregiver Education, Self-Care/Home Management, Sensory Integration,Soft Tissue Mobilization,Taping, Therapeutic Activities, Therapeutic Exercises Modalities Cold Pack/Ice Massage,Electric Stimulation,Hot Packs, Ultrasound Next Visit Focus/Plan Next Note Type Progress Note Next Visit Plan 3 way with squat, heel raise and add eccentric, lateral step up, staggered calf stretch. cont heel raises on leg press w/ low resistance or no resistance. Trial lunges with RLE leading only. Ankle inversion and eversion. Balance/proprioception: foam, rocker board Manual prn: no instrument assisted STM, avoid healing incisions, gentle with tendon
--- NOTE | 2024-06-15 10:16 | PT.OTN ---
Current Diagnoses Flat foot [pes planus] (acquired), right foot (06/15/24) Stiffness of right ankle, not elsewhere classified (06/15/24) Pain in right foot (06/15/24) Other lack of coordination (06/15/24) Weakness (06/15/24) Physical Therapy Treatment Note PT-OP-A Visit Information Start: 03/23/24 07:35 Freq: Status: Active Protocol: Document 06/15/24 08:11 NM (Rec: 06/15/24 08:12 NM [id number]) Out-Patient Physical Therapy Visit Information Visit Information Visit Type Progress Note Visit Note DOS: 01/09/24 Irina and Shivam ALEXANDRE after 19 visits Visit Start Time 09:03 Visit Stop Time 09:46 Visit Number 14 Evaluation Information Evaluation Date 03/23/24 Precautions Precautions DOS: 01/09/24 - R pes planus reconstruction, FDL transfer, posterior tibialis tendon repair, Achilles tendon lengthening Per referral: NWB 6 weeks post op, increased WB 25% ea week with arch support, boot with arch support until week 12 and /or follow up with surgeon PT-OP-B Current Condition Start: 03/23/24 07:35 Freq: Status: Active Protocol: Document 03/23/24 07:36 NM (Rec: 03/23/24 07:37 NM [id number]) Current Condition History of Current Condition Onset Date DOS 01/09/24 Current Complaints gait, mobility, ROM History of Current Condition Pt presents with R foot post pes planus with posterior tibialis repair, FDL transfer, achilles tendon lengthening surgery at 01/09/[address] Navarro. Currently 10 weeks and 5 days post -op. She has been using spc since 6 weeks and was instructed to be 50% weightbearing. She was NWB for 6 weeks. Xray at 6 weeks, no complications. Pt had surgery due to torn arch tendon/posterior tibialis tear, extreme rolling ankle in to pronation; she had a tendon transfer from her toes. She had a metal wedge that replaced the top of the boot. She had a gastrocnemius contracture, so lengthening of the R gastrocnemius performed as well. Rayle removed at last appointment. Still in boot for 12 weeks with orthotic. She has a follow up on 04/06/[address] Navarro, planning to have an Xray at that time. Pt reports no pain, states pain has been well managed. She occasionally take tylenol for pain if she has achiness across the top of her ankle, usually after walking. States that her skin on her RLE has been hypersensitive ( also had after previous surgeries) and has been swelling a little; she has tried an onesimo bandage but not compression socks. Per pt report at last follow up with surgeon, Dr. Navarro ok'd her on gentle ROM for ankle, ices several times per day. PMH of knee replacement (L partial, R full). 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 She reports that when walks fast or takes bigger steps, she reports toe weakness and mildly painful. Reports limitations in balance, ambulation speed, endurance, strength. Reports no other falls. Still demos mild antalgic gait. Did not bring HEP. Scheduled out further PT-OP-E Functional Tests Start: 03/23/24 07:35 Freq: Status: Active Protocol: Document 03/23/24 07:36 NM (Rec: 03/23/24 12:12 NM [id number]) Functional Tests Five Times Sit to Stand Test Score able to complete 5 w/o AD, not formally timed Comments no pain reported, slight L lean, less WB on RLE w/ boot donned PT-OP-F Manual Assessment Start: 03/23/24 07:35 Freq: Status: Active Protocol: Document 03/23/24 07:36 NM (Rec: 03/23/24 12:12 NM [id number]) Manual Assessments Soft Tissue Assessment Soft Tissue Mobility Assessment Scars intact, slight adhesions to skin. Pt has limitations in R Achilles length, has swelling across ankle Joint Mobility Assessment Joint Mobility Assessment Limited 1st ray mobility, toe extension and flexion with PROM PT-OP-G Mobility & Gait Start: 03/23/24 07:35 Freq: Status: Active Protocol: Document 03/23/24 07:36 NM (Rec: 03/23/24 12:12 NM [id number]) OP Gait Assessment Gait Gait Assistance Required: Independent Distance (Feet) 200 Able to Maintain Weight Bearing Status Yes During Gait Assistive Devices Assistive Device Straight Cane Gait Deviations General Gait Pattern Antalgic,Flexed Trunk Factors Limiting Gait Function Factors Limiting Gait Function Decreased Activity Tolerance, Decreased Sensation,Decreased Strength,Limited Range of Motion Comments Gait Comments Using spc primarily for balance as needed. Pt able to ambulate w/o AD and w/o pain in R ankle for short distances at 100% WB in boot. Demos slight L hip drop with R stance, L trunk and leg lean due to uneven WB while in boot leading to slight increase in L back pain PT-OP-J Posture/Palpation/Skin Start: 03/23/24 07:35 Freq: Status: Active Protocol: Document 03/23/24 07:36 NM (Rec: 03/23/24 12:12 NM [id number]) Posture Evaluation Position Standing Head/C-Spine Posture Forward Head L-Spine Posture Increased Lordosis Arm Posture (L) Externally Rotated,(R) Externally Rotated Pelvis Posture Anteriorly Tilted Weight Distribution Weight Shifted Left,Decreased Wt.Bear on (R) Hip Posture (L) Externally Rotated,(R) Externally Rotated Knee Posture (L) Genu Valgus,(R) Genu Valgus Ankle/Foot Posture (L) Pronated Foot Arch (L) Low Arch Palpation Assessment Location R ankle/foot Palpation Details Mild tenderness along medial ankle near posterior tibialis tendon, but denies pain. No tenderness along scars, but slight tenderness along anterior ankle near talocrural junction Skin Assessment Circumference Measurement R calf Location midway between patella and ankle mortise (17cm) Measurement (Centimeters) 34 Comments L calf 17 cm for comparison R ankle/foot Location figure 8 53 cm; 24 cm at malleoli Comments overall edema of foot > ankle to mid calf Incisional Assessment Incision Appearance/Comments All incisions intact, healing well with no signs of infection. Slight adhesions to underlying skin. Scab present only along medial ankle at one proximal point Other Assessments Skin Assessment Comments Increased rubor with dependency PT-OP-K Range of Motion Start: 03/23/24 07:35 Freq: Status: Active Protocol: Document 06/15/24 08:11 NM (Rec: 06/15/24 08:12 NM [id number]) Ankle and Foot Goniometric Range of Motion Ankle and Foot Right Dorsiflexion with Knee Flexed 10 Plantarflexion 47 Inversion 28 Eversion 12 Comments IE: 4 deg DF, 36 deg PF; No pain with AROM 04/13/24: 8 deg DF, 40 deg PF 04/25/24: 10 deg DF, 45 deg PF, 30 deg inversion, 10 deg eversion 05/23/24: 10 deg DF, 45 deg PF 06/15/24: 10 dF, 47 PF, 28 inv, 12 eversion Left Dorsiflexion with Knee Flexed 8 Plantarflexion 45 Inversion 30 Eversion 15 PT-OP-M Strength Start: 03/23/24 07:35 Freq: Status: Active Protocol: Document 06/15/24 08:11 NM (Rec: 06/15/24 08:12 NM [id number]) Hip Strength Hip Manual Muscle Testing Left Flexion (L2) 4 Good Extension (S1) 4 Good Abduction 4 Good Adduction 4 Good External Rotation 4 Good Internal Rotation 4 Good Right Flexion (L2) 4 Good Extension (S1) 4- Good- Abduction 4- Good- Adduction 4 Good External Rotation 4 Good Internal Rotation 4 Good Knee Strength Knee Manual Muscle Testing Left Flexion (S2) 4 Good Extension (L3) 4 Good Right Flexion (S2) 4 Good Extension (L3) 4 Good Ankle/Foot Strength Ankle and Foot Manual Muscle Testing Right Dorsiflexion (L4) 4 Good Plantarflexion (S1) 3- Fair- Inversion 4 Good Eversion (S1) 4 Good Comments IE: 3/5, Tested against gravity in sitting without due to surgical repair ( plantarflexion tested in sitting) 04/25/24: 4-/5 for all, tested in sitting 05/23/24: 4-/5 for all, no pain with resisted motion; tested in sitting 06/15/24: no pain with resisted testing; PF tested in sitting ; can do 1 SL heel raise with small ROM Left Dorsiflexion (L4) 4 Good Plantarflexion (S1) 3- Fair- Inversion 4 Good Eversion (S1) 4 Good Comments plantarflexion tested in sitting at IE Can do 1 mid-range heel raise single leg PT-OP-Q Treatments Start: 03/23/24 07:35 Freq: Status: Active Protocol: Document 06/15/24 08:11 NM (Rec: 06/15/24 08:12 NM [id number]) Therapeutic Exercises Sitting Exercises IV/EV Sitting Exercise Name 1. inversion HEP, 2. eversion Side right Resistance level 2 band Reps/Minutes 20 Comments cued for form, set up; challenging w/ inc band resist Standing Exercises hip 3 way Standing Exercise Name with single leg squat (knee bent)- HEP Side bilateral Resistance AROM Equipment Used 1 finger support Reps/Minutes 10 ea - increased time Comments challenging; improved squat w/ rep; demos instab at knee step up Standing Exercise Name 8 step up fwd Side bilateral Equipment Used no hand support; hands on hips for level pelvis Reps/Minutes 20 ea - increased time Comments cued slower descent, ankle DF for foot clearance (catches step 2x) heel raise Standing Exercise Name 1. B heel > SL eccentric heel raise (HEP review) Side bilateral Equipment Used B hand support for balance Reps/Minutes 30 (20 Ecc R, 10 ecc L) - increased time Comments pain free but limited ROM and challenging Neuro Re-Education Treatment Balance Activities DGI Reps/Duration Comments Demos increased fall risk Tandem Reps/Duration 30 sec SLS Comments For time: 3 sec R, 10 sec L PT-OP-T Assessment and Plan Start: 03/23/24 07:35 Freq: Status: Active Protocol: Document 06/15/24 08:11 NM (Rec: 06/15/24 08:12 NM [id number]) Physical Therapy Assessment Goals Five Impairment Impaired balance: DGI , R SLS 3 sec; s/p 1 fall since IE Residential Goal (LTG) Pt will improve DGI > and R SLS time to at least 10 seconds without hand support or LOB in order to decrease fall risk LTG Duration 12 weeks Four Impairment impairments in R Achilles tendon due to lengthening Short Term Goal (STG) If appropriate, pt will be able to perform at least 10 bilateral heel raises without compensation or increase in baseline pain in order to demonstrate improved gait mechanics and propulsion 04/25/23: pain free but able to perform 8 B heel raises 05/23/24: did 2x10 B heel raises w/o pain, limited ROM STG Duration 8 weeks MET Ice Plant Operator Goal (LTG) If appropriate, pt will be able to perform at least 5 single leg heel raises using R foot without compensation or increase in baseline pain in order to demonstrate improved gait mechanics and propulsion 06/15/24: Pt can perform 1 with only 3 cm heel lift from ground; unable to perform with full ROM at this time due to weakness in R plantarflexor strength LTG Duration 12 weeks PROGRESSING 06/15, NOT MET 06/15 Three Impairment gait impaired Short Term Goal (STG) Pt will normalize gait mechanics without AD or boot in order to demonstrate improvements in QOL and mobility 04/25/23: ambulating w/o a boot , reports slight toe pain with stepping 05/23/24: pt demonstrates more normalized gait mechanics with shoe STG Duration 4 weeks MET Residential Goal (LTG) Pt will report ambulation > 30 minutes distance or time due to R foot/ankle mobility, strength, or pain in order to demonstrate improved QOL and mobility 06/15/24: Pt reports that she is limited to 15 minutes due to ankle stiffness/weakness, decreased endurance LTG Duration 12 weeks NOT MET 06/15; GOAL UPDATED 06/15 Two Impairment global ankle strength limited Short Term Goal (STG) Pt will increase global R ankle strength to at least 4/5 MMT in order to demonstrate improved ankle stability during gait, stance, and pickle ball if appropriate 04/25/24: 4-/5 for all when tested in sitting 05/23/24: 4-/5; tested in sitting 06/15/24: 4/5 for all except plantarflexion STG Duration 8 weeks PROGRESSING Ice Plant Operator Goal (LTG) Pt will increase global R ankle strength to at least 4+/ 5 MMT in order to demonstrate improved ankle stability during gait, stance, and pickle ball if appropriate 06/15/24: 4/5 for all except plantarflexion LTG Duration 12 weeks PARTIALLY MET, NOT MET 06/15 One Impairment AROM- R ankle dorsiflexion 4 deg, R ankle plantarflexion 36 deg Short Term Goal (STG) Pt will improve R ankle dorsiflexion AROM to least 8 deg and R ankle plantarflexion AROM to at least 40 deg in order to demonstrate improved mobility for gait and participation in recreational activities 04/25/24: 10 deg ankle DF, 45 deg PF 05/23/24: 10 deg ankle DF, 45 deg PF STG Duration 8 weeks MET Residential Goal (LTG) Pt will improve R ankle dorsiflexion AROM and R ankle plantarflexion AROM to within 3 deg of contralateral limb in order to demonstrate improved mobility for gait and participation in recreational activities 06/15/24: MET for all LTG Duration 12 weeks MET Assessment Summary Assessment Pt tolerated session well. Continues to demonstrate limitations in R ankle plantarflexion and inversion strength consistent with dx. Retrialed standing eccentric heel raises against gravity. Tested single leg heel raise for goal; pt can lift R heel 3 cm from ground but struggles with great effort and to maintain elevation from ground ; demos increased support from BUE. Reviewed hip [address] way with single leg squat to promote quad and hip strength; moderate cueing for form to maintain level pelvis and for slight squat to facilitate quad activation, better with visual feedback. Good tolerance for progression to 8 step up, able to progress number of reps. Increased time needed for activities especially to correct form and for pt to understand how to correctly perform exercises. Pt requires moderate cues to remain on task as pt easily distracted. DGI shows increased fall risk s/p fall last week. Physical Therapy Plan Frequency and Duration Frequency of Treatment 1-2x/wk Duration of treatment (weeks) 12 Plan of Care Start Date 06/15/24 Plan of Care End Date 09/07/24 Therapeutic Interventions Therapeutic Interventions Balance Training,Gait Training ,Home Exercise Program,Joint Mobilizations,Manual Therapy, Neuromuscular Re-education, Orthotic/Prosthetic Management ,Patient/Caregiver Education, Self-Care/Home Management, Sensory Integration,Soft Tissue Mobilization,Taping, Therapeutic Activities, Therapeutic Exercises Modalities Cold Pack/Ice Massage,Electric Stimulation,Hot Packs, Ultrasound Next Visit Focus/Plan Next Note Type Treatment Note Next Visit Plan Update HEP (keep most recent): provide 1 quad/glute, remainder ankle 3 way with squat, eccentric raise (DL>SL), lateral step up 8, staggered calf stretch to tolerance. Trial lunges with RLE leading only. Balance/proprioception: foam, rocker board, SLS time Manual prn: no instrument assisted STM, avoid healing incisions, gentle with tendon
--- NOTE | 2024-06-15 10:17 | PT.OPPOC ---
Physical, Occupational & Speech Therapy At [facility] Current Diagnoses Flat foot [pes planus] (acquired), right foot (06/15/24) Stiffness of right ankle, not elsewhere classified (06/15/24) Pain in right foot (06/15/24) Other lack of coordination (06/15/24) Weakness (06/15/24) Visit Care Team Role Provider Type Brennan Rowell MD Family Provider Physician Primary Care Provider Specialty: Internal Medicine Address: [address] [place] [address], [id number] Email: [email or web address] Norma Navarro MD Attending Provider Physician Referring Provider Specialty: Orthopedics Orthopedic Surgery Address: [address] [place] [address], [id number] Email: Plan Of Care PT-OP-B Current Condition Start: 03/23/24 07:35 Freq: Status: Active Protocol: Document 03/23/24 07:36 NM (Rec: 03/23/24 07:37 NM [id number]) Current Condition History of Current Condition Onset Date DOS 01/09/24 Current Complaints gait, mobility, ROM History of Current Condition Pt presents with R foot post pes planus with posterior tibialis repair, FDL transfer, achilles tendon lengthening surgery at 01/09/[address] Navarro. Currently 10 weeks and 5 days post -op. She has been using spc since 6 weeks and was instructed to be 50% weightbearing. She was NWB for 6 weeks. Xray at 6 weeks, no complications. Pt had surgery due to torn arch tendon/posterior tibialis tear, extreme rolling ankle in to pronation; she had a tendon transfer from her toes. She had a metal wedge that replaced the top of the boot. She had a gastrocnemius contracture, so lengthening of the R gastrocnemius performed as well. [place] removed at last appointment. Still in boot for 12 weeks with orthotic. She has a follow up on 04/06/[address] Navarro, planning to have an Xray at that time. Pt reports no pain, states pain has been well managed. She occasionally take tylenol for pain if she has achiness across the top of her ankle, usually after walking. States that her skin on her RLE has been hypersensitive ( also had after previous surgeries) and has been swelling a little; she has tried an onesimo bandage but not compression socks. Per pt report at last follow up with surgeon, Dr. Navarro ok'd her on gentle ROM for ankle, ices several times per day. PMH of knee replacement (L partial, R full). 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) Current Functional Impairments (Reported) Functional Limitations- ADL's reports no difficulty with ADLs Functional Limitations- Mobility/Gait gait, transfers unable to walk on trails, get in a finishing boat PT-OP-T Assessment and Plan Start: 03/23/24 07:35 Freq: Status: Active Protocol: Document 06/15/24 08:11 NM (Rec: 06/15/24 08:12 NM [id number]) Physical Therapy Assessment Goals Five Impairment Impaired balance: DGI 17/24, R SLS 3 sec; s/p 1 fall since IE Injection Operator Goal (LTG) Pt will improve DGI > 19/24 and R SLS time to at least 10 seconds without hand support or LOB in order to decrease fall risk LTG Duration 12 weeks Four Impairment impairments in R Achilles tendon due to lengthening Short Term Goal (STG) If appropriate, pt will be able to perform at least 10 bilateral heel raises without compensation or increase in baseline pain in order to demonstrate improved gait mechanics and propulsion 04/25/23: pain free but able to perform 8 B heel raises 05/23/24: did 2x10 B heel raises w/o pain, limited ROM STG Duration 8 weeks MET Group Home Goal (LTG) If appropriate, pt will be able to perform at least 5 single leg heel raises using R foot without compensation or increase in baseline pain in order to demonstrate improved gait mechanics and propulsion 06/15/24: Pt can perform 1 with only 3 cm heel lift from ground; unable to perform with full ROM at this time due to weakness in R plantarflexor strength LTG Duration 12 weeks PROGRESSING 06/15, NOT MET 06/15 Three Impairment gait impaired Short Term Goal (STG) Pt will normalize gait mechanics without AD or boot in order to demonstrate improvements in QOL and mobility 04/25/23: ambulating w/o a boot , reports slight toe pain with stepping 05/23/24: pt demonstrates more normalized gait mechanics with shoe STG Duration 4 weeks MET Group Home Goal (LTG) Pt will report ambulation > 30 minutes distance or time due to R foot/ankle mobility, strength, or pain in order to demonstrate improved QOL and mobility 06/15/24: Pt reports that she is limited to 15 minutes due to ankle stiffness/weakness, decreased endurance LTG Duration 12 weeks NOT MET 06/15; GOAL UPDATED 06/15 Two Impairment global ankle strength limited Short Term Goal (STG) Pt will increase global R ankle strength to at least 4/5 MMT in order to demonstrate improved ankle stability during gait, stance, and pickle ball if appropriate 04/25/24: 4-/5 for all when tested in sitting 05/23/24: 4-/5; tested in sitting 06/15/24: 4/5 for all except plantarflexion STG Duration 8 weeks PROGRESSING Group Home Goal (LTG) Pt will increase global R ankle strength to at least 4+/ 5 MMT in order to demonstrate improved ankle stability during gait, stance, and pickle ball if appropriate 06/15/24: 4/5 for all except plantarflexion LTG Duration 12 weeks PARTIALLY MET, NOT MET 06/15 One Impairment AROM- R ankle dorsiflexion 4 deg, R ankle plantarflexion 36 deg Short Term Goal (STG) Pt will improve R ankle dorsiflexion AROM to least 8 deg and R ankle plantarflexion AROM to at least 40 deg in order to demonstrate improved mobility for gait and participation in recreational activities 04/25/24: 10 deg ankle DF, 45 deg PF 05/23/24: 10 deg ankle DF, 45 deg PF STG Duration 8 weeks MET Group Home Goal (LTG) Pt will improve R ankle dorsiflexion AROM and R ankle plantarflexion AROM to within 3 deg of contralateral limb in order to demonstrate improved mobility for gait and participation in recreational activities 06/15/24: MET for all LTG Duration 12 weeks MET Assessment Summary Assessment Pt was evaluated in March 2024 s/p R posterior tibilis tendon repair, arch reconstruction, and achilles lengthening procedure. She has attended 13 sessions. Pt is slowly progressing toward PT goals, meeting ROM goals and progressing toward strength/ ambulation goals. She demonstrates normal R ankle AROM with only mild limitations in R ankle eversion. However, she continues to be most limited in her R ankle strength, especially with inversion and plantarflexion. Decreased strength limits her gait mechanics, distance, and speed ; her strength deficits also impact her overall stability, especially as pt continues to demonstrate weakness in her quads and glutes. Pt progression with PT has also been slow due to R foot/ankle pain, which has only recently resolved; however, pt still has mild 1st toe and dorsal arch pain near reconstruction site. Pt has seen surgeon for pain at most recent follow up in May, reconstruction demonstrates healing. Pt has had poor compliance with HEP and difficulty with scheduling due to cancellations and personal factors (e.g. custody of grandkids). PT and CARPET RENOVATOR have condensed HEP multiple times and educated pt on rationale/importance of HEP as part of PT progression; minimal pt carryover between sessions. Pt has had 1 fall since initial evaluation. Her DGI is 17/24 (normal 19), indication increased fall risk , and she is only able to maintain SLS for 3 sec on her R leg. Pt would benefit from further skilled PT for progressing RLE strengthening, gait, balance, and ankle proprioception training in order to normalize gait mechanics, decrease fall risk, increase endurance for improved activity tolerance, and to promote increased strength to improve overall ability to participate in ADLs /recreational events with family and community. Physical Therapy Plan Frequency and Duration Frequency of Treatment 1-2x/wk Duration of treatment (weeks) 12 Plan of Care Start Date 06/15/24 Plan of Care End Date 09/07/24 Therapeutic Interventions Therapeutic Interventions Balance Training,Gait Training ,Home Exercise Program,Joint Mobilizations,Manual Therapy, Neuromuscular Re-education, Orthotic/Prosthetic Management ,Patient/Caregiver Education, Self-Care/Home Management, Sensory Integration,Soft Tissue Mobilization,Taping, Therapeutic Activities, Therapeutic Exercises Modalities Cold Pack/Ice Massage,Electric Stimulation,Hot Packs, Ultrasound Next Visit Focus/Plan Next Note Type Treatment Note Next Visit Plan Update HEP (keep most recent): provide 1 quad/glute, remainder ankle 3 way with squat, eccentric raise (DL>SL), lateral step up 8, staggered calf stretch to tolerance. Trial lunges with RLE leading only. Balance/proprioception: foam, rocker board, SLS time Manual prn: no instrument assisted STM, avoid healing incisions, gentle with tendon Plan of Care Dates Plan of Care Start Date 06/15/24 Plan of Care End Date 09/07/24 Electronically Signed by: Shannan Matos, PT 06/15/24 1017 If you are in agreement with this Plan of Care, please return a signed and dated copy. I have reviewed this Plan of Care and certify that the skilled therapy services above are required to meet the patient?s needs. Physician Signature Date Printed Name and Credentials Clinical Instructor Signature Printed Name and Credentials
--- NOTE | 2024-06-20 16:35 | PT.OTN ---
Physical Therapy Treatment Note PT-OP-A Visit Information Start: 03/23/24 07:35 Freq: Status: Active Protocol: Document 06/20/24 14:38 NBM (Rec: 06/20/24 15:23 NBM [id number]) Out-Patient Physical Therapy Visit Information Visit Information Visit Type Treatment Note Visit Note DOS: 01/09/24 Irina and Shivam ALEXANDRE after 19 visits Visit Start Time 14:38 Visit Stop Time 15:23 Visit Number 15 Number of MIXER WHIPPED TOPPING Visits 1 Evaluation Information Evaluation Date 03/23/24 Precautions Precautions DOS: 01/09/24 - R pes planus reconstruction, FDL transfer, posterior tibialis tendon repair, Achilles tendon lengthening Per referral: NWB 6 weeks post op, increased WB 25% ea week with arch support, boot with arch support until week 12 and /or follow up with surgeon PT-OP-B Current Condition Start: 03/23/24 07:35 Freq: Status: Active Protocol: Document 03/23/24 07:36 NM (Rec: 03/23/24 07:37 NM [id number]) Current Condition History of Current Condition Onset Date DOS 01/09/24 Current Complaints gait, mobility, ROM History of Current Condition Pt presents with R foot post pes planus with posterior tibialis repair, FDL transfer, achilles tendon lengthening surgery at 01/09/[address] Navarro. Currently 10 weeks and 5 days post -op. She has been using spc since 6 weeks and was instructed to be 50% weightbearing. She was NWB for 6 weeks. Xray at 6 weeks, no complications. Pt had surgery due to torn arch tendon/posterior tibialis tear, extreme rolling ankle in to pronation; she had a tendon transfer from her toes. She had a metal wedge that replaced the top of the boot. She had a gastrocnemius contracture, so lengthening of the R gastrocnemius performed as well. [place] removed at last appointment. Still in boot for 12 weeks with orthotic. She has a follow up on 04/06/[address] Navarro, planning to have an Xray at that time. Pt reports no pain, states pain has been well managed. She occasionally take tylenol for pain if she has achiness across the top of her ankle, usually after walking. States that her skin on her RLE has been hypersensitive ( also had after previous surgeries) and has been swelling a little; she has tried an onesimo bandage but not compression socks. Per pt report at last follow up with surgeon, Dr. Navarro ok'd her on gentle ROM for ankle, ices several times per day. PMH of knee replacement (L partial, R full). 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 She has new Reed shoes which she got a week ago and thinks they're good for her with more support on the bottom. She's doubled her walks to four blocks now before she's tired and it's too painful. She feels insecure standing up straight because she's used to looking down PT-OP-Q Treatments Start: 03/23/24 07:35 Freq: Status: Active Protocol: Document 06/20/24 14:38 NBM (Rec: 06/20/24 15:23 [facility] [id number]) Therapeutic Exercises Standing Exercises hip 3 way Standing Exercise Name with single leg squat (knee bent)- HEP review Side bilateral Resistance AROM Equipment Used 1 finger support Reps/Minutes 10 ea - increased time Comments challenging; improved squat w/ rep; demos instab at knee DF mobilization Standing Exercise Name HEP review Side right Resistance level 2 band providing PA mobilization Reps/Minutes 10 w/ 2 hold Comments cued band placement front of ankle under tongue of shoe, LE alignment step up Standing Exercise Name 8 step up 1. fwd, alt leading leg 2. lateral Side bilateral Equipment Used no hand support; hands on hips for level pelvis Reps/Minutes x15 ea Comments cued slower descent, ankle DF for foot clearance (catches step 2x) PT-OP-T Assessment and Plan Start: 03/23/24 07:35 Freq: Status: Active Protocol: Document 06/20/24 14:38 NBM (Rec: 06/20/24 15:23 NBM [id number]) Physical Therapy Assessment Goals Five Impairment Impaired balance: DGI , R SLS 3 sec; s/p 1 fall since IE Windrower Operator Goal (LTG) Pt will improve DGI > and R SLS time to at least 10 seconds without hand support or LOB in order to decrease fall risk LTG Duration 12 weeks Four Impairment impairments in R Achilles tendon due to lengthening Short Term Goal (STG) If appropriate, pt will be able to perform at least 10 bilateral heel raises without compensation or increase in baseline pain in order to demonstrate improved gait mechanics and propulsion 04/25/23: pain free but able to perform 8 B heel raises 05/23/24: did 2x10 B heel raises w/o pain, limited ROM STG Duration 8 weeks MET Windrower Operator Goal (LTG) If appropriate, pt will be able to perform at least 5 single leg heel raises using R foot without compensation or increase in baseline pain in order to demonstrate improved gait mechanics and propulsion 06/15/24: Pt can perform 1 with only 3 cm heel lift from ground; unable to perform with full ROM at this time due to weakness in R plantarflexor strength LTG Duration 12 weeks PROGRESSING 06/15, NOT MET 06/15 Three Impairment gait impaired Short Term Goal (STG) Pt will normalize gait mechanics without AD or boot in order to demonstrate improvements in QOL and mobility 04/25/23: ambulating w/o a boot , reports slight toe pain with stepping 05/23/24: pt demonstrates more normalized gait mechanics with shoe STG Duration 4 weeks MET Longterm Goal (LTG) Pt will report ambulation > 30 minutes distance or time due to R foot/ankle mobility, strength, or pain in order to demonstrate improved QOL and mobility 06/15/24: Pt reports that she is limited to 15 minutes due to ankle stiffness/weakness, decreased endurance LTG Duration 12 weeks NOT MET 06/15; GOAL UPDATED 06/15 Two Impairment global ankle strength limited Short Term Goal (STG) Pt will increase global R ankle strength to at least 4/5 MMT in order to demonstrate improved ankle stability during gait, stance, and pickle ball if appropriate 04/25/24: 4-/5 for all when tested in sitting 05/23/24: 4-/5; tested in sitting 06/15/24: 4/5 for all except plantarflexion STG Duration 8 weeks PROGRESSING Longterm Goal (LTG) Pt will increase global R ankle strength to at least 4+/ 5 MMT in order to demonstrate improved ankle stability during gait, stance, and pickle ball if appropriate 06/15/24: 4/5 for all except plantarflexion LTG Duration 12 weeks PARTIALLY MET, NOT MET 06/15 One Impairment AROM- R ankle dorsiflexion 4 deg, R ankle plantarflexion 36 deg Short Term Goal (STG) Pt will improve R ankle dorsiflexion AROM to least 8 deg and R ankle plantarflexion AROM to at least 40 deg in order to demonstrate improved mobility for gait and participation in recreational activities 04/25/24: 10 deg ankle DF, 45 deg PF 05/23/24: 10 deg ankle DF, 45 deg PF STG Duration 8 weeks MET Windrower Operator Goal (LTG) Pt will improve R ankle dorsiflexion AROM and R ankle plantarflexion AROM to within 3 deg of contralateral limb in order to demonstrate improved mobility for gait and participation in recreational activities 06/15/24: MET for all LTG Duration 12 weeks MET Assessment Summary Assessment Irina requires initial cueing for foot positioning and knee bend with 3-way hip but self- corrects with cueing and repetition. She catches foot 2x with 8 step up with cues for dorsiflexion to improve foot clearance, no upper extremity support. Physical Therapy Plan Frequency and Duration Frequency of Treatment 1-2x/wk Duration of treatment (weeks) 12 Plan of Care Start Date 06/15/24 Plan of Care End Date 09/07/24 Therapeutic Interventions Therapeutic Interventions Balance Training,Gait Training ,Home Exercise Program,Joint Mobilizations,Manual Therapy, Neuromuscular Re-education, Orthotic/Prosthetic Management ,Patient/Caregiver Education, Self-Care/Home Management, Sensory Integration,Soft Tissue Mobilization,Taping, Therapeutic Activities, Therapeutic Exercises Modalities Cold Pack/Ice Massage,Electric Stimulation,Hot Packs, Ultrasound Next Visit Focus/Plan Next Note Type Treatment Note Next Visit Plan Update HEP (keep most recent): provide 1 quad/glute, remainder ankle 3 way with squat, eccentric raise (DL>SL), lateral step up 8, staggered calf stretch to tolerance. Trial lunges with RLE leading only. Balance/proprioception: foam, rocker board, SLS time Manual prn: no instrument assisted STM, avoid healing incisions, gentle with tendon
--- NOTE | 2024-06-22 14:57 | PT.OTN ---
Current Diagnoses Flat foot [pes planus] (acquired), right foot (06/22/24) Stiffness of right ankle, not elsewhere classified (06/22/24) Pain in right foot (06/22/24) Other lack of coordination (06/22/24) Weakness (06/22/24) Physical Therapy Treatment Note PT-OP-A Visit Information Start: 03/23/24 07:35 Freq: Status: Active Protocol: Document 06/22/24 09:03 NM (Rec: 06/22/24 09:46 NM [id number]) Out-Patient Physical Therapy Visit Information Visit Information Visit Type Treatment Note Visit Note DOS: 01/09/24 Irina and Shivam ALEXANDRE after 19 visits Visit Start Time 09:03 Visit Stop Time 09:45 Visit Number 16 Evaluation Information Evaluation Date 03/23/24 Precautions Precautions DOS: 01/09/24 - R pes planus reconstruction, FDL transfer, posterior tibialis tendon repair, Achilles tendon lengthening Per referral: NWB 6 weeks post op, increased WB 25% ea week with arch support, boot with arch support until week 12 and /or follow up with surgeon PT-OP-B Current Condition Start: 03/23/24 07:35 Freq: Status: Active Protocol: Document 03/23/24 07:36 NM (Rec: 03/23/24 07:37 NM [id number]) Current Condition History of Current Condition Onset Date DOS 01/09/24 Current Complaints gait, mobility, ROM History of Current Condition Pt presents with R foot post pes planus with posterior tibialis repair, FDL transfer, achilles tendon lengthening surgery at 01/09/[address] Navarro. Currently 10 weeks and 5 days post -op. She has been using spc since 6 weeks and was instructed to be 50% weightbearing. She was NWB for 6 weeks. Xray at 6 weeks, no complications. Pt had surgery due to torn arch tendon/posterior tibialis tear, extreme rolling ankle in to pronation; she had a tendon transfer from her toes. She had a metal wedge that replaced the top of the boot. She had a gastrocnemius contracture, so lengthening of the R gastrocnemius performed as well. Abigail removed at last appointment. Still in boot for 12 weeks with orthotic. She has a follow up on 04/06/[address] Navarro, planning to have an Xray at that time. Pt reports no pain, states pain has been well managed. She occasionally take tylenol for pain if she has achiness across the top of her ankle, usually after walking. States that her skin on her RLE has been hypersensitive ( also had after previous surgeries) and has been swelling a little; she has tried an onesimo bandage but not compression socks. Per pt report at last follow up with surgeon, Dr. Navarro ok'd her on gentle ROM for ankle, ices several times per day. PMH of knee replacement (L partial, R full). 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 States that the covers were too tight which twisted her foot. Reports no soreness or pain after last session. She went to spine doctor for her back, reports not supposed to be sitting for more than 30 min, has decreased disc space L5-S1. Planning on doing a injection for her back. Got new shoes (busby) in a wider , provide good support for arch and feel good. Has been walking 4 blocks sometimes 2x/ day. PT-OP-E Functional Tests Start: 03/23/24 07:35 Freq: Status: Active Protocol: Document 03/23/24 07:36 NM (Rec: 03/23/24 12:12 NM [id number]) Functional Tests Five Times Sit to Stand Test Score able to complete 5 w/o AD, not formally timed Comments no pain reported, slight L lean, less WB on RLE w/ boot donned PT-OP-F Manual Assessment Start: 03/23/24 07:35 Freq: Status: Active Protocol: Document 03/23/24 07:36 NM (Rec: 03/23/24 12:12 NM [id number]) Manual Assessments Soft Tissue Assessment Soft Tissue Mobility Assessment Scars intact, slight adhesions to skin. Pt has limitations in R Achilles length, has swelling across ankle Joint Mobility Assessment Joint Mobility Assessment Limited 1st ray mobility, toe extension and flexion with PROM PT-OP-G Mobility & Gait Start: 03/23/24 07:35 Freq: Status: Active Protocol: Document 03/23/24 07:36 NM (Rec: 03/23/24 12:12 NM [id number]) OP Gait Assessment Gait Gait Assistance Required: Independent Distance (Feet) 200 Able to Maintain Weight Bearing Status Yes During Gait Assistive Devices Assistive Device Straight Cane Gait Deviations General Gait Pattern Antalgic,Flexed Trunk Factors Limiting Gait Function Factors Limiting Gait Function Decreased Activity Tolerance, Decreased Sensation,Decreased Strength,Limited Range of Motion Comments Gait Comments Using spc primarily for balance as needed. Pt able to ambulate w/o AD and w/o pain in R ankle for short distances at 100% WB in boot. Demos slight L hip drop with R stance, L trunk and leg lean due to uneven WB while in boot leading to slight increase in L back pain PT-OP-J Posture/Palpation/Skin Start: 03/23/24 07:35 Freq: Status: Active Protocol: Document 03/23/24 07:36 NM (Rec: 03/23/24 12:12 NM [id number]) Posture Evaluation Position Standing Head/C-Spine Posture Forward Head L-Spine Posture Increased Lordosis Arm Posture (L) Externally Rotated,(R) Externally Rotated Pelvis Posture Anteriorly Tilted Weight Distribution Weight Shifted Left,Decreased Wt.Bear on (R) Hip Posture (L) Externally Rotated,(R) Externally Rotated Knee Posture (L) Genu Valgus,(R) Genu Valgus Ankle/Foot Posture (L) Pronated Foot Arch (L) Low Arch Palpation Assessment Location R ankle/foot Palpation Details Mild tenderness along medial ankle near posterior tibialis tendon, but denies pain. No tenderness along scars, but slight tenderness along anterior ankle near talocrural junction Skin Assessment Circumference Measurement R calf Location midway between patella and ankle mortise (17cm) Measurement (Centimeters) 34 Comments L calf 17 cm for comparison R ankle/foot Location figure 8 53 cm; 24 cm at malleoli Comments overall edema of foot > ankle to mid calf Incisional Assessment Incision Appearance/Comments All incisions intact, healing well with no signs of infection. Slight adhesions to underlying skin. Scab present only along medial ankle at one proximal point Other Assessments Skin Assessment Comments Increased rubor with dependency PT-OP-K Range of Motion Start: 03/23/24 07:35 Freq: Status: Active Protocol: Document 06/15/24 08:11 NM (Rec: 06/15/24 08:12 NM [id number]) Ankle and Foot Goniometric Range of Motion Ankle and Foot Right Dorsiflexion with Knee Flexed 10 Plantarflexion 47 Inversion 28 Eversion 12 Comments IE: 4 deg DF, 36 deg PF; No pain with AROM 04/13/24: 8 deg DF, 40 deg PF 04/25/24: 10 deg DF, 45 deg PF, 30 deg inversion, 10 deg eversion 05/23/24: 10 deg DF, 45 deg PF 06/15/24: 10 dF, 47 PF, 28 inv, 12 eversion Left Dorsiflexion with Knee Flexed 8 Plantarflexion 45 Inversion 30 Eversion 15 PT-OP-M Strength Start: 03/23/24 07:35 Freq: Status: Active Protocol: Document 06/15/24 08:11 NM (Rec: 06/15/24 08:12 NM [id number]) Hip Strength Hip Manual Muscle Testing Left Flexion (L2) 4 Good Extension (S1) 4 Good Abduction 4 Good Adduction 4 Good External Rotation 4 Good Internal Rotation 4 Good Right Flexion (L2) 4 Good Extension (S1) 4- Good- Abduction 4- Good- Adduction 4 Good External Rotation 4 Good Internal Rotation 4 Good Knee Strength Knee Manual Muscle Testing Left Flexion (S2) 4 Good Extension (L3) 4 Good Right Flexion (S2) 4 Good Extension (L3) 4 Good Ankle/Foot Strength Ankle and Foot Manual Muscle Testing Right Dorsiflexion (L4) 4 Good Plantarflexion (S1) 3- Fair- Inversion 4 Good Eversion (S1) 4 Good Comments IE: 3/5, Tested against gravity in sitting without due to surgical repair ( plantarflexion tested in sitting) 04/25/24: 4-/5 for all, tested in sitting 05/23/24: 4-/5 for all, no pain with resisted motion; tested in sitting 06/15/24: no pain with resisted testing; PF tested in sitting ; can do 1 SL heel raise with small ROM Left Dorsiflexion (L4) 4 Good Plantarflexion (S1) 3- Fair- Inversion 4 Good Eversion (S1) 4 Good Comments plantarflexion tested in sitting at IE Can do 1 mid-range heel raise single leg PT-OP-Q Treatments Start: 03/23/24 07:35 Freq: Status: Active Protocol: Document 06/22/24 09:03 NM (Rec: 06/22/24 09:46 NM [id number]) Gym Equipment Shuttle Recovery unilateral squat Details cued TKE, alignment of knee/ ankle Resistance 75# Shuttle Recovery Platform Stable Reps/Time 3x15 R only Therapeutic Exercises Standing Exercises step down Standing Exercise Name 1. eccentric fwd, 2. lateral Side bilateral Equipment Used 4 step; hand support (1 finger) Reps/Minutes 1. 8 ea, 2. 2x8 (better control) Comments verbal/tactile cues at hip for level pelvis hip 3 way Standing Exercise Name with single leg squat (knee bent)- HEP review Side bilateral Resistance AROM Equipment Used no hand support; hands on hips Reps/Minutes 10 ea Comments challenging; improved squat w/ rep; demos instab at knee heel raise Standing Exercise Name 1. trialed- on 4 step, 2. soleus raise on level ground Side bilateral Equipment Used B hand support; cued no rock fwd Reps/Minutes 1. 2x10, 2. 10 soleus is challenging Comments pain free; cued to scoot met heads slightly more fwd for comfort Neuro Re-Education Treatment Balance Activities foam Comments 1. SLS for time: 2x30 ea leg prn foot placement down for balance 2. stance w/ eyes closed, 2x30 3. stance w/ head turns, 60 ea 4. stance with vertical nods, 60 5. stance w/ eyes open, 60 Tandem Details close SBA Comments 1. stepping, 3x10 ft ea 2. stance, 30 ea PT-OP-T Assessment and Plan Start: 03/23/24 07:35 Freq: Status: Active Protocol: Document 06/22/24 09:03 NM (Rec: 06/22/24 09:46 NM [id number]) Physical Therapy Assessment Goals Five Impairment Impaired balance: DGI 17, R SLS 3 sec; s/p 1 fall since IE Correction Goal (LTG) Pt will improve DGI > and R SLS time to at least 10 seconds without hand support or LOB in order to decrease fall risk LTG Duration 12 weeks Four Impairment impairments in R Achilles tendon due to lengthening Short Term Goal (STG) If appropriate, pt will be able to perform at least 10 bilateral heel raises without compensation or increase in baseline pain in order to demonstrate improved gait mechanics and propulsion 04/25/23: pain free but able to perform 8 B heel raises 05/23/24: did 2x10 B heel raises w/o pain, limited ROM STG Duration 8 weeks MET Glass Cleaner Goal (LTG) If appropriate, pt will be able to perform at least 5 single leg heel raises using R foot without compensation or increase in baseline pain in order to demonstrate improved gait mechanics and propulsion 06/15/24: Pt can perform 1 with only 3 cm heel lift from ground; unable to perform with full ROM at this time due to weakness in R plantarflexor strength LTG Duration 12 weeks PROGRESSING 06/15, NOT MET 06/15 Three Impairment gait impaired Short Term Goal (STG) Pt will normalize gait mechanics without AD or boot in order to demonstrate improvements in QOL and mobility 04/25/23: ambulating w/o a boot , reports slight toe pain with stepping 05/23/24: pt demonstrates more normalized gait mechanics with shoe STG Duration 4 weeks MET Correction Goal (LTG) Pt will report ambulation > 30 minutes distance or time due to R foot/ankle mobility, strength, or pain in order to demonstrate improved QOL and mobility 06/15/24: Pt reports that she is limited to 15 minutes due to ankle stiffness/weakness, decreased endurance LTG Duration 12 weeks NOT MET 06/15; GOAL UPDATED 06/15 Two Impairment global ankle strength limited Short Term Goal (STG) Pt will increase global R ankle strength to at least 4/5 MMT in order to demonstrate improved ankle stability during gait, stance, and pickle ball if appropriate 04/25/24: 4-/5 for all when tested in sitting 05/23/24: 4-/5; tested in sitting 06/15/24: 4/5 for all except plantarflexion STG Duration 8 weeks PROGRESSING Correction Goal (LTG) Pt will increase global R ankle strength to at least 4+/ 5 MMT in order to demonstrate improved ankle stability during gait, stance, and pickle ball if appropriate 06/15/24: 4/5 for all except plantarflexion LTG Duration 12 weeks PARTIALLY MET, NOT MET 06/15 One Impairment AROM- R ankle dorsiflexion 4 deg, R ankle plantarflexion 36 deg Short Term Goal (STG) Pt will improve R ankle dorsiflexion AROM to least 8 deg and R ankle plantarflexion AROM to at least 40 deg in order to demonstrate improved mobility for gait and participation in recreational activities 04/25/24: 10 deg ankle DF, 45 deg PF 05/23/24: 10 deg ankle DF, 45 deg PF STG Duration 8 weeks MET Correction Goal (LTG) Pt will improve R ankle dorsiflexion AROM and R ankle plantarflexion AROM to within 3 deg of contralateral limb in order to demonstrate improved mobility for gait and participation in recreational activities 06/15/24: MET for all LTG Duration 12 weeks MET Assessment Summary Assessment Pt tolerate session well. Demos limitations in quad and lumbopelvic control with eccentric step downs. Trialed soleus raises, which was challenging; can only perform through small ROM. Pt able to progress to B heel raises on 4 step with slight deficit range; position modified for comfort at arch. Able to progress to hip 3 way with smaller ROM but no hand support; demos mild instability but better minisquat position on stance limb. Physical Therapy Plan Frequency and Duration Frequency of Treatment 1-2x/wk Duration of treatment (weeks) 12 Plan of Care Start Date 06/15/24 Plan of Care End Date 09/07/24 Therapeutic Interventions Therapeutic Interventions Balance Training,Gait Training ,Home Exercise Program,Joint Mobilizations,Manual Therapy, Neuromuscular Re-education, Orthotic/Prosthetic Management ,Patient/Caregiver Education, Self-Care/Home Management, Sensory Integration,Soft Tissue Mobilization,Taping, Therapeutic Activities, Therapeutic Exercises Modalities Cold Pack/Ice Massage,Electric Stimulation,Hot Packs, Ultrasound Next Visit Focus/Plan Next Note Type Treatment Note Next Visit Plan Assess tolerance to soleus raise and stair heel raise (4 ). Retrial eccentric fwd step down, lateral step down- work on ankle and quad control. Cont leg press vs step up on 8 , add step up on [address], eccentric heel raise, Trial lunges with RLE leading only. Balance/proprioception: foam, rocker board, SLS time Manual prn: no instrument assisted STM, avoid healing incisions, gentle with tendon
--- NOTE | 2024-06-26 15:58 | PT.OTN ---
Physical Therapy Treatment Note PT-OP-A Visit Information Start: 03/23/24 07:35 Freq: Status: Active Protocol: Document 06/26/24 13:48 NBM (Rec: 06/26/24 14:37 NBM [id number]) Out-Patient Physical Therapy Visit Information Visit Information Visit Type Treatment Note Visit Note DOS: 01/09/24 Irina and Shivam ALEXANDRE after 19 visits Visit Start Time 13:48 Visit Stop Time 14:35 Visit Number 17 Number of PILLOWCASE FOLDER Visits 1 Evaluation Information Evaluation Date 03/23/24 Precautions Precautions DOS: 01/09/24 - R pes planus reconstruction, FDL transfer, posterior tibialis tendon repair, Achilles tendon lengthening Per referral: NWB 6 weeks post op, increased WB 25% ea week with arch support, boot with arch support until week 12 and /or follow up with surgeon PT-OP-B Current Condition Start: 03/23/24 07:35 Freq: Status: Active Protocol: Document 03/23/24 07:36 NM (Rec: 03/23/24 07:37 NM [id number]) Current Condition History of Current Condition Onset Date DOS 01/09/24 Current Complaints gait, mobility, ROM History of Current Condition Pt presents with R foot post pes planus with posterior tibialis repair, FDL transfer, achilles tendon lengthening surgery at 01/09/[address] Navarro. Currently 10 weeks and 5 days post -op. She has been using spc since 6 weeks and was instructed to be 50% weightbearing. She was NWB for 6 weeks. Xray at 6 weeks, no complications. Pt had surgery due to torn arch tendon/posterior tibialis tear, extreme rolling ankle in to pronation; she had a tendon transfer from her toes. She had a metal wedge that replaced the top of the boot. She had a gastrocnemius contracture, so lengthening of the R gastrocnemius performed as well. [place] removed at last appointment. Still in boot for 12 weeks with orthotic. She has a follow up on 04/06/[address] Navarro, planning to have an Xray at that time. Pt reports no pain, states pain has been well managed. She occasionally take tylenol for pain if she has achiness across the top of her ankle, usually after walking. States that her skin on her RLE has been hypersensitive ( also had after previous surgeries) and has been swelling a little; she has tried an onesimo bandage but not compression socks. Per pt report at last follow up with surgeon, Dr. Navarro ok'd her on gentle ROM for ankle, ices several times per day. PMH of knee replacement (L partial, R full). 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 A visitor surprised her for her birthday last weekend so she didn't do her exercises but did a lot of walking ([place] and [place]) which went well. She finds if she takes bigger steps she doesn't scuff her feet. PT-OP-Q Treatments Start: 03/23/24 07:35 Freq: Status: Active Protocol: Document 06/26/24 13:48 NBM (Rec: 06/26/24 14:37 NBM [id number]) Gym Equipment Shuttle Recovery unilateral squat Details cued TKE, alignment of knee/ ankle Resistance 75# Shuttle Recovery Platform Stable Reps/Time 3x15 R only Therapeutic Exercises Standing Exercises step down Standing Exercise Name 1. eccentric fwd, 2. lateral Side bilateral Equipment Used 4 step; hand support (1 finger) Reps/Minutes 1. 10 ea 2. x8 ea Comments verbal/tactile cues at hip for level pelvis DF mobilization Standing Exercise Name HEP review w/ skeletal model for edu Side right Resistance level 2 band providing PA mobilization Reps/Minutes 10 w/ 2 hold Comments cued band placement front of ankle under tongue of shoe, hold time Gait Training Gait Activity stairs Description ascending/descending Level of Assistance 1 finger touch>no UE support, SBA Surface firm Distance/Duration 4 x6 steps x2 ea Treatment Focus safety, LE alignment, weight acceptance, DF Neuro Re-Education Treatment Balance Activities Tandem Details close SBA Comments 1. stepping, 5x10 ft ea (cues for distant focal point, upright posture, full tandem R front L) 2. stance, L back 35, R back 26 SLS Details cues not to look down. Surface firm Equipment initiated with UE support Comments For time: 20 sec R, 30 sec L PT-OP-T Assessment and Plan Start: 03/23/24 07:35 Freq: Status: Active Protocol: Document 06/26/24 13:48 NBM (Rec: 06/26/24 14:37 NB [id number]) Physical Therapy Assessment Goals Five Impairment Impaired balance: DGI , R SLS 3 sec; s/p 1 fall since IE Skilled Nursing Goal (LTG) Pt will improve DGI > and R SLS time to at least 10 seconds without hand support or LOB in order to decrease fall risk LTG Duration 12 weeks Four Impairment impairments in R Achilles tendon due to lengthening Short Term Goal (STG) If appropriate, pt will be able to perform at least 10 bilateral heel raises without compensation or increase in baseline pain in order to demonstrate improved gait mechanics and propulsion 04/25/23: pain free but able to perform 8 B heel raises 05/23/24: did 2x10 B heel raises w/o pain, limited ROM STG Duration 8 weeks MET Dispute Specialist Goal (LTG) If appropriate, pt will be able to perform at least 5 single leg heel raises using R foot without compensation or increase in baseline pain in order to demonstrate improved gait mechanics and propulsion 06/15/24: Pt can perform 1 with only 3 cm heel lift from ground; unable to perform with full ROM at this time due to weakness in R plantarflexor strength LTG Duration 12 weeks PROGRESSING 06/15, NOT MET 06/15 Three Impairment gait impaired Short Term Goal (STG) Pt will normalize gait mechanics without AD or boot in order to demonstrate improvements in QOL and mobility 04/25/23: ambulating w/o a boot , reports slight toe pain with stepping 05/23/24: pt demonstrates more normalized gait mechanics with shoe STG Duration 4 weeks MET Dispute Specialist Goal (LTG) Pt will report ambulation > 30 minutes distance or time due to R foot/ankle mobility, strength, or pain in order to demonstrate improved QOL and mobility 06/15/24: Pt reports that she is limited to 15 minutes due to ankle stiffness/weakness, decreased endurance LTG Duration 12 weeks NOT MET 06/15; GOAL UPDATED 06/15 Two Impairment global ankle strength limited Short Term Goal (STG) Pt will increase global R ankle strength to at least 4/5 MMT in order to demonstrate improved ankle stability during gait, stance, and pickle ball if appropriate 04/25/24: 4-/5 for all when tested in sitting 05/23/24: 4-/5; tested in sitting 06/15/24: 4/5 for all except plantarflexion STG Duration 8 weeks PROGRESSING Skilled Nursing Goal (LTG) Pt will increase global R ankle strength to at least 4+/ 5 MMT in order to demonstrate improved ankle stability during gait, stance, and pickle ball if appropriate 06/15/24: 4/5 for all except plantarflexion LTG Duration 12 weeks PARTIALLY MET, NOT MET 06/15 One Impairment AROM- R ankle dorsiflexion 4 deg, R ankle plantarflexion 36 deg Short Term Goal (STG) Pt will improve R ankle dorsiflexion AROM to least 8 deg and R ankle plantarflexion AROM to at least 40 deg in order to demonstrate improved mobility for gait and participation in recreational activities 04/25/24: 10 deg ankle DF, 45 deg PF 05/23/24: 10 deg ankle DF, 45 deg PF STG Duration 8 weeks MET Dispute Specialist Goal (LTG) Pt will improve R ankle dorsiflexion AROM and R ankle plantarflexion AROM to within 3 deg of contralateral limb in order to demonstrate improved mobility for gait and participation in recreational activities 06/15/24: MET for all LTG Duration 12 weeks MET Assessment Summary Assessment Treatment focus on LE strengthening and balance. Irina requires tactile cues for level pelvis for step downs indicating gluteus medius weakness bilaterally but performance improves with cuing and repetition. She is able to progress from 1 finger touch on rail to no UE support with ascending and descending stairs and demos improving confidence with balance. Extra time spent edu to pt for purpose of DF mobilization to improve ankle stiffness, not for muscle stretching or strengthening, with use of skeletal model for instruction of theraband placement and pt expressing improved understanding. Physical Therapy Plan Frequency and Duration Frequency of Treatment 1-2x/wk Duration of treatment (weeks) 12 Plan of Care Start Date 06/15/24 Plan of Care End Date 09/07/24 Therapeutic Interventions Therapeutic Interventions Balance Training,Gait Training ,Home Exercise Program,Joint Mobilizations,Manual Therapy, Neuromuscular Re-education, Orthotic/Prosthetic Management ,Patient/Caregiver Education, Self-Care/Home Management, Sensory Integration,Soft Tissue Mobilization,Taping, Therapeutic Activities, Therapeutic Exercises Modalities Cold Pack/Ice Massage,Electric Stimulation,Hot Packs, Ultrasound Next Visit Focus/Plan Next Note Type Treatment Note Next Visit Plan Assess tolerance to soleus raise and stair heel raise (4 ). Retrial eccentric fwd step down, lateral step down- work on ankle and quad control. Cont leg press vs step up on 8 , add step up on [address] with squat, eccentric heel raise, Trial lunges with RLE leading only. Balance/proprioception: foam, rocker board, SLS time Manual prn: no instrument assisted STM, avoid healing incisions, gentle with tendon
--- NOTE | 2024-06-28 15:32 | PT.OTN ---
Current Diagnoses Flat foot [pes planus] (acquired), right foot (06/28/24) Stiffness of right ankle, not elsewhere classified (06/28/24) Pain in right foot (06/28/24) Other lack of coordination (06/28/24) Weakness (06/28/24) Physical Therapy Treatment Note PT-OP-A Visit Information Start: 03/23/24 07:35 Freq: Status: Active Protocol: Document 06/28/24 13:00 NM (Rec: 06/28/24 13:47 NM [id number]) Out-Patient Physical Therapy Visit Information Visit Information Visit Type Treatment Note Visit Note DOS: 01/09/24 Irina and Shivam ALEXANDRE after 19 visits Visit Start Time 13:06 Visit Stop Time 13:45 Visit Number 18 Evaluation Information Evaluation Date 03/23/24 Precautions Precautions DOS: 01/09/24 - R pes planus reconstruction, FDL transfer, posterior tibialis tendon repair, Achilles tendon lengthening Per referral: NWB 6 weeks post op, increased WB 25% ea week with arch support, boot with arch support until week 12 and /or follow up with surgeon PT-OP-B Current Condition Start: 03/23/24 07:35 Freq: Status: Active Protocol: Document 03/23/24 07:36 NM (Rec: 03/23/24 07:37 NM [id number]) Current Condition History of Current Condition Onset Date DOS 01/09/24 Current Complaints gait, mobility, ROM History of Current Condition Pt presents with R foot post pes planus with posterior tibialis repair, FDL transfer, achilles tendon lengthening surgery at 01/09/[address] Navarro. Currently 10 weeks and 5 days post -op. She has been using spc since 6 weeks and was instructed to be 50% weightbearing. She was NWB for 6 weeks. Xray at 6 weeks, no complications. Pt had surgery due to torn arch tendon/posterior tibialis tear, extreme rolling ankle in to pronation; she had a tendon transfer from her toes. She had a metal wedge that replaced the top of the boot. She had a gastrocnemius contracture, so lengthening of the R gastrocnemius performed as well. Abigail removed at last appointment. Still in boot for 12 weeks with orthotic. She has a follow up on 04/06/[address] Navarro, planning to have an Xray at that time. Pt reports no pain, states pain has been well managed. She occasionally take tylenol for pain if she has achiness across the top of her ankle, usually after walking. States that her skin on her RLE has been hypersensitive ( also had after previous surgeries) and has been swelling a little; she has tried an onesimo bandage but not compression socks. Per pt report at last follow up with surgeon, Dr. Navarro ok'd her on gentle ROM for ankle, ices several times per day. PMH of knee replacement (L partial, R full). 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 Pt forgot HEP, has been helping her patient. Has not been sleeping well, not due to pain . PT-OP-E Functional Tests Start: 03/23/24 07:35 Freq: Status: Active Protocol: Document 03/23/24 07:36 NM (Rec: 03/23/24 12:12 NM [id number]) Functional Tests Five Times Sit to Stand Test Score able to complete 5 w/o AD, not formally timed Comments no pain reported, slight L lean, less WB on RLE w/ boot donned PT-OP-F Manual Assessment Start: 03/23/24 07:35 Freq: Status: Active Protocol: Document 03/23/24 07:36 NM (Rec: 03/23/24 12:12 NM [id number]) Manual Assessments Soft Tissue Assessment Soft Tissue Mobility Assessment Scars intact, slight adhesions to skin. Pt has limitations in R Achilles length, has swelling across ankle Joint Mobility Assessment Joint Mobility Assessment Limited 1st ray mobility, toe extension and flexion with PROM PT-OP-G Mobility & Gait Start: 03/23/24 07:35 Freq: Status: Active Protocol: Document 03/23/24 07:36 NM (Rec: 03/23/24 12:12 NM [id number]) OP Gait Assessment Gait Gait Assistance Required: Independent Distance (Feet) 200 Able to Maintain Weight Bearing Status Yes During Gait Assistive Devices Assistive Device Straight Cane Gait Deviations General Gait Pattern Antalgic,Flexed Trunk Factors Limiting Gait Function Factors Limiting Gait Function Decreased Activity Tolerance, Decreased Sensation,Decreased Strength,Limited Range of Motion Comments Gait Comments Using spc primarily for balance as needed. Pt able to ambulate w/o AD and w/o pain in R ankle for short distances at 100% WB in boot. Demos slight L hip drop with R stance, L trunk and leg lean due to uneven WB while in boot leading to slight increase in L back pain PT-OP-J Posture/Palpation/Skin Start: 03/23/24 07:35 Freq: Status: Active Protocol: Document 03/23/24 07:36 NM (Rec: 03/23/24 12:12 NM [id number]) Posture Evaluation Position Standing Head/C-Spine Posture Forward Head L-Spine Posture Increased Lordosis Arm Posture (L) Externally Rotated,(R) Externally Rotated Pelvis Posture Anteriorly Tilted Weight Distribution Weight Shifted Left,Decreased Wt.Bear on (R) Hip Posture (L) Externally Rotated,(R) Externally Rotated Knee Posture (L) Genu Valgus,(R) Genu Valgus Ankle/Foot Posture (L) Pronated Foot Arch (L) Low Arch Palpation Assessment Location R ankle/foot Palpation Details Mild tenderness along medial ankle near posterior tibialis tendon, but denies pain. No tenderness along scars, but slight tenderness along anterior ankle near talocrural junction Skin Assessment Circumference Measurement R calf Location midway between patella and ankle mortise (17cm) Measurement (Centimeters) 34 Comments L calf 17 cm for comparison R ankle/foot Location figure 8 53 cm; 24 cm at malleoli Comments overall edema of foot > ankle to mid calf Incisional Assessment Incision Appearance/Comments All incisions intact, healing well with no signs of infection. Slight adhesions to underlying skin. Scab present only along medial ankle at one proximal point Other Assessments Skin Assessment Comments Increased rubor with dependency PT-OP-K Range of Motion Start: 03/23/24 07:35 Freq: Status: Active Protocol: Document 06/15/24 08:11 NM (Rec: 06/15/24 08:12 NM [id number]) Ankle and Foot Goniometric Range of Motion Ankle and Foot Right Dorsiflexion with Knee Flexed 10 Plantarflexion 47 Inversion 28 Eversion 12 Comments IE: 4 deg DF, 36 deg PF; No pain with AROM 04/13/24: 8 deg DF, 40 deg PF 04/25/24: 10 deg DF, 45 deg PF, 30 deg inversion, 10 deg eversion 05/23/24: 10 deg DF, 45 deg PF 06/15/24: 10 dF, 47 PF, 28 inv, 12 eversion Left Dorsiflexion with Knee Flexed 8 Plantarflexion 45 Inversion 30 Eversion 15 PT-OP-M Strength Start: 03/23/24 07:35 Freq: Status: Active Protocol: Document 06/15/24 08:11 NM (Rec: 06/15/24 08:12 NM [id number]) Hip Strength Hip Manual Muscle Testing Left Flexion (L2) 4 Good Extension (S1) 4 Good Abduction 4 Good Adduction 4 Good External Rotation 4 Good Internal Rotation 4 Good Right Flexion (L2) 4 Good Extension (S1) 4- Good- Abduction 4- Good- Adduction 4 Good External Rotation 4 Good Internal Rotation 4 Good Knee Strength Knee Manual Muscle Testing Left Flexion (S2) 4 Good Extension (L3) 4 Good Right Flexion (S2) 4 Good Extension (L3) 4 Good Ankle/Foot Strength Ankle and Foot Manual Muscle Testing Right Dorsiflexion (L4) 4 Good Plantarflexion (S1) 3- Fair- Inversion 4 Good Eversion (S1) 4 Good Comments IE: 3/5, Tested against gravity in sitting without due to surgical repair ( plantarflexion tested in sitting) 04/25/24: 4-/5 for all, tested in sitting 05/23/24: 4-/5 for all, no pain with resisted motion; tested in sitting 06/15/24: no pain with resisted testing; PF tested in sitting ; can do 1 SL heel raise with small ROM Left Dorsiflexion (L4) 4 Good Plantarflexion (S1) 3- Fair- Inversion 4 Good Eversion (S1) 4 Good Comments plantarflexion tested in sitting at IE Can do 1 mid-range heel raise single leg PT-OP-Q Treatments Start: 03/23/24 07:35 Freq: Status: Active Protocol: Document 06/28/24 13:00 NM (Rec: 06/28/24 13:47 NM [id number]) Therapeutic Exercises Standing Exercises lunge Standing Exercise Name stationary: RLE leading 1st, LLE leading 1st Side bilateral Equipment Used no hand support Reps/Minutes 2x10 ea Comments cued feet alignment, less flat footed; no pain in R foot/ arch step down Standing Exercise Name 1. eccentric fwd, 2. lateral Side bilateral Resistance level 2 band at thighs to limit valgus Equipment Used 4 step; hand support (1 finger) Reps/Minutes 1. 2x10 ea 2. x10 ea Comments verbal/tactile cues at hip for level pelvis heel raise Standing Exercise Name 1. trialed- on 4 step, 2. soleus raise on level ground Side bilateral Resistance 2.2# ball at ankles for gastroc only Equipment Used B hand support; cued no rock fwd; ball btwn ankles Reps/Minutes 1. 2x15, 2. 2x10 soleus is challenging Comments pain free; cued to scoot met heads slightly more fwd for comfort Neuro Re-Education Treatment Balance Activities bosu Surface blue dome up Equipment hand support on rail to ascend /descent Reps/Duration 8 minutes Comments 1. stance 2. squats 3. lateral lunge w/ foot elevated on bolster Cued to look up. CGA to steady SLS Details clock (12, 2, 3, 5, 6, 8) Surface firm Equipment no hand support but hovering Reps/Duration 5 reps ea direction Comments Performing BLE PT-OP-T Assessment and Plan Start: 03/23/24 07:35 Freq: Status: Active Protocol: Document 06/28/24 13:00 NM (Rec: 06/28/24 13:47 NM [id number]) Physical Therapy Assessment Goals Five Impairment Impaired balance: DGI , R SLS 3 sec; s/p 1 fall since IE [employer]idential [employer] Goal (LTG) Pt will improve DGI > and R SLS time to at least 10 seconds without hand support or LOB in order to decrease fall risk LTG Duration 12 weeks Four Impairment impairments in R Achilles tendon due to lengthening Short Term Goal (STG) If appropriate, pt will be able to perform at least 10 bilateral heel raises without compensation or increase in baseline pain in order to demonstrate improved gait mechanics and propulsion 04/25/23: pain free but able to perform 8 B heel raises 05/23/24: did 2x10 B heel raises w/o pain, limited ROM STG Duration 8 weeks MET Care Home Goal (LTG) If appropriate, pt will be able to perform at least 5 single leg heel raises using R foot without compensation or increase in baseline pain in order to demonstrate improved gait mechanics and propulsion 06/15/24: Pt can perform 1 with only 3 cm heel lift from ground; unable to perform with full ROM at this time due to weakness in R plantarflexor strength LTG Duration 12 weeks PROGRESSING 06/15, NOT MET 06/15 Three Impairment gait impaired Short Term Goal (STG) Pt will normalize gait mechanics without AD or boot in order to demonstrate improvements in QOL and mobility 04/25/23: ambulating w/o a boot , reports slight toe pain with stepping 05/23/24: pt demonstrates more normalized gait mechanics with shoe STG Duration 4 weeks MET [employer] Goal (LTG) Pt will report ambulation > 30 minutes distance or time due to R foot/ankle mobility, strength, or pain in order to demonstrate improved QOL and mobility 06/15/24: Pt reports that she is limited to 15 minutes due to ankle stiffness/weakness, decreased endurance LTG Duration 12 weeks NOT MET 06/15; GOAL UPDATED 06/15 Two Impairment global ankle strength limited Short Term Goal (STG) Pt will increase global R ankle strength to at least 4/5 MMT in order to demonstrate improved ankle stability during gait, stance, and pickle ball if appropriate 04/25/24: 4-/5 for all when tested in sitting 05/23/24: 4-/5; tested in sitting 06/15/24: 4/5 for all except plantarflexion STG Duration 8 weeks PROGRESSING Care Home Goal (LTG) Pt will increase global R ankle strength to at least 4+/ 5 MMT in order to demonstrate improved ankle stability during gait, stance, and pickle ball if appropriate 06/15/24: 4/5 for all except plantarflexion LTG Duration 12 weeks PARTIALLY MET, NOT MET 06/15 One Impairment AROM- R ankle dorsiflexion 4 deg, R ankle plantarflexion 36 deg Short Term Goal (STG) Pt will improve R ankle dorsiflexion AROM to least 8 deg and R ankle plantarflexion AROM to at least 40 deg in order to demonstrate improved mobility for gait and participation in recreational activities 04/25/24: 10 deg ankle DF, 45 deg PF 05/23/24: 10 deg ankle DF, 45 deg PF STG Duration 8 weeks MET Care Home Goal (LTG) Pt will improve R ankle dorsiflexion AROM and R ankle plantarflexion AROM to within 3 deg of contralateral limb in order to demonstrate improved mobility for gait and participation in recreational activities 06/15/24: MET for all LTG Duration 12 weeks MET Assessment Summary Assessment Initiated stationary lunges; limited ROM but no pain in R foot, only a mild stretch. Continued with glute/quad strengthening and anterior translation of tibia over talocrural joint with eccentric step downs. Challenging for pt to maintain level pelvis, demos knee valgus that improved with tactile cue from band. Soleus raise continues to be most challenging form. Educated on rationale of strengthening both calf muscles. Unstable surfaces challenging for pt; trial bosu with emphasis on decreasing visual input. Recommended against daily walks on beach at this time due to discomfort at ankle with work on unstable surfaces in PT at times. Pt would benefit from skilled PT for R ankle/foot strengthening in order to improve functional mobility and balance on stable /unstable surfaces in order to return to ambulating on beach . Physical Therapy Plan Frequency and Duration Frequency of Treatment 1-2x/wk Duration of treatment (weeks) 12 Plan of Care Start Date 06/15/24 Plan of Care End Date 09/07/24 Therapeutic Interventions Therapeutic Interventions Balance Training,Gait Training ,Home Exercise Program,Joint Mobilizations,Manual Therapy, Neuromuscular Re-education, Orthotic/Prosthetic Management ,Patient/Caregiver Education, Self-Care/Home Management, Sensory Integration,Soft Tissue Mobilization,Taping, Therapeutic Activities, Therapeutic Exercises Modalities Cold Pack/Ice Massage,Electric Stimulation,Hot Packs, Ultrasound Next Visit Focus/Plan Next Note Type Treatment Note Next Visit Plan Assess tolerance to soleus raise and stair heel raise (4 ). Retrial eccentric fwd step down, lateral step down- work on ankle and quad control. Cont single leg press vs step up on 8, add step up on 4 with foam. Cont with lunges ( can progress to stepping depending on control), add lateral lunges. increase ankle inversion/eversion with band trial eccentric heel raise Balance/proprioception: foam, rocker board, SLS time Manual prn: no instrument assisted STM, avoid healing incisions, gentle with tendon
--- NOTE | 2024-07-03 17:15 | PT.OTN ---
Current Diagnoses Flat foot [pes planus] (acquired), right foot (07/03/24) Stiffness of right ankle, not elsewhere classified (07/03/24) Pain in right foot (07/03/24) Other lack of coordination (07/03/24) Weakness (07/03/24) Physical Therapy Treatment Note PT-OP-A Visit Information Start: 03/23/24 07:35 Freq: Status: Active Protocol: Document 07/03/24 14:44 NBM (Rec: 07/03/24 17:13 NBM [id number]) Out-Patient Physical Therapy Visit Information Visit Information Visit Type Treatment Note Visit Note DOS: 01/09/24 Irina and Shivam ALEXANDRE after 19 visits Visit Start Time 14:35 Visit Stop Time 15:08 Visit Number 19 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 Evaluation Information Evaluation Date 03/23/24 Precautions Precautions DOS: 01/09/24 - R pes planus reconstruction, FDL transfer, posterior tibialis tendon repair, Achilles tendon lengthening Per referral: NWB 6 weeks post op, increased WB 25% ea week with arch support, boot with arch support until week 12 and /or follow up with surgeon PT-OP-B Current Condition Start: 03/23/24 07:35 Freq: Status: Active Protocol: Document 03/23/24 07:36 NM (Rec: 03/23/24 07:37 NM [id number]) Current Condition History of Current Condition Onset Date DOS 01/09/24 Current Complaints gait, mobility, ROM History of Current Condition Pt presents with R foot post pes planus with posterior tibialis repair, FDL transfer, achilles tendon lengthening surgery at 01/09/[address] Navarro. Currently 10 weeks and 5 days post -op. She has been using spc since 6 weeks and was instructed to be 50% weightbearing. She was NWB for 6 weeks. Xray at 6 weeks, no complications. Pt had surgery due to torn arch tendon/posterior tibialis tear, extreme rolling ankle in to pronation; she had a tendon transfer from her toes. She had a metal wedge that replaced the top of the boot. She had a gastrocnemius contracture, so lengthening of the R gastrocnemius performed as well. [place] removed at last appointment. Still in boot for 12 weeks with orthotic. She has a follow up on 04/06/[address] Navarro, planning to have an Xray at that time. Pt reports no pain, states pain has been well managed. She occasionally take tylenol for pain if she has achiness across the top of her ankle, usually after walking. States that her skin on her RLE has been hypersensitive ( also had after previous surgeries) and has been swelling a little; she has tried an onesimo bandage but not compression socks. Per pt report at last follow up with surgeon, Dr. Navarro ok'd her on gentle ROM for ankle, ices several times per day. PMH of knee replacement (L partial, R full). 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 She's still using the board she has at home for ankle range of motion. The eccentric heel raises are still hard. She still has R ankle stiffness but doesn't feel comfortable to put her weight onto her R foot on the foot stool at home to do the joint mobilization in case she tips over, so she's putting her foot up but keeping her weight on the back foot. She isn't sure how to do 3-way hip ex because the pictures are confusing. She's been doing lateral step downs and step ups and back down every day. Patient Reported Progress Improving PT-OP-E Functional Tests Start: 03/23/24 07:35 Freq: Status: Active Protocol: Document 03/23/24 07:36 NM (Rec: 03/23/24 12:12 NM [id number]) Functional Tests Five Times Sit to Stand Test Score able to complete 5 w/o AD, not formally timed Comments no pain reported, slight L lean, less WB on RLE w/ boot donned PT-OP-F Manual Assessment Start: 03/23/24 07:35 Freq: Status: Active Protocol: Document 03/23/24 07:36 NM (Rec: 03/23/24 12:12 NM [id number]) Manual Assessments Soft Tissue Assessment Soft Tissue Mobility Assessment Scars intact, slight adhesions to skin. Pt has limitations in R Achilles length, has swelling across ankle Joint Mobility Assessment Joint Mobility Assessment Limited 1st ray mobility, toe extension and flexion with PROM PT-OP-G Mobility & Gait Start: 03/23/24 07:35 Freq: Status: Active Protocol: Document 03/23/24 07:36 NM (Rec: 03/23/24 12:12 NM [id number]) OP Gait Assessment Gait Gait Assistance Required: Independent Distance (Feet) 200 Able to Maintain Weight Bearing Status Yes During Gait Assistive Devices Assistive Device Straight Cane Gait Deviations General Gait Pattern Antalgic,Flexed Trunk Factors Limiting Gait Function Factors Limiting Gait Function Decreased Activity Tolerance, Decreased Sensation,Decreased Strength,Limited Range of Motion Comments Gait Comments Using spc primarily for balance as needed. Pt able to ambulate w/o AD and w/o pain in R ankle for short distances at 100% WB in boot. Demos slight L hip drop with R stance, L trunk and leg lean due to uneven WB while in boot leading to slight increase in L back pain PT-OP-J Posture/Palpation/Skin Start: 03/23/24 07:35 Freq: Status: Active Protocol: Document 03/23/24 07:36 NM (Rec: 03/23/24 12:12 NM [id number]) Posture Evaluation Position Standing Head/C-Spine Posture Forward Head L-Spine Posture Increased Lordosis Arm Posture (L) Externally Rotated,(R) Externally Rotated Pelvis Posture Anteriorly Tilted Weight Distribution Weight Shifted Left,Decreased Wt.Bear on (R) Hip Posture (L) Externally Rotated,(R) Externally Rotated Knee Posture (L) Genu Valgus,(R) Genu Valgus Ankle/Foot Posture (L) Pronated Foot Arch (L) Low Arch Palpation Assessment Location R ankle/foot Palpation Details Mild tenderness along medial ankle near posterior tibialis tendon, but denies pain. No tenderness along scars, but slight tenderness along anterior ankle near talocrural junction Skin Assessment Circumference Measurement R calf Location midway between patella and ankle mortise (17cm) Measurement (Centimeters) 34 Comments L calf 17 cm for comparison R ankle/foot Location figure 8 53 cm; 24 cm at malleoli Comments overall edema of foot > ankle to mid calf Incisional Assessment Incision Appearance/Comments All incisions intact, healing well with no signs of infection. Slight adhesions to underlying skin. Scab present only along medial ankle at one proximal point Other Assessments Skin Assessment Comments Increased rubor with dependency PT-OP-K Range of Motion Start: 03/23/24 07:35 Freq: Status: Active Protocol: Document 06/15/24 08:11 NM (Rec: 06/15/24 08:12 NM [id number]) Ankle and Foot Goniometric Range of Motion Ankle and Foot Right Dorsiflexion with Knee Flexed 10 Plantarflexion 47 Inversion 28 Eversion 12 Comments IE: 4 deg DF, 36 deg PF; No pain with AROM 04/13/24: 8 deg DF, 40 deg PF 04/25/24: 10 deg DF, 45 deg PF, 30 deg inversion, 10 deg eversion 05/23/24: 10 deg DF, 45 deg PF 06/15/24: 10 dF, 47 PF, 28 inv, 12 eversion Left Dorsiflexion with Knee Flexed 8 Plantarflexion 45 Inversion 30 Eversion 15 PT-OP-M Strength Start: 03/23/24 07:35 Freq: Status: Active Protocol: Document 06/15/24 08:11 NM (Rec: 06/15/24 08:12 NM [id number]) Hip Strength Hip Manual Muscle Testing Left Flexion (L2) 4 Good Extension (S1) 4 Good Abduction 4 Good Adduction 4 Good External Rotation 4 Good Internal Rotation 4 Good Right Flexion (L2) 4 Good Extension (S1) 4- Good- Abduction 4- Good- Adduction 4 Good External Rotation 4 Good Internal Rotation 4 Good Knee Strength Knee Manual Muscle Testing Left Flexion (S2) 4 Good Extension (L3) 4 Good Right Flexion (S2) 4 Good Extension (L3) 4 Good Ankle/Foot Strength Ankle and Foot Manual Muscle Testing Right Dorsiflexion (L4) 4 Good Plantarflexion (S1) 3- Fair- Inversion 4 Good Eversion (S1) 4 Good Comments IE: 3/5, Tested against gravity in sitting without due to surgical repair ( plantarflexion tested in sitting) 04/25/24: 4-/5 for all, tested in sitting 05/23/24: 4-/5 for all, no pain with resisted motion; tested in sitting 06/15/24: no pain with resisted testing; PF tested in sitting ; can do 1 SL heel raise with small ROM Left Dorsiflexion (L4) 4 Good Plantarflexion (S1) 3- Fair- Inversion 4 Good Eversion (S1) 4 Good Comments plantarflexion tested in sitting at IE Can do 1 mid-range heel raise single leg PT-OP-Q Treatments Start: 03/23/24 07:35 Freq: Status: Active Protocol: Document 07/03/24 14:44 NBM (Rec: 07/03/24 17:13 [facility] [id number]) Therapeutic Exercises Standing Exercises hip 3 way Standing Exercise Name with single leg squat (knee bent)- HEP review but new pics given Side bilateral Resistance AROM Equipment Used hands on hips Reps/Minutes 10 ea Comments challenging; cues for squaring hips, toes fwd; improved squat w/ rep DF mobilization Side right Resistance level 2 band providing PA mobilization Reps/Minutes 10 w/ 2 hold Comments cued band placement front of ankle under tongue of shoe, hold time PT-OP-T Assessment and Plan Start: 03/23/24 07:35 Freq: Status: Active Protocol: Document 07/03/24 14:44 NB (Rec: 07/03/24 17:13 [facility] [id number]) Physical Therapy Assessment Goals Five Impairment Impaired balance: DGI , R SLS 3 sec; s/p 1 fall since IE Motel Operator Goal (LTG) Pt will improve DGI > and R SLS time to at least 10 seconds without hand support or LOB in order to decrease fall risk LTG Duration 12 weeks Four Impairment impairments in R Achilles tendon due to lengthening Short Term Goal (STG) If appropriate, pt will be able to perform at least 10 bilateral heel raises without compensation or increase in baseline pain in order to demonstrate improved gait mechanics and propulsion 04/25/23: pain free but able to perform 8 B heel raises 05/23/24: did 2x10 B heel raises w/o pain, limited ROM STG Duration 8 weeks MET Alf Goal (LTG) If appropriate, pt will be able to perform at least 5 single leg heel raises using R foot without compensation or increase in baseline pain in order to demonstrate improved gait mechanics and propulsion 06/15/24: Pt can perform 1 with only 3 cm heel lift from ground; unable to perform with full ROM at this time due to weakness in R plantarflexor strength LTG Duration 12 weeks PROGRESSING 06/15, NOT MET 06/15 Three Impairment gait impaired Short Term Goal (STG) Pt will normalize gait mechanics without AD or boot in order to demonstrate improvements in QOL and mobility 04/25/23: ambulating w/o a boot , reports slight toe pain with stepping 05/23/24: pt demonstrates more normalized gait mechanics with shoe STG Duration 4 weeks MET Motel Operator Goal (LTG) Pt will report ambulation > 30 minutes distance or time due to R foot/ankle mobility, strength, or pain in order to demonstrate improved QOL and mobility 06/15/24: Pt reports that she is limited to 15 minutes due to ankle stiffness/weakness, decreased endurance LTG Duration 12 weeks NOT MET 06/15; GOAL UPDATED 06/15 Two Impairment global ankle strength limited Short Term Goal (STG) Pt will increase global R ankle strength to at least 4/5 MMT in order to demonstrate improved ankle stability during gait, stance, and pickle ball if appropriate 04/25/24: 4-/5 for all when tested in sitting 05/23/24: 4-/5; tested in sitting 06/15/24: 4/5 for all except plantarflexion STG Duration 8 weeks PROGRESSING Alf Goal (LTG) Pt will increase global R ankle strength to at least 4+/ 5 MMT in order to demonstrate improved ankle stability during gait, stance, and pickle ball if appropriate 06/15/24: 4/5 for all except plantarflexion LTG Duration 12 weeks PARTIALLY MET, NOT MET 06/15 One Impairment AROM- R ankle dorsiflexion 4 deg, R ankle plantarflexion 36 deg Short Term Goal (STG) Pt will improve R ankle dorsiflexion AROM to least 8 deg and R ankle plantarflexion AROM to at least 40 deg in order to demonstrate improved mobility for gait and participation in recreational activities 04/25/24: 10 deg ankle DF, 45 deg PF 05/23/24: 10 deg ankle DF, 45 deg PF STG Duration 8 weeks MET Alf Goal (LTG) Pt will improve R ankle dorsiflexion AROM and R ankle plantarflexion AROM to within 3 deg of contralateral limb in order to demonstrate improved mobility for gait and participation in recreational activities 06/15/24: MET for all LTG Duration 12 weeks MET Assessment Summary Assessment Short session today per pt request due to schedule conflict. Irina presents with HEP handout and resistance bands. Treatment focus on HEP review of activities pt reports as challenging. She is able to perform DF mobilization on foot stool w/ Level 2 back safely without loss of balance x3 and is encouraged to perform at home for R ankle stiffness. She is able to perform R eccentric heel raises with minimal discomfort and is encouraged to continue at home and expresses agreement. She requires initial cueing for squaring hips and maintaining neutral foot position R>L but performance improves w/ cueing and repetition, and she is provided HO with new pictures for 3-way hip reach w/ single leg squat. Physical Therapy Plan Frequency and Duration Frequency of Treatment 1-2x/wk Duration of treatment (weeks) 12 Plan of Care Start Date 06/15/24 Plan of Care End Date 09/07/24 Therapeutic Interventions Therapeutic Interventions Balance Training,Gait Training ,Home Exercise Program,Joint Mobilizations,Manual Therapy, Neuromuscular Re-education, Orthotic/Prosthetic Management ,Patient/Caregiver Education, Self-Care/Home Management, Sensory Integration,Soft Tissue Mobilization,Taping, Therapeutic Activities, Therapeutic Exercises Modalities Cold Pack/Ice Massage,Electric Stimulation,Hot Packs, Ultrasound Next Visit Focus/Plan Next Note Type Treatment Note Next Visit Plan Assess tolerance to soleus raise and stair heel raise (4 ). Retrial eccentric fwd step down, lateral step down- work on ankle and quad control. Cont single leg press vs step up on 8, add step up on 4 with foam. Cont with lunges ( can progress to stepping depending on control), add lateral lunges. increase ankle inversion/eversion with band trial eccentric heel raise Balance/proprioception: foam, rocker board, SLS time Manual prn: no instrument assisted STM, avoid healing incisions, gentle with tendon
--- NOTE | 2024-07-06 12:39 | PT.OTN ---
Current Diagnoses Flat foot [pes planus] (acquired), right foot (07/06/24) Stiffness of right ankle, not elsewhere classified (07/06/24) Pain in right foot (07/06/24) Other lack of coordination (07/06/24) Weakness (07/06/24) Physical Therapy Treatment Note PT-OP-A Visit Information Start: 03/23/24 07:35 Freq: Status: Active Protocol: Document 07/06/24 11:40 NBM (Rec: 07/06/24 12:39 NBM [id number]) Out-Patient Physical Therapy Visit Information Visit Information Visit Type Treatment Note Visit Note DOS: 01/09/24 Irina and Shivam ALEXANDRE after 19 visits Visit Start Time 11:40 Visit Stop Time 12:23 Visit Number 20 Number of FINISHER COLD ROLLING Visits 2 Evaluation Information Evaluation Date 03/23/24 Precautions Precautions DOS: 01/09/24 - R pes planus reconstruction, FDL transfer, posterior tibialis tendon repair, Achilles tendon lengthening Per referral: NWB 6 weeks post op, increased WB 25% ea week with arch support, boot with arch support until week 12 and /or follow up with surgeon PT-OP-B Current Condition Start: 03/23/24 07:35 Freq: Status: Active Protocol: Document 03/23/24 07:36 NM (Rec: 03/23/24 07:37 NM [id number]) Current Condition History of Current Condition Onset Date DOS 01/09/24 Current Complaints gait, mobility, ROM History of Current Condition Pt presents with R foot post pes planus with posterior tibialis repair, FDL transfer, achilles tendon lengthening surgery at 01/09/[address] Navarro. Currently 10 weeks and 5 days post -op. She has been using spc since 6 weeks and was instructed to be 50% weightbearing. She was NWB for 6 weeks. Xray at 6 weeks, no complications. Pt had surgery due to torn arch tendon/posterior tibialis tear, extreme rolling ankle in to pronation; she had a tendon transfer from her toes. She had a metal wedge that replaced the top of the boot. She had a gastrocnemius contracture, so lengthening of the R gastrocnemius performed as well. Brumley removed at last appointment. Still in boot for 12 weeks with orthotic. She has a follow up on 04/06/[address] Navarro, planning to have an Xray at that time. Pt reports no pain, states pain has been well managed. She occasionally take tylenol for pain if she has achiness across the top of her ankle, usually after walking. States that her skin on her RLE has been hypersensitive ( also had after previous surgeries) and has been swelling a little; she has tried an onesimo bandage but not compression socks. Per pt report at last follow up with surgeon, Dr. Navarro ok'd her on gentle ROM for ankle, ices several times per day. PMH of knee replacement (L partial, R full). 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 Her back bothrers her more now and she wonders about starting PT for her back and if she's plateauing with her foot. She has a cortisone shot for back on 07/24 and sees PCP Tuesday - To be honest it's the back impacting my life more than my foot now. My balance feels better. Patient Reported Progress Improving PT-OP-E Functional Tests Start: 03/23/24 07:35 Freq: Status: Active Protocol: Document 03/23/24 07:36 NM (Rec: 03/23/24 12:12 NM [id number]) Functional Tests Five Times Sit to Stand Test Score able to complete 5 w/o AD, not formally timed Comments no pain reported, slight L lean, less WB on RLE w/ boot donned PT-OP-F Manual Assessment Start: 03/23/24 07:35 Freq: Status: Active Protocol: Document 03/23/24 07:36 NM (Rec: 03/23/24 12:12 NM [id number]) Manual Assessments Soft Tissue Assessment Soft Tissue Mobility Assessment Scars intact, slight adhesions to skin. Pt has limitations in R Achilles length, has swelling across ankle Joint Mobility Assessment Joint Mobility Assessment Limited 1st ray mobility, toe extension and flexion with PROM PT-OP-G Mobility & Gait Start: 03/23/24 07:35 Freq: Status: Active Protocol: Document 03/23/24 07:36 NM (Rec: 03/23/24 12:12 NM [id number]) OP Gait Assessment Gait Gait Assistance Required: Independent Distance (Feet) 200 Able to Maintain Weight Bearing Status Yes During Gait Assistive Devices Assistive Device Straight Cane Gait Deviations General Gait Pattern Antalgic,Flexed Trunk Factors Limiting Gait Function Factors Limiting Gait Function Decreased Activity Tolerance, Decreased Sensation,Decreased Strength,Limited Range of Motion Comments Gait Comments Using spc primarily for balance as needed. Pt able to ambulate w/o AD and w/o pain in R ankle for short distances at 100% WB in boot. Demos slight L hip drop with R stance, L trunk and leg lean due to uneven WB while in boot leading to slight increase in L back pain PT-OP-J Posture/Palpation/Skin Start: 03/23/24 07:35 Freq: Status: Active Protocol: Document 03/23/24 07:36 NM (Rec: 03/23/24 12:12 NM [id number]) Posture Evaluation Position Standing Head/C-Spine Posture Forward Head L-Spine Posture Increased Lordosis Arm Posture (L) Externally Rotated,(R) Externally Rotated Pelvis Posture Anteriorly Tilted Weight Distribution Weight Shifted Left,Decreased Wt.Bear on (R) Hip Posture (L) Externally Rotated,(R) Externally Rotated Knee Posture (L) Genu Valgus,(R) Genu Valgus Ankle/Foot Posture (L) Pronated Foot Arch (L) Low Arch Palpation Assessment Location R ankle/foot Palpation Details Mild tenderness along medial ankle near posterior tibialis tendon, but denies pain. No tenderness along scars, but slight tenderness along anterior ankle near talocrural junction Skin Assessment Circumference Measurement R calf Location midway between patella and ankle mortise (17cm) Measurement (Centimeters) 34 Comments L calf 17 cm for comparison R ankle/foot Location figure 8 53 cm; 24 cm at malleoli Comments overall edema of foot > ankle to mid calf Incisional Assessment Incision Appearance/Comments All incisions intact, healing well with no signs of infection. Slight adhesions to underlying skin. Scab present only along medial ankle at one proximal point Other Assessments Skin Assessment Comments Increased rubor with dependency PT-OP-K Range of Motion Start: 03/23/24 07:35 Freq: Status: Active Protocol: Document 06/15/24 08:11 NM (Rec: 06/15/24 08:12 NM [id number]) Ankle and Foot Goniometric Range of Motion Ankle and Foot Right Dorsiflexion with Knee Flexed 10 Plantarflexion 47 Inversion 28 Eversion 12 Comments IE: 4 deg DF, 36 deg PF; No pain with AROM 04/13/24: 8 deg DF, 40 deg PF 04/25/24: 10 deg DF, 45 deg PF, 30 deg inversion, 10 deg eversion 05/23/24: 10 deg DF, 45 deg PF 06/15/24: 10 dF, 47 PF, 28 inv, 12 eversion Left Dorsiflexion with Knee Flexed 8 Plantarflexion 45 Inversion 30 Eversion 15 PT-OP-M Strength Start: 03/23/24 07:35 Freq: Status: Active Protocol: Document 06/15/24 08:11 NM (Rec: 06/15/24 08:12 NM [id number]) Hip Strength Hip Manual Muscle Testing Left Flexion (L2) 4 Good Extension (S1) 4 Good Abduction 4 Good Adduction 4 Good External Rotation 4 Good Internal Rotation 4 Good Right Flexion (L2) 4 Good Extension (S1) 4- Good- Abduction 4- Good- Adduction 4 Good External Rotation 4 Good Internal Rotation 4 Good Knee Strength Knee Manual Muscle Testing Left Flexion (S2) 4 Good Extension (L3) 4 Good Right Flexion (S2) 4 Good Extension (L3) 4 Good Ankle/Foot Strength Ankle and Foot Manual Muscle Testing Right Dorsiflexion (L4) 4 Good Plantarflexion (S1) 3- Fair- Inversion 4 Good Eversion (S1) 4 Good Comments IE: 3/5, Tested against gravity in sitting without due to surgical repair ( plantarflexion tested in sitting) 04/25/24: 4-/5 for all, tested in sitting 05/23/24: 4-/5 for all, no pain with resisted motion; tested in sitting 06/15/24: no pain with resisted testing; PF tested in sitting ; can do 1 SL heel raise with small ROM Left Dorsiflexion (L4) 4 Good Plantarflexion (S1) 3- Fair- Inversion 4 Good Eversion (S1) 4 Good Comments plantarflexion tested in sitting at IE Can do 1 mid-range heel raise single leg PT-OP-Q Treatments Start: 03/23/24 07:35 Freq: Status: Active Protocol: Document 07/06/24 11:40 NBM (Rec: 07/06/24 12:39 NBM [id number]) Therapeutic Exercises Standing Exercises lunge Standing Exercise Name 1.stationary: RLE leading 1st, LLE leading 1st 2.lateral - added to HEP Side bilateral Equipment Used no hand support Reps/Minutes x10 ea Comments cued foot positioning and hip hinge, pt self-corrects for neutral foot hip 3 way Standing Exercise Name with single leg squat (knee bent)- HEP review but new pics given Side bilateral Resistance AROM Equipment Used hands on hips Reps/Minutes 10 ea Comments challenging, pt demos improved awareness for squaring pelvis , neutral foot DF mobilization Standing Exercise Name verbal review heel raise Standing Exercise Name 1. trialed- on 4 step,-not today 2. soleus raise on level ground Side bilateral Resistance 2.2# ball at ankles for gastroc only Equipment Used B hand support; cued no rock fwd; ball btwn ankles Reps/Minutes 1. 2x15, 2. 2x10 soleus is challenging Comments pain free; cued to scoot met heads slightly more fwd for comfort Neuro Re-Education Treatment Balance Activities SLS Surface firm Equipment no hand support but hovering Reps/Duration 3 trials ea Comments L 17s,40s,29s; R 18s, 22s, 14s PT-OP-T Assessment and Plan Start: 03/23/24 07:35 Freq: Status: Active Protocol: Document 07/06/24 11:40 NBM (Rec: 07/06/24 12:39 NBM [id number]) Physical Therapy Assessment Goals Five Impairment Impaired balance: DGI 17, R SLS 3 sec; s/p 1 fall since IE Compliance Reviewer Goal (LTG) Pt will improve DGI > 19 and R SLS time to at least 10 seconds without hand support or LOB in order to decrease fall risk LTG Duration 12 weeks Four Impairment impairments in R Achilles tendon due to lengthening Short Term Goal (STG) If appropriate, pt will be able to perform at least 10 bilateral heel raises without compensation or increase in baseline pain in order to demonstrate improved gait mechanics and propulsion 04/25/23: pain free but able to perform 8 B heel raises 05/23/24: did 2x10 B heel raises w/o pain, limited ROM STG Duration 8 weeks MET Compliance Reviewer Goal (LTG) If appropriate, pt will be able to perform at least 5 single leg heel raises using R foot without compensation or increase in baseline pain in order to demonstrate improved gait mechanics and propulsion 06/15/24: Pt can perform 1 with only 3 cm heel lift from ground; unable to perform with full ROM at this time due to weakness in R plantarflexor strength LTG Duration 12 weeks PROGRESSING 06/15, NOT MET 06/15 Three Impairment gait impaired Short Term Goal (STG) Pt will normalize gait mechanics without AD or boot in order to demonstrate improvements in QOL and mobility 04/25/23: ambulating w/o a boot , reports slight toe pain with stepping 05/23/24: pt demonstrates more normalized gait mechanics with shoe STG Duration 4 weeks MET Compliance Reviewer Goal (LTG) Pt will report ambulation > 30 minutes distance or time due to R foot/ankle mobility, strength, or pain in order to demonstrate improved QOL and mobility 06/15/24: Pt reports that she is limited to 15 minutes due to ankle stiffness/weakness, decreased endurance LTG Duration 12 weeks NOT MET 06/15; GOAL UPDATED 06/15 Two Impairment global ankle strength limited Short Term Goal (STG) Pt will increase global R ankle strength to at least 4/5 MMT in order to demonstrate improved ankle stability during gait, stance, and pickle ball if appropriate 04/25/24: 4-/5 for all when tested in sitting 05/23/24: 4-/5; tested in sitting 06/15/24: 4/5 for all except plantarflexion STG Duration 8 weeks PROGRESSING Compliance Reviewer Goal (LTG) Pt will increase global R ankle strength to at least 4+/ 5 MMT in order to demonstrate improved ankle stability during gait, stance, and pickle ball if appropriate 06/15/24: 4/5 for all except plantarflexion LTG Duration 12 weeks PARTIALLY MET, NOT MET 06/15 One Impairment AROM- R ankle dorsiflexion 4 deg, R ankle plantarflexion 36 deg Short Term Goal (STG) Pt will improve R ankle dorsiflexion AROM to least 8 deg and R ankle plantarflexion AROM to at least 40 deg in order to demonstrate improved mobility for gait and participation in recreational activities 04/25/24: 10 deg ankle DF, 45 deg PF 05/23/24: 10 deg ankle DF, 45 deg PF STG Duration 8 weeks MET Detention Goal (LTG) Pt will improve R ankle dorsiflexion AROM and R ankle plantarflexion AROM to within 3 deg of contralateral limb in order to demonstrate improved mobility for gait and participation in recreational activities 06/15/24: MET for all LTG Duration 12 weeks MET Assessment Summary Assessment Treatment focus on hip and plantarflexor strengthening and single leg balance. Irina has decreased apprehension and improved confidence with HEP including DF mobilization and eccentric heel raise ex's. HEP is updated w/ note for 3-way hip reach to perform bilaterally, and lunges and lateral lunges w/ cues for hip hinge are added - HO given. Single leg balance shows improvement today since 06/15 from R 3s to 22s max and L 10s to 40s max. Extra time spent re: treatment plan for foot vs starting PT for back; per discussion with evaluating PT pt to be discharged from foot PT before starting PT for back and will discuss further at 07/11 apt with consideration for upcoming 07/24 cortisone injection for back pain. Physical Therapy Plan Frequency and Duration Frequency of Treatment 1-2x/wk Duration of treatment (weeks) 12 Plan of Care Start Date 06/15/24 Plan of Care End Date 09/07/24 Therapeutic Interventions Therapeutic Interventions Balance Training,Gait Training ,Home Exercise Program,Joint Mobilizations,Manual Therapy, Neuromuscular Re-education, Orthotic/Prosthetic Management ,Patient/Caregiver Education, Self-Care/Home Management, Sensory Integration,Soft Tissue Mobilization,Taping, Therapeutic Activities, Therapeutic Exercises Modalities Cold Pack/Ice Massage,Electric Stimulation,Hot Packs, Ultrasound Next Visit Focus/Plan Next Note Type Treatment Note Next Visit Plan Assess tolerance to soleus raise and stair heel raise (4 ). Retrial eccentric fwd step down, lateral step down- work on ankle and quad control. Cont single leg press vs step up on 8, add step up on 4 with foam. Cont with lunges ( can progress to stepping depending on control), add lateral lunges. increase ankle inversion/eversion with band trial eccentric heel raise Balance/proprioception: foam, rocker board, SLS time Manual prn: no instrument assisted STM, avoid healing incisions, gentle with tendon
--- NOTE | 2024-07-11 08:32 | PT-OP ANOTE ---
NO SHOW-PT called and left message for pt at 0830. PT informed pt of no show policy and informed pt that she would be discharged from PT if no shows again. Informed pt that she could reschedule to see a INVESTIGATIONS DIRECTOR today or PT Shannan tomorrow 07/12 as pt wanting to discuss possible discharge from working on foot to working on back. PT educated pt following INVESTIGATIONS DIRECTOR education at last session that pt has to see PT to determine whether pt to continue with foot vs discharge to be re-evaluated for her back. Reminded of next appt time 07/18.
--- NOTE | 2024-07-18 15:55 | PT.OTN ---
Current Diagnoses Flat foot [pes planus] (acquired), right foot (07/18/24) Stiffness of right ankle, not elsewhere classified (07/18/24) Pain in right foot (07/18/24) Other lack of coordination (07/18/24) Weakness (07/18/24) Physical Therapy Treatment Note PT-OP-A Visit Information Start: 03/23/24 07:35 Freq: Status: Active Protocol: Document 07/18/24 09:01 NM (Rec: 07/18/24 09:47 NM [id number]) Out-Patient Physical Therapy Visit Information Visit Information Visit Type Progress Note Visit Start Time 09:03 Visit Stop Time 09:45 Visit Number 21 Evaluation Information Evaluation Date 03/23/24 Precautions Precautions DOS: 01/09/24 - R pes planus reconstruction, FDL transfer, posterior tibialis tendon repair, Achilles tendon lengthening Per referral: NWB 6 weeks post op, increased WB 25% ea week with arch support, boot with arch support until week 12 and /or follow up with surgeon PT-OP-B Current Condition Start: 03/23/24 07:35 Freq: Status: Active Protocol: Document 03/23/24 07:36 NM (Rec: 03/23/24 07:37 NM [id number]) Current Condition History of Current Condition Onset Date DOS 01/09/24 Current Complaints gait, mobility, ROM History of Current Condition Pt presents with R foot post pes planus with posterior tibialis repair, FDL transfer, achilles tendon lengthening surgery at 01/09/[address] Navarro. Currently 10 weeks and 5 days post -op. She has been using spc since 6 weeks and was instructed to be 50% weightbearing. She was NWB for 6 weeks. Xray at 6 weeks, no complications. Pt had surgery due to torn arch tendon/posterior tibialis tear, extreme rolling ankle in to pronation; she had a tendon transfer from her toes. She had a metal wedge that replaced the top of the boot. She had a gastrocnemius contracture, so lengthening of the R gastrocnemius performed as well. [place] removed at last appointment. Still in boot for 12 weeks with orthotic. She has a follow up on 04/06/[address] Navarro, planning to have an Xray at that time. Pt reports no pain, states pain has been well managed. She occasionally take tylenol for pain if she has achiness across the top of her ankle, usually after walking. States that her skin on her RLE has been hypersensitive ( also had after previous surgeries) and has been swelling a little; she has tried an onesimo bandage but not compression socks. Per pt report at last follow up with surgeon, Dr. Navarro ok'd her on gentle ROM for ankle, ices several times per day. PMH of knee replacement (L partial, R full). 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 She reports that her back is more debilitating than her foot. She reports that MD states that her foot will take 6-12 months to recover. States her exercises at home 2x/wk. States does balancing exercises at home, toe stretches. She states she feels pretty good with exercises. She states that she crampy in the morning in the top of her foot (has been stretching into plantarflex as far as she can) and occasional when she goes up on her toes she feels the foreign body in her foot (base of big toe and top of foot). She states she is walking farther, she is doing stairs. She will be seeing Dr. Navarro in August. Will not be getting foreign body out; wants to build calf and endurance. PT-OP-E Functional Tests Start: 03/23/24 07:35 Freq: Status: Active Protocol: Document 03/23/24 07:36 NM (Rec: 03/23/24 12:12 NM [id number]) Functional Tests Five Times Sit to Stand Test Score able to complete 5 w/o AD, not formally timed Comments no pain reported, slight L lean, less WB on RLE w/ boot donned PT-OP-F Manual Assessment Start: 03/23/24 07:35 Freq: Status: Active Protocol: Document 03/23/24 07:36 NM (Rec: 03/23/24 12:12 NM [id number]) Manual Assessments Soft Tissue Assessment Soft Tissue Mobility Assessment Scars intact, slight adhesions to skin. Pt has limitations in R Achilles length, has swelling across ankle Joint Mobility Assessment Joint Mobility Assessment Limited 1st ray mobility, toe extension and flexion with PROM PT-OP-G Mobility & Gait Start: 03/23/24 07:35 Freq: Status: Active Protocol: Document 03/23/24 07:36 NM (Rec: 03/23/24 12:12 NM [id number]) OP Gait Assessment Gait Gait Assistance Required: Independent Distance (Feet) 200 Able to Maintain Weight Bearing Status Yes During Gait Assistive Devices Assistive Device Straight Cane Gait Deviations General Gait Pattern Antalgic,Flexed Trunk Factors Limiting Gait Function Factors Limiting Gait Function Decreased Activity Tolerance, Decreased Sensation,Decreased Strength,Limited Range of Motion Comments Gait Comments Using spc primarily for balance as needed. Pt able to ambulate w/o AD and w/o pain in R ankle for short distances at 100% WB in boot. Demos slight L hip drop with R stance, L trunk and leg lean due to uneven WB while in boot leading to slight increase in L back pain PT-OP-J Posture/Palpation/Skin Start: 03/23/24 07:35 Freq: Status: Active Protocol: Document 03/23/24 07:36 NM (Rec: 03/23/24 12:12 NM [id number]) Posture Evaluation Position Standing Head/C-Spine Posture Forward Head L-Spine Posture Increased Lordosis Arm Posture (L) Externally Rotated,(R) Externally Rotated Pelvis Posture Anteriorly Tilted Weight Distribution Weight Shifted Left,Decreased Wt.Bear on (R) Hip Posture (L) Externally Rotated,(R) Externally Rotated Knee Posture (L) Genu Valgus,(R) Genu Valgus Ankle/Foot Posture (L) Pronated Foot Arch (L) Low Arch Palpation Assessment Location R ankle/foot Palpation Details Mild tenderness along medial ankle near posterior tibialis tendon, but denies pain. No tenderness along scars, but slight tenderness along anterior ankle near talocrural junction Skin Assessment Circumference Measurement R calf Location midway between patella and ankle mortise (17cm) Measurement (Centimeters) 34 Comments L calf 17 cm for comparison R ankle/foot Location figure 8 53 cm; 24 cm at malleoli Comments overall edema of foot > ankle to mid calf Incisional Assessment Incision Appearance/Comments All incisions intact, healing well with no signs of infection. Slight adhesions to underlying skin. Scab present only along medial ankle at one proximal point Other Assessments Skin Assessment Comments Increased rubor with dependency PT-OP-K Range of Motion Start: 03/23/24 07:35 Freq: Status: Active Protocol: Document 07/18/24 09:01 NM (Rec: 07/18/24 09:47 NM [id number]) Ankle and Foot Goniometric Range of Motion Ankle and Foot Right Dorsiflexion with Knee Flexed 12 Plantarflexion 47 Inversion 30 Eversion 12 Comments IE: 4 deg DF, 36 deg PF; No pain with AROM 04/13/24: 8 deg DF, 40 deg PF 04/25/24: 10 deg DF, 45 deg PF, 30 deg inversion, 10 deg eversion 05/23/24: 10 deg DF, 45 deg PF 06/15/24: 10 dF, 47 PF, 28 inv, 12 eversion 07/18/24: 12 deg DF, 47 deg Pf, 30 deg inversion, 12 deg eversion Left Dorsiflexion with Knee Flexed 8 Plantarflexion 45 Inversion 30 Eversion 15 PT-OP-M Strength Start: 03/23/24 07:35 Freq: Status: Active Protocol: Document 07/18/24 09:01 NM (Rec: 07/18/24 09:47 NM [id number]) Ankle/Foot Strength Ankle and Foot Manual Muscle Testing Right Dorsiflexion (L4) 4+ Good+ Plantarflexion (S1) 3- Fair- Inversion 4+ Good+ Eversion (S1) 4+ Good+ Comments IE: 3/5, Tested against gravity in sitting without due to surgical repair ( plantarflexion tested in sitting) 04/25/24: 4-/5 for all, tested in sitting 05/23/24: 4-/5 for all, no pain with resisted motion; tested in sitting 06/15/24: no pain with resisted testing; PF tested in sitting ; can do 1 SL heel raise with small ROM 07/18/24: 4+ for all except heel raises; PF in sitting 4+/ 5, 5 mid range heel raises Left Dorsiflexion (L4) 4 Good Plantarflexion (S1) 3- Fair- Inversion 4 Good Eversion (S1) 4 Good Comments plantarflexion tested in sitting at IE Can do 1 mid-range heel raise single leg PT-OP-Q Treatments Start: 03/23/24 07:35 Freq: Status: Active Protocol: Document 07/18/24 09:01 NM (Rec: 07/18/24 09:47 NM [id number]) Therapeutic Exercises Standing Exercises lunge Standing Exercise Name 1. fwd lunge, 2. lateral lunge Side bilateral Equipment Used blue bosu up Reps/Minutes 10 ea direction toe raises Side right Resistance 2# ankle weight on foot Reps/Minutes 20 w/ 3 hold heel raise Standing Exercise Name 1. gastroc raise w/ 2#, 2. soleus raise w/ 2#, 3. front elevated bosu Side bilateral Resistance 2.2# ball btwn ankles Equipment Used hand support for 1&2 for balance Reps/Minutes 20 ea Neuro Re-Education Treatment Balance Activities DGI Reps/Duration PT-OP-T Assessment and Plan Start: 03/23/24 07:35 Freq: Status: Active Protocol: Document 07/18/24 09:01 NM (Rec: 07/18/24 09:47 NM [id number]) Physical Therapy Assessment Goals Five Impairment Impaired balance: DGI 17, R SLS 3 sec; s/p 1 fall since IE Correction Goal (LTG) Pt will improve DGI > and R SLS time to at least 10 seconds without hand support or LOB in order to decrease fall risk 07/18/24: 17 seconds R SLS; DGI 22 LTG Duration 12 weeks MET Four Impairment impairments in R Achilles tendon due to lengthening Short Term Goal (STG) If appropriate, pt will be able to perform at least 10 bilateral heel raises without compensation or increase in baseline pain in order to demonstrate improved gait mechanics and propulsion 04/25/23: pain free but able to perform 8 B heel raises 05/23/24: did 2x10 B heel raises w/o pain, limited ROM STG Duration 8 weeks MET Correction Goal (LTG) If appropriate, pt will be able to perform at least 5 single leg heel raises using R foot without compensation or increase in baseline pain in order to demonstrate improved gait mechanics and propulsion 06/15/24: Pt can perform 1 with only 3 cm heel lift from ground; unable to perform with full ROM at this time due to weakness in R plantarflexor strength 07/18/24: able to initiate heel raises to midrange, but unable to achieve full ROM due to R plantarflexion weakness LTG Duration 12 weeks PROGRESSING 06/15, NOT MET 07/18 Three Impairment gait impaired Short Term Goal (STG) Pt will normalize gait mechanics without AD or boot in order to demonstrate improvements in QOL and mobility 04/25/23: ambulating w/o a boot , reports slight toe pain with stepping 05/23/24: pt demonstrates more normalized gait mechanics with shoe STG Duration 4 weeks MET Post Anesthesia Room Nurse Goal (LTG) Pt will report ambulation > 30 minutes distance or time due to R foot/ankle mobility, strength, or pain in order to demonstrate improved QOL and mobility 06/15/24: Pt reports that she is limited to 15 minutes due to ankle stiffness/weakness, decreased endurance 07/18/24: pt reports that she can ambulate more than 30 minutes without pain LTG Duration 12 weeks MET 07/18; GOAL UPDATED 06/15 Two Impairment global ankle strength limited Short Term Goal (STG) Pt will increase global R ankle strength to at least 4/5 MMT in order to demonstrate improved ankle stability during gait, stance, and pickle ball if appropriate 04/25/24: 4-/5 for all when tested in sitting 05/23/24: 4-/5; tested in sitting 06/15/24: 4/5 for all except plantarflexion STG Duration 8 weeks PROGRESSING Correction Goal (LTG) Pt will increase global R ankle strength to at least 4+/ 5 MMT in order to demonstrate improved ankle stability during gait, stance, and pickle ball if appropriate 06/15/24: 4/5 for all except plantarflexion 07/18/24: 4+/5 for all except plantarflexion LTG Duration 12 weeks PARTIALLY MET, NOT MET 07/18 One Impairment AROM- R ankle dorsiflexion 4 deg, R ankle plantarflexion 36 deg Short Term Goal (STG) Pt will improve R ankle dorsiflexion AROM to least 8 deg and R ankle plantarflexion AROM to at least 40 deg in order to demonstrate improved mobility for gait and participation in recreational activities 04/25/24: 10 deg ankle DF, 45 deg PF 05/23/24: 10 deg ankle DF, 45 deg PF STG Duration 8 weeks MET Correction Goal (LTG) Pt will improve R ankle dorsiflexion AROM and R ankle plantarflexion AROM to within 3 deg of contralateral limb in order to demonstrate improved mobility for gait and participation in recreational activities 06/15/24: MET for all LTG Duration 12 weeks MET Assessment Summary Assessment Pt tolerated session well. Requires increased time with all activities, extensive education regarding HEP compliance and carryover as pt reports poor compliance with HEP in favor of biking or walking. PT has educated pt multiple times on importance of performing strengthening HEP in addition to endurance training with ambulation to assist with symptom management and to improve functional mobility during ambulation. Education also on not stretching dorsiflexors to max position, only gentle AROM in morning but not to max end range. Due to swelling in pt dorsal foot over incision, recommended that pt have at least 1 more session with PT vs discharging from PT for referral for back. Also recommended ice and elevation following ambulation. During exercises, pt tolerated progression in resistance and change in surface without increase in R ankle or foot pain. Good stability at ankle during exercises. Cued for correct execution. Physical Therapy Plan Frequency and Duration Frequency of Treatment 1-2x/wk Duration of treatment (weeks) 12 Plan of Care Start Date 06/15/24 Plan of Care End Date 09/07/24 Therapeutic Interventions Therapeutic Interventions Balance Training,Gait Training ,Home Exercise Program,Joint Mobilizations,Manual Therapy, Neuromuscular Re-education, Orthotic/Prosthetic Management ,Patient/Caregiver Education, Self-Care/Home Management, Sensory Integration,Soft Tissue Mobilization,Taping, Therapeutic Activities, Therapeutic Exercises Modalities Cold Pack/Ice Massage,Electric Stimulation,Hot Packs, Ultrasound Next Visit Focus/Plan Next Note Type Treatment Note Next Visit Plan HEP condense and review. possible d/c depending on feedback from surgeon. soleus raise and stair gastroc heel raise (4). ankle strength. Retrial eccentric fwd step down, lateral step down- work on ankle and quad control. Cont single leg press vs step up on 8, add step up on 4 with foam. Cont with lunges (can progress to stepping depending on control) , add lateral lunges. increase ankle inversion/eversion with band trial eccentric heel raise vs single leg heel raise Balance/proprioception: foam, rocker board, SLS time Manual prn: no instrument assisted STM, avoid healing incisions, gentle with tendon
--- NOTE | 2024-07-23 15:34 | PT.OTN ---
Current Diagnoses Flat foot [pes planus] (acquired), right foot (07/23/24) Stiffness of right ankle, not elsewhere classified (07/23/24) Pain in right foot (07/23/24) Other lack of coordination (07/23/24) Weakness (07/23/24) Physical Therapy Treatment Note PT-OP-A Visit Information Start: 03/23/24 07:35 Freq: Status: Active Protocol: Document 07/23/24 11:32 NM (Rec: 07/23/24 12:27 NM [id number]) Out-Patient Physical Therapy Visit Information Visit Information Visit Type Treatment Note Visit Start Time 11:38 Visit Stop Time 12:20 Visit Number 22 Evaluation Information Evaluation Date 03/23/24 Precautions Precautions DOS: 01/09/24 - R pes planus reconstruction, FDL transfer, posterior tibialis tendon repair, Achilles tendon lengthening Per referral: NWB 6 weeks post op, increased WB 25% ea week with arch support, boot with arch support until week 12 and /or follow up with surgeon PT-OP-B Current Condition Start: 03/23/24 07:35 Freq: Status: Active Protocol: Document 03/23/24 07:36 NM (Rec: 03/23/24 07:37 NM [id number]) Current Condition History of Current Condition Onset Date DOS 01/09/24 Current Complaints gait, mobility, ROM History of Current Condition Pt presents with R foot post pes planus with posterior tibialis repair, FDL transfer, achilles tendon lengthening surgery at 01/09/[address] Navarro. Currently 10 weeks and 5 days post -op. She has been using spc since 6 weeks and was instructed to be 50% weightbearing. She was NWB for 6 weeks. Xray at 6 weeks, no complications. Pt had surgery due to torn arch tendon/posterior tibialis tear, extreme rolling ankle in to pronation; she had a tendon transfer from her toes. She had a metal wedge that replaced the top of the boot. She had a gastrocnemius contracture, so lengthening of the R gastrocnemius performed as well. Abigail removed at last appointment. Still in boot for 12 weeks with orthotic. She has a follow up on 04/06/[address] Navarro, planning to have an Xray at that time. Pt reports no pain, states pain has been well managed. She occasionally take tylenol for pain if she has achiness across the top of her ankle, usually after walking. States that her skin on her RLE has been hypersensitive ( also had after previous surgeries) and has been swelling a little; she has tried an onesimo bandage but not compression socks. Per pt report at last follow up with surgeon, Dr. Navarro ok'd her on gentle ROM for ankle, ices several times per day. PMH of knee replacement (L partial, R full). 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 She has been wearing a sleeve (band) at the arch support, but thinks it's too small. She reports that she has toe pain with heel raises and with pushing off on her toe with gait. Reports pain at base of big toe and dorsal arch, in addition to slight swelling over PT-OP-E Functional Tests Start: 03/23/24 07:35 Freq: Status: Active Protocol: Document 03/23/24 07:36 NM (Rec: 03/23/24 12:12 NM [id number]) Functional Tests Five Times Sit to Stand Test Score able to complete 5 w/o AD, not formally timed Comments no pain reported, slight L lean, less WB on RLE w/ boot donned PT-OP-F Manual Assessment Start: 03/23/24 07:35 Freq: Status: Active Protocol: Document 03/23/24 07:36 NM (Rec: 03/23/24 12:12 NM [id number]) Manual Assessments Soft Tissue Assessment Soft Tissue Mobility Assessment Scars intact, slight adhesions to skin. Pt has limitations in R Achilles length, has swelling across ankle Joint Mobility Assessment Joint Mobility Assessment Limited 1st ray mobility, toe extension and flexion with PROM PT-OP-G Mobility & Gait Start: 03/23/24 07:35 Freq: Status: Active Protocol: Document 03/23/24 07:36 NM (Rec: 03/23/24 12:12 NM [id number]) OP Gait Assessment Gait Gait Assistance Required: Independent Distance (Feet) 200 Able to Maintain Weight Bearing Status Yes During Gait Assistive Devices Assistive Device Straight Cane Gait Deviations General Gait Pattern Antalgic,Flexed Trunk Factors Limiting Gait Function Factors Limiting Gait Function Decreased Activity Tolerance, Decreased Sensation,Decreased Strength,Limited Range of Motion Comments Gait Comments Using spc primarily for balance as needed. Pt able to ambulate w/o AD and w/o pain in R ankle for short distances at 100% WB in boot. Demos slight L hip drop with R stance, L trunk and leg lean due to uneven WB while in boot leading to slight increase in L back pain PT-OP-J Posture/Palpation/Skin Start: 03/23/24 07:35 Freq: Status: Active Protocol: Document 03/23/24 07:36 NM (Rec: 03/23/24 12:12 NM [id number]) Posture Evaluation Position Standing Head/C-Spine Posture Forward Head L-Spine Posture Increased Lordosis Arm Posture (L) Externally Rotated,(R) Externally Rotated Pelvis Posture Anteriorly Tilted Weight Distribution Weight Shifted Left,Decreased Wt.Bear on (R) Hip Posture (L) Externally Rotated,(R) Externally Rotated Knee Posture (L) Genu Valgus,(R) Genu Valgus Ankle/Foot Posture (L) Pronated Foot Arch (L) Low Arch Palpation Assessment Location R ankle/foot Palpation Details Mild tenderness along medial ankle near posterior tibialis tendon, but denies pain. No tenderness along scars, but slight tenderness along anterior ankle near talocrural junction Skin Assessment Circumference Measurement R calf Location midway between patella and ankle mortise (17cm) Measurement (Centimeters) 34 Comments L calf 17 cm for comparison R ankle/foot Location figure 8 53 cm; 24 cm at malleoli Comments overall edema of foot > ankle to mid calf Incisional Assessment Incision Appearance/Comments All incisions intact, healing well with no signs of infection. Slight adhesions to underlying skin. Scab present only along medial ankle at one proximal point Other Assessments Skin Assessment Comments Increased rubor with dependency PT-OP-K Range of Motion Start: 03/23/24 07:35 Freq: Status: Active Protocol: Document 07/18/24 09:01 NM (Rec: 07/18/24 09:47 NM [id number]) Ankle and Foot Goniometric Range of Motion Ankle and Foot Right Dorsiflexion with Knee Flexed 12 Plantarflexion 47 Inversion 30 Eversion 12 Comments IE: 4 deg DF, 36 deg PF; No pain with AROM 04/13/24: 8 deg DF, 40 deg PF 04/25/24: 10 deg DF, 45 deg PF, 30 deg inversion, 10 deg eversion 05/23/24: 10 deg DF, 45 deg PF 06/15/24: 10 dF, 47 PF, 28 inv, 12 eversion 07/18/24: 12 deg DF, 47 deg Pf, 30 deg inversion, 12 deg eversion Left Dorsiflexion with Knee Flexed 8 Plantarflexion 45 Inversion 30 Eversion 15 PT-OP-M Strength Start: 03/23/24 07:35 Freq: Status: Active Protocol: Document 07/18/24 09:01 NM (Rec: 07/18/24 09:47 NM [id number]) Ankle/Foot Strength Ankle and Foot Manual Muscle Testing Right Dorsiflexion (L4) 4+ Good+ Plantarflexion (S1) 3- Fair- Inversion 4+ Good+ Eversion (S1) 4+ Good+ Comments IE: 3/5, Tested against gravity in sitting without due to surgical repair ( plantarflexion tested in sitting) 04/25/24: 4-/5 for all, tested in sitting 05/23/24: 4-/5 for all, no pain with resisted motion; tested in sitting 06/15/24: no pain with resisted testing; PF tested in sitting ; can do 1 SL heel raise with small ROM 07/18/24: 4+ for all except heel raises; PF in sitting 4+/ 5, 5 mid range heel raises Left Dorsiflexion (L4) 4 Good Plantarflexion (S1) 3- Fair- Inversion 4 Good Eversion (S1) 4 Good Comments plantarflexion tested in sitting at IE Can do 1 mid-range heel raise single leg PT-OP-Q Treatments Start: 03/23/24 07:35 Freq: Status: Active Protocol: Document 07/23/24 11:32 NM (Rec: 07/23/24 12:27 NM [id number]) Therapeutic Exercises Sitting Exercises toe ROM Sitting Exercise Name flex/ext, small circles Side right Equipment Used L stabilize foot; small ROM Reps/Minutes 10 ea Comments am mobility; reports less discomfort at big toe post ROM great toe ext Sitting Exercise Name in standing Side right Reps/Minutes 10 Comments mimics band pain; feels stiff foot intrinsics Sitting Exercise Name toe flex press alphonso into ball Side right Reps/Minutes 10 ea with 3 hold Comments trialed on LLE for comparison; reports that discomfort that better w/ reps Standing Exercises great toe ext mobilization Standing Exercise Name staggered stance with RLE behind Side right Equipment Used toe ext on ground Reps/Minutes 10 with 1 hold ea Comments initially pain at big toe but improved w/ reps lunge Standing Exercise Name 1. fwd lunge w/ fwd step, 2. lateral lunge Side bilateral Equipment Used no hand support Reps/Minutes 10 ea direction Comments cued neutral foot; mod cued form lateral lunge for more hip hinge heel raise Standing Exercise Name eccentric heel raise 2>1 Side bilateral Equipment Used hand support on counter Reps/Minutes 10 Comments pain free but challenging to transition on eccentric Therapeutic Activity Therapeutic Activity shoe lace positioning Name R foot Reps/Minutes 8 minutes Comments PT adjusted shoe lace position to avoid foreign body in midfoot and assist with pain reduction at dorsal midfoot. Lacing at bottom, then performed laterally to avoid crossing dorsal midfoot before crossing higher near talocrural joint. Educated to tie shoe tight enough to avoid shoe falling off but not too tight to feel compression at talocrural joint with ambulation or exercise. Manual Therapy Treatment Consent Patient gave verbal consent for manual Yes treatment Soft Tissue Mobilization R foot/ankle Body Location scar mobilization, peroneals/ tibialis, gastrocnemius Mobilization Type Rolling,Other Intensity/Depth Superficial Body Position Hooklying Comments Tender over dorsal midfoot, small pocket of swelling over incision where pt received orthotic above arch; avoided due to discomfort. Also mild arch discomfort, improved with gentle soft tissue mobilization. Also performed superficial soft tissue mobilization of medial-lateral ankle extrinsics and with ankle dorsiflexors Other Other Manual Treatments Full big toe ext on RLE w/o pain, full big toe flex on RLE w/o pain except at max end range Self-Care/Home Management Treatment Education Patient Education Pain Management Other Education Education on trialing ice and elevation on R foot post- ambulation for swelling management. Education for pt that if she chooses to use compression for pain and swelling management, to avoid circular sleeves that compress in one area (e.g. arch support sleeve) in favor of ankle compression sleeve that covers foot/ankle. If swelling persists, then PT educated pt to alert referring provider PT-OP-T Assessment and Plan Start: 03/23/24 07:35 Freq: Status: Active Protocol: Document 07/23/24 11:32 NM (Rec: 07/23/24 12:27 NM [id number]) Physical Therapy Assessment Goals Five Impairment Impaired balance: DGI , R SLS 3 sec; s/p 1 fall since IE Senior Living Goal (LTG) Pt will improve DGI > and R SLS time to at least 10 seconds without hand support or LOB in order to decrease fall risk 07/18/24: 17 seconds R SLS; DGI LTG Duration 12 weeks MET Four Impairment impairments in R Achilles tendon due to lengthening Short Term Goal (STG) If appropriate, pt will be able to perform at least 10 bilateral heel raises without compensation or increase in baseline pain in order to demonstrate improved gait mechanics and propulsion 04/25/23: pain free but able to perform 8 B heel raises 05/23/24: did 2x10 B heel raises w/o pain, limited ROM STG Duration 8 weeks MET [facility] Goal (LTG) If appropriate, pt will be able to perform at least 5 single leg heel raises using R foot without compensation or increase in baseline pain in order to demonstrate improved gait mechanics and propulsion 06/15/24: Pt can perform 1 with only 3 cm heel lift from ground; unable to perform with full ROM at this time due to weakness in R plantarflexor strength 07/18/24: able to initiate heel raises to midrange, but unable to achieve full ROM due to R plantarflexion weakness LTG Duration 12 weeks PROGRESSING 06/15, NOT MET 07/18 Three Impairment gait impaired Short Term Goal (STG) Pt will normalize gait mechanics without AD or boot in order to demonstrate improvements in QOL and mobility 04/25/23: ambulating w/o a boot , reports slight toe pain with stepping 05/23/24: pt demonstrates more normalized gait mechanics with shoe STG Duration 4 weeks MET [facility] Living Goal (LTG) Pt will report ambulation > 30 minutes distance or time due to R foot/ankle mobility, strength, or pain in order to demonstrate improved QOL and mobility 06/15/24: Pt reports that she is limited to 15 minutes due to ankle stiffness/weakness, decreased endurance 07/18/24: pt reports that she can ambulate more than 30 minutes without pain LTG Duration 12 weeks MET 07/18; GOAL UPDATED 06/15 Two Impairment global ankle strength limited Short Term Goal (STG) Pt will increase global R ankle strength to at least 4/5 MMT in order to demonstrate improved ankle stability during gait, stance, and pickle ball if appropriate 04/25/24: 4-/5 for all when tested in sitting 05/23/24: 4-/5; tested in sitting 06/15/24: 4/5 for all except plantarflexion STG Duration 8 weeks PROGRESSING Senior Living Goal (LTG) Pt will increase global R ankle strength to at least 4+/ 5 MMT in order to demonstrate improved ankle stability during gait, stance, and pickle ball if appropriate 06/15/24: 4/5 for all except plantarflexion 07/18/24: 4+/5 for all except plantarflexion LTG Duration 12 weeks PARTIALLY MET, NOT MET 07/18 One Impairment AROM- R ankle dorsiflexion 4 deg, R ankle plantarflexion 36 deg Short Term Goal (STG) Pt will improve R ankle dorsiflexion AROM to least 8 deg and R ankle plantarflexion AROM to at least 40 deg in order to demonstrate improved mobility for gait and participation in recreational activities 04/25/24: 10 deg ankle DF, 45 deg PF 05/23/24: 10 deg ankle DF, 45 deg PF STG Duration 8 weeks MET Vessel [facility] Goal (LTG) Pt will improve R ankle dorsiflexion AROM and R ankle plantarflexion AROM to within 3 deg of contralateral limb in order to demonstrate improved mobility for gait and participation in recreational activities 06/15/24: MET for all LTG Duration 12 weeks MET Assessment Summary Assessment Pt reports no pain at end of session with R toe off during gait as leaving clinic or with eccentric heel raises during session. Good feedback post R big toe mobility training in sitting. Reports mild increase in pain at plantar surface of R great toe with toe ext mobilization; but improved with reps and change in hand position for improved stabilization. Demos increased mobility into R great toe ext . Transition from BLE to RLE is challenging for eccentric heel raise. No pain at toe with heel raise post toe mobility with cueing for control with eccentric lowering vs fast descent. Pt has been cued for all of these previously in sessions but has limited carryover without extensive HEP review each session. Better self awareness of foot position during lunges. Moderate cueing for form and for all exercises, but especially for lateral lunges for better carryover to HEP and execution during session. PT and pt trialed changing pt shoe lace position to avoid impact on dorsal foot and to assist with pain management. During session and exercises, pt reports significantly less discomfort following change in lace position. PT educated pt to trial position during exercises and daily walks at home to determine tolerance and assistance with pain management. Also educated on ice/elevation to assist with swelling management and to avoid compression that only occurs at a specific point at foot (e.g. arch wrap). At this time, pt does not want to discharge from PT for her R foot/ankle in order to continue with strengthening and mobility management per surgeon recommendation instead of referral for low back Physical Therapy Plan Frequency and Duration Frequency of Treatment 1-2x/wk Duration of treatment (weeks) 12 Plan of Care Start Date 06/15/24 Plan of Care End Date 09/07/24 Therapeutic Interventions Therapeutic Interventions Balance Training,Gait Training ,Home Exercise Program,Joint Mobilizations,Manual Therapy, Neuromuscular Re-education, Orthotic/Prosthetic Management ,Patient/Caregiver Education, Self-Care/Home Management, Sensory Integration,Soft Tissue Mobilization,Taping, Therapeutic Activities, Therapeutic Exercises Modalities Cold Pack/Ice Massage,Electric Stimulation,Hot Packs, Ultrasound Next Visit Focus/Plan Next Note Type Treatment Note Next Visit Plan Retrial toe mobility and strength (gentle mobility, toe spreads and alphonso, can use band). continue with eccentric heel raise and global ankle strength and proprioception ( step up with november, front elevated heel raises). cont with soleus raise and stair gastroc heel raise (4) if kyra well. Review lateral lunges. Cont single leg press. trial eccentric heel raise vs single leg heel raise Balance/proprioception: foam, rocker board, SLS time Manual prn: no instrument assisted STM, avoid healing incisions, gentle with tendon
--- NOTE | 2024-07-27 12:42 | PT.OTN ---
Current Diagnoses Flat foot [pes planus] (acquired), right foot (07/27/24) Stiffness of right ankle, not elsewhere classified (07/27/24) Pain in right foot (07/27/24) Other lack of coordination (07/27/24) Weakness (07/27/24) Physical Therapy Treatment Note PT-OP-A Visit Information Start: 03/23/24 07:35 Freq: Status: Active Protocol: Document 07/27/24 10:44 NBM (Rec: 07/27/24 11:44 NBM [id number]) Out-Patient Physical Therapy Visit Information Visit Information Visit Type Treatment Note Visit Start Time 10:53 Visit Stop Time 11:43 Visit Number 23 Number of MEDIA PROMOTER Visits 1 Evaluation Information Evaluation Date 03/23/24 Precautions Precautions DOS: 01/09/24 - R pes planus reconstruction, FDL transfer, posterior tibialis tendon repair, Achilles tendon lengthening Per referral: NWB 6 weeks post op, increased WB 25% ea week with arch support, boot with arch support until week 12 and /or follow up with surgeon PT-OP-B Current Condition Start: 03/23/24 07:35 Freq: Status: Active Protocol: Document 03/23/24 07:36 NM (Rec: 03/23/24 07:37 NM [id number]) Current Condition History of Current Condition Onset Date DOS 01/09/24 Current Complaints gait, mobility, ROM History of Current Condition Pt presents with R foot post pes planus with posterior tibialis repair, FDL transfer, achilles tendon lengthening surgery at 01/09/[address] Navarro. Currently 10 weeks and 5 days post -op. She has been using spc since 6 weeks and was instructed to be 50% weightbearing. She was NWB for 6 weeks. Xray at 6 weeks, no complications. Pt had surgery due to torn arch tendon/posterior tibialis tear, extreme rolling ankle in to pronation; she had a tendon transfer from her toes. She had a metal wedge that replaced the top of the boot. She had a gastrocnemius contracture, so lengthening of the R gastrocnemius performed as well. Abigail removed at last appointment. Still in boot for 12 weeks with orthotic. She has a follow up on 04/06/[address] Navarro, planning to have an Xray at that time. Pt reports no pain, states pain has been well managed. She occasionally take tylenol for pain if she has achiness across the top of her ankle, usually after walking. States that her skin on her RLE has been hypersensitive ( also had after previous surgeries) and has been swelling a little; she has tried an onesimo bandage but not compression socks. Per pt report at last follow up with surgeon, Dr. Navarro ok'd her on gentle ROM for ankle, ices several times per day. PMH of knee replacement (L partial, R full). 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 She had a crazy week so only iced a couple of times and still has a bit of swelling, but the new lacing on her R shoe has helped. She had her injection for back last Tuesday and it was a short-acting numbing injection as a test not a cortisone one; the injection helped for four hours and it hasn't been horrific since but she still feels the discomfort there. She returns to them for f/u 08/08 to review daily pain diary. It hasn't been hurting to push off of Big toe. She's on a cancellation wait list for [facility] for the swelling and is still scheduled for August. She's also doing 10 steps up/down daily without rail. PT-OP-E Functional Tests Start: 03/23/24 07:35 Freq: Status: Active Protocol: Document 03/23/24 07:36 NM (Rec: 03/23/24 12:12 NM [id number]) Functional Tests Five Times Sit to Stand Test Score able to complete 5 w/o AD, not formally timed Comments no pain reported, slight L lean, less WB on RLE w/ boot donned PT-OP-F Manual Assessment Start: 03/23/24 07:35 Freq: Status: Active Protocol: Document 03/23/24 07:36 NM (Rec: 03/23/24 12:12 NM [id number]) Manual Assessments Soft Tissue Assessment Soft Tissue Mobility Assessment Scars intact, slight adhesions to skin. Pt has limitations in R Achilles length, has swelling across ankle Joint Mobility Assessment Joint Mobility Assessment Limited 1st ray mobility, toe extension and flexion with PROM PT-OP-G Mobility & Gait Start: 03/23/24 07:35 Freq: Status: Active Protocol: Document 03/23/24 07:36 NM (Rec: 03/23/24 12:12 NM [id number]) OP Gait Assessment Gait Gait Assistance Required: Independent Distance (Feet) 200 Able to Maintain Weight Bearing Status Yes During Gait Assistive Devices Assistive Device Straight Cane Gait Deviations General Gait Pattern Antalgic,Flexed Trunk Factors Limiting Gait Function Factors Limiting Gait Function Decreased Activity Tolerance, Decreased Sensation,Decreased Strength,Limited Range of Motion Comments Gait Comments Using spc primarily for balance as needed. Pt able to ambulate w/o AD and w/o pain in R ankle for short distances at 100% WB in boot. Demos slight L hip drop with R stance, L trunk and leg lean due to uneven WB while in boot leading to slight increase in L back pain PT-OP-J Posture/Palpation/Skin Start: 03/23/24 07:35 Freq: Status: Active Protocol: Document 03/23/24 07:36 NM (Rec: 03/23/24 12:12 NM [id number]) Posture Evaluation Position Standing Head/C-Spine Posture Forward Head L-Spine Posture Increased Lordosis Arm Posture (L) Externally Rotated,(R) Externally Rotated Pelvis Posture Anteriorly Tilted Weight Distribution Weight Shifted Left,Decreased Wt.Bear on (R) Hip Posture (L) Externally Rotated,(R) Externally Rotated Knee Posture (L) Genu Valgus,(R) Genu Valgus Ankle/Foot Posture (L) Pronated Foot Arch (L) Low Arch Palpation Assessment Location R ankle/foot Palpation Details Mild tenderness along medial ankle near posterior tibialis tendon, but denies pain. No tenderness along scars, but slight tenderness along anterior ankle near talocrural junction Skin Assessment Circumference Measurement R calf Location midway between patella and ankle mortise (17cm) Measurement (Centimeters) 34 Comments L calf 17 cm for comparison R ankle/foot Location figure 8 53 cm; 24 cm at malleoli Comments overall edema of foot > ankle to mid calf Incisional Assessment Incision Appearance/Comments All incisions intact, healing well with no signs of infection. Slight adhesions to underlying skin. Scab present only along medial ankle at one proximal point Other Assessments Skin Assessment Comments Increased rubor with dependency PT-OP-K Range of Motion Start: 03/23/24 07:35 Freq: Status: Active Protocol: Document 07/18/24 09:01 NM (Rec: 07/18/24 09:47 NM [id number]) Ankle and Foot Goniometric Range of Motion Ankle and Foot Right Dorsiflexion with Knee Flexed 12 Plantarflexion 47 Inversion 30 Eversion 12 Comments IE: 4 deg DF, 36 deg PF; No pain with AROM 04/13/24: 8 deg DF, 40 deg PF 04/25/24: 10 deg DF, 45 deg PF, 30 deg inversion, 10 deg eversion 05/23/24: 10 deg DF, 45 deg PF 06/15/24: 10 dF, 47 PF, 28 inv, 12 eversion 07/18/24: 12 deg DF, 47 deg Pf, 30 deg inversion, 12 deg eversion Left Dorsiflexion with Knee Flexed 8 Plantarflexion 45 Inversion 30 Eversion 15 PT-OP-M Strength Start: 03/23/24 07:35 Freq: Status: Active Protocol: Document 07/18/24 09:01 NM (Rec: 07/18/24 09:47 NM [id number]) Ankle/Foot Strength Ankle and Foot Manual Muscle Testing Right Dorsiflexion (L4) 4+ Good+ Plantarflexion (S1) 3- Fair- Inversion 4+ Good+ Eversion (S1) 4+ Good+ Comments IE: 3/5, Tested against gravity in sitting without due to surgical repair ( plantarflexion tested in sitting) 04/25/24: 4-/5 for all, tested in sitting 05/23/24: 4-/5 for all, no pain with resisted motion; tested in sitting 06/15/24: no pain with resisted testing; PF tested in sitting ; can do 1 SL heel raise with small ROM 07/18/24: 4+ for all except heel raises; PF in sitting 4+/ 5, 5 mid range heel raises Left Dorsiflexion (L4) 4 Good Plantarflexion (S1) 3- Fair- Inversion 4 Good Eversion (S1) 4 Good Comments plantarflexion tested in sitting at IE Can do 1 mid-range heel raise single leg PT-OP-Q Treatments Start: 03/23/24 07:35 Freq: Status: Active Protocol: Document 07/27/24 10:44 [facility] (Rec: 07/27/24 11:44 [facility] [id number]) Therapeutic Exercises Sitting Exercises toe ROM Sitting Exercise Name flex/ext, small circles Side right Equipment Used L stabilize foot; small ROM Reps/Minutes 10 ea Comments am mobility; reports less discomfort at big toe post ROM great toe ext Sitting Exercise Name in standing Side right Reps/Minutes 10 Comments mimics band pain; feels stiff foot intrinsics Sitting Exercise Name toe flex press alphonso into ball Side right Reps/Minutes 10 ea with 3 hold Comments reports that discomfort that better w/ reps Standing Exercises great toe ext mobilization Standing Exercise Name staggered stance with RLE behind Side right Equipment Used toe ext on ground Reps/Minutes 10 with 1 hold ea Comments stiffness lunge Standing Exercise Name 1. fwd lunge w/ fwd step, 2. lateral lunge Side bilateral Equipment Used no hand support, 4 step Reps/Minutes 10 ea direction Comments cued neutral foot; mod cued form lateral lunge for more hip hinge heel raise Standing Exercise Name eccentric heel raise 2>1 Side bilateral Equipment Used hand support on rail Reps/Minutes 10 Comments pain free but challenging to transition on eccentric Neuro Re-Education Treatment Balance Activities SLS Details End of session Surface firm Equipment no hand support but hovering Reps/Duration 2 trials ea Comments L 40s, 70s; R 27s, 56s PT-OP-T Assessment and Plan Start: 03/23/24 07:35 Freq: Status: Active Protocol: Document 07/27/24 10:44 NB (Rec: 07/27/24 11:44 [facility] [id number]) Physical Therapy Assessment Goals Five Impairment Impaired balance: DGI , R SLS 3 sec; s/p 1 fall since IE Lens Edge Grinder Machine Goal (LTG) Pt will improve DGI > and R SLS time to at least 10 seconds without hand support or LOB in order to decrease fall risk 07/18/24: 17 seconds R SLS; DGI 07/27/24 Two trials End of session: 27s, 56s R SLS ( increased stiffness/pain following -11/19) LTG Duration 12 weeks MET Four Impairment impairments in R Achilles tendon due to lengthening Short Term Goal (STG) If appropriate, pt will be able to perform at least 10 bilateral heel raises without compensation or increase in baseline pain in order to demonstrate improved gait mechanics and propulsion 04/25/23: pain free but able to perform 8 B heel raises 05/23/24: did 2x10 B heel raises w/o pain, limited ROM STG Duration 8 weeks MET [facility] Goal (LTG) If appropriate, pt will be able to perform at least 5 single leg heel raises using R foot without compensation or increase in baseline pain in order to demonstrate improved gait mechanics and propulsion 06/15/24: Pt can perform 1 with only 3 cm heel lift from ground; unable to perform with full ROM at this time due to weakness in R plantarflexor strength 07/18/24: able to initiate heel raises to midrange, but unable to achieve full ROM due to R plantarflexion weakness LTG Duration 12 weeks PROGRESSING 06/15, NOT MET 07/18 Three Impairment gait impaired Short Term Goal (STG) Pt will normalize gait mechanics without AD or boot in order to demonstrate improvements in QOL and mobility 04/25/23: ambulating w/o a boot , reports slight toe pain with stepping 05/23/24: pt demonstrates more normalized gait mechanics with shoe STG Duration 4 weeks MET Lens Edge Grinder Machine Goal (LTG) Pt will report ambulation > 30 minutes distance or time due to R foot/ankle mobility, strength, or pain in order to demonstrate improved QOL and mobility 06/15/24: Pt reports that she is limited to 15 minutes due to ankle stiffness/weakness, decreased endurance 07/18/24: pt reports that she can ambulate more than 30 minutes without pain LTG Duration 12 weeks MET 07/18; GOAL UPDATED 06/15 Two Impairment global ankle strength limited Short Term Goal (STG) Pt will increase global R ankle strength to at least 4/5 MMT in order to demonstrate improved ankle stability during gait, stance, and pickle ball if appropriate 04/25/24: 4-/5 for all when tested in sitting 05/23/24: 4-/5; tested in sitting 06/15/24: 4/5 for all except plantarflexion STG Duration 8 weeks PROGRESSING Lens Edge Grinder Machine Goal (LTG) Pt will increase global R ankle strength to at least 4+/ 5 MMT in order to demonstrate improved ankle stability during gait, stance, and pickle ball if appropriate 06/15/24: 4/5 for all except plantarflexion 07/18/24: 4+/5 for all except plantarflexion LTG Duration 12 weeks PARTIALLY MET, NOT MET 07/18 One Impairment AROM- R ankle dorsiflexion 4 deg, R ankle plantarflexion 36 deg Short Term Goal (STG) Pt will improve R ankle dorsiflexion AROM to least 8 deg and R ankle plantarflexion AROM to at least 40 deg in order to demonstrate improved mobility for gait and participation in recreational activities 04/25/24: 10 deg ankle DF, 45 deg PF 05/23/24: 10 deg ankle DF, 45 deg PF STG Duration 8 weeks MET [facility] Goal (LTG) Pt will improve R ankle dorsiflexion AROM and R ankle plantarflexion AROM to within 3 deg of contralateral limb in order to demonstrate improved mobility for gait and participation in recreational activities 06/15/24: MET for all LTG Duration 12 weeks MET Assessment Summary Assessment Irina returns to PT following short-acting numbing injection to back last Tuesday; she presents with R shoe laced as demo'd last session reporting relief to dorsal aspect of foot and decreased swelling; further discussion for PT for foot vs discharge for back recommended w/ evaluating PT. She has no pain start of session which increases end of session to 2- 3/10 following single leg balance back bilaterally with two trials ea: L 40s, 70s; R 27s, 56s - greatly surpassing last attempts of 17s R SLS 07/18/24. She continues to demo poor carryover as with lunges requiring cues for neutral foot positioning and for hip hinge with lateral lunge. Physical Therapy Plan Frequency and Duration Frequency of Treatment 1-2x/wk Duration of treatment (weeks) 12 Plan of Care Start Date 06/15/24 Plan of Care End Date 09/07/24 Therapeutic Interventions Therapeutic Interventions Balance Training,Gait Training ,Home Exercise Program,Joint Mobilizations,Manual Therapy, Neuromuscular Re-education, Orthotic/Prosthetic Management ,Patient/Caregiver Education, Self-Care/Home Management, Sensory Integration,Soft Tissue Mobilization,Taping, Therapeutic Activities, Therapeutic Exercises Modalities Cold Pack/Ice Massage,Electric Stimulation,Hot Packs, Ultrasound Next Visit Focus/Plan Next Note Type Treatment Note Next Visit Plan Revisit discussion of discharge of foot for back d/t shot received 07/24 not steroid injection. POC: Retrial toe mobility and strength (gentle mobility, toe spreads and alphonso, can use band). continue with eccentric heel raise and global ankle strength and proprioception ( step up with november, front elevated heel raises). cont with soleus raise and stair gastroc heel raise (4) if kyra well. Review lateral lunges. Cont single leg press. trial eccentric heel raise vs single leg heel raise Balance/proprioception: foam, rocker board, SLS time Manual prn: no instrument assisted STM, avoid healing incisions, gentle with tendon
--- NOTE | 2024-08-03 13:04 | PT-OP ANOTE ---
PT called and spoke to triage nurse about pt swelling, redness, warmth, and raised area over dorsal foot. Asked for clinical direction. Triage nurse states that pt got earlier appt with Dr. Navarro on 08/07 rather than late august appt and will make recommendations following appt. PT asked for call back with Dr. Navarro's decision. Informed triage nurse that pt will likely discharge as she has not made further appts at this time
--- NOTE | 2024-08-03 13:12 | PT.OTN ---
Current Diagnoses Flat foot [pes planus] (acquired), right foot (08/03/24) Stiffness of right ankle, not elsewhere classified (08/03/24) Pain in right foot (08/03/24) Other lack of coordination (08/03/24) Weakness (08/03/24) Physical Therapy Treatment Note PT-OP-A Visit Information Start: 03/23/24 07:35 Freq: Status: Active Protocol: Document 08/03/24 10:47 NM (Rec: 08/03/24 11:31 NM [id number]) Out-Patient Physical Therapy Visit Information Visit Information Visit Type Treatment Note Visit Start Time 10:48 Visit Stop Time 11:30 Visit Number 24 Evaluation Information Evaluation Date 03/23/24 Precautions Precautions DOS: 01/09/24 - R pes planus reconstruction, FDL transfer, posterior tibialis tendon repair, Achilles tendon lengthening Per referral: NWB 6 weeks post op, increased WB 25% ea week with arch support, boot with arch support until week 12 and /or follow up with surgeon PT-OP-B Current Condition Start: 03/23/24 07:35 Freq: Status: Active Protocol: Document 03/23/24 07:36 NM (Rec: 03/23/24 07:37 NM [id number]) Current Condition History of Current Condition Onset Date DOS 01/09/24 Current Complaints gait, mobility, ROM History of Current Condition Pt presents with R foot post pes planus with posterior tibialis repair, FDL transfer, achilles tendon lengthening surgery at 01/09/[address] Navarro. Currently 10 weeks and 5 days post -op. She has been using spc since 6 weeks and was instructed to be 50% weightbearing. She was NWB for 6 weeks. Xray at 6 weeks, no complications. Pt had surgery due to torn arch tendon/posterior tibialis tear, extreme rolling ankle in to pronation; she had a tendon transfer from her toes. She had a metal wedge that replaced the top of the boot. She had a gastrocnemius contracture, so lengthening of the R gastrocnemius performed as well. Abigail removed at last appointment. Still in boot for 12 weeks with orthotic. She has a follow up on 04/06/[address] Navarro, planning to have an Xray at that time. Pt reports no pain, states pain has been well managed. She occasionally take tylenol for pain if she has achiness across the top of her ankle, usually after walking. States that her skin on her RLE has been hypersensitive ( also had after previous surgeries) and has been swelling a little; she has tried an onesimo bandage but not compression socks. Per pt report at last follow up with surgeon, Dr. Navarro ok'd her on gentle ROM for ankle, ices several times per day. PMH of knee replacement (L partial, R full). 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 She reports that she thinks her foot is at it's plateau. Pt is requesting to graduate from PT today for her foot. She has not been rubbing foot. PT-OP-E Functional Tests Start: 03/23/24 07:35 Freq: Status: Active Protocol: Document 03/23/24 07:36 NM (Rec: 03/23/24 12:12 NM [id number]) Functional Tests Five Times Sit to Stand Test Score able to complete 5 w/o AD, not formally timed Comments no pain reported, slight L lean, less WB on RLE w/ boot donned PT-OP-F Manual Assessment Start: 03/23/24 07:35 Freq: Status: Active Protocol: Document 03/23/24 07:36 NM (Rec: 03/23/24 12:12 NM [id number]) Manual Assessments Soft Tissue Assessment Soft Tissue Mobility Assessment Scars intact, slight adhesions to skin. Pt has limitations in R Achilles length, has swelling across ankle Joint Mobility Assessment Joint Mobility Assessment Limited 1st ray mobility, toe extension and flexion with PROM PT-OP-G Mobility & Gait Start: 03/23/24 07:35 Freq: Status: Active Protocol: Document 03/23/24 07:36 NM (Rec: 03/23/24 12:12 NM [id number]) OP Gait Assessment Gait Gait Assistance Required: Independent Distance (Feet) 200 Able to Maintain Weight Bearing Status Yes During Gait Assistive Devices Assistive Device Straight Cane Gait Deviations General Gait Pattern Antalgic,Flexed Trunk Factors Limiting Gait Function Factors Limiting Gait Function Decreased Activity Tolerance, Decreased Sensation,Decreased Strength,Limited Range of Motion Comments Gait Comments Using spc primarily for balance as needed. Pt able to ambulate w/o AD and w/o pain in R ankle for short distances at 100% WB in boot. Demos slight L hip drop with R stance, L trunk and leg lean due to uneven WB while in boot leading to slight increase in L back pain PT-OP-J Posture/Palpation/Skin Start: 03/23/24 07:35 Freq: Status: Active Protocol: Document 03/23/24 07:36 NM (Rec: 03/23/24 12:12 NM [id number]) Posture Evaluation Position Standing Head/C-Spine Posture Forward Head L-Spine Posture Increased Lordosis Arm Posture (L) Externally Rotated,(R) Externally Rotated Pelvis Posture Anteriorly Tilted Weight Distribution Weight Shifted Left,Decreased Wt.Bear on (R) Hip Posture (L) Externally Rotated,(R) Externally Rotated Knee Posture (L) Genu Valgus,(R) Genu Valgus Ankle/Foot Posture (L) Pronated Foot Arch (L) Low Arch Palpation Assessment Location R ankle/foot Palpation Details Mild tenderness along medial ankle near posterior tibialis tendon, but denies pain. No tenderness along scars, but slight tenderness along anterior ankle near talocrural junction Skin Assessment Circumference Measurement R calf Location midway between patella and ankle mortise (17cm) Measurement (Centimeters) 34 Comments L calf 17 cm for comparison R ankle/foot Location figure 8 53 cm; 24 cm at malleoli Comments overall edema of foot > ankle to mid calf Incisional Assessment Incision Appearance/Comments All incisions intact, healing well with no signs of infection. Slight adhesions to underlying skin. Scab present only along medial ankle at one proximal point Other Assessments Skin Assessment Comments Increased rubor with dependency PT-OP-K Range of Motion Start: 03/23/24 07:35 Freq: Status: Active Protocol: Document 07/18/24 09:01 NM (Rec: 07/18/24 09:47 NM [id number]) Ankle and Foot Goniometric Range of Motion Ankle and Foot Right Dorsiflexion with Knee Flexed 12 Plantarflexion 47 Inversion 30 Eversion 12 Comments IE: 4 deg DF, 36 deg PF; No pain with AROM 04/13/24: 8 deg DF, 40 deg PF 04/25/24: 10 deg DF, 45 deg PF, 30 deg inversion, 10 deg eversion 05/23/24: 10 deg DF, 45 deg PF 06/15/24: 10 dF, 47 PF, 28 inv, 12 eversion 07/18/24: 12 deg DF, 47 deg Pf, 30 deg inversion, 12 deg eversion Left Dorsiflexion with Knee Flexed 8 Plantarflexion 45 Inversion 30 Eversion 15 PT-OP-M Strength Start: 03/23/24 07:35 Freq: Status: Active Protocol: Document 07/18/24 09:01 NM (Rec: 07/18/24 09:47 NM [id number]) Ankle/Foot Strength Ankle and Foot Manual Muscle Testing Right Dorsiflexion (L4) 4+ Good+ Plantarflexion (S1) 3- Fair- Inversion 4+ Good+ Eversion (S1) 4+ Good+ Comments IE: 3/5, Tested against gravity in sitting without due to surgical repair ( plantarflexion tested in sitting) 04/25/24: 4-/5 for all, tested in sitting 05/23/24: 4-/5 for all, no pain with resisted motion; tested in sitting 06/15/24: no pain with resisted testing; PF tested in sitting ; can do 1 SL heel raise with small ROM 07/18/24: 4+ for all except heel raises; PF in sitting 4+/ 5, 5 mid range heel raises Left Dorsiflexion (L4) 4 Good Plantarflexion (S1) 3- Fair- Inversion 4 Good Eversion (S1) 4 Good Comments plantarflexion tested in sitting at IE Can do 1 mid-range heel raise single leg PT-OP-Q Treatments Start: 03/23/24 07:35 Freq: Status: Active Protocol: Document 08/03/24 10:47 NM (Rec: 08/03/24 11:31 NM [id number]) Therapeutic Exercises Standing Exercises step down Standing Exercise Name 1. fwd, 2. lateral, 3. posterior Side bilateral Resistance 4 step, 1 hand support Reps/Minutes 10 ea Comments cued level pelvis; challenging heel raise Standing Exercise Name 1. ecc heel raise 2>1, 2. gastroc, 3. soleus Side bilateral Resistance 2&3. 2.2# ball > 3.3# ball gastroc only Equipment Used hand support on rail Reps/Minutes 1. 10, 2. 3x10, 3. 3x10 Comments no pain at midfoot; ecc & soleus challenging Manual Therapy Treatment Consent Patient gave verbal consent for manual Yes treatment Soft Tissue Mobilization R foot/ankle Body Location swelling management Mobilization Type Rolling,Other Intensity/Depth Superficial Body Position Hooklying Comments Increased redness and swelling over dorsal incision where pt had orthotic placed. No longer has pocket of swelling localized but slightly more PT-OP-T Assessment and Plan Start: 03/23/24 07:35 Freq: Status: Active Protocol: Document 08/03/24 10:47 NM (Rec: 08/03/24 11:31 NM [id number]) Physical Therapy Assessment Goals Five Impairment Impaired balance: DGI , R SLS 3 sec; s/p 1 fall since IE Retirement Goal (LTG) Pt will improve DGI > and R SLS time to at least 10 seconds without hand support or LOB in order to decrease fall risk 07/18/24: 17 seconds R SLS; DGI 07/27/24 Two trials End of session: 27s, 56s R SLS ( increased stiffness/pain following 2-310) LTG Duration 12 weeks MET Four Impairment impairments in R Achilles tendon due to lengthening Short Term Goal (STG) If appropriate, pt will be able to perform at least 10 bilateral heel raises without compensation or increase in baseline pain in order to demonstrate improved gait mechanics and propulsion 04/25/23: pain free but able to perform 8 B heel raises 05/23/24: did 2x10 B heel raises w/o pain, limited ROM STG Duration 8 weeks MET Retirement Goal (LTG) If appropriate, pt will be able to perform at least 5 single leg heel raises using R foot without compensation or increase in baseline pain in order to demonstrate improved gait mechanics and propulsion 06/15/24: Pt can perform 1 with only 3 cm heel lift from ground; unable to perform with full ROM at this time due to weakness in R plantarflexor strength 07/18/24: able to initiate heel raises to midrange, but unable to achieve full ROM due to R plantarflexion weakness 08/03/24: LTG Duration 12 weeks PROGRESSING 06/15, NOT MET 07/18 Three Impairment gait impaired Short Term Goal (STG) Pt will normalize gait mechanics without AD or boot in order to demonstrate improvements in QOL and mobility 04/25/23: ambulating w/o a boot , reports slight toe pain with stepping 05/23/24: pt demonstrates more normalized gait mechanics with shoe STG Duration 4 weeks MET [employer] Goal (LTG) Pt will report ambulation > 30 minutes distance or time due to R foot/ankle mobility, strength, or pain in order to demonstrate improved QOL and mobility 06/15/24: Pt reports that she is limited to 15 minutes due to ankle stiffness/weakness, decreased endurance 07/18/24: pt reports that she can ambulate more than 30 minutes without pain LTG Duration 12 weeks MET 07/18; GOAL UPDATED 06/15 Two Impairment global ankle strength limited Short Term Goal (STG) Pt will increase global R ankle strength to at least 4/5 MMT in order to demonstrate improved ankle stability during gait, stance, and pickle ball if appropriate 04/25/24: 4-/5 for all when tested in sitting 05/23/24: 4-/5; tested in sitting 06/15/24: 4/5 for all except plantarflexion STG Duration 8 weeks PROGRESSING Retirement Goal (LTG) Pt will increase global R ankle strength to at least 4+/ 5 MMT in order to demonstrate improved ankle stability during gait, stance, and pickle ball if appropriate 06/15/24: 4/5 for all except plantarflexion 07/18/24: 4+/5 for all except plantarflexion LTG Duration 12 weeks PARTIALLY MET, NOT MET 07/18 One Impairment AROM- R ankle dorsiflexion 4 deg, R ankle plantarflexion 36 deg Short Term Goal (STG) Pt will improve R ankle dorsiflexion AROM to least 8 deg and R ankle plantarflexion AROM to at least 40 deg in order to demonstrate improved mobility for gait and participation in recreational activities 04/25/24: 10 deg ankle DF, 45 deg PF 05/23/24: 10 deg ankle DF, 45 deg PF STG Duration 8 weeks MET Retirement Goal (LTG) Pt will improve R ankle dorsiflexion AROM and R ankle plantarflexion AROM to within 3 deg of contralateral limb in order to demonstrate improved mobility for gait and participation in recreational activities 06/15/24: MET for all LTG Duration 12 weeks MET Assessment Summary Assessment Pt has no pain at midfoot with any ankle exercises, especially heel raises. Improved ROM during R heel raises bilaterally and control with eccentric lowering, but transition still challenging for pt. Continued with global quad/ankle strengthening bilaterally on stairs with step downs. Better eccentric control and only demos mild lumbopelvic compensations due to weakness. Has 12 deg R ankle dorsiflexion, 45 deg plantarflexion, 30 deg inversion, 15 eversion. No back pain. Pt continues to have swelling at dorsal midfoot near incision at cuboid. Today also has redness and heat; no increased pain, even with exercises. Continued with gentle superficial manual therapy to decrease swelling in area and education to pt about ice/elevation. PT also educated pt that she should ice/elevate when she sits especially if has been standing more. Educated pt to see if earlier follow up with surgeon available and to ask what is typical for pt at this stage of healing. Pt verbalized understanding. Physical Therapy Plan Frequency and Duration Frequency of Treatment 1-2x/wk Duration of treatment (weeks) 12 Plan of Care Start Date 06/15/24 Plan of Care End Date 09/07/24 Therapeutic Interventions Therapeutic Interventions Balance Training,Gait Training ,Home Exercise Program,Joint Mobilizations,Manual Therapy, Neuromuscular Re-education, Orthotic/Prosthetic Management ,Patient/Caregiver Education, Self-Care/Home Management, Sensory Integration,Soft Tissue Mobilization,Taping, Therapeutic Activities, Therapeutic Exercises Modalities Cold Pack/Ice Massage,Electric Stimulation,Hot Packs, Ultrasound Next Visit Focus/Plan Next Note Type Treatment Note Next Visit Plan Revisit discussion of discharge of foot for back d/t shot received 07/24 not steroid injection vs surgeon recommendations. maintenance program and strengthening POC: Retrial toe mobility and strength (gentle mobility, toe spreads and alphonso, can use band). continue with eccentric heel raise and global ankle strength and proprioception ( step up with march, front elevated heel raises). cont with soleus raise and stair gastroc heel raise (4) if kyra well. Review lateral lunges. Cont single leg press. trial eccentric heel raise vs single leg heel raise Balance/proprioception: foam, rocker board, SLS time Manual prn: no instrument assisted STM, avoid healing incisions, gentle with tendon
--- NOTE | 2024-08-16 08:41 | PT.OTN ---
Current Diagnoses Flat foot [pes planus] (acquired), right foot (08/16/24) Stiffness of right ankle, not elsewhere classified (08/16/24) Pain in right foot (08/16/24) Other lack of coordination (08/16/24) Weakness (08/16/24) Physical Therapy Treatment Note PT-OP-A Visit Information Start: 03/23/24 07:35 Freq: Status: Active Protocol: Document 08/16/24 07:29 NM (Rec: 08/16/24 08:09 NM [id number]) Out-Patient Physical Therapy Visit Information Visit Information Visit Type Treatment Note Visit Start Time 07:32 Visit Stop Time 08:12 Visit Number 25 Evaluation Information Evaluation Date 03/23/24 Precautions Precautions DOS: 01/09/24 - R pes planus reconstruction, FDL transfer, posterior tibialis tendon repair, Achilles tendon lengthening Per referral: NWB 6 weeks post op, increased WB 25% ea week with arch support, boot with arch support until week 12 and /or follow up with surgeon PT-OP-B Current Condition Start: 03/23/24 07:35 Freq: Status: Active Protocol: Document 03/23/24 07:36 NM (Rec: 03/23/24 07:37 NM [id number]) Current Condition History of Current Condition Onset Date DOS 01/09/24 Current Complaints gait, mobility, ROM History of Current Condition Pt presents with R foot post pes planus with posterior tibialis repair, FDL transfer, achilles tendon lengthening surgery at 01/09/[address] Navarro. Currently 10 weeks and 5 days post -op. She has been using spc since 6 weeks and was instructed to be 50% weightbearing. She was NWB for 6 weeks. Xray at 6 weeks, no complications. Pt had surgery due to torn arch tendon/posterior tibialis tear, extreme rolling ankle in to pronation; she had a tendon transfer from her toes. She had a metal wedge that replaced the top of the boot. She had a gastrocnemius contracture, so lengthening of the R gastrocnemius performed as well. Abigail removed at last appointment. Still in boot for 12 weeks with orthotic. She has a follow up on 04/06/[address] Navarro, planning to have an Xray at that time. Pt reports no pain, states pain has been well managed. She occasionally take tylenol for pain if she has achiness across the top of her ankle, usually after walking. States that her skin on her RLE has been hypersensitive ( also had after previous surgeries) and has been swelling a little; she has tried an onesimo bandage but not compression socks. Per pt report at last follow up with surgeon, Dr. Navarro ok'd her on gentle ROM for ankle, ices several times per day. PMH of knee replacement (L partial, R full). 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 Navarro on 08/07, reports likely soft tissue swelling. Pt planning to have injection if needed 09/07. States Dr. Navarro said ok to d/c as long as keep up wiht maintenance. Pt wanting to d/c today for her back. Wants her to ice and elevate. Brought HEP. Has back injection upcoming. Pt informed Dr. Navarro about big toe- told her to do curling and flaring . Planning to use treadmill for walking PT-OP-E Functional Tests Start: 03/23/24 07:35 Freq: Status: Active Protocol: Document 03/23/24 07:36 NM (Rec: 03/23/24 12:12 NM [id number]) Functional Tests Five Times Sit to Stand Test Score able to complete 5 w/o AD, not formally timed Comments no pain reported, slight L lean, less WB on RLE w/ boot donned PT-OP-F Manual Assessment Start: 03/23/24 07:35 Freq: Status: Active Protocol: Document 03/23/24 07:36 NM (Rec: 03/23/24 12:12 NM [id number]) Manual Assessments Soft Tissue Assessment Soft Tissue Mobility Assessment Scars intact, slight adhesions to skin. Pt has limitations in R Achilles length, has swelling across ankle Joint Mobility Assessment Joint Mobility Assessment Limited 1st ray mobility, toe extension and flexion with PROM PT-OP-G Mobility & Gait Start: 03/23/24 07:35 Freq: Status: Active Protocol: Document 03/23/24 07:36 NM (Rec: 03/23/24 12:12 NM [id number]) OP Gait Assessment Gait Gait Assistance Required: Independent Distance (Feet) 200 Able to Maintain Weight Bearing Status Yes During Gait Assistive Devices Assistive Device Straight Cane Gait Deviations General Gait Pattern Antalgic,Flexed Trunk Factors Limiting Gait Function Factors Limiting Gait Function Decreased Activity Tolerance, Decreased Sensation,Decreased Strength,Limited Range of Motion Comments Gait Comments Using spc primarily for balance as needed. Pt able to ambulate w/o AD and w/o pain in R ankle for short distances at 100% WB in boot. Demos slight L hip drop with R stance, L trunk and leg lean due to uneven WB while in boot leading to slight increase in L back pain PT-OP-J Posture/Palpation/Skin Start: 03/23/24 07:35 Freq: Status: Active Protocol: Document 03/23/24 07:36 NM (Rec: 03/23/24 12:12 NM [id number]) Posture Evaluation Position Standing Head/C-Spine Posture Forward Head L-Spine Posture Increased Lordosis Arm Posture (L) Externally Rotated,(R) Externally Rotated Pelvis Posture Anteriorly Tilted Weight Distribution Weight Shifted Left,Decreased Wt.Bear on (R) Hip Posture (L) Externally Rotated,(R) Externally Rotated Knee Posture (L) Genu Valgus,(R) Genu Valgus Ankle/Foot Posture (L) Pronated Foot Arch (L) Low Arch Palpation Assessment Location R ankle/foot Palpation Details Mild tenderness along medial ankle near posterior tibialis tendon, but denies pain. No tenderness along scars, but slight tenderness along anterior ankle near talocrural junction Skin Assessment Circumference Measurement R calf Location midway between patella and ankle mortise (17cm) Measurement (Centimeters) 34 Comments L calf 17 cm for comparison R ankle/foot Location figure 8 53 cm; 24 cm at malleoli Comments overall edema of foot > ankle to mid calf Incisional Assessment Incision Appearance/Comments All incisions intact, healing well with no signs of infection. Slight adhesions to underlying skin. Scab present only along medial ankle at one proximal point Other Assessments Skin Assessment Comments Increased rubor with dependency PT-OP-K Range of Motion Start: 03/23/24 07:35 Freq: Status: Active Protocol: Document 08/16/24 07:29 NM (Rec: 08/16/24 08:12 NM [id number]) Ankle and Foot Goniometric Range of Motion Ankle and Foot Right Dorsiflexion with Knee Flexed 12 Plantarflexion 45 Inversion 30 Eversion 15 Comments IE: 4 deg DF, 36 deg PF; No pain with AROM 04/13/24: 8 deg DF, 40 deg PF 04/25/24: 10 deg DF, 45 deg PF, 30 deg inversion, 10 deg eversion 05/23/24: 10 deg DF, 45 deg PF 06/15/24: 10 dF, 47 PF, 28 inv, 12 eversion 07/18/24: 12 deg DF, 47 deg Pf, 30 deg inversion, 12 deg eversion Left Dorsiflexion with Knee Flexed 8 Plantarflexion 45 Inversion 30 Eversion 15 PT-OP-M Strength Start: 03/23/24 07:35 Freq: Status: Active Protocol: Document 08/16/24 07:29 NM (Rec: 08/16/24 08:12 NM [id number]) Ankle/Foot Strength Ankle and Foot Manual Muscle Testing Right Dorsiflexion (L4) 4+ Good+ Plantarflexion (S1) 4 Good Inversion 4+ Good+ Eversion (S1) 4+ Good+ Comments IE: 3/5, Tested against gravity in sitting without due to surgical repair ( plantarflexion tested in sitting) 04/25/24: 4-/5 for all, tested in sitting 05/23/24: 4-/5 for all, no pain with resisted motion; tested in sitting 06/15/24: no pain with resisted testing; PF tested in sitting ; can do 1 SL heel raise with small ROM 07/18/24: 4+ for all except heel raises; PF in sitting 4+/ 5, 5 mid range heel raises Left Dorsiflexion (L4) 4+ Good+ Plantarflexion (S1) 4 Good Inversion 4+ Good+ Eversion (S1) 4+ Good+ Comments plantarflexion tested in sitting at IE Can do 1 mid-range heel raise single leg PT-OP-Q Treatments Start: 03/23/24 07:35 Freq: Status: Active Protocol: Document 08/16/24 07:29 NM (Rec: 08/16/24 08:09 NM [id number]) Therapeutic Exercises Sitting Exercises toe ROM Sitting Exercise Name 1. toe flex, 2. toe abd, 3. toe ext Side right Reps/Minutes 10 ea IV/EV Sitting Exercise Name inversion, eversion Side right Resistance level 1 band Reps/Minutes 10 ea foot intrinsics Sitting Exercise Name arch raises Side right Reps/Minutes 10 Comments small ROM ankle AROM Sitting Exercise Name 1. circles CCW and CW, 2. ABC Side right Reps/Minutes 1. 10, 2. 1 set Standing Exercises hip 3 way Standing Exercise Name with single leg squat (knee bent) Side bilateral Resistance level 2 Equipment Used hands on hips Reps/Minutes 10 ea toe raises Standing Exercise Name at wall Side bilateral Equipment Used leaning at wall Reps/Minutes 2x10 with 1 hold at end range, slow lower Comments shoes untied for comfort heel raise Standing Exercise Name 1. ecc heel raises, 2. single leg, 3. soleus B Side bilateral Equipment Used B hands on bar for balance Reps/Minutes 1. 10, 2. 5, 10, 3. 2x10 Comments no pain, limitations in ROM Manual Therapy Treatment Other Other Manual Treatments Minimal swelling at dorsal foot, less redness. Education on continuing with Dr Navarro 's recommendations Self-Care/Home Management Treatment Education Other Education Educated on ankle exercises as priority for maintenance program to continue with targeted strengthening. Clear education that daily ambulation does not replace ankle maintenance program PT-OP-T Assessment and Plan Start: 03/23/24 07:35 Freq: Status: Active Protocol: Document 08/16/24 07:29 NM (Rec: 08/16/24 08:09 NM [id number]) Physical Therapy Assessment Goals Five Impairment Impaired balance: DGI , R SLS 3 sec; s/p 1 fall since IE Group Home Goal (LTG) Pt will improve DGI > 19/24 and R SLS time to at least 10 seconds without hand support or LOB in order to decrease fall risk 07/18/24: 17 seconds R SLS; DGI 22/24 11/15/24 Two trials End of session: 27s, 56s R SLS ( increased stiffness/pain following 2-11/19) LTG Duration 12 weeks MET Four Impairment impairments in R Achilles tendon due to lengthening Short Term Goal (STG) If appropriate, pt will be able to perform at least 10 bilateral heel raises without compensation or increase in baseline pain in order to demonstrate improved gait mechanics and propulsion 04/25/23: pain free but able to perform 8 B heel raises 05/23/24: did 2x10 B heel raises w/o pain, limited ROM STG Duration 8 weeks MET Group Home Goal (LTG) If appropriate, pt will be able to perform at least 5 single leg heel raises using R foot without compensation or increase in baseline pain in order to demonstrate improved gait mechanics and propulsion 06/15/24: Pt can perform 1 with only 3 cm heel lift from ground; unable to perform with full ROM at this time due to weakness in R plantarflexor strength 07/18/24: able to initiate heel raises to midrange, but unable to achieve full ROM due to R plantarflexion weakness 08/16/24: pt can do 5 midrange single leg heel raises w/o pain LTG Duration 12 weeks PROGRESSING, MET 08/16 Three Impairment gait impaired Short Term Goal (STG) Pt will normalize gait mechanics without AD or boot in order to demonstrate improvements in QOL and mobility 04/25/23: ambulating w/o a boot , reports slight toe pain with stepping 05/23/24: pt demonstrates more normalized gait mechanics with shoe STG Duration 4 weeks MET Activities Specialist Goal (LTG) Pt will report ambulation > 30 minutes distance or time due to R foot/ankle mobility, strength, or pain in order to demonstrate improved QOL and mobility 06/15/24: Pt reports that she is limited to 15 minutes due to ankle stiffness/weakness, decreased endurance 07/18/24: pt reports that she can ambulate more than 30 minutes without pain LTG Duration 12 weeks MET 07/18; GOAL UPDATED 06/15 Two Impairment global ankle strength limited Short Term Goal (STG) Pt will increase global R ankle strength to at least 4/5 MMT in order to demonstrate improved ankle stability during gait, stance, and pickle ball if appropriate 04/25/24: 4-/5 for all when tested in sitting 05/23/24: 4-/5; tested in sitting 06/15/24: 4/5 for all except plantarflexion STG Duration 8 weeks PROGRESSING Activities Specialist Goal (LTG) Pt will increase global R ankle strength to at least 4+/ 5 MMT in order to demonstrate improved ankle stability during gait, stance, and pickle ball if appropriate 06/15/24: 4/5 for all except plantarflexion 07/18/24: 4+/5 for all except plantarflexion LTG Duration 12 weeks MET 08/16/24 One Impairment AROM- R ankle dorsiflexion 4 deg, R ankle plantarflexion 36 deg Short Term Goal (STG) Pt will improve R ankle dorsiflexion AROM to least 8 deg and R ankle plantarflexion AROM to at least 40 deg in order to demonstrate improved mobility for gait and participation in recreational activities 04/25/24: 10 deg ankle DF, 45 deg PF 05/23/24: 10 deg ankle DF, 45 deg PF STG Duration 8 weeks MET Group Home Goal (LTG) Pt will improve R ankle dorsiflexion AROM and R ankle plantarflexion AROM to within 3 deg of contralateral limb in order to demonstrate improved mobility for gait and participation in recreational activities 06/15/24: MET for all LTG Duration 12 weeks MET Progress Towards Goals Progress Towards Goals Progressing Toward Goals,Slow Progress due to Noncompliance, Goals Met Assessment Summary Assessment Pt tolerated session well. Continues to demonstrate little carryover with ankle and hip exercises; minimal compliance with HEP per admission. Pt wants to discharge from PT today for her ankle for her back with new back referral. PT and pt discussed discharge today, established maintenance program. Education on prioritizing ankle strengthening. Continued with ankle-toe mobility for morning routine. Demos good intrinsic activation. All without pain. Cueing needed for set up for all ankle activities in addition to max encouragement that pt has performed all of these exercises previously. Level 2 band still challenging for pt ankle inversion/ eversion, demos eccentric shaking but not pain. Able to do 5 single leg heel raises, multiple reps to midrange without pain and no compensation at heels, good alignment. Physical Therapy Plan Frequency and Duration Frequency of Treatment 1-2x/wk Duration of treatment (weeks) 12 Plan of Care Start Date 06/15/24 Plan of Care End Date 09/07/24 Therapeutic Interventions Therapeutic Interventions Balance Training,Gait Training ,Home Exercise Program,Joint Mobilizations,Manual Therapy, Neuromuscular Re-education, Orthotic/Prosthetic Management ,Patient/Caregiver Education, Self-Care/Home Management, Sensory Integration,Soft Tissue Mobilization,Taping, Therapeutic Activities, Therapeutic Exercises Modalities Cold Pack/Ice Massage,Electric Stimulation,Hot Packs, Ultrasound Discharge Physical Therapy Discharge Reasons Goals Met Discharge Comments Goals address today and met. Still demos minor strength deficits in ankle dorsiflexors and plantarflexors. Pt recently saw surgeon on 08/07 to address swelling and redness; surgeon provided recommendations for pt and recent imaging on 08/07 shows surgical repairs intact. Planning to have injection on 09/07 if needed for R foot/ ankle; will continue to follow up with surgeon. Pt is wanting to return to PT for low back referral. PT and pt discusssed discharge to maintenance program for ankle with clear education about continuing with ankle strengthening for at least 6 months, 3x/wk, in order for pt to return for new referral. Pt has been minimally compliant with HEP, preferring to perform daily ambulation. PT educated pt to follow up with surgeon if R foot/ankle pain returns, changes, or worsens. Pt verbalizes understanding following all education. Next Visit Focus/Plan Next Note Type Discharge Summary Next Visit Plan discharge from PT
== END 2024-09-06 12:23 | disposition home or self-care (01) ==
LOC: PHYS 07:30
PROVIDERS: Family Provider Internal Medicine; PCP Internal Medicine; Referring Provider Orthopaedic Surgery Foot and Ankle Surgery; Visit Provider Orthopaedic Surgery Foot and Ankle Surgery
DX: M21.41 Flat foot [pes planus] (acquired), right foot (principal); M79.671 Pain in right foot; R53.1 Weakness; M25.671 Stiffness of right ankle, not elsewhere classified; R27.8 Other lack of coordination
CPT/HCPCS: 97110; 97112; 97116; 97140; 97162; 97530; 97535

== ENCOUNTER → 2024-09-25 11:32 | Outpatient (CLI) | payer MEDICARE, SELFPAY ==
--- NOTE | 2024-09-25 11:37 | DI.MRI.S_ITS ---
PROCEDURE: MR LUMBAR SPINE WO CON INDICATIONS: Chronic low back pain. No trauma or surgery. TECHNIQUE: Noncontrast sagittal T1 spin echo and T2 fast echo, sagittal STIR, and T2 fast spin echo through the lumbar spine. In cases with scoliosis, additional coronal T2 fast spin echo may be performed. COMPARISON: None. FINDINGS: Image quality: Excellent. Alignment and Curvature: There is normal bony alignment. Bone Marrow: Marrow is of normal overall signal. No acute vertebral body compression fractures. Spinal Cord: Conus medullaris terminates at the L2 level. Visualized cord demonstrates normal signal and size. Paraspinous Soft Tissues: No paravertebral masses. T12-L1: Disc desiccation, broad-based disc bulge. L1-L2: Disc desiccation, broad-based disc bulge, facet effusions. L2-L3: Disc desiccation, broad-based disc bulge, facet arthrosis. Moderate to severe spinal canal narrowing. Mild bilateral neural foraminal narrowing. L3-L4: Disc desiccation, broad-based disc bulge, facet hypertrophy, ligamentum flavum hypertrophy. Severe spinal canal narrowing. Mild bilateral neural foraminal narrowing. L4-L5: Disc desiccation, broad-based disc bulge, facet hypertrophy, ligamentum flavum hypertrophy. [id number] right neural foraminal narrowing. L5-S1: Disc desiccation, broad-based disc bulge, facet hypertrophy. [id number] bilateral neural foraminal narrowing. IMPRESSION: Multilevel degenerative disc disease and facet arthrosis. Of note: Moderate to severe spinal canal narrowing at L2-3. Severe spinal canal narrowing at L3-4. Multilevel, mild to moderate neural foraminal narrowing as above. Dictated by: Thiago Quan M.D. on 09/25/2024 at 12:26 Approved by: Thiago Quan M.D. on 09/25/2024 at 12:28
== END ==
LOC: MRI 11:35
PROVIDERS: Family Provider Internal Medicine; PCP Internal Medicine; Referring Provider Physical Medicine & Rehabilitation Pain Medicine; Visit Provider Physical Medicine & Rehabilitation Pain Medicine
DX: M47.816 Spondylosis without myelopathy or radiculopathy, lumbar region (principal); M47.817 Spondylosis without myelopathy or radiculopathy, lumbosacral region; M51.369 Other intervertebral disc degeneration, lumbar region without mention of lumbar back pain or lower extremity pain; M51.379 Other intervertebral disc degeneration, lumbosacral region without mention of lumbar back pain or lower extremity pain; M48.061 Spinal stenosis, lumbar region without neurogenic claudication; M48.07 Spinal stenosis, lumbosacral region
CPT/HCPCS: 72148

== ENCOUNTER 2024-10-16 07:25 | Outpatient (CLI) | payer MEDICARE, SELFPAY ==
[2024-10-16] VITALS (9 sets, daily range): BP systolic 143–192; BP diastolic 65–84; PULSE 65–69; RESP 13–18; TEMP 36.7; O2SAT 2–100
--- NOTE | 2024-10-16 07:26 | DI.RAD.S_ITS ---
PROCEDURE: PAIN L INTERLAMINAR/CAUDAL INJ INDICATIONS: L4/5 TL JOSÉ MIGUEL COMPARISON: None. FINDINGS/IMPRESSION: Fluoroscopic spot filming was performed to verify placement of spinal needles at the left L4-5 level(s), as labeled on the films. Appropriate location(s) of the needle tip(s) was confirmed by injection of iodinated contrast. Dictated by: Jesus Whiting M.D. on 10/16/2024 at 9:10 Approved by: Jesus Whiting M.D. on 10/16/2024 at 9:10
[2024-10-16] MEDS: MIDAZOLAM 2 MG/2 ML VIAL IV (08:29)
[2024-10-16] MEDS: iopamidoL 15 ML VIAL 3 ML INJ (08:34)
[2024-10-16] MEDS: BETAMETHASONE 30 MG/5 ML MDV 12 MG INJ (08:34)
[2024-10-16] MEDS: BUPIVACAINE 0.25% (PF) VIAL 2 ML INJ (08:35)
[2024-10-16] MEDS: DEXAMETHASONE 10 MG/ML VIAL INJ (08:35)
--- NOTE | 2024-10-16 08:49 | P.PCN_ITS ---
Date/Time/Diagnoses Date of procedure: 10/16/24 Time of procedure: 08:49 Pre-procedure diagnosis: 1. HNP WITH RADICULAR FEATURES, 2. MULTILEVEL CENTRAL STENOSIS, Post-procedure diagnosis: same Procedure Notes Procedure: 1. FLUOROSCOPICALLY GUIDED CONTRAST CONTROLLED INTERLAMINAR EPIDURAL STEROID INJECTION -L4/5 Indications: Loida is referred by Dr. Rowell for treatment of Bilateral Foraminal Stenosis R>L LE symptoms. Physician: Zeeshan Stapleton Total Fluoroscopy time (seconds): 7 Total sedation minutes: 13 Complications: none Procedure in detail & Post-procedure care: FINDINGS Multilevel Central Spinal Stenosis with Nerve Root Compression DESCRIPTION OF PROCEDURE Fluoroscopically guided, contrast-controlled L4/5 translaminar epidural steroid injection. Following review of allergy and review of potential side effects and complications, including, but not necessarily limited to, infection, allergic reaction, local tissue breakdown, temporary as well as permanent nerve injury, paralysis, stroke and possible , the patient indicated that the patient understood and agreed to proceed. An informed consent document was signed by the patient, witnessed by a nurse, and placed in the patient's chart. Additionally, other treatment options including modalities, medications, and physical therapy were reviewed with the patient. After review of previous anaesthesic history and IV conscious sedation the patient was deemed safe to proceed with today?s procedure with IV conscious sedation as ASA class II designation. Safety time-out was performed to confirm patient ID, procedure to be performed and site of procedure. IV sedation was accomplished with a combination of 2mg of Versed was administered by the RN after DO order, titrated to patient comfort during the course of the procedure while the patient remained responsive to all verbal commands In the prone position, following sterile prep and drape of the lumbar region, the L4/5 translaminar space was identified fluoroscopically. The skin was anesthetized via a 25-gauge, 1.5inch needle with 1% lidocaine solution. At this point, a 22-gauge short bevel spinal needle was atraumatically introduced and advanced under fluoroscopic guidance into the region of the L4/5 translaminar space. Depth was confirmed on lateral view. Radiological data, including multiple fluoroscopic views of the lumbar spine, reveal a spinal needle at the L4/5 translaminar space. Lateral views then show placement of the needle in the epidural space. Subsequent views show contrast material flowing superiorly and inferiorly in the epidural space. No vascular or intrathecal uptake is observed. At this point, using loss of resistance technique with saline and air, the epidural space was entered. This was confirmed following negative aspiration with injection of approximately 1.5cc of Isovue 200, showing excellent epidural flow without vascular or intrathecal uptake. At this point, 1cc of 1% lidocaine solution combined with 3cc or 10mg of dexamethasone and 12mg betamethasone was injected without incident. The patient tolerated the procedure well without signs or symptoms of complications prior to transfer to the recovery area continued monitoring without incident. The patient was then transferred to the recovery area where they were observed for an appropriate period of time after the injection. The patient reported a VAS score of 6 prior to the procedure and a post- procedure VAS of 0. POST OP INSTRUCTIONS The patient was provided a Pain Log to continue to record their response to the target-specific procedure prior to follow-up visit with their referring physician. Additionally, specific post-injection care instructions and a contact number to our office were provided if concerns arise regarding possible complications associated with the procedure are suspected.
== END 2024-10-16 09:04 | disposition home or self-care (01) ==
PROVIDERS: Family Provider Internal Medicine; PCP Internal Medicine; Referring Provider Physical Medicine & Rehabilitation; Visit Provider Physical Medicine & Rehabilitation
DX: M51.16 Intervertebral disc disorders with radiculopathy, lumbar region (principal); M48.061 Spinal stenosis, lumbar region without neurogenic claudication
CPT/HCPCS: 62323; 99152; J0702; J1100; J2250; J3490

== ENCOUNTER 2024-10-29 08:15 | Outpatient (RCR) | payer MEDICARE, SELFPAY ==
--- NOTE | 2024-08-29 11:18 | PT.OIE ---
Current Diagnoses Spondylosis without myelopathy or radiculopathy, lumbar region (08/29/24) Past Medical History (Last Updated 07/09/24 @ 10:04 by Brennan Rowell MD) Allergic rhinitis Asthma Benign essential tremor BPPV (benign paroxysmal positional vertigo) Chronic upper back pain Coronary artery calcification Depression Depression, major, recurrent GERD without esophagitis History of colonic polyps Hoarseness Mixed hyperlipidemia Obesity (BMI 30.0-34.9) Osteopenia Plantar fasciitis Pulmonary nodules Whiplash Past Surgical History (Last Reviewed 07/09/24 @ 06:14 by Brennan Rowell MD) H/O: hysterectomy History of bilateral oophorectomy (~07/2019) History of section Hx of bilateral inguinal hernia repair Hx of cholecystectomy Visit Care Team Role Provider Type Brennan Rowell MD Family Provider Physician Primary Care Provider Specialty: Internal Medicine Address: [address] [place] [address], [id number] Email: [email or web address] Andres Parker MD Attending Provider Physician Referring Provider Specialty: Orthopedics Orthopedic Surgery Address: [address] [place] [address], [id number] Email: [email or web address] Physical Therapy Initial Evaluation PT-OP-A Visit Information Start: 08/28/24 18:14 Freq: Status: Active Protocol: Document 08/29/24 09:48 [facility] (Rec: 08/29/24 11:18 [facility] [id number]) Out-Patient Physical Therapy Visit Information Visit Information Visit Type Initial Evaluation Visit Start Time 09:55 Visit Stop Time 10:40 Visit Number 1 (09/21 IE) Number of QUALITY ASSURANCE SUPERVISOR CHASSIS Visits 0 PT-OP-B Current Condition Start: 08/28/24 18:14 Freq: Status: Active Protocol: Document 08/29/24 09:48 [facility] (Rec: 08/29/24 11:18 [facility] [id number]) Current Condition History of Current Condition Onset Date impactful for 5 years and worse recently Current Complaints back pain History of Current Condition chronic back pain. Acupuncture (tried) and did 3 sessions and it didn't help. Has been doing chiro off/on and has been seeing him 2x/month. She is feeling like she is getting slouch as this is more comfortable. REports doctor told her she is bone on bone at L5-S1. Did test injection to see if nerve block would be helpful. Was going to [employer] and doing bikng and cirucuit of machines but it closes at the end of the month. Was limited for a long time d/t her foot. She had a flat foot recunstruction R January 08 w/recent steroid injection. Hasn't beenw alking as much d/t this. 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 walking on treadmill 2x/day for 10 min at a time. Foot>LB limit her. Typically volunteers at [employer] but hasn't been able to stand long enough to do the activities. 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 denies numbeness or tingling or pain down legs. COuple times have had a cold feeling down ant thigh R. Denies changes in bowel or bladder function Prior Treatments and Tests xray thoracic spine IMPRESSION: No compression deformities. Degenerative change in the midthoracic spine. xray lumbar spine IMPRESSION: Mild to moderate degenerative change of the lumbar spine most severe at L5-S1. Treatment Goals Patient/Caregiver Goals be able to stand and cook and do chores, be able to volunteer,be able help clients more w/theirr activites, be able to garden and do yard work, be able to hike and walk (foot partially limits) PT-OP-C Subjective Start: 08/28/24 18:14 Freq: Status: Active Protocol: Document 08/29/24 09:48 [facility] (Rec: 08/29/24 11:18 [facility] [id number]) Patient Questionnaires Oswestry Low Back Index Oswestry Score 19/50 OP-PT Pain Assessment Location back Pain Location Details R SI and glute Frequency Frequent Radiating Location thoracic pain also at lower bra strap region (T9-11) Pain Aggravating Factors Walking,Bending Other Pain Aggravating Factors standing, worse w/day Pain Alleviating Factors Heat Other Pain Alleviating Factors lay on back w/feet up 90/90, CBD cream PT-OP-D Balance Start: 08/28/24 18:14 Freq: Status: Active Protocol: Document 08/29/24 09:48 [facility] (Rec: 08/29/24 11:18 [facility] [id number]) Balance Tests Single Limb Standing Single Limb- Right 11 sec w/lat shear of hip Single Limb- Left 27 sec PT-OP-G Mobility & Gait Start: 08/28/24 18:14 Freq: Status: Active Protocol: Document 08/29/24 09:48 [facility] (Rec: 08/29/24 11:18 [facility] [id number]) OP Gait Assessment Comments Gait Comments rigid trunk, dec RLE stance time, dec RLE wt acceptance PT-OP-J Posture/Palpation/Skin Start: 08/28/24 18:14 Freq: Status: Active Protocol: Document 08/29/24 09:48 [facility] (Rec: 08/29/24 11:18 [facility] [id number]) Posture Evaluation [facility] Postural Classification System [place] Postural Classifications Posterior/Anterior Lumbar Protective Mechanism Left AP 0 Lumbar Protective Mechanism Right AP 0 Lumbar Protective Mechanism Left PA 1 Lumbar Protective Mechanism Right PA 0 Comments Posture Comments R pelvic shear, L SB, inc kyphosis, fwd ehad PT-OP-K Range of Motion Start: 08/28/24 18:14 Freq: Status: Active Protocol: Document 08/29/24 09:48 [facility] (Rec: 08/29/24 11:18 [facility] [id number]) Lumbar Spine Range of Motion Lumbar Spine Active Percentage Flexion 50 Extension 40 Rotation Left 30 Rotation Right 40 Lateral Flexion Left 70 Lateral Flexion Right 50 Comments just bottom 2/3 femur w/pelvis blocked to about 1 in above malleoli w/o pain w/B SB R; stretch w/B rot PT-OP-L Special Tests Start: 08/28/24 18:14 Freq: Status: Active Protocol: Document 08/29/24 09:48 [facility] (Rec: 08/29/24 11:18 [facility] [id number]) Special Tests Lumbar Spine Special Tests Slump Test Results positive R PT-OP-M Strength Start: 08/28/24 18:14 Freq: Status: Active Protocol: Document 08/29/24 09:48 [facility] (Rec: 08/29/24 11:18 [facility] [id number]) Hip Strength Hip Manual Muscle Testing Right Flexion (L2) 3+ Fair+ External Rotation 3+ Fair+ Internal Rotation 4- Good- Left Flexion (L2) 3+ Fair+ Abduction 3+ Fair+ External Rotation 4- Good- Internal Rotation 4- Good- Knee Strength Knee Manual Muscle Testing Right Flexion (S2) 4 Good Extension (L3) 5 Normal Left Flexion (S2) 4+ Good+ Extension (L3) 5 Normal Ankle/Foot Strength Ankle and Foot Manual Muscle Testing Right Comments n/t d/t sore from pain from injection PT-OP-Q Treatments Start: 08/28/24 18:14 Freq: Status: Active Protocol: Document 08/29/24 09:48 [facility] (Rec: 08/29/24 11:18 [facility] [id number]) Manual Therapy Treatment Consent Patient gave verbal consent for manual Yes treatment Self-Care/Home Management Treatment Education Other Education 12 min: edu how foot pain could have contributed to back pain as change in gait pattern likely made it worse. edu how gait pattern affects her back and how pelvis was off and how that is putting more pressure likely into L5- S1 PT-OP-T Assessment and Plan Start: 08/28/24 18:14 Freq: Status: Active Protocol: Document 08/29/24 09:48 [facility] (Rec: 08/29/24 11:18 [facility] [id number]) Physical Therapy Assessment Rehab Potential Rehabilitation Potential Good Evaluation Complexity Number of Personal Factors/Comorbidities 3 or More Number of Body Systems Impaired 4 or More Clinical Presentation at Evaluation Evolving Impairments Impairments Activity Tolerance,Balance, Functional Activities, Functional Mobility,Gait,Pain, Posture,ROM,Soft Tissue Mobility,Strength Goals strength Short Term Goal (STG) Pt will be indep w/HEP STG Duration 10/01 Mcc Goal (LTG) Pt will score at least 4+/5 on BLE MMT and at least 3/5 on LPM to show improved stability to allow greater ease w/ activity. LTG Duration 11/06 activity Short Term Goal (STG) Pt will be able to stand to cook and do chores for at least 30 min at a time w/o having to rest d/t pain. STG Duration 10/01 Solution Design Engineer Goal (LTG) Pt will be able to volunteer, go for walks and work w/ clients w/o inc pain in back greater than 2/10 LTG Duration 11/06 KEYLA Impairment 19/50 Short Term Goal (STG) Pt will score no higher than 13/50 on KEYLA to show improved function. STG Duration 09/29/24 Mcc Goal (LTG) Pt will score no higher than 5 /50 on KEYLA to show improved function. LTG Duration 11/07/24 Assessment Summary Assessment Pt presents w/chronic (about 5 years) back pain w/worsening recently whre it limits how long she can stand to do chores or other activities. She has impaired gait from her R foot which causes excessive shear and lat lean w/gait and dec wt acceptance to RLE w/ significantly R>L weakness of glute med. She is overall weak in core and hips which likely contributes to back pain along w/having impaired pelvic alignment and postural positioning. She would benefit from skilled PT to work on balance, gait, sterngth, ROM, and improve function. Physical Therapy Plan Frequency and Duration Frequency of Treatment 2x/Week Duration of treatment (weeks) 10 Plan of Care Start Date 08/29/24 Plan of Care End Date 11/07/24 Therapeutic Interventions Therapeutic Interventions Balance Training,Gait Training ,Home Exercise Program,Joint Mobilizations,Manual Therapy, Neuromuscular Re-education, Patient/Caregiver Education, Self-Care/Home Management,Soft Tissue Mobilization,Taping, Therapeutic Activities, Therapeutic Exercises Modalities Cold Pack/Ice Massage,Electric Stimulation,Hot Packs, Infrared Therapy Next Visit Focus/Plan Next Note Type Treatment Note Next Visit Plan HEP: sidesteps, squat, step ups possibly, paloff press, open book supine core, counter stretch manual: thoracic/rib mobs ( gentle and in sitting d/t pt thinks has osteopenia), pelvis realignment, STM to back
--- NOTE | 2024-08-29 11:18 | PT.OPPOC ---
Physical, Occupational & Speech Therapy At [facility] Current Diagnoses Spondylosis without myelopathy or radiculopathy, lumbar region (08/29/24) Visit Care Team Role Provider Type Brennan Rowell MD Family Provider Physician Primary Care Provider Specialty: Internal Medicine Address: [address] [place] [address], [id number] Email: [email or web address] Andres Parker MD Attending Provider Physician Referring Provider Specialty: Orthopedics Orthopedic Surgery Address: [address] [place] [address], [address] Email: [email or web address] Plan Of Care PT-OP-B Current Condition Start: 08/28/24 18:14 Freq: Status: Active Protocol: Document 08/29/24 09:48 [facility] (Rec: 08/29/24 11:18 [facility] [id number]) Current Condition History of Current Condition Onset Date impactful for 5 years and worse recently Current Complaints back pain History of Current Condition chronic back pain. Acupuncture (tried) and did 3 sessions and it didn't help. Has been doing chiro off/on and has been seeing him 2x/month. She is feeling like she is getting slouch as this is more comfortable. REports doctor told her she is bone on bone at L5-S1. Did test injection to see if nerve block would be helpful. Was going to [employer] and doing bikng and cirucuit of machines but it closes at the end of the month. Was limited for a long time d/t her foot. She had a flat foot recunstruction R January 08 w/recent steroid injection. Hasn't beenw alking as much d/t this. 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 walking on treadmill 2x/day for 10 min at a time. Foot>LB limit her. Typically volunteers at [employer] but hasn't been able to stand long enough to do the activities. 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 denies numbeness or tingling or pain down legs. COuple times have had a cold feeling down ant thigh R. Denies changes in bowel or bladder function Prior Treatments and Tests xray thoracic spine IMPRESSION: No compression deformities. Degenerative change in the midthoracic spine. xray lumbar spine IMPRESSION: Mild to moderate degenerative change of the lumbar spine most severe at L5-S1. Treatment Goals Patient/Caregiver Goals be able to stand and cook and do chores, be able to volunteer,be able help clients more w/theirr activites, be able to garden and do yard work, be able to hike and walk (foot partially limits) PT-OP-T Assessment and Plan Start: 08/28/24 18:14 Freq: Status: Active Protocol: Document 08/29/24 09:48 [facility] (Rec: 08/29/24 11:18 [facility] [id number]) Physical Therapy Assessment Rehab Potential Rehabilitation Potential Good Evaluation Complexity Number of Personal Factors/Comorbidities 3 or More Number of Body Systems Impaired 4 or More Clinical Presentation at Evaluation Evolving Impairments Impairments Activity Tolerance,Balance, Functional Activities, Functional Mobility,Gait,Pain, Posture,ROM,Soft Tissue Mobility,Strength Goals strength Short Term Goal (STG) Pt will be indep w/HEP STG Duration 10/01 Senior Living Goal (LTG) Pt will score at least 4+/5 on BLE MMT and at least 3/5 on LPM to show improved stability to allow greater ease w/ activity. LTG Duration 11/06 activity Short Term Goal (STG) Pt will be able to stand to cook and do chores for at least 30 min at a time w/o having to rest d/t pain. STG Duration 10/01 [employer]ographic Press Plate Setter Goal (LTG) Pt will be able to volunteer, go for walks and work w/ clients w/o inc pain in back greater than 2/10 LTG Duration 11/06 KEYLA Impairment 19/50 Short Term Goal (STG) Pt will score no higher than 13/50 on KEYLA to show improved function. STG Duration 09/29/24 Flexographic Press Plate Setter Goal (LTG) Pt will score no higher than 5 /50 on KEYLA to show improved function. LTG Duration 11/07/24 Assessment Summary Assessment Pt presents w/chronic (about 5 years) back pain w/worsening recently whre it limits how long she can stand to do chores or other activities. She has impaired gait from her R foot which causes excessive shear and lat lean w/gait and dec wt acceptance to RLE w/ significantly R>L weakness of glute med. She is overall weak in core and hips which likely contributes to back pain along w/having impaired pelvic alignment and postural positioning. She would benefit from skilled PT to work on balance, gait, sterngth, ROM, and improve function. Physical Therapy Plan Frequency and Duration Frequency of Treatment 2x/Week Duration of treatment (weeks) 10 Plan of Care Start Date 08/29/24 Plan of Care End Date 11/07/24 Therapeutic Interventions Therapeutic Interventions Balance Training,Gait Training ,Home Exercise Program,Joint Mobilizations,Manual Therapy, Neuromuscular Re-education, Patient/Caregiver Education, Self-Care/Home Management,Soft Tissue Mobilization,Taping, Therapeutic Activities, Therapeutic Exercises Modalities Cold Pack/Ice Massage,Electric Stimulation,Hot Packs, Infrared Therapy Next Visit Focus/Plan Next Note Type Treatment Note Next Visit Plan HEP: sidesteps, squat, step ups possibly, paloff press, open book supine core, counter stretch manual: thoracic/rib mobs ( gentle and in sitting d/t pt thinks has osteopenia), pelvis realignment, STM to back Plan of Care Dates Plan of Care Start Date 08/29/24 Plan of Care End Date 11/07/24 Electronically Signed by: Amina Villa, PT 08/29/24 3456 If you are in agreement with this Plan of Care, please return a signed and dated copy. I have reviewed this Plan of Care and certify that the skilled therapy services above are required to meet the patient?s needs. Physician Signature Date Printed Name and Credentials Clinical Instructor Signature Printed Name and Credentials
--- NOTE | 2024-09-03 18:24 | PT.OTN ---
Current Diagnoses Spondylosis without myelopathy or radiculopathy, lumbar region (09/03/24) Physical Therapy Treatment Note PT-OP-A Visit Information Start: 08/28/24 18:14 Freq: Status: Active Protocol: Document 09/03/24 16:16 [facility] (Rec: 09/03/24 18:23 [facility] [id number]) Out-Patient Physical Therapy Visit Information Visit Information Visit Type Treatment Note Visit Start Time 16:18 Visit Stop Time 17:00 Visit Number 2 (10/22) Number of INSPECTOR HEATING AND REFRIGERATION Visits 0 PT-OP-B Current Condition Start: 08/28/24 18:14 Freq: Status: Active Protocol: Document 08/29/24 09:48 [facility] (Rec: 08/29/24 11:18 [facility] [id number]) Current Condition History of Current Condition Onset Date impactful for 5 years and worse recently Current Complaints back pain History of Current Condition chronic back pain. Acupuncture (tried) and did 3 sessions and it didn't help. Has been doing chiro off/on and has been seeing him 2x/month. She is feeling like she is getting slouch as this is more comfortable. REports doctor told her she is bone on bone at L5-S1. Did test injection to see if nerve block would be helpful. Was going to [employer] and doing bikng and cirucuit of machines but it closes at the end of the month. Was limited for a long time d/t her foot. She had a flat foot recunstruction R January 08 w/recent steroid injection. Hasn't beenw alking as much d/t this. 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 walking on treadmill 2x/day for 10 min at a time. Foot>LB limit her. Typically volunteers at [employer] but hasn't been able to stand long enough to do the activities. 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 denies numbeness or tingling or pain down legs. COuple times have had a cold feeling down ant thigh R. Denies changes in bowel or bladder function Prior Treatments and Tests xray thoracic spine IMPRESSION: No compression deformities. Degenerative change in the midthoracic spine. xray lumbar spine IMPRESSION: Mild to moderate degenerative change of the lumbar spine most severe at L5-S1. Treatment Goals Patient/Caregiver Goals be able to stand and cook and do chores, be able to volunteer,be able help clients more w/theirr activites, be able to garden and do yard work, be able to hike and walk (foot partially limits) PT-OP-C Subjective Start: 08/28/24 18:14 Freq: Status: Active Protocol: Document 09/03/24 16:16 [facility] (Rec: 09/03/24 18:[id number]-PT Subjective Patient Comments Patient Comments Pt felt really hopeful after IE PT-OP-D Balance Start: 08/28/24 18:14 Freq: Status: Active Protocol: Document 08/29/24 09:48 [facility] (Rec: 08/29/24 11:18 [id number] Balance Tests Single Limb Standing Single Limb- Right 11 sec w/lat shear of hip Single Limb- Left 27 sec PT-OP-G Mobility & Gait Start: 08/28/24 18:14 Freq: Status: Active Protocol: Document 08/29/24 09:48 [facility] (Rec: 08/29/24 11:18 [id number] OP Gait Assessment Comments Gait Comments rigid trunk, dec RLE stance time, dec RLE wt acceptance PT-OP-J Posture/Palpation/Skin Start: 08/28/24 18:14 Freq: Status: Active Protocol: Document 08/29/24 09:48 [facility] (Rec: 08/29/24 11:18 [facility] [id number]) Posture Evaluation [facility] Postural Classification System [facility] Postural Classifications Posterior/Anterior Lumbar Protective Mechanism Left AP 0 Lumbar Protective Mechanism Right AP 0 Lumbar Protective Mechanism Left PA 1 Lumbar Protective Mechanism Right PA 0 Comments Posture Comments R pelvic shear, L SB, inc kyphosis, fwd ehad PT-OP-K Range of Motion Start: 08/28/24 18:14 Freq: Status: Active Protocol: Document 08/29/24 09:48 [facility] (Rec: 08/29/24 11:18 [facility] [id number]) Lumbar Spine Range of Motion Lumbar Spine Active Percentage Flexion 50 Extension 40 Rotation Left 30 Rotation Right 40 Lateral Flexion Left 70 Lateral Flexion Right 50 Comments just bottom 2/3 femur w/pelvis blocked to about 1 in above malleoli w/o pain w/B SB R; stretch w/B rot PT-OP-L Special Tests Start: 08/28/24 18:14 Freq: Status: Active Protocol: Document 08/29/24 09:48 [facility] (Rec: 08/29/24 11:18 [facility] [id number]) Special Tests Lumbar Spine Special Tests Slump Test Results positive R PT-OP-M Strength Start: 08/28/24 18:14 Freq: Status: Active Protocol: Document 08/29/24 09:48 [facility] (Rec: 08/29/24 11:18 [facility] [id number]) Hip Strength Hip Manual Muscle Testing Right Flexion (L2) 3+ Fair+ External Rotation 3+ Fair+ Internal Rotation 4- Good- Left Flexion (L2) 3+ Fair+ Abduction 3+ Fair+ External Rotation 4- Good- Internal Rotation 4- Good- Knee Strength Knee Manual Muscle Testing Right Flexion (S2) 4 Good Extension (L3) 5 Normal Left Flexion (S2) 4+ Good+ Extension (L3) 5 Normal Ankle/Foot Strength Ankle and Foot Manual Muscle Testing Right Comments n/t d/t sore from pain from injection PT-OP-Q Treatments Start: 08/28/24 18:14 Freq: Status: Active Protocol: Document 09/03/24 16:16 [facility] (Rec: 09/03/24 18:23 [facility] [id number]) Therapeutic Exercises Supine Exercises pelvic tilts Reps/Minutes 15 Comments cues and demo for performance Sidelying Exercises open book Sidelying Exercise Name elbow bent Side bilateral Reps/Minutes 12 ea Comments cues for dec Habd of shoulder and keeping in line w/body and more tspine Therapeutic Activity Therapeutic Activity sleep Reps/Minutes 10 min Gait Training Gait Activity wt shifts Comments in mirror 1. R to L w/cues for push off from RLE and keeping pelvis fwd 2. L to R w/cues for postural alignment and full loading RLE gait Comments in mirror w/edu to push off Manual Therapy Treatment Consent Patient gave verbal consent for manual Yes treatment Soft Tissue Mobilization lumbar Body Location R QL and ES Mobilization Type Rolling Intensity/Depth Moderate Body Position Sidelying Comments w/ post dep Joint Mobilizations sacrum Direction II Comments distraction caudal innominate Comments R add AROM pelvis PT-OP-T Assessment and Plan Start: 08/28/24 18:14 Freq: Status: Active Protocol: Document 09/03/24 16:16 [facility] (Rec: 09/03/24 18:23 [facility] [id number]) Physical Therapy Assessment Goals strength Short Term Goal (STG) Pt will be indep w/HEP STG Duration 10/01 Baler Goal (LTG) Pt will score at least 4+/5 on BLE MMT and at least 3/5 on LPM to show improved stability to allow greater ease w/ activity. LTG Duration 11/06 activity Short Term Goal (STG) Pt will be able to stand to cook and do chores for at least 30 min at a time w/o having to rest d/t pain. STG Duration 10/01 Long-Term Goal (LTG) Pt will be able to volunteer, go for walks and work w/ clients w/o inc pain in back greater than 2/10 LTG Duration 11/06 KEYLA Impairment 19/50 Short Term Goal (STG) Pt will score no higher than 13/50 on KEYLA to show improved function. STG Duration 09/29/24 Baler Goal (LTG) Pt will score no higher than 5 /50 on KEYLA to show improved function. LTG Duration 11/07/24 Assessment Summary Assessment Pt had improved post dep R after manual treatment today. Improved wt acceptance RLE w/ re edu in mirror but does take focus. Good understanding for positioning in bed. Physical Therapy Plan Frequency and Duration Frequency of Treatment 2x/Week Duration of treatment (weeks) 10 Plan of Care Start Date 08/29/24 Plan of Care End Date 11/07/24 Next Visit Focus/Plan Next Note Type Treatment Note Next Visit Plan further HEP/clinic exercise: sidesteps, squat, step ups possibly, paloff press, supine core, counter stretch review: wt shifts, open book , pelvic tilts manual: thoracic/rib mobs ( gentle and in sitting d/t pt thinks has osteopenia), pelvis realignment, STM to back
--- NOTE | 2024-09-18 13:03 | PT.OTN ---
Current Diagnoses Spondylosis without myelopathy or radiculopathy, lumbar region (09/18/24) Physical Therapy Treatment Note PT-OP-A Visit Information Start: 08/28/24 18:14 Freq: Status: Active Protocol: Document 09/03/24 16:16 [facility] (Rec: 09/03/24 18:23 [facility] [id number]) Out-Patient Physical Therapy Visit Information Visit Information Visit Type Treatment Note Visit Start Time 16:18 Visit Stop Time 17:00 Visit Number 2 (10/22) Number of SWING TENDER Visits 0 PT-OP-B Current Condition Start: 08/28/24 18:14 Freq: Status: Active Protocol: Document 08/29/24 09:48 [facility] (Rec: 08/29/24 11:18 [facility] [id number]) Current Condition History of Current Condition Onset Date impactful for 5 years and worse recently Current Complaints back pain History of Current Condition chronic back pain. Acupuncture (tried) and did 3 sessions and it didn't help. Has been doing chiro off/on and has been seeing him 2x/month. She is feeling like she is getting slouch as this is more comfortable. REports doctor told her she is bone on bone at L5-S1. Did test injection to see if nerve block would be helpful. Was going to [employer] and doing bikng and cirucuit of machines but it closes at the end of the month. Was limited for a long time d/t her foot. She had a flat foot recunstruction R January 08 w/recent steroid injection. Hasn't beenw alking as much d/t this. Can't starch cooker at counter, can't stand and lean over. walking on treadmill 2x/day for 10 min at a time. Foot>LB limit her. Typically volunteers at [employer] but hasn't been able to stand long enough to do the activities. 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 denies numbeness or tingling or pain down legs. COuple times have had a cold feeling down ant thigh R. Denies changes in bowel or bladder function Prior Treatments and Tests xray thoracic spine IMPRESSION: No compression deformities. Degenerative change in the midthoracic spine. xray lumbar spine IMPRESSION: Mild to moderate degenerative change of the lumbar spine most severe at L5-S1. Treatment Goals Patient/Caregiver Goals be able to stand and cook and do chores, be able to volunteer,be able help clients more w/theirr activites, be able to garden and do yard work, be able to hike and walk (foot partially limits) PT-OP-C Subjective Start: 08/28/24 18:14 Freq: Status: Active Protocol: Document 09/03/24 16:16 [facility] (Rec: 09/03/24 18:23 [id number]-PT Subjective Patient Comments Patient Comments Pt felt really hopeful after IE PT-OP-D Balance Start: 08/28/24 18:14 Freq: Status: Active Protocol: Document 08/29/24 09:48 [facility] (Rec: 08/29/24 11:18 [id number] Balance Tests Single Limb Standing Single Limb- Right 11 sec w/lat shear of hip Single Limb- Left 27 sec PT-OP-G Mobility & Gait Start: 08/28/24 18:14 Freq: Status: Active Protocol: Document 08/29/24 09:48 [facility] (Rec: 08/29/24 11:18 [id number] OP Gait Assessment Comments Gait Comments rigid trunk, dec RLE stance time, dec RLE wt acceptance PT-OP-J Posture/Palpation/Skin Start: 08/28/24 18:14 Freq: Status: Active Protocol: Document 08/29/24 09:48 [facility] (Rec: 08/29/24 11:18 [facility] [id number]) Posture Evaluation [facility] Postural Classification System [facility] Postural Classifications Posterior/Anterior Lumbar Protective Mechanism Left AP 0 Lumbar Protective Mechanism Right AP 0 Lumbar Protective Mechanism Left PA 1 Lumbar Protective Mechanism Right PA 0 Comments Posture Comments R pelvic shear, L SB, inc kyphosis, fwd ehad PT-OP-K Range of Motion Start: 08/28/24 18:14 Freq: Status: Active Protocol: Document 08/29/24 09:48 [facility] (Rec: 08/29/24 11:18 [facility] [id number]) Lumbar Spine Range of Motion Lumbar Spine Active Percentage Flexion 50 Extension 40 Rotation Left 30 Rotation Right 40 Lateral Flexion Left 70 Lateral Flexion Right 50 Comments just bottom 2/3 femur w/pelvis blocked to about 1 in above malleoli w/o pain w/B SB R; stretch w/B rot PT-OP-L Special Tests Start: 08/28/24 18:14 Freq: Status: Active Protocol: Document 08/29/24 09:48 [facility] (Rec: 08/29/24 11:18 [facility] [id number]) Special Tests Lumbar Spine Special Tests Slump Test Results positive R PT-OP-M Strength Start: 08/28/24 18:14 Freq: Status: Active Protocol: Document 08/29/24 09:48 [facility] (Rec: 08/29/24 11:18 [facility] [id number]) Hip Strength Hip Manual Muscle Testing Right Flexion (L2) 3+ Fair+ External Rotation 3+ Fair+ Internal Rotation 4- Good- Left Flexion (L2) 3+ Fair+ Abduction 3+ Fair+ External Rotation 4- Good- Internal Rotation 4- Good- Knee Strength Knee Manual Muscle Testing Right Flexion (S2) 4 Good Extension (L3) 5 Normal Left Flexion (S2) 4+ Good+ Extension (L3) 5 Normal Ankle/Foot Strength Ankle and Foot Manual Muscle Testing Right Comments n/t d/t sore from pain from injection PT-OP-Q Treatments Start: 08/28/24 18:14 Freq: Status: Active Protocol: Document 09/03/24 16:16 [facility] (Rec: 09/03/24 18:23 [facility] [id number]) Therapeutic Exercises Supine Exercises pelvic tilts Reps/Minutes 15 Comments cues and demo for performance Sidelying Exercises open book Sidelying Exercise Name elbow bent Side bilateral Reps/Minutes 12 ea Comments cues for dec Habd of shoulder and keeping in line w/body and more tspine Therapeutic Activity Therapeutic Activity sleep Reps/Minutes 10 min Gait Training Gait Activity wt shifts Comments in mirror 1. R to L w/cues for push off from RLE and keeping pelvis fwd 2. L to R w/cues for postural alignment and full loading RLE gait Comments in mirror w/edu to push off Manual Therapy Treatment Consent Patient gave verbal consent for manual Yes treatment Soft Tissue Mobilization lumbar Body Location R QL and ES Mobilization Type Rolling Intensity/Depth Moderate Body Position Sidelying Comments w/ post dep Joint Mobilizations sacrum Direction II Comments distraction caudal innominate Comments R add AROM pelvis PT-OP-T Assessment and Plan Start: 08/28/24 18:14 Freq: Status: Active Protocol: Document 09/03/24 16:16 [facility] (Rec: 09/03/24 18:23 [facility] [id number]) Physical Therapy Assessment Goals strength Short Term Goal (STG) Pt will be indep w/HEP STG Duration 10/01 [employer] Goal (LTG) Pt will score at least 4+/5 on BLE MMT and at least 3/5 on LPM to show improved stability to allow greater ease w/ activity. LTG Duration 11/06 activity Short Term Goal (STG) Pt will be able to stand to cook and do chores for at least 30 min at a time w/o having to rest d/t pain. STG Duration 10/01 Jail Goal (LTG) Pt will be able to volunteer, go for walks and work w/ clients w/o inc pain in back greater than 2/10 LTG Duration 11/06 KEYLA Impairment 19/50 Short Term Goal (STG) Pt will score no higher than 13/50 on KEYLA to show improved function. STG Duration 09/29/24 [employer] Goal (LTG) Pt will score no higher than 5 /50 on KEYLA to show improved function. LTG Duration 11/07/24 Assessment Summary Assessment Pt had improved post dep R after manual treatment today. Improved wt acceptance RLE w/ re edu in mirror but does take focus. Good understanding for positioning in bed. Physical Therapy Plan Frequency and Duration Frequency of Treatment 2x/Week Duration of treatment (weeks) 10 Plan of Care Start Date 08/29/24 Plan of Care End Date 11/07/24 Next Visit Focus/Plan Next Note Type Treatment Note Next Visit Plan further HEP/clinic exercise: sidesteps, squat, step ups possibly, paloff press, supine core, counter stretch review: wt shifts, open book , pelvic tilts manual: thoracic/rib mobs ( gentle and in sitting d/t pt thinks has osteopenia), pelvis realignment, STM to back
--- NOTE | 2024-09-18 13:45 | PT.OTN ---
Current Diagnoses Spondylosis without myelopathy or radiculopathy, lumbar region (09/18/24) Physical Therapy Treatment Note PT-OP-A Visit Information Start: 08/28/24 18:14 Freq: Status: Active Protocol: Document 09/18/24 11:28 [facility] (Rec: 09/18/24 13:45 [facility] [id number]) Out-Patient Physical Therapy Visit Information Visit Information Visit Type Treatment Note Visit Start Time 11:35 Visit Stop Time 12:15 Visit Number 3 (11/19) Number of FOOD AND BEVERAGE DIRECTOR Visits 0 PT-OP-B Current Condition Start: 08/28/24 18:14 Freq: Status: Active Protocol: Document 08/29/24 09:48 [facility] (Rec: 08/29/24 11:18 [facility] [id number]) Current Condition History of Current Condition Onset Date impactful for 5 years and worse recently Current Complaints back pain History of Current Condition chronic back pain. Acupuncture (tried) and did 3 sessions and it didn't help. Has been doing chiro off/on and has been seeing him 2x/month. She is feeling like she is getting slouch as this is more comfortable. REports doctor told her she is bone on bone at L5-S1. Did test injection to see if nerve block would be helpful. Was going to [employer] and doing bikng and cirucuit of machines but it closes at the end of the month. Was limited for a long time d/t her foot. She had a flat foot recunstruction R January 08 w/recent steroid injection. Hasn't beenw alking as much d/t this. Can't soybean specialties cook at counter, can't stand and lean over. walking on treadmill 2x/day for 10 min at a time. Foot>LB limit her. Typically volunteers at [employer] but hasn't been able to stand long enough to do the activities. 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 denies numbeness or tingling or pain down legs. COuple times have had a cold feeling down ant thigh R. Denies changes in bowel or bladder function Prior Treatments and Tests xray thoracic spine IMPRESSION: No compression deformities. Degenerative change in the midthoracic spine. xray lumbar spine IMPRESSION: Mild to moderate degenerative change of the lumbar spine most severe at L5-S1. Treatment Goals Patient/Caregiver Goals be able to stand and cook and do chores, be able to volunteer,be able help clients more w/theirr activites, be able to garden and do yard work, be able to hike and walk (foot partially limits) PT-OP-C Subjective Start: 08/28/24 18:14 Freq: Status: Active Protocol: Document 09/18/24 11:28 [facility] (Rec: 09/18/24 13:[id number]-PT Subjective Patient Comments Patient Comments Last couple days, have noticed back irritated. Has been working on push off PT-OP-D Balance Start: 08/28/24 18:14 Freq: Status: Active Protocol: Document 08/29/24 09:48 [facility] (Rec: 08/29/24 11:18 [id number] Balance Tests Single Limb Standing Single Limb- Right 11 sec w/lat shear of hip Single Limb- Left 27 sec PT-OP-G Mobility & Gait Start: 08/28/24 18:14 Freq: Status: Active Protocol: Document 08/29/24 09:48 [facility] (Rec: 08/29/24 11:18 [facility] [id number]) OP Gait Assessment Comments Gait Comments rigid trunk, dec RLE stance time, dec RLE wt acceptance PT-OP-J Posture/Palpation/Skin Start: 08/28/24 18:14 Freq: Status: Active Protocol: Document 08/29/24 09:48 [facility] (Rec: 08/29/24 11:18 [facility] [id number]) Posture Evaluation [facility] Postural Classification System [place] Postural Classifications Posterior/Anterior Lumbar Protective Mechanism Left AP 0 Lumbar Protective Mechanism Right AP 0 Lumbar Protective Mechanism Left PA 1 Lumbar Protective Mechanism Right PA 0 Comments Posture Comments R pelvic shear, L SB, inc kyphosis, fwd ehad PT-OP-K Range of Motion Start: 08/28/24 18:14 Freq: Status: Active Protocol: Document 08/29/24 09:48 [facility] (Rec: 08/29/24 11:18 [id number] Lumbar Spine Range of Motion Lumbar Spine Active Percentage Flexion 50 Extension 40 Rotation Left 30 Rotation Right 40 Lateral Flexion Left 70 Lateral Flexion Right 50 Comments just bottom 2/3 femur w/pelvis blocked to about 1 in above malleoli w/o pain w/B SB R; stretch w/B rot PT-OP-L Special Tests Start: 08/28/24 18:14 Freq: Status: Active Protocol: Document 08/29/24 09:48 [facility] (Rec: 08/29/24 11:18 [facility] [id number]) Special Tests Lumbar Spine Special Tests Slump Test Results positive R PT-OP-M Strength Start: 08/28/24 18:14 Freq: Status: Active Protocol: Document 08/29/24 09:48 [facility] (Rec: 08/29/24 11:18 [facility] [id number]) Hip Strength Hip Manual Muscle Testing Right Flexion (L2) 3+ Fair+ External Rotation 3+ Fair+ Internal Rotation 4- Good- Left Flexion (L2) 3+ Fair+ Abduction 3+ Fair+ External Rotation 4- Good- Internal Rotation 4- Good- Knee Strength Knee Manual Muscle Testing Right Flexion (S2) 4 Good Extension (L3) 5 Normal Left Flexion (S2) 4+ Good+ Extension (L3) 5 Normal Ankle/Foot Strength Ankle and Foot Manual Muscle Testing Right Comments n/t d/t sore from pain from injection PT-OP-Q Treatments Start: 08/28/24 18:14 Freq: Status: Active Protocol: Document 09/18/24 11:28 [facility] (Rec: 09/18/24 13:45 [facility] [id number]) Therapeutic Exercises Supine Exercises piriformis stretch Side bilateral Reps/Minutes 30 sec pelvic tilts Supine Exercise Name progressed to tilt w/segmental bridge Reps/Minutes 10 Comments cues and demo for performance Sidelying Exercises open book Sidelying Exercise Name elbow straight Side bilateral Reps/Minutes 8 ea Comments cues comfortable range Standing Exercises wt shifts Standing Exercise Name to SLS Side bilateral Reps/Minutes 8 stretch Standing Exercise Name counter lean w/arms to L for R stretch Reps/Minutes 30 sec squat Standing Exercise Name tap to chair Side bilateral Reps/Minutes 15 sidestep Side bilateral Equipment Used L1 at ankles Reps/Minutes 15ft e Comments cues to keep body straight ahead Manual Therapy Treatment Consent Patient gave verbal consent for manual Yes treatment Soft Tissue Mobilization lumbar Body Location R QL and ES Mobilization Type Rolling Intensity/Depth Moderate Body Position Sidelying Comments w/ post dep Joint Mobilizations lumbar Joint UPA L4 and 5 R Grade II Self-Care/Home Management Treatment Education Other Education 7 min: edu re: shoe and when it is worn down that you need to change. dsicussed finding one that fits full foot and has ability to flex at big toe . PT-OP-T Assessment and Plan Start: 08/28/24 18:14 Freq: Status: Active Protocol: Document 09/18/24 11:28 [facility] (Rec: 09/18/24 13:45 [facility] [id number]) Physical Therapy Assessment Goals strength Short Term Goal (STG) Pt will be indep w/HEP STG Duration 10/01 [facility] Goal (LTG) Pt will score at least 4+/5 on BLE MMT and at least 3/5 on LPM to show improved stability to allow greater ease w/ activity. LTG Duration 11/06 activity Short Term Goal (STG) Pt will be able to stand to cook and do chores for at least 30 min at a time w/o having to rest d/t pain. STG Duration 10/01 [facility] Goal (LTG) Pt will be able to volunteer, go for walks and work w/ clients w/o inc pain in back greater than 2/10 LTG Duration 11/06 KEYLA Impairment 19/50 Short Term Goal (STG) Pt will score no higher than 13/50 on KEYLA to show improved function. STG Duration 09/29/24 [employer] Goal (LTG) Pt will score no higher than 5 /50 on KEYLA to show improved function. LTG Duration 11/07/24 Assessment Summary Assessment Improved gait today along w/ much improved performance w/wt shifting. cahllenged by new exercises. Less pain w/ reaching overhead afer manual Physical Therapy Plan Frequency and Duration Frequency of Treatment 2x/Week Duration of treatment (weeks) 10 Plan of Care Start Date 08/29/24 Plan of Care End Date 11/07/24 Next Visit Focus/Plan Next Note Type Treatment Note Next Visit Plan cont to work on exercises from this session as review, add tball seated exercises
--- NOTE | 2024-09-20 17:17 | PT.OTN ---
Current Diagnoses Spondylosis without myelopathy or radiculopathy, lumbar region (09/20/24) Physical Therapy Treatment Note PT-OP-A Visit Information Start: 08/28/24 18:14 Freq: Status: Active Protocol: Document 09/20/24 13:01 SW (Rec: 09/20/24 14:03 SW [id number]) Out-Patient Physical Therapy Visit Information Visit Information Visit Type Treatment Note Visit Start Time 13:02 Visit Stop Time 13:47 Visit Number 4 (12/20) Number of AGRISCIENCE TECHNOLOGY INSTRUCTOR Visits 1 PT-OP-B Current Condition Start: 08/28/24 18:14 Freq: Status: Active Protocol: Document 08/29/24 09:48 [facility] (Rec: 08/29/24 11:18 [facility] [id number]) Current Condition History of Current Condition Onset Date impactful for 5 years and worse recently Current Complaints back pain History of Current Condition chronic back pain. Acupuncture (tried) and did 3 sessions and it didn't help. Has been doing chiro off/on and has been seeing him 2x/month. She is feeling like she is getting slouch as this is more comfortable. REports doctor told her she is bone on bone at L5-S1. Did test injection to see if nerve block would be helpful. Was going to [employer] and doing bikng and cirucuit of machines but it closes at the end of the month. Was limited for a long time d/t her foot. She had a flat foot recunstruction R January 08 w/recent steroid injection. Hasn't beenw alking as much d/t this. 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 walking on treadmill 2x/day for 10 min at a time. Foot>LB limit her. Typically volunteers at [employer] but hasn't been able to stand long enough to do the activities. 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 denies numbeness or tingling or pain down legs. COuple times have had a cold feeling down ant thigh R. Denies changes in bowel or bladder function Prior Treatments and Tests xray thoracic spine IMPRESSION: No compression deformities. Degenerative change in the midthoracic spine. xray lumbar spine IMPRESSION: Mild to moderate degenerative change of the lumbar spine most severe at L5-S1. Treatment Goals Patient/Caregiver Goals be able to stand and cook and do chores, be able to volunteer,be able help clients more w/theirr activites, be able to garden and do yard work, be able to hike and walk (foot partially limits) PT-OP-C Subjective Start: 08/28/24 18:14 Freq: Status: Active Protocol: Document 09/20/24 13:01 SW (Rec: 09/20/24 14:03 SW [id number]) OP-PT Subjective Patient Comments Patient Comments Pt reports upset stomach today , pt is agreeable and feels ok to participate in PT. Pt reports new CBD cream using and also went to chiropractor and did tilt table, back is feeling better. PT-OP-D Balance Start: 08/28/24 18:14 Freq: Status: Active Protocol: Document 08/29/24 09:48 [facility] (Rec: 08/29/24 11:18 [facility] [id number]) Balance Tests Single Limb Standing Single Limb- Right 11 sec w/lat shear of hip Single Limb- Left 27 sec PT-OP-G Mobility & Gait Start: 08/28/24 18:14 Freq: Status: Active Protocol: Document 08/29/24 09:48 [facility] (Rec: 08/29/24 11:18 [facility] [id number]) OP Gait Assessment Comments Gait Comments rigid trunk, dec RLE stance time, dec RLE wt acceptance PT-OP-J Posture/Palpation/Skin Start: 08/28/24 18:14 Freq: Status: Active Protocol: Document 08/29/24 09:48 [facility] (Rec: 08/29/24 11:18 [facility] [id number]) Posture Evaluation Marixa Postural Classification System Marixa Postural Classifications Posterior/Anterior Lumbar Protective Mechanism Left AP 0 Lumbar Protective Mechanism Right AP 0 Lumbar Protective Mechanism Left PA 1 Lumbar Protective Mechanism Right PA 0 Comments Posture Comments R pelvic shear, L SB, inc kyphosis, fwd ehad PT-OP-K Range of Motion Start: 08/28/24 18:14 Freq: Status: Active Protocol: Document 08/29/24 09:48 [facility] (Rec: 08/29/24 11:18 [facility] [id number]) Lumbar Spine Range of Motion Lumbar Spine Active Percentage Flexion 50 Extension 40 Rotation Left 30 Rotation Right 40 Lateral Flexion Left 70 Lateral Flexion Right 50 Comments just bottom 2/3 femur w/pelvis blocked to about 1 in above malleoli w/o pain w/B SB R; stretch w/B rot PT-OP-L Special Tests Start: 08/28/24 18:14 Freq: Status: Active Protocol: Document 08/29/24 09:48 [facility] (Rec: 08/29/24 11:18 [facility] [id number]) Special Tests Lumbar Spine Special Tests Slump Test Results positive R PT-OP-M Strength Start: 08/28/24 18:14 Freq: Status: Active Protocol: Document 08/29/24 09:48 [facility] (Rec: 08/29/24 11:18 [facility] [id number]) Hip Strength Hip Manual Muscle Testing Right Flexion (L2) 3+ Fair+ External Rotation 3+ Fair+ Internal Rotation 4- Good- Left Flexion (L2) 3+ Fair+ Abduction 3+ Fair+ External Rotation 4- Good- Internal Rotation 4- Good- Knee Strength Knee Manual Muscle Testing Right Flexion (S2) 4 Good Extension (L3) 5 Normal Left Flexion (S2) 4+ Good+ Extension (L3) 5 Normal Ankle/Foot Strength Ankle and Foot Manual Muscle Testing Right Comments n/t d/t sore from pain from injection PT-OP-Q Treatments Start: 08/28/24 18:14 Freq: Status: Active Protocol: Document 09/20/24 13:01 (Rec: 09/20/24 14:03 [id number]) Gym Equipment Therapeutic Ball Red ball Exercise Details Pelvic tilts, Clocks (issued HEP), Marches(issued HEP), LAQ Ball Size/Color Red 75 CM Body Position seated Comments cues for slower controlled movement, core stabilization. Difficulty coordinating Pelvic tilts, review next session, reviewed safety with balance Therapeutic Exercises Supine Exercises piriformis stretch Side bilateral Reps/Minutes 30 sec pelvic tilts Supine Exercise Name progressed to tilt w/segmental bridge Reps/Minutes 10 Comments cues and demo for performance Standing Exercises wt shifts Standing Exercise Name SLS Side bilateral Reps/Minutes 10 Comments cues to dec EV stretch Standing Exercise Name verbal review squat Standing Exercise Name tap to chair Side bilateral Reps/Minutes 15 PT-OP-T Assessment and Plan Start: 08/28/24 18:14 Freq: Status: Active Protocol: Document 09/20/24 13:01 (Rec: 09/20/24 14:03 [id number]) Physical Therapy Assessment Goals strength Short Term Goal (STG) Pt will be indep w/HEP STG Duration 10/01 [place] Goal (LTG) Pt will score at least 4+/5 on BLE MMT and at least 3/5 on LPM to show improved stability to allow greater ease w/ activity. LTG Duration 11/06 activity Short Term Goal (STG) Pt will be able to stand to cook and do chores for at least 30 min at a time w/o having to rest d/t pain. STG Duration 10/01 Skilled Nursing Goal (LTG) Pt will be able to volunteer, go for walks and work w/ clients w/o inc pain in back greater than 2/10 LTG Duration 11/06 KEYLA Impairment 19/50 Short Term Goal (STG) Pt will score no higher than 13/50 on KEYLA to show improved function. STG Duration 09/29/24 [place] [employer] Goal (LTG) Pt will score no higher than 5 /50 on KEYLA to show improved function. LTG Duration 11/07/24 Assessment Summary Assessment Reviewed exercises issued last session for carryover, some cueing needed for correct execution. Progressed pt with addition of therapy ball for pt mobility and core stabilization, issued HEP for clocks and marches on therapy ball, pt had increased difficulty coordinating pelvic tilts on therapy ball, pt may benefit from continued focus next session. Physical Therapy Plan Frequency and Duration Frequency of Treatment 2x/Week Duration of treatment (weeks) 10 Plan of Care Start Date 08/29/24 Plan of Care End Date 11/07/24 Therapeutic Interventions Therapeutic Interventions Balance Training,Gait Training ,Home Exercise Program,Joint Mobilizations,Manual Therapy, Neuromuscular Re-education, Patient/Caregiver Education, Self-Care/Home Management,Soft Tissue Mobilization,Taping, Therapeutic Activities, Therapeutic Exercises Modalities Cold Pack/Ice Massage,Electric Stimulation,Hot Packs, Infrared Therapy Next Visit Focus/Plan Next Note Type Treatment Note Next Visit Plan review therapy ball exercises intiated this session, and progress as able
--- NOTE | 2024-10-04 14:45 | PT.OTN ---
Current Diagnoses Spondylosis without myelopathy or radiculopathy, lumbar region (10/04/24) Physical Therapy Treatment Note PT-OP-A Visit Information Start: 08/28/24 18:14 Freq: Status: Active Protocol: Document 10/04/24 13:51 [facility] (Rec: 10/04/24 14:35 [facility] [id number]) Out-Patient Physical Therapy Visit Information Visit Information Visit Type Progress Note Visit Start Time 13:50 Visit Stop Time 14:30 Visit Number 5 (01/19) Number of MAT INSPECTOR Visits 0 PT-OP-B Current Condition Start: 08/28/24 18:14 Freq: Status: Active Protocol: Document 08/29/24 09:48 [facility] (Rec: 08/29/24 11:18 [facility] [id number]) Current Condition History of Current Condition Onset Date impactful for 5 years and worse recently Current Complaints back pain History of Current Condition chronic back pain. Acupuncture (tried) and did 3 sessions and it didn't help. Has been doing chiro off/on and has been seeing him 2x/month. She is feeling like she is getting slouch as this is more comfortable. REports doctor told her she is bone on bone at L5-S1. Did test injection to see if nerve block would be helpful. Was going to [employer] and doing bikng and cirucuit of machines but it closes at the end of the month. Was limited for a long time d/t her foot. She had a flat foot recunstruction R January 08 w/recent steroid injection. Hasn't beenw alking as much d/t this. Can't dietary cook at counter, can't stand and lean over. walking on treadmill 2x/day for 10 min at a time. Foot>LB limit her. Typically volunteers at [employer] but hasn't been able to stand long enough to do the activities. 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 denies numbeness or tingling or pain down legs. COuple times have had a cold feeling down ant thigh R. Denies changes in bowel or bladder function Prior Treatments and Tests xray thoracic spine IMPRESSION: No compression deformities. Degenerative change in the midthoracic spine. xray lumbar spine IMPRESSION: Mild to moderate degenerative change of the lumbar spine most severe at L5-S1. Treatment Goals Patient/Caregiver Goals be able to stand and cook and do chores, be able to volunteer,be able help clients more w/theirr activites, be able to garden and do yard work, be able to hike and walk (foot partially limits) PT-OP-C Subjective Start: 08/28/24 18:14 Freq: Status: Active Protocol: Document 10/04/24 13:51 [facility] (Rec: 10/04/24 [id number]-PT Subjective Patient Comments Patient Comments Saw pain specialist. is to get JOS[facility] MIGUEL but awaiting auth. Back still painful w/standing Patient Questionnaires Oswestry Low Back Index Oswestry Score PT-OP-D Balance Start: 08/28/24 18:14 Freq: Status: Active Protocol: Document 08/29/24 09:48 [facility] (Rec: 08/29/24 11:18 [facility] [id number]) Balance Tests Single Limb Standing Single Limb- Right 11 sec w/lat shear of hip Single Limb- Left 27 sec PT-OP-G Mobility & Gait Start: 08/28/24 18:14 Freq: Status: Active Protocol: Document 08/29/24 09:48 [facility] (Rec: 08/29/24 11:18 [facility] [id number]) OP Gait Assessment Comments Gait Comments rigid trunk, dec RLE stance time, dec RLE wt acceptance PT-OP-J Posture/Palpation/Skin Start: 08/28/24 18:14 Freq: Status: Active Protocol: Document 10/04/24 13:51 [facility] (Rec: 10/04/24 14[id number] Posture Evaluation Marixa Postural Classification System Marixa Postural Classifications Posterior/Anterior Lumbar Protective Mechanism Left AP 1 Lumbar Protective Mechanism Right AP 0 Lumbar Protective Mechanism Left PA 3 Lumbar Protective Mechanism Right PA 1 PT-OP-K Range of Motion Start: 08/28/24 18:14 Freq: Status: Active Protocol: Document 08/29/24 09:48 [facility] (Rec: 08/29/24 11:18 [facility] [id number]) Lumbar Spine Range of Motion Lumbar Spine Active Percentage Flexion 50 Extension 40 Rotation Left 30 Rotation Right 40 Lateral Flexion Left 70 Lateral Flexion Right 50 Comments just bottom 2/3 femur w/pelvis blocked to about 1 in above malleoli w/o pain w/B SB R; stretch w/B rot PT-OP-L Special Tests Start: 08/28/24 18:14 Freq: Status: Active Protocol: Document 08/29/24 09:48 [facility] (Rec: 08/29/24 11:18 [facility] [id number]) Special Tests Lumbar Spine Special Tests Slump Test Results positive R PT-OP-M Strength Start: 08/28/24 18:14 Freq: Status: Active Protocol: Document 10/04/24 13:51 [facility] (Rec: 10/04/24 14:35 [facility] [id number]) Hip Strength Hip Manual Muscle Testing Right Flexion (L2) 4 Good Extension (S1) 3- Fair- Abduction 3+ Fair+ External Rotation 4 Good Internal Rotation 5 Normal Left Flexion (L2) 4+ Good+ Extension (S1) 3+ Fair+ Abduction 4- Good- External Rotation 4+ Good+ Internal Rotation 5 Normal Knee Strength Knee Manual Muscle Testing Right Flexion (S2) 4+ Good+ Extension (L3) 5 Normal Left Flexion (S2) 5 Normal Extension (L3) 5 Normal Ankle/Foot Strength Ankle and Foot Manual Muscle Testing Right Dorsiflexion (L4) 4- Good- Plantarflexion (S1) 4+ Good+ Inversion 4+ Good+ Eversion (S1) 4+ Good+ Comments PF tested seated PT-OP-Q Treatments Start: 08/28/24 18:14 Freq: Status: Active Protocol: Document 10/04/24 13:51 [facility] (Rec: 10/04/24 14:35 [facility] [id number]) Therapeutic Exercises Supine Exercises bridge Supine Exercise Name tilt, glute squeeze then segmental Side bilateral Reps/Minutes 3sec x15 LTR Side bilateral Reps/Minutes 10 Comments cues core on the way back up, comfortable range piriformis stretch Side bilateral Reps/Minutes 2x30 sec pelvic tilts Reps/Minutes 6 Standing Exercises squat Standing Exercise Name tap to chair Side bilateral Reps/Minutes 15 sidestep Side bilateral Equipment Used L2 at ankles Reps/Minutes 10ft ea Comments cues to keep body straight ahead Other Exercises isometrics Other Exercise Name LPM and BLE MMT quadruped Other Exercise Name alt hip ext Side bilateral Reps/Minutes 12 Comments max cues no trunk lean PT-OP-T Assessment and Plan Start: 08/28/24 18:14 Freq: Status: Active Protocol: Document 10/04/24 13:51 [facility] (Rec: 10/04/24 14:35 [facility] [id number]) Physical Therapy Assessment Goals strength Short Term Goal (STG) Pt will be indep w/HEP STG Duration 10/01 Shelter Goal (LTG) Pt will score at least 4+/5 on BLE MMT and at least 3/5 on LPM to show improved stability to allow greater ease w/ activity. 10/04-improving LTG Duration 11/06 activity Short Term Goal (STG) Pt will be able to stand to cook and do chores for at least 30 min at a time w/o having to rest d/t pain. 10/04-can stand 10 min max STG Duration 10/01 Shelter Goal (LTG) Pt will be able to volunteer, go for walks and work w/ clients w/o inc pain in back greater than 2/10 10/04-in [place] did walk but ankle caused balance issues and achey bu back did pretty well; trying not to sit more than 30 min LTG Duration 11/06 KEYLA Impairment Short Term Goal (STG) Pt will score no higher than 13/50 on KEYLA to show improved function. 10/04- STG Duration 09/29/24 Parts Analyst Goal (LTG) Pt will score no higher than 5 /50 on KEYLA to show improved function. LTG Duration 11/07/24 Assessment Summary Assessment Pt has made progress w/ strength and has been able to do darin walking without significant back pain. She is still weak in core and glutes and adjsuted HEP today. COnt PT to work on this. She has limited progress d/t limited amount of appts so far in past 30 days. Physical Therapy Plan Frequency and Duration Frequency of Treatment 2x/Week Duration of treatment (weeks) 10 Plan of Care Start Date 08/29/24 Plan of Care End Date 11/07/24 Therapeutic Interventions Therapeutic Interventions Balance Training,Gait Training ,Home Exercise Program,Joint Mobilizations,Manual Therapy, Neuromuscular Re-education, Patient/Caregiver Education, Self-Care/Home Management,Soft Tissue Mobilization,Taping, Therapeutic Activities, Therapeutic Exercises Modalities Cold Pack/Ice Massage,Electric Stimulation,Hot Packs, Infrared Therapy Next Visit Focus/Plan Next Note Type Treatment Note Next Visit Plan review exercises from last session, do more tball exercises, manual to back to improve pain
--- NOTE | 2024-10-10 17:21 | PT.OTN ---
Current Diagnoses Spondylosis without myelopathy or radiculopathy, lumbar region (10/10/24) Physical Therapy Treatment Note PT-OP-A Visit Information Start: 08/28/24 18:14 Freq: Status: Active Protocol: Document 10/10/24 14:41 NBM (Rec: 10/10/24 17:21 NB [id number]) Out-Patient Physical Therapy Visit Information Visit Information Visit Type Treatment Note Visit Start Time 14:35 Visit Stop Time 15:23 Visit Number 6 (02/19) Number of PLASTER AND STUCCO WORKER Visits 1 PT-OP-B Current Condition Start: 08/28/24 18:14 Freq: Status: Active Protocol: Document 08/29/24 09:48 LR (Rec: 08/29/24 11:18 [facility] [id number]) Current Condition History of Current Condition Onset Date impactful for 5 years and worse recently Current Complaints back pain History of Current Condition chronic back pain. Acupuncture (tried) and did 3 sessions and it didn't help. Has been doing chiro off/on and has been seeing him 2x/month. She is feeling like she is getting slouch as this is more comfortable. REports doctor told her she is bone on bone at L5-S1. Did test injection to see if nerve block would be helpful. Was going to [employer] and doing bikng and cirucuit of machines but it closes at the end of the month. Was limited for a long time d/t her foot. She had a flat foot recunstruction R January 08 w/recent steroid injection. Hasn't beenw alking as much d/t this. Can't catering cook at counter, can't stand and lean over. walking on treadmill 2x/day for 10 min at a time. Foot>LB limit her. Typically volunteers at [email or web address] but hasn't been able to stand long enough to do the activities. 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 denies numbeness or tingling or pain down legs. COuple times have had a cold feeling down ant thigh R. Denies changes in bowel or bladder function Prior Treatments and Tests xray thoracic spine IMPRESSION: No compression deformities. Degenerative change in the midthoracic spine. xray lumbar spine IMPRESSION: Mild to moderate degenerative change of the lumbar spine most severe at L5-S1. Treatment Goals Patient/Caregiver Goals be able to stand and cook and do chores, be able to volunteer,be able help clients more w/theirr activites, be able to garden and do yard work, be able to hike and walk (foot partially limits) PT-OP-C Subjective Start: 08/28/24 18:14 Freq: Status: Active Protocol: Document 10/10/24 14:41 NB (Rec: 10/10/24 17:21 [facility] [id number]) OP-PT Subjective Patient Comments Patient Comments Irina reports she got new orthotics today and is supposed to wear them one hour in the morning and one in the evening to gradually break them in; it's been 1.5 hours but she forgot her other orthotics so wants to keep them in for session. She has on newer shoes from a few weeks ago with wider toe box so her fifth digit can move. She thinks she's doing the hip extension exercise wrong and thinks she's doing the chair taps well. PT-OP-D Balance Start: 08/28/24 18:14 Freq: Status: Active Protocol: Document 08/29/24 09:48 [facility] (Rec: 08/29/24 11:18 [facility] [id number]) Balance Tests Single Limb Standing Single Limb- Right 11 sec w/lat shear of hip Single Limb- Left 27 sec PT-OP-G Mobility & Gait Start: 08/28/24 18:14 Freq: Status: Active Protocol: Document 08/29/24 09:48 [facility] (Rec: 08/29/24 11:18 [facility] [id number]) OP Gait Assessment Comments Gait Comments rigid trunk, dec RLE stance time, dec RLE wt acceptance PT-OP-J Posture/Palpation/Skin Start: 08/28/24 18:14 Freq: Status: Active Protocol: Document 10/04/24 13:51 [facility] (Rec: 10/04/24 14:35 [facility] [id number]) Posture Evaluation Marixa Postural Classification System Marixa Postural Classifications Posterior/Anterior Lumbar Protective Mechanism Left AP 1 Lumbar Protective Mechanism Right AP 0 Lumbar Protective Mechanism Left PA 3 Lumbar Protective Mechanism Right PA 1 PT-OP-K Range of Motion Start: 08/28/24 18:14 Freq: Status: Active Protocol: Document 08/29/24 09:48 [facility] (Rec: 08/29/24 11:18 [facility] [id number]) Lumbar Spine Range of Motion Lumbar Spine Active Percentage Flexion 50 Extension 40 Rotation Left 30 Rotation Right 40 Lateral Flexion Left 70 Lateral Flexion Right 50 Comments just bottom 2/3 femur w/pelvis blocked to about 1 in above malleoli w/o pain w/B SB R; stretch w/B rot PT-OP-L Special Tests Start: 08/28/24 18:14 Freq: Status: Active Protocol: Document 08/29/24 09:48 [facility] (Rec: 08/29/24 11:18 [facility] [id number]) Special Tests Lumbar Spine Special Tests Slump Test Results positive R PT-OP-M Strength Start: 08/28/24 18:14 Freq: Status: Active Protocol: Document 10/04/24 13:51 [facility] (Rec: 10/04/24 14:35 [facility] [id number]) Hip Strength Hip Manual Muscle Testing Right Flexion (L2) 4 Good Extension (S1) 3- Fair- Abduction 3+ Fair+ External Rotation 4 Good Internal Rotation 5 Normal Left Flexion (L2) 4+ Good+ Extension (S1) 3+ Fair+ Abduction 4- Good- External Rotation 4+ Good+ Internal Rotation 5 Normal Knee Strength Knee Manual Muscle Testing Right Flexion (S2) 4+ Good+ Extension (L3) 5 Normal Left Flexion (S2) 5 Normal Extension (L3) 5 Normal Ankle/Foot Strength Ankle and Foot Manual Muscle Testing Right Dorsiflexion (L4) 4- Good- Plantarflexion (S1) 4+ Good+ Inversion 4+ Good+ Eversion (S1) 4+ Good+ Comments PF tested seated PT-OP-Q Treatments Start: 08/28/24 18:14 Freq: Status: Active Protocol: Document 10/10/24 14:41 [facility] (Rec: 10/10/24 17:21 [facility] [id number]) Gym Equipment Therapeutic Ball Red ball Exercise Details CW/CCW, Pelvic Clocks (12<>6, 3<>9), alt marching Ball Size/Color Green 65 cm Body Position seated Comments Next to //bars for TRANSITIONAL KINDERGARTEN TEACHER prn. cues for slower controlled movement, core stabilization, breathwork. Therapeutic Exercises Supine Exercises bridge Supine Exercise Name tilt, glute squeeze then segmental Side bilateral Reps/Minutes 3sec x15 LTR Supine Exercise Name w/ PPT Side bilateral Reps/Minutes 10 Comments cues core on the way back up, comfortable range Standing Exercises squat Standing Exercise Name tap to chair Side bilateral Equipment Used self-tactile cue hands at hip flex B Reps/Minutes 15 Comments cue hip hinge sidestep Side bilateral Equipment Used L2 at ankles Reps/Minutes 3x 10ft ea Comments cues for neutral foot R>L Other Exercises quadruped Other Exercise Name alt hip ext>modified onto forearms Side bilateral Reps/Minutes x10 ea Comments vc TrA and breathwork PT-OP-T Assessment and Plan Start: 08/28/24 18:14 Freq: Status: Active Protocol: Document 10/10/24 14:41 NBM (Rec: 10/10/24 17:21 NB [id number]) Physical Therapy Assessment Goals strength Short Term Goal (STG) Pt will be indep w/HEP STG Duration 10/01 Mcc Goal (LTG) Pt will score at least 4+/5 on BLE MMT and at least 3/5 on LPM to show improved stability to allow greater ease w/ activity. 10/04-improving LTG Duration 11/06 activity Short Term Goal (STG) Pt will be able to stand to cook and do chores for at least 30 min at a time w/o having to rest d/t pain. 10/04-can stand 10 min max STG Duration 10/01 [employer] Goal (LTG) Pt will be able to volunteer, go for walks and work w/ clients w/o inc pain in back greater than 2/10 10/04-in [place] did walk but ankle caused balance issues and achey bu back did pretty well; trying not to sit more than 30 min LTG Duration 11/06 KEYLA Impairment 19/50 Short Term Goal (STG) Pt will score no higher than 13/50 on KEYLA to show improved function. 10/04- STG Duration 09/29/24 Mcc Goal (LTG) Pt will score no higher than 5 /50 on KEYLA to show improved function. LTG Duration 11/07/24 Assessment Summary Assessment Treatment focus on review of condensed HEP from 10/04 visit. Irina is educated on core anatomy and relationship with diaphragm and breath, as well as how to engage TrA m. and breathwork with HEP which she needs cues for throughout. She requires cues for hip hinge with chair taps and form improves with tactile cues at anterior hips. She is challenged to perform hip ext in quadruped so modified onto forearms and form improves. She demos improved stability with seated therapy ball ex's with cueing and repetition. Added therapy ball seated ex's to HEP - HO updated. Physical Therapy Plan Frequency and Duration Frequency of Treatment 2x/Week Duration of treatment (weeks) 10 Plan of Care Start Date 08/29/24 Plan of Care End Date 11/07/24 Therapeutic Interventions Therapeutic Interventions Balance Training,Gait Training ,Home Exercise Program,Joint Mobilizations,Manual Therapy, Neuromuscular Re-education, Patient/Caregiver Education, Self-Care/Home Management,Soft Tissue Mobilization,Taping, Therapeutic Activities, Therapeutic Exercises Modalities Cold Pack/Ice Massage,Electric Stimulation,Hot Packs, Infrared Therapy Next Visit Focus/Plan Next Note Type Treatment Note Next Visit Plan review exercises from 10/04/24 session with updated cues, do more tball exercises, manual to back to improve pain
--- NOTE | 2024-10-29 10:48 | PT.OTN ---
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 Acupuncture (tried) and did 3 sessions and it didn't help. Has been doing chiro off/on and has been seeing him 2x/month. She is feeling like she is getting slouch as this is more comfortable. REports doctor told her she is bone on bone at L5-S1. Did test injection to see if nerve block would be helpful. Was going to [employer] and doing bikng and cirucuit of machines but it closes at the end of the month. Was limited for a long time d/t her foot. She had a flat foot recunstruction R January 08 w/recent steroid injection. Hasn't beenw alking as much d/t this. 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 walking on treadmill 2x/day for 10 min at a time. Foot>LB limit her. Typically volunteers at [email or web address] but hasn't been able to stand long enough to do the activities. 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 denies numbeness or tingling or pain down legs. COuple times have had a cold feeling down ant thigh R. Denies changes in bowel or bladder function Prior Treatments and Tests xray thoracic spine IMPRESSION: No compression deformities. Degenerative change in the midthoracic spine. xray lumbar spine IMPRESSION: Mild to moderate degenerative change of the lumbar spine most severe at L5-S1. Treatment Goals Patient/Caregiver Goals be able to stand and cook and do chores, be able to volunteer,be able help clients more w/theirr activites, be able to garden and do yard work, be able to hike and walk (foot partially limits) PT-OP-C Subjective Start: 08/28/24 18:14 Freq: Status: Active Protocol: Document 10/29/24 08:17 [facility] (Rec: 10/29/24 10:48 [facility] [id number]) OP-PT Subjective Patient Comments Patient Comments Pt has been sick so hasn't been in PT in a while. Walking is better. doing 1.5 mile yesterday. She is getting therapy fatigue since she had months w/her foot. She feels like injection is working. Still has some mid and upper back PT-OP-D Balance Start: 08/28/24 18:14 Freq: Status: Active Protocol: Document 08/29/24 09:48 [facility] (Rec: 08/29/24 11:18 [facility] [id number]) Balance Tests Single Limb Standing Single Limb- Right 11 sec w/lat shear of hip Single Limb- Left 27 sec PT-OP-G Mobility & Gait Start: 08/28/24 18:14 Freq: Status: Active Protocol: Document 08/29/24 09:48 [facility] (Rec: 08/29/24 11:18 [facility] [id number]) OP Gait Assessment Comments Gait Comments rigid trunk, dec RLE stance time, dec RLE wt acceptance PT-OP-J Posture/Palpation/Skin Start: 08/28/24 18:14 Freq: Status: Active Protocol: Document 10/29/24 08:17 [facility] (Rec: 10/29/24 10:48 [facility] [id number]) Posture Evaluation Marixa Postural Classification System Marixa Postural Classifications Posterior/Anterior Lumbar Protective Mechanism Left AP 2 Lumbar Protective Mechanism Right AP 1 Lumbar Protective Mechanism Left PA 3 Lumbar Protective Mechanism Right PA 3 PT-OP-K Range of Motion Start: 08/28/24 18:14 Freq: Status: Active Protocol: Document 08/29/24 09:48 [facility] (Rec: 08/29/24 11:18 [facility] [id number]) Lumbar Spine Range of Motion Lumbar Spine Active Percentage Flexion 50 Extension 40 Rotation Left 30 Rotation Right 40 Lateral Flexion Left 70 Lateral Flexion Right 50 Comments just bottom 2/3 femur w/pelvis blocked to about 1 in above malleoli w/o pain w/B SB R; stretch w/B rot PT-OP-L Special Tests Start: 08/28/24 18:14 Freq: Status: Active Protocol: Document 08/29/24 09:48 [facility] (Rec: 08/29/24 11:18 [facility] [id number]) Special Tests Lumbar Spine Special Tests Slump Test Results positive R PT-OP-M Strength Start: 08/28/24 18:14 Freq: Status: Active Protocol: Document 10/29/24 08:17 [facility] (Rec: 10/29/24 10:48 [facility] [id number]) Hip Strength Hip Manual Muscle Testing Right Flexion (L2) 5 Normal Extension (S1) 4- Good- Abduction 4 Good Adduction 5 Normal External Rotation 4+ Good+ Internal Rotation 5 Normal Left Flexion (L2) 4+ Good+ Extension (S1) 4- Good- Abduction 4 Good External Rotation 5 Normal Internal Rotation 5 Normal Knee Strength Knee Manual Muscle Testing Right Flexion (S2) 4+ Good+ Extension (L3) 5 Normal Left Flexion (S2) 5 Normal Extension (L3) 5 Normal Ankle/Foot Strength Ankle and Foot Manual Muscle Testing Left Dorsiflexion (L4) 5 Normal Inversion 5 Normal Eversion (S1) 5 Normal Comments 20 heel raises Right Dorsiflexion (L4) 4+ Good+ Plantarflexion (S1) 4- Good- Inversion 5 Normal Eversion (S1) 4+ Good+ Comments 10 heel rasies partial range PT-OP-Q Treatments Start: 08/28/24 18:14 Freq: Status: Active Protocol: Document 10/29/24 08:17 [facility] (Rec: 10/29/24 10:48 [facility] [id number]) Therapeutic Exercises Supine Exercises LTR Side bilateral Reps/Minutes 10 Comments cues core on the way back up, comfortable range Standing Exercises pec stretch Side bilateral Reps/Minutes [id number] Comments doorway 90/90 wall posture Standing Exercise Name ft away back against wall and 90/90 ER Side bilateral Reps/Minutes 2x20 sec Comments inc time for edu squat Standing Exercise Name tap to chair Side bilateral Equipment Used L2 at knees Reps/Minutes 15 Comments cue hip hinge Other Exercises cat/cow Reps/Minutes 10 isometrics Other Exercise Name LPM and BLE MMT Manual Therapy Treatment Consent Patient gave verbal consent for manual Yes treatment Joint Mobilizations thoracic Comments PA T 10, T7 c/r seated Self-Care/Home Management Treatment Education Other Education 10 min: edu to keep up walking , HEP at least a few exercises each day but doesnt have to do all every day. Encouraged to keep up working on posture and dec slouch to helpw / thoracic pain. PT-OP-T Assessment and Plan Start: 08/28/24 18:14 Freq: Status: Active Protocol: Document 10/29/24 08:17 [facility] (Rec: 10/29/24 10:48 [facility] [id number]) Physical Therapy Assessment Goals strength Short Term Goal (STG) Pt will be indep w/HEP STG Duration achieved Retirement Goal (LTG) Pt will score at least 4+/5 on BLE MMT and at least 3/5 on LPM to show improved stability to allow greater ease w/ activity. 10/04-improving LTG Duration much improved activity Short Term Goal (STG) Pt will be able to stand to cook and do chores for at least 30 min at a time w/o having to rest d/t pain. 10/04-can stand 10 min max 10/29-15 min- upper back stops her STG Duration 10/01 Retirement Goal (LTG) Pt will be able to volunteer, go for walks and work w/ clients w/o inc pain in back greater than 2/10 10/04-in [place] did walk but ankle caused balance issues and achey bu back did pretty well; trying not to sit more than 30 min 10/29-has been able to work w/ clients and walk but hasn't tried volunteer work. LTG Duration 11/06 KEYLA Impairment Short Term Goal (STG) Pt will score no higher than 13/50 on KEYLA to show improved function. 10/04- STG Duration achieved Retirement Goal (LTG) Pt will score no higher than 5 /50 on KEYLA to show improved function. 10/29- LTG Duration 11/07/24 Assessment Summary Assessment Pt has made excellent progress w/PT but does feel worn out from attending PT for foot then back so requesting DC to HEP. Indep w/HEP and added some exercsies to focus more on thoracic spine today. She has improved much w/strength and has HEP to contt o improve . Still stiff in tspine. Physical Therapy Plan Discharge Physical Therapy Discharge Reasons Patient Request
== END 2024-10-29 15:19 | disposition home or self-care (01) ==
LOC: PHYS 08:15
PROVIDERS: Family Provider Internal Medicine; PCP Internal Medicine; Referring Provider Physical Medicine & Rehabilitation; Visit Provider Physical Medicine & Rehabilitation
DX: M47.816 Spondylosis without myelopathy or radiculopathy, lumbar region (principal)
CPT/HCPCS: 97110; 97112; 97116; 97140; 97162; 97530; 97535

== ENCOUNTER → 2024-11-19 10:23 | Outpatient (CLI) | payer MEDICARE, SELFPAY ==
[2024-11-19 11:27] LABS: Hemoglobin A1C% w Est Avg Glu 5.7 % (4.0-6.0)
[2024-11-19 11:35] LABS: Aspartate Aminotransferase 27 IU/L (14-36); BUN Creatinine Ratio 12.5 (6-22); Blood Urea Nitrogen 10 mg/dL (7-17); Calcium 9.9 mg/dL (8.4-10.2); Carbon Dioxide 25 mmol/L (22-32); Chloride 95 mmol/L (98-107); Cholesterol 167 mg/dL (140-199); Estimated Glomerular Filt Rate > 60 mL/min (>60); Glucose 107 mg/dL (80-110); HDL Cholesterol 62 mg/dL (40-60); HEMOLYSIS < 15 (0-50); LDL Cholesterol Calculated 84 mg/dL (<100); Magnesium 1.8 mg/dL (1.6-2.3); Potassium 4.6 mmol/L (3.4-5.1); Sodium 130 mmol/L (137-145); Triglycerides 105 mg/dL (35-150)
== END ==
PROVIDERS: Family Provider Internal Medicine; PCP Internal Medicine; Referring Provider Internal Medicine; Visit Provider Internal Medicine
DX: R73.01 Impaired fasting glucose (principal); E61.2 Magnesium deficiency; E78.2 Mixed hyperlipidemia
CPT/HCPCS: 36415; 80048; 80061; 83036; 83735; 84450

== ENCOUNTER → 2024-11-22 16:38 | Outpatient (CLI) | payer MEDICARE, SELFPAY ==
--- NOTE | 2024-11-22 16:40 | DI.MG.S_ITS ---
MM screening mammo BI: 11/22/2024. BI-RADS: 2 CLINICAL: 69-year old female for bilateral screening mammogram. Tyrer-Cuzick lifetime risk of 6.0%. Current reported family history of breast cancer: mother. The patient reports testing negative for BRCA gene mutation. PRIOR EXAMS 11/08/2023, 10/18/2022, 10/14/2021, 10/14/2020, 10/11/2019, 08/16/2018, 08/09/2017. MAMMOGRAPHY TECHNIQUE: 2D and 3D (tomosynthesis) digital mammographic views obtained, with additional images as needed for full coverage. Current study was also evaluated with a Computer Aided Detection (CAD) system. DENSITY B. There are scattered areas of fibroglandular density. MAMMOGRAPHY FINDINGS Right: Benign-appearing calcification noted on the right. There are no suspicious masses, calcifications, or other findings in the breast. No significant change from comparison. Left: Benign-appearing mass and calcification noted on the left. There are no suspicious masses, calcifications, or other findings in the breast. No significant change from comparison. IMPRESSION: * No evidence of malignancy with benign findings. RECOMMENDATIONS Bilateral * Annual screening mammography. OVERALL ASSESSMENT CATEGORY BI-RADS-2: Benign. The [employer] recommends annual screening mammography beginning at age 40 for women with average risk of breast cancer. ELECTRONICALLY SIGNED: Tanya Gamez M.D. on 11/23/2024 at 09:44:10 AM PT Interpreting Station ID: [id number]
== END ==
PROVIDERS: Family Provider Internal Medicine; PCP Internal Medicine; Referring Provider Internal Medicine; Visit Provider Internal Medicine
DX: Z12.31 Encounter for screening mammogram for malignant neoplasm of breast (principal); R92.1 Mammographic calcification found on diagnostic imaging of breast; Z80.3 Family history of malignant neoplasm of breast
CPT/HCPCS: 77063; 77067

== ENCOUNTER → 2024-12-28 13:20 | Outpatient (CLI) | payer MEDICARE, SELFPAY ==
[2024-12-28 14:26] LABS: BUN Creatinine Ratio 22.1 (6-22); Blood Urea Nitrogen 21 mg/dL (7-17); Calcium 9.7 mg/dL (8.4-10.2); Carbon Dioxide 24 mmol/L (22-32); Chloride 100 mmol/L (98-107); Estimated Glomerular Filt Rate > 60 mL/min (>60); Glucose 105 mg/dL (80-110); HEMOLYSIS < 15 (0-50); Potassium 4.6 mmol/L (3.4-5.1); Sodium 134 mmol/L (137-145)
== END ==
PROVIDERS: Family Provider Internal Medicine; PCP Internal Medicine; Referring Provider Internal Medicine; Visit Provider Internal Medicine
DX: E87.1 Hypo-osmolality and hyponatremia (principal)
CPT/HCPCS: 36415; 80048

== ENCOUNTER → 2025-01-06 11:19 | Outpatient (CLI) | payer MEDICARE, SELFPAY ==
--- NOTE | 2025-01-06 11:20 | DI.MRI.S_ITS ---
PROCEDURE: MR ANKLE RT WO CON INDICATIONS: Pain in rt foot TECHNIQUE: Noncontrast sagittal T1 spin echo and T2 fast spin echo with fat saturation, axial proton density fast spin echo and T2 fast spin echo with fat saturation, coronal T1 spin echo and T2 fast spin echo with fat saturation through the ankle/hindfoot. COMPARISON: [facility], MR, MR ANKLE RT WO CON, 04/04/2023, 10:55. FINDINGS: Image quality: Excellent. Bones and joints: [id number] midfoot and hindfoot joint osteoarthritic changes are seen more notably involving TMT joints and talonavicular joint. No fracture or dislocation. No osteochondral injuries of talar dome. Small amount of tibiotalar joint effusion, no loose bodies. Mild ankle soft tissue swelling and edema is noted. Medial structures: The posterior tibialis tendon appears thickened with intrasubstance T2 hyperintense signal and intrasubstance T2 hyperintense signal at the level of mid to distal talus and talonavicular joint. The flexor digitorum longus, and flexor hallucis longus tendons are intact. The posterior tibial neurovascular bundle appears normal within the tarsal tunnel, without extrinsic mass effect. The deltoid ligament and spring ligament are mildly thickened. Lateral structures: The anterior talofibular, calcaneofibular, and posterior talofibular ligaments appear intact. More superiorly, the anterior and posterior tibiofibular ligaments appear intact, as is the intermalleolar ligament. The tibiofibular syndesmosis is normal in width at 2 mm or less. Thickened peroneus brevis and longus tendon with small amount of fluid distending tendon sheath at the level of lateral malleolus tip extending to the their distal insertion is noted. The sinus tarsi demonstrates normal fatty signal, without edema, fibrosis, or cyst formation. Anterior structures: The tibialis anterior, extensor hallucis longus, and extensor digitorum longus tendons appear intact. The dorsal talonavicular ligament appears intact. Posterior and plantar structures: Achilles tendon is intact. Medial and lateral bands of the plantar fascia are of normal thickness. No abductor digiti quinti muscle atrophy to suggest Cooney neuropathy. IMPRESSION: 1. Tcaq-ax-[id number] midfoot and hindfoot joint osteoarthritis. No fracture or dislocation. No suspicious bony lesions. No osteochondral injuries of talar dome. Small tibiotalar joint effusion, no loose bodies. Mild ankle soft tissue swelling. 2. Low to moderate grade tendinosis and intrasubstance partial-thickness tear involving posterior tibialis tendon at the level of mid to distal talus and talonavicular joint. 3. Low-grade tenosynovitis involving peroneus brevis and longus tendons at the level of lateral malleolus tip extending to their distal insertions. 4. Low-grade medial ankle ligament sprain. Lateral ankle ligaments are intact. Dictated by: Jesus Whiting M.D. on 01/07/2025 at 14:16 Approved by: Jesus Whiting M.D. on 01/07/2025 at 14:22
== END ==
PROVIDERS: Family Provider Internal Medicine; PCP Internal Medicine; Referring Provider Orthopaedic Surgery Foot and Ankle Surgery; Visit Provider Orthopaedic Surgery Foot and Ankle Surgery
DX: S93.491A Sprain of other ligament of right ankle, initial encounter (principal); M76.821 Posterior tibial tendinitis, right leg; M19.071 Primary osteoarthritis, right ankle and foot; M25.474 Effusion, right foot; M79.89 Other specified soft tissue disorders
CPT/HCPCS: 73721

== ENCOUNTER → 2025-02-07 14:09 | Outpatient (CLI) | payer MEDICARE, SELFPAY ==
[2025-02-07 15:22] LABS: Add Manual Diff / Slide Review NO; Basophils Absolute Auto 0 /uL (0-100); Basophils Percent Auto 0.5 % (0-2); Eosinophils Absolute Auto 100 /uL (0-450); Eosinophils Percent Auto 0.9 % (2-4); Hematocrit 37.1 % (36-46); Hemoglobin 12.9 g/dL (12.0-16.0); Lymphocytes Absolute Auto 2000 /uL (1100-4500); Lymphocytes Percent Auto 25.7 % (25-40); Mean Corpuscular HGB Conc 34.6 % (30-36); Mean Corpuscular Hemoglobin 34.5 PG (26-34); Mean Corpuscular Volume 99.5 fL (80-100); Monocytes Absolute Auto 700 /uL (0-900); Monocytes Percent Auto 8.9 % (3-14); Neutrophils Absolute Auto 5000 /uL (1500-7000); Platelet Count 281 X10^3/uL (150-400); Red Blood Cell Count 3.73 X10^6/uL (4.0-5.2); Red Cell Distribution Width 12.8 % (11.6-14.8); White Blood Cell Count 7.9 X10^3/uL (4.5-11.0)
[2025-02-07 15:44] LABS: Alanine Aminotransferase 25 IU/L (<35); Albumin 4.7 g/dL (3.5-5.0); Albumin Globulin Ratio 2.1 (1.0-2.8); Alkaline Phosphatase 64 U/L (38-126); Aspartate Aminotransferase 25 IU/L (14-36); BUN Creatinine Ratio 26.7 (6-22); Bilirubin Total 0.7 mg/dL (0.2-1.3); Blood Urea Nitrogen 23 mg/dL (7-17); Calcium 9.9 mg/dL (8.4-10.2); Carbon Dioxide 26 mmol/L (22-32); Chloride 97 mmol/L (98-107); Estimated Glomerular Filt Rate > 60 mL/min (>60); Globulin 2.2 g/dL (1.7-4.1); Glucose 97 mg/dL (70-99); HEMOLYSIS < 15 (0-50); Potassium 4.5 mmol/L (3.4-5.1); Sodium 133 mmol/L (137-145); Total Protein 6.9 g/dL (6.3-8.2)
[2025-02-07 16:15] LABS: TSH w/ Reflex to FT4 0.68 uIU/mL (0.47-4.68)
[2025-02-12 21:36] LABS: Deamidated Gliadin Ab IgA 2 units (0-19); Deamidated Gliadin Ab IgG 1 units (0-19); Immunoglobulin A,Qn 73 mg/dL (87-352); t-Transglutaminase IgA <2 U/mL (0-3)
== END ==
PROVIDERS: Family Provider Internal Medicine; PCP Internal Medicine; Referring Provider Nurse Practitioner Family; Visit Provider Nurse Practitioner Family
DX: R10.84 Generalized abdominal pain; K59.09 Other constipation; R14.0 Abdominal distension (gaseous); Z86.0101 Personal history of adenomatous and serrated colon polyps; R15.9 Full incontinence of feces; R19.4 Change in bowel habit
CPT/HCPCS: 36415; 80053; 82784; 83516; 84443; 85025

== ENCOUNTER → 2025-04-10 08:05 | Outpatient (CLI) | payer MEDICARE, SELFPAY ==
[2025-04-10 08:26] LABS: Add Manual Diff / Slide Review NO; Hematocrit 37.1 % (36-46); Hemoglobin 12.9 g/dL (12.0-16.0); Lymphocytes Absolute Auto 1600 /uL (1100-4500); Mean Corpuscular HGB Conc 34.8 % (30-36); Mean Corpuscular Hemoglobin 34.9 PG (26-34); Mean Corpuscular Volume 100.3 fL (80-100); Platelet Count 250 X10^3/uL (150-400)
[2025-04-10 08:36] LABS: Hemoglobin A1C% w Est Avg Glu 6.1 % (4.0-6.0)
[2025-04-10 08:51] LABS: Alanine Aminotransferase 25 IU/L (<35); Albumin 4.7 g/dL (3.5-5.0); Albumin Globulin Ratio 2.1 (1.0-2.8); Alkaline Phosphatase 59 U/L (38-126); Blood Urea Nitrogen 20 mg/dL (7-17); Calcium 9.7 mg/dL (8.4-10.2); Carbon Dioxide 24 mmol/L (22-32); Chloride 100 mmol/L (98-107); Cholesterol 146 mg/dL (140-199); Estimated Glomerular Filt Rate > 60 mL/min (>60); Globulin 2.2 g/dL (1.7-4.1); Glucose 113 mg/dL (70-99); HDL Cholesterol 73 mg/dL (40-60); HEMOLYSIS < 15 (0-50); Potassium 4.4 mmol/L (3.4-5.1); Sodium 133 mmol/L (137-145); Total Protein 6.9 g/dL (6.3-8.2); Triglycerides 67 mg/dL (35-150); Uric Acid 3.7 mg/dL (2.5-6.2)
[2025-04-10 09:21] LABS: Cortisol AM (Before 10AM) 14.8 ug/dL (4.46-22.7)
[2025-04-10 09:23] LABS: TSH w/ Reflex to FT4 1.16 uIU/mL (0.47-4.68)
[2025-04-10 09:26] LABS: Microalbumi Creatinin Ratio Ur 5.0 ug/mg CR (<30)
[2025-04-11 10:11] LABS: Osmolality, Serum 284 mOsmol/kg (280-301)
== END ==
PROVIDERS: Family Provider Internal Medicine; PCP Internal Medicine; Referring Provider Student in an Organized Health Care Education/Training Program; Visit Provider Student in an Organized Health Care Education/Training Program
DX: R73.03 Prediabetes (principal)
CPT/HCPCS: 36415; 80053; 80061; 82043; 82533; 82570; 83036; 83930; 83935; 84300; 84443; 84550; 85025

== ENCOUNTER → 2025-04-16 10:19 | Outpatient (CLI) | payer MEDICARE, SELFPAY ==
--- NOTE | 2025-04-16 10:20 | DI.ECHO.S_ITS ---
[place] [facility]+ [facility] : : [id number] : [place] [address] : : [id number] : : Phone: [phone] Echocardiogram Report + + :Name: NATHAN SOARES Study Date: 04/16/2025 Height: 64 in : :[facility] ReadingLocation: Weight: 179 lb : : Gender: Female BSA: 1.9 m2 : :: 1955 Age: 69 yrs BP: 167/92 mmHg: :Reason For Study: SYSTOLIC MURMUR : :Ordering Physician: COREY PEREZ : :P D.OGianna Performed By: Amanda Myers : :Referring: COREY PEREZ P Griselda.O. : + + Interpretation Summary 1) Normal left ventricular thickness, size, wall motion, and systolic function (EF 60-65%). 2) Normal right ventricular size and function. 3) There is mild mitral regurgitation. 4) No prior Echo available for comparison. Procedure: A two-dimensional transthoracic echocardiogram with color flow and Doppler was performed. The study quality was technically adequate. There is no prior echocardiogram noted for this patient. The patient was in sinus bradycardia with heart rates between 56-63 bpm during the exam. Left Ventricle: The left ventricle is normal in size and wall thickness. The ejection fraction is estimated to be 60-65%. Left ventricular systolic function appears normal without focal wall motion abnormalities. Normal diastolic function. Right Ventricle: The right ventricle is normal in size and function. Atria: The left atrial size is normal. Right atrial size is normal. There is no Doppler evidence for an interatrial shunt. Mitral Valve: The mitral valve leaflets appear to open well. There is mild mitral regurgitation. Aortic Valve: The aortic valve is trileaflet. The aortic valve opens well. There is no aortic valve stenosis. No aortic regurgitation is present. Tricuspid Valve: The tricuspid valve leaflets are thin and pliable. There is trace tricuspid regurgitation. The right ventricular systolic pressure is estimated to be at least 25 mmHg based on an estimated right atrial pressure of 3 mm Hg. Pulmonic Valve: The pulmonic valve leaflets are thin and pliable; valve motion is normal. There is mild pulmonic regurgitation. Great Vessels: The aortic root is normal size. The dimensions of the ascending aorta are normal. The IVC is of normal diameter and collapses greater than 50% with a sniff. This suggests a low right atrial pressure of 3 mm Hg. Pericardium/ Pleura There is no pericardial effusion. There is no pleural effusion. MMode/2D Measurements & Calculations LVIDd: 4.6 cm LVOT diam: 2.0 cm LVIDs: 3.0 cm Ao root diam: 2.7 cm FS: 35.6 % asc Aorta Diam: 3.3 cm IVSd: 0.71 cm Ao Arch Diam (Prox Trans): 3.1 cm LVPWd: 0.78 cm LV muir. diameter/BSA (cm/m^2): 2.5 LV sys. diameter/BSA (cm/m^2): 1.6 LA A2 area: 17.6 cm2 RA long axis: 4.5 cm LA A4 area: 15.4 cm2 RA area: 12.1 cm2 LA length (vol): 5.2 cm RA vol: 27.9 ml LA vol: 44.4 ml RA : 14.9 ml/m2 LA vol index: 23.8 ml/m2 IVC diam: 2.0 cm RVD1 (basal): 3.3 cm RVD2 (mid): 3.1 cm TAPSE: 2.9 cm Doppler Measurements & Calculations Ao V2 max: 157.4 cm/sec LVOT Max Roney: 105.8 cm/sec Ao V2 mean: 110.4 cm/sec LV V1 max P.5 mmHg Ao max P.7 mmHg LV V1 VTI: 27.9 cm Ao mean P.6 mmHg LUCI(I,D): 2.2 cm2 Ao V2 VTI: 39.3 cm LUCI(V,D): 2.0 cm2 sev ratio: 0.71 LUCI indexed to BSA (cm^2/m^2): 1.2 MV E max roney: 92.4 cm/sec TR max roney: 231.9 cm/sec MV A max roney: 95.9 cm/sec TR max P.5 mmHg MV E/A: 0.96 PA V2 max: 98.0 cm/sec Med Peak E' Roney: 9.1 cm/sec PA V2 mean: 69.4 cm/sec E/E' med: 10.1 PA mean P.1 mmHg Lat Peak E' Roney: 9.1 cm/sec PA pr(Accel): 14.8 mmHg E/E' lat: 10.1 E/e' average: 10.1 MV dec time: 0.24 sec MVA(VTI): 2.5 cm2 MV V2 mean: 62.7 cm/sec SV(LVOT): 84.9 ml MV mean P.8 mmHg MV V2 VTI: 34.6 cm Reading Physician:03:26 PM
== END ==
PROVIDERS: PCP Student in an Organized Health Care Education/Training Program; Referring Provider Student in an Organized Health Care Education/Training Program; Visit Provider Student in an Organized Health Care Education/Training Program
DX: I34.0 Nonrheumatic mitral (valve) insufficiency (principal); R00.1 Bradycardia, unspecified; I37.1 Nonrheumatic pulmonary valve insufficiency; R01.1 Cardiac murmur, unspecified
CPT/HCPCS: 93306